=== PATIENT | male | born 1950 | race Caucasian/White ===

== ENCOUNTER 2020-01-13 12:56 | Outpatient (CLI) | payer MEDICARE, OTHER, SELFPAY ==
--- NOTE | ~2020-01-13 | XR_ITS ---
XR abdomen/kub 1V 01/13/2020 13:18 Indication: Malfunctioning peritoneal dialysis catheter Procedure: KUB Comparison: No prior studies for comparison. Findings: Bowel gas pattern is nonobstructive. Moderate colonic fecal loading. There is a peritoneal dialysis catheter in the pelvis. No definite catheter discontinuity. There is moderate-severe lumbar spondylosis. No acute osseous abnormality. Impression: 1: No acute abdominal abnormality. Reviewed, dictated and finalized at location A. Impression: 1: No acute abdominal abnormality.
== END 2020-01-13 12:57 | disposition home or self-care (01) ==
LOC: ANHIMG 13:02
PROVIDERS: PCP Internal Medicine; Visit Provider Internal Medicine Nephrology
DX: T85.691A Other mechanical complication of intraperitoneal dialysis catheter, initial encounter (principal)
CPT/HCPCS: 74018

== ENCOUNTER 2020-04-05 14:49 | Outpatient (CLI) | payer MEDICARE, OTHER, SELFPAY ==
--- NOTE | ~2020-04-05 | US_ITS ---
EXAMINATION: US retroperitoneal comp DATE: 04/05/2020 15:40 INDICATION: Chronic kidney disease stage V TECHNIQUE: Multiple grayscale and Doppler ultrasound images of the kidneys were obtained. COMPARISON: None. FINDINGS: The right kidney measures 9.9 x 5.5 x 5.6 cm. The left kidney measures 11.1 x 4.5 x 5.8 cm and contains a 1.5 cm cyst. The kidneys demonstrate increased parenchymal echogenicity. There is no h ydronephrosis. The bladder is normal. Incidental note is made of right upper quadrant ascites and cho lelithiasis. IMPRESSION: 1. Normal kidneys without hydronephrosis. 2. Incidentally noted right upper quadrant ascites and cholelithiasis. Reviewed, dictated and finalized at location A.
== END 2020-04-05 14:50 | disposition home or self-care (01) ==
PROVIDERS: PCP Internal Medicine; Visit Provider Internal Medicine Nephrology
DX: N18.6 End stage renal disease (principal)
CPT/HCPCS: 76770

== ENCOUNTER 2020-10-01 11:25 | Inpatient (IN) | payer MEDICARE, OTHER, SELFPAY ==
[2020-10-01] VITALS (22 sets, daily range): BP systolic 94–118; BP diastolic 66–90; PULSE 73–95; RESP 12–27; TEMP 36.6–36.9; O2SAT 87–100; BMI 31.0; BMI 36.1
--- NOTE | ~2020-10-01 | XR_ITS ---
EXAMINATION: XR abdomen/kub 1V DATE: 10/02/2020 17:22 INDICATION: Diabetes and renal dialysis. Possible constipation. TECHNIQUE: A supine view of the abdomen on 3 radiographs was obtained. COMPARISON: Chest radiograph dated 10/01/2020 FINDINGS: Small amount of gas and stool scattered throughout the colon. No dilated loops of gas-filled bowel to suggest obstruction. Peritoneal dialysis catheter coiled in the central pelvis. Severe lower lumbar spondylosis. Similar pattern of patchy airspace opacities. IMPRESSION: 1. Normal bowel gas pattern. 2. Unchanged patchy bilateral airspace disease consistent with pneumonia. Reviewed, dictated and finalized at location A. IER WASHER
--- NOTE | ~2020-10-01 | XR_ITS ---
XR chest 1V portable 10/01/2020 12:34 Indication: Shortness of breath and cough Procedure: AP portable chest Comparison: Comparison to multiple prior studies sequentially, with oldest reviewed study dated 11/12. Findings: There is patchy bilateral airspace disease, compatible with pneumonia. No pleural effusion or pneumothorax. No acute osseous abnormality. Impression: 1: Patchy bilateral airspace disease, compatible with pneumonia. Reviewed, dictated and finalized at location A. SANDER Impression: 1: Patchy bilateral airspace disease, compatible with pneumonia.
--- NOTE | 2020-10-01 11:39 | ECG_ITS ---
Measurements Intervals [place] Rate: 95 P: 5 OK: 169 QRS: 21 QRSD: 157 T: 5 QT: 410 QTc: 517 Interpretive Statements SINUS RHYTHM ATRIAL PREMATURE COMPLEXES RIGHT BUNDLE BRANCH BLOCK BASELINE ARTIFACT- I, II, III, AVR, AVL, AVF ABNORMAL ECG Electronically Signed On 10-01-2020 15:13:33 ADMINISTRATIVE SUPERVISOR by Willis Livingston D.O.
--- NOTE | 2020-10-01 11:59 | ED.SOB ---
HPI - SOB/Dyspnea General Chief Complaint: Shortness of Breath/Dyspnea <Essie Alvarado PA-C - Last Filed: 10/01/20 13:38> Stated Complaint: COVID symptoms <DALE Malin Last Filed: 10/01/20 13:38> Time Seen by Provider: 10/01/20 11:31 <DALE Malin Last Filed: 10/01/20 13:38> Source: patient <DALE Malin Last Filed: 10/01/20 13:38> Mode of arrival: wheelchair <DALE Malin Last Filed: 10/01/20 13:38> Limitations: no limitations <DALE Malin Last Filed: 10/01/20 13:38> History of Present Illness HPI Narrative: This is a 70 year old male that presents to the ER for generalized weakness x 1.5 weeks. Associated with cough, congestion, nausea, and loss of sense of taste/smell. Reports his son recently was diagnosed with covid. Reports he did have a rapid covid test the other day that was negative. Does report some mild shortness of breath. Reports he does peritoneal dialysis nightly, but was unable to last night as he just moved and could not find his equipment. His medical office clerk is Dr. Valdez. Denies fever, chest pain, or lower extremity edema. <DALE Malin Last Filed: 10/01/20 13:38> Related Data Home Medications: Home Medications Medication Instructions Recorded Confirmed cholecalciferol (vitamin D3) 50 2,000 unit PO DAILY 08/11/19 10/08/20 mcg (2,000 unit) tablet mirtazapine 15 mg tablet 15 mg PO QPM tablet 03/29/20 10/08/20 pravastatin 10 mg tablet 10 mg PO QPM tablet 03/29/20 10/08/20 losartan 100 mg tablet 50 mg PO DAILY tablet 07/18/20 10/08/20 tamsulosin 0.4 mg capsule 0.4 mg PO DAILY 07/18/20 10/08/20 omeprazole 20 mg PO DAILY 10/01/20 10/08/20 <DALE Malin Filed: 10/01/20 13:38> Allergies/Adverse Reactions: Allergies Allergy/AdvReac Type Severity Reaction Status Date / Time No Known Allergies Allergy Unverified 10/08/20 15:37 <Essie Alvarado PA-C - Last Filed: 10/01/20 13:38> Review of Systems Review of Systems: Narrative: CONSTITUTIONAL: Denies fever ENT: Reports congestion CARDIOVASCULAR: Denies chest pain, or edema. RESPIRATORY: Reports cough and dyspnea. GASTROINTESTINAL: Reports nausea. Denies abdominal pain, vomiting, or diarrhea. NEUROLOGIC: Reports generalized weakness. 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 He still receives eye injections in his right eye. 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
[2020-10-01 12:02] LABS: Basophils Percent Auto 0.2 % (0.2-1.2); Eosinophils Percent Auto 0.5 % (0-4.4); Hematocrit 30.6 % (42.0-52.0); Hemoglobin 10.8 g/dL (14.0-18.0); Immature Granulocyte Absolute 0.02 K/mm3 (0.00-0.031); Immature Granulocyte Percent A 0.3 % (0-0.5); Lymphocytes Absolute Auto 1.54 K/mm3 (0.9-3.2); Mean Corpuscular HGB Conc 35.3 g/dl (32-36); Mean Corpuscular Hemoglobin 29.5 pg (26-34); Mean Corpuscular Volume 83.6 fl (80-100); Mean Platelet Volume 10.4 fl (7.4-10.4); Monocytes Absolute Auto 0.5 K/mm3 (0.1-0.6); Monocytes Percent Auto 7.3 % (2.6-8.5); Neutrophils Absolute Auto 4.4 K/mm3 (1.3-6.7); Neutrophils Percent Auto 67.7 % (45.5-73.1); Platelet Count Result 255 k/mm3 (150-375); Red Blood Count 3.66 M/mm3 (4.6-6.20); Red Cell Distribution Width 14.1 % (11.5-14.5); White Blood Count 6.4 K/mm3 (4.5-10.0)
[2020-10-01 12:12] LABS: Prothrombin Time 13.8 Seconds (11.1-14.7)
[2020-10-01 12:13] LABS: Partial Thromboplastin Time 35.7 SECONDS (22.3-36.8)
--- NOTE | 2020-10-01 12:15 | PC.NURSE ---
flu swab and covid swab done at bedside. on flight dynamicist. has call light in hand. patient updated on current treatment plan. on 2L NC O2. denies needs at this time.
[2020-10-01 12:18] LABS: Alanine Aminotransferase 38 U/L (4-50); Albumin Level 3.7 g/dL (3.5-5.1); Alkaline Phosphatase 54 U/L (38-126); Anion Gap 15 mmol/L (8-16); Aspartate Amino Transferase 45 U/L (17-59); Bilirubin,Total 0.7 mg/dL (0.2-1.3); Blood Urea Nitrogen 77 mg/dL (9-20); CRP 4.6 mg/dL (<1.0); Calcium 7.8 mg/dL (8.4-10.2); Carbon Dioxide 26 mmol/L (22-30); Chloride 90 mmol/L (98-107); Estimated CRCL calculation 6 ml/min; Estimated Glomerular Filt Rate 4; Glucose 139 mg/dL (75-110); Lactate Dehydrogenase 802 U/L (313-618); Potassium 3.5 mmol/L (3.4-5.0); Sodium 131 mmol/L (137-145)
[2020-10-01 12:24] LABS: NT Pro B Type Natriuretic Pept 2770 PG/ML (5-100)
[2020-10-01] MEDS: DEXAMETHASONE SOD PHOS INJ 4 MG/ML VIAL 6 MG IV PUSH (13:10)
--- NOTE | 2020-10-01 14:25 | PC.NURSE ---
report given to RN on 3rd floor. patient will be transferred to room 300 via stretcher with youth nutritional monitor and O2.patient has clothing and his binder with his peritoneal dialysis instructions. all sent with patient.
[2020-10-01 14:34] LABS: Ferritin > 2000.00 ng/mL (11.1-264)
--- NOTE | 2020-10-01 15:19 | PM.CNNEP ---
Assessment and Plan Assessment and plan (1) End stage renal disease: Code(s): N18.6 - End stage renal disease Status: Chronic Assessment and Plan: resume CCPD tonight since extraneal PD fluid unable here at [place], will add another exchange with cycler and increase time follow electrolytes, volume status, and clearance (2) Person under investigation for COVID-19: Code(s): Z20.822 - Contact with and (suspected) exposure to COVID-19 Status: Acute Assessment and Plan: noted exposure but previous testing negative repeat testing done in ER (3) Pneumonia: Qualifiers: Laterality: bilateral Lung location: unspecified part of lung Pneumonia type: due to unspecified organism Qualified Code(s): J18.9 - Pneumonia, unspecified organism Code(s): J18.9 - Pneumonia, unspecified organism Status: Acute Assessment and Plan: bacterial versus secondary to COVID-19?? supplemental oxygen follow respiratory status (4) Hypertension: Code(s): I10 - Essential (primary) hypertension Status: Chronic Assessment and Plan: reasonable control at this time follow trend of parameters (5) Anemia: Code(s): D64.9 - Anemia, unspecified Status: Chronic Assessment and Plan: follow trend of H/H start Epogen (6) Diabetes: Code(s): E11.9 - Type 2 diabetes mellitus without complications Status: Chronic Assessment and Plan: follow accuchecks resume home medications and SSI Will continue to follow. History of Present Illness Reason for Consult Consult date: 10/01/20 Reason for consult: end stage renal disease Chief Complaint Chief complaint: Coronavirus PUI,Pneumonia,Acute Resp Failure w/hyp History of Present Illness Narrative: The patient is a 70 year old male with a past medical history as outlined below who presented to [facility] ER with complaints of generalized weakness. The patient states that the weakness started about a week and half ago and was associated with symptoms of cough, congestion, nausea, as well as loss of sense of taste/smell. Apparently, he reports that his son was recently diagnosed with COVID-19 which was concerning to him. However, he did a rapid COVID test the day before last and was reported to be negative. In spite of this, the weakness has persisted and now he has developed some mild shortness of breath as well. He gave no symptoms with regard to overt fevers, chills worsening swelling/ edema, chest pain, nausea, or vomiting. Given the persistence of the weakness and the other associated symptoms, he came to the ER for further evaluation. Workup and evaluation emergency room demonstrated the patient to be hemodynamically stable but he was noted to be hypoxic on room air. With application of supplemental oxygen, his oxygen saturations improved significantly. Routine blood test demonstrated labs consistent with his known history of end-stage renal disease with no critical electrolyte abnormalities but his chest x-ray showed evidence of pneumonia. Given his it COVID-19 exposure there was concern that his hypoxia and chest x-ray findings may be early signs/symptoms of COVID-19 pneumonia. He was swabbed for COVID-19, started on Decadron, and subsequent admitted to the hospital for further evaluation and therapy. Renal consultation was requested due to his end-stage renal disease. The patient does nightly peritoneal dialysis under care of Dr. Osiel Valdez through [facility]. He has been on dialysis for a little less than a year and has been doing reasonably well although he does require the use of extra Dinesh peritoneal dialysis fluid to achieve adequate clearance and prevent absorption of the peritoneal fluid. Yesterday evening before he presented to the emergency room he was unable to do his peritoneal dialysis treatment as he is in the process of movi
--- NOTE | 2020-10-01 15:21 | PC.NURSE ---
This patient, Zachery Gray, was admitted to [facility] Surg Room 300-01. Patient/family oriented to hospital policies and general routines including ID bracelet, bed and alarms, visiting hours, pain management, procedures, bathroom and other care routines, personal items, smoking policy, room service/diet, and visiting hours. Information on how to activate the Rapid Response Team has been discussed. Patient/Family are encouraged to report perceived risks to care and to ask questions if they do not understand what they are told or what they should do. This patient, Zachery Gray, was admitted to 3 [facility] Surg Room 300-01. Patient/family oriented to hospital policies and general routines including ID bracelet, bed and alarms, visiting hours, pain management, procedures, bathroom and other care routines, personal items, smoking policy, room service/diet, and visiting hours. Information on how to activate the Rapid Response Team has been discussed. Patient/Family are encouraged to report perceived risks to care and to ask questions if they do not understand what they are told or what they should do.
--- NOTE | 2020-10-01 17:10 | PM.IMHP ---
H&P: HPI History of Present Illness Date/Time: 10/01/20 17:10 Chief Complaint: Shortness of breath Narrative: Zachery Gray is a 70 year old male Who came to the emergency room due to generalized weakness for at least the last get a half. He has had a cough and some congestion nausea loss of sense of taste and smell. The son that lives with them recently was diagnosed with COVID. The patient did have a rapid COVID test approximately 2-3 days ago and was found to be negative. The patient has been more short of. The patient has peritoneal dialysis nightly patient was unable to do the dialysis last night because he was unable to find his equipment due to recent move. they are express clerk has been consulted. He sees Dr. Valdez. Decadron was started. Patient is outside the window for antiviral.ekg is sinus rythm. He started peritoneal dialysis on December 04, 2019. the patient is being checked for COVID-19. patient is being admitted to inpatient service on the date of service 10/01/2020. Review of Systems Review of Systems: All systems reviewed & are unremarkable except as noted in HPI and below Constitutional: Constitutional: Reports as per HPI and Reports no additional constitutional complaints Eyes: Eyes: Reports as per HPI and Reports no additional eye complaints ENT: Reports system reviewed and no additional complaints, except as documented and Reports Normal hearing present Cardiovascular: Cardiovascular: Reports no additional cardiovascular complaints Respiratory: Respiratory: Reports no additional respiratory complaints and Reports no additional respiratory complaints Gastrointestinal: Gastrointestinal: Reports as per HPI and Reports no additional gastrointestinal complaints Musculoskeletal: Musculoskeletal: Reports no additional musculoskeletal complaints Integumentary/Breasts: Skin/Breast: Reports system reviewed and no additional complaints, except as docu and Reports as per HPI Neurologic: Reports system reviewed and no additional complaints, except as documented, Reports as per HPI and Reports Normal hearing present Psychiatric: Psychiatric: Reports no additional psychiatric complaints and Reports as per HPI Endocrine: Endocrine: Reports no additional endocrine complaints Hematologic/Lymphatic: Hematologic/Lymphatic: Reports no additional hematologic/lymphatic complaints Allergic/Immunologic: Allergic/Immunologic: Reports no additional allergic/immunologic complaints [facility] Past Medical History Medical History (Updated 10/01/20 @ 17:28 by Elisha Meza NP) Back pain Complete loss of vision Dependence on renal dialysis Diabetic peripheral neuropathy Encounter for peritoneal dialysis catheter insertion March of 2020 Essential hypertension Hyperlipidemia, unspecified Hypertension Hypothyroidism, unspecified Obesity Retinopathy of left eye Type 2 diabetes mellitus with hyperglycemia Surgical History Surgical History (Updated 10/01/20 @ 17:28 by Elisha Meza NP) H/O eye surgery left eye multiple 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 The patient has 3 sons. Patient became disabled with his diabetes and his end-stage renal disease. Patient's is the durable power criminal attorney for healthcare. The patient desires to be a full code. Patient is a lifelong nonsmoker. Does not drink or use illicit drugs. Smoking status: Never smoker Alcohol intake: former Substance use: never Gender identity (if verbalized by the patient): Male Spiritual care concerns:
[2020-10-01 17:28] LABS: Glucose Point of Care 192 (65-105)
[2020-10-01 17:52] LABS: Hemoglobin A1C 10.8 % (<5.7)
[2020-10-01] MEDS: PRAVASTATIN SODIUM 10 MG TABLET PO (18:26)
[2020-10-01] MEDS: MIRTAZAPINE 15 MG TABLET PO (18:27)
[2020-10-01] MEDS: FUROSEMIDE 80 MG TABLET PO (18:27)
[2020-10-01 21:42] LABS: Glucose Point of Care 292 (65-105)
[2020-10-01 21:50] LABS: SARS-CoV-2 RNA PCR Positive
[2020-10-02] VITALS (8 sets, daily range): BP systolic 104–178; BP diastolic 55–89; PULSE 71–88; RESP 16–20; TEMP 36.2–37.1; O2SAT 89–93
--- NOTE | 2020-10-02 01:30 | PC.NURSE ---
0015.. This RN responded to room for peritoneal dialysis in patients room sounding an alarm. LOW DRAIN VOLUME . Call made to director of operations support dialysis nurse, Jaiden. Jaiden stated that this RN should call TERE Stoddard for assisted. Number provided straight to voicemail. Called Jaiden back and requested her to come in to assist. 0100.. rafael Hwang RN at bedside troubleshooting machine. Unable to stop error. Machine stated drain 2 of 4 complete. TERE Hwang informs this RN that she is removing patient from dialysis at this time due to not being able to stop error. Patient resting comfortably, no c/o pain or shortness of breath.
[2020-10-02 06:33] LABS: Hematocrit 26.9 % (42.0-52.0); Hemoglobin 9.4 g/dL (14.0-18.0); Immature Granulocyte Absolute 0.01 K/mm3 (0.00-0.031); Immature Granulocyte Percent A 0.6 % (0-0.5); Lymphocytes Absolute Auto 0.69 K/mm3 (0.9-3.2); Lymphocytes Percent Auto 38.5 % (18.3-44.2); Mean Corpuscular HGB Conc 34.9 g/dl (32-36); Mean Corpuscular Hemoglobin 28.7 pg (26-34); Mean Platelet Volume 10.9 fl (7.4-10.4); Monocytes Absolute Auto 0.2 K/mm3 (0.1-0.6); Monocytes Percent Auto 8.4 % (2.6-8.5); Neutrophils Absolute Auto 0.9 K/mm3 (1.3-6.7); Neutrophils Percent Auto 52.5 % (45.5-73.1); Platelet Count Result 248 k/mm3 (150-375); Red Blood Count 3.28 M/mm3 (4.6-6.20); Red Cell Distribution Width 13.8 % (11.5-14.5)
[2020-10-02 06:36] LABS: White Blood Count 1.8 K/mm3 (4.5-10.0)
[2020-10-02 06:48] LABS: Alanine Aminotransferase 31 U/L (4-50); Alkaline Phosphatase 48 U/L (38-126); Anion Gap 13 mmol/L (8-16); Aspartate Amino Transferase 33 U/L (17-59); Bilirubin,Total 0.6 mg/dL (0.2-1.3); Blood Urea Nitrogen 87 mg/dL (9-20); Calcium 7.5 mg/dL (8.4-10.2); Carbon Dioxide 25 mmol/L (22-30); Chloride 88 mmol/L (98-107); Estimated CRCL calculation 6 ml/min; Estimated Glomerular Filt Rate 4; Glucose 414 mg/dL (75-110); Lipase 69 U/L (23-300); Magnesium 1.8 mg/dL (1.6-2.3); Potassium 3.8 mmol/L (3.4-5.0); Sodium 126 mmol/L (137-145)
[2020-10-02 08:14] LABS: Thyroid Stimulating Hormone Reflex 0.603 uIU/mL (0.465-4.68)
[2020-10-02 08:23] LABS: Glucose Point of Care 404 (65-105)
[2020-10-02] MEDS: INSULIN ASPART (*BKC) 100 UNITS/ML SUB-Q ×2 (08:31→18:02)
[2020-10-02] MEDS: FUROSEMIDE 80 MG TABLET PO (08:34)
[2020-10-02] MEDS: LEVOTHYROXINE SODIUM 50 MCG TABLET PO (08:35)
[2020-10-02] MEDS: TAMSULOSIN HCL 0.4 MG CAPSULE PO (08:35)
[2020-10-02] MEDS: PANTOPRAZOLE 40 MG TABLET PO (08:35)
[2020-10-02] MEDS: LOSARTAN POTASSIUM 50 MG TABLET PO (08:35)
[2020-10-02] MEDS: DEXAMETHASONE SOD PHOS INJ 4 MG/ML VIAL 6 MG IV PUSH (08:35)
[2020-10-02] MEDS: INSULIN HUMAN ISOPHAN/REGULAR 70/30 (*BKC) 100 UNITS/ML 30 UNITS SUB-Q (08:47)
--- NOTE | 2020-10-02 11:59 | PM.PNNEP ---
Progress Note: A&P Assessment and Plan (1) End stage renal disease: Code(s): N18.6 - End stage renal disease Status: Chronic Assessment and Plan: continue CCPD tonight since extraneal PD fluid unable here at [place], will add another exchange with cycler and increase time follow electrolytes, volume status, and clearance (2) Pneumonia due to COVID-19 virus: Code(s): U07.1 - COVID-19; J12.82 - Pneumonia due to coronavirus disease 2019 Status: Acute Assessment and Plan: testing positive on steroids outside window for remdesivir and convalescent plasma supplemental oxygen follow inflammatory markers (3) Hypertension: Code(s): I10 - Essential (primary) hypertension Status: Chronic Assessment and Plan: reasonable control at this time follow trend of parameters (4) Anemia: Code(s): D64.9 - Anemia, unspecified Status: Chronic Assessment and Plan: follow trend of H/H start Epogen therapy (5) Diabetes: Code(s): E11.9 - Type 2 diabetes mellitus without complications Status: Chronic Assessment and Plan: follow accuchecks resume home medications and SSI Will continue to follow. Subjective Date/time seen: 10/02/20 11:59 Tolerated PD treatment last night although has some low UF alarms -- respiratory status seems stable; no apparent distress voiced at the time of my visit; no other acute issues or complaints to report. Exam Narrative: Exam Narrative: General: WD/WN male in NAD Heart: normal S1 and S2; no rub Lungs: coarse breath sounds Abdomen: soft, nontender, nondistended, positive bowel sounds Extremities: no cyanosis or clubbing; trace edema Skin: warm and dry Objective Data Vital Signs Vital Signs: Vital Signs Temp Pulse Resp BP Pulse Ox 10/02/20 08:00 36.3 C L 75 18 120/66 89 L 10/02/20 04:00 36.2 C L 81 16 116/86 90 10/02/20 02:30 36.5 C 88 20 114/81 10/02/20 00:00 36.5 C 85 20 114/81 93 10/01/20 20:00 36.6 C 88 20 114/74 91 10/01/20 17:45 36.9 C 89 20 110/66 10/01/20 16:30 89 20 97 10/01/20 16:00 36.9 C 89 20 110/66 97 Intake/Output Intake/Output: Intake & Output 09/29/20 09/30/20 10/01/20 10/02/20 23:59 23:59 23:59 23:59 Intake Total 300 600 Output Total 359 Balance 300 241 Meds/Results Medications: Active Medications Generic Name Dose Route Start Last Admin Trade Name Freq PRN Reason Stop Dose Admin Acetaminophen 650 mg 10/02/20 13:19 Acetaminophen 325 Mg Tablet PO Q6H PRN Mild Pain (1-3) or Fever Albuterol 2 puff 10/02/20 13:19 Albuterol Sulfate (*Sp) Aerosol 1 Puff INHALATION Q6HRT PRN Shortness Of Breath Dexamethasone Sodium Phosphate 6 mg 10/02/20 09:00 10/02/20 08:35 Dexamethasone Sod Phos Inj 4 Mg/Ml Vial IV PUSH 10/11/20 09:01 6 mg DAILY SUKH Administration Dextrose 12.5 gm 10/01/20 17:25 Dextrose 50% 25 Gm/50 Ml Syringe IV PUSH PRN PRN Hypoglycemia Protocol Furosemide 80 mg 10/01/20 17:00 10/02/20 08:34 Furosemide 80 Mg Tablet PO 80 mg BID SUKH Administration Glucagon 1 mg 10/01/20 17:25 Glucagon For Inj 1 Mg Vial IM PRN PRN Hypoglycemia Protocol Glucose 15 gm 10/01/20 17:25 Glucose Oral Gel 15 Gm Of Glucse In 37.5 Gm Tube PO PRN PRN Hypoglycemia Protocol Guaifenesin/Dextromethorphan 10 ml 10/02/20 13:06 Guaifenesin/Dextromethorphan 10 Ml Udc PO Q4H PRN Cough Dextrose 1,000 mls @ 100 mls/hr 10/01/20 17:25 Dextrose 5% 1,000 Ml IVPB PRN PRN Hypoglycemia Protocol Insulin Aspart 4 - 8 units 10/02/20 17:00 Insulin Aspart (*Bkc) 100 Units/Ml SUB-Q TIDWM SUKH Protocol Insulin Human Isoph/Insulin Regular 40 units 10/02/20 17:00 Insulin Human Isophan/Regular 70/30 (*Bkc) 100 Units/Ml SUB-Q BID SUKH Levothyroxine Sodium
[2020-10-02] MEDS: INSULIN ASPART (*BKC) 100 UNITS/ML 12 UNITS SUB-Q (12:21)
[2020-10-02] MEDS: CHOLECALCIFEROL 1,000 UNITS TABLET 2000 UNITS PO (12:23)
[2020-10-02] MEDS: INSULIN ASPART (*BKC) 100 UNITS/ML 8 UNITS SUB-Q (12:36)
[2020-10-02 12:40] LABS: Glucose Point of Care 477 (65-105)
--- NOTE | 2020-10-02 12:55 | PM.IMPN ---
Progress Note: A&P Assessment and Plan (1) Pneumonia due to COVID-19 virus: Code(s): U07.1 - COVID-19; J12.82 - Pneumonia due to coronavirus disease 2019 Status: Acute Assessment and Plan: CXR suggestive of pneumonia. symptoms started roughly 1.5 weeks prior to admission. Started on decadron on arrival; outside window for remdesivir Continue IV decadron day #2 Continue supportive care; robitussin, tylenol, albuterol PRN Supplemental O2; wean as tolerated. Consider Home O2 eval if no improvement Monitor closely (2) Acute respiratory failure with hypoxia: Code(s): J96.01 - Acute respiratory failure with hypoxia Status: Acute Assessment and Plan: Fluid overload vs 2/2 COVID pneumonia although patient still requiring 2L O2 via NC. The patient missed his peritoneal dialysis prior to arrival, but resumed here in hospital on 10/01. COVID test is positive; he has been started on IV decadron - he is outside window for Remdesivir. CXR suggests pneumonia. Clinically patient is about the same as yesterday Wean O2 as tolerated Continue treatment for COVID pneumonia as above Continue peritoneal dialysis; appreciate Nephrology recommendations Monitor (3) ESRD on peritoneal dialysis: Code(s): N18.6 - End stage renal disease; Z99.2 - Dependence on renal dialysis Status: Acute Assessment and Plan: Patient missed dialysis prior to arrival; resumed 10/01. According to the notes the patient recently moved and cannot find his dialysis equipment. Patient states he has not been making any urine for some time now. He does daily peritoneal dialysis Dr. Wilkinson has been consulted and appreciate recommendations Continue Nephrology recommendations Lasix has been held given he is anuric Monitor Await further rec from Neprhology (4) Type 2 diabetes mellitus with hyperglycemia: Code(s): E11.65 - Type 2 diabetes mellitus with hyperglycemia Status: Acute Assessment and Plan: Poorly controlled. A1c 10.8% this stay; similar to last Endo visit in 07/2020. Patient has been running in 400s, likely secondary to peritoneal dialysis fluid and steroid therapy. No anion gap this morning to suggest DKA. Patient asymptomatic. He notes his sugar frequently drifts into the 400s at home, as well. Follows Endocrinology Will do 40 u BID of his home 70/30 mix BID Accuchecks ACHS, hypoglycemia protocol, high dose correctional insulin, diabetic/renal diet Monitor closely Adjust insulin as necessary (5) Hypothyroidism, unspecified: Code(s): E03.9 - Hypothyroidism, unspecified Status: Chronic Assessment and Plan: TSH WNL Continue with home levothyroxine (6) Hypertension: Code(s): I10 - Essential (primary) hypertension Status: Acute Assessment and Plan: BP reasonable, but a bit soft. 100s sys most recently Continue with home losartan (7) Hyperlipidemia, unspecified: Code(s): E78.5 - Hyperlipidemia, unspecified Status: Acute Assessment and Plan: Continue with pravastatin. Subjective Date/time seen: 10/02/20 12:55 Interval history: Patient is a 70 yo M with history of poorly controlled DMII, ESRD on peritoneal dialysis, HTN, and hypothyroidism who is seen in follow up for COVID pneumonia with acute respiratory failure with hypoxia. He states his symptoms started 1.5 weeks ago. He is minimally short of breath when he is not up and active. His cough is about the same; dry. No issues with peritoneal catheter. He states he is not making any urine for some time now. No other complaints. Denies f/c/s,headaches, dizziness, lightheadedness, cp/palpitations, n/v/d/c, abd pain, changes in
[2020-10-02 13:40] LABS: Glucose Point of Care 445 (65-105)
[2020-10-02] MEDS: INSULIN ASPART (*BKC) 100 UNITS/ML 20 UNITS SUB-Q (13:52)
[2020-10-02 17:33] LABS: Glucose Point of Care 258 (65-105)
[2020-10-02] MEDS: INSULIN HUMAN ISOPHAN/REGULAR 70/30 (*BKC) 100 UNITS/ML 40 UNITS SUB-Q (18:00)
[2020-10-02] MEDS: LACTULOSE 20 GM/30 ML UDC PO (18:04)
[2020-10-02] MEDS: MIRTAZAPINE 15 MG TABLET PO (18:04)
[2020-10-02] MEDS: PRAVASTATIN SODIUM 10 MG TABLET PO (18:04)
[2020-10-02] MEDS: guaiFENesin/DEXTROMETHORPHAN 10 ML UDC PO (18:11)
[2020-10-02 21:28] LABS: Glucose Point of Care 208 (65-105)
[2020-10-03] VITALS (9 sets, daily range): BP systolic 99–134; BP diastolic 59–97; PULSE 67–120; RESP 16–20; TEMP 36.2–36.7; O2SAT 95–100
[2020-10-03] MEDS: LEVOTHYROXINE SODIUM 50 MCG TABLET PO (05:40)
[2020-10-03 06:23] LABS: Hematocrit 27.1 % (42.0-52.0); Hemoglobin 9.6 g/dL (14.0-18.0); Immature Granulocyte Absolute 0.02 K/mm3 (0.00-0.031); Immature Granulocyte Percent A 0.3 % (0-0.5); Lymphocytes Absolute Auto 0.78 K/mm3 (0.9-3.2); Lymphocytes Percent Auto 10.4 % (18.3-44.2); Mean Corpuscular HGB Conc 35.4 g/dl (32-36); Mean Corpuscular Hemoglobin 28.5 pg (26-34); Mean Corpuscular Volume 80.4 fl (80-100); Mean Platelet Volume 10.3 fl (7.4-10.4); Monocytes Absolute Auto 0.4 K/mm3 (0.1-0.6); Monocytes Percent Auto 5.9 % (2.6-8.5); Neutrophils Absolute Auto 6.3 K/mm3 (1.3-6.7); Neutrophils Percent Auto 83.4 % (45.5-73.1); Platelet Count Result 266 k/mm3 (150-375); Red Blood Count 3.37 M/mm3 (4.6-6.20); Red Cell Distribution Width 13.7 % (11.5-14.5); White Blood Count 7.5 K/mm3 (4.5-10.0)
[2020-10-03 06:40] LABS: Alanine Aminotransferase 33 U/L (4-50); Alkaline Phosphatase 48 U/L (38-126); Anion Gap 14 mmol/L (8-16); Aspartate Amino Transferase 37 U/L (17-59); Bilirubin,Total 0.5 mg/dL (0.2-1.3); Blood Urea Nitrogen 102 mg/dL (9-20); CRP 2.6 mg/dL (<1.0); Calcium 7.5 mg/dL (8.4-10.2); Carbon Dioxide 24 mmol/L (22-30); Chloride 90 mmol/L (98-107); Estimated CRCL calculation 6 ml/min; Estimated Glomerular Filt Rate 4; Glucose 182 mg/dL (75-110); Lactate Dehydrogenase 620 U/L (313-618); Potassium 3.5 mmol/L (3.4-5.0); Sodium 128 mmol/L (137-145)
[2020-10-03 07:59] LABS: Ferritin > 2000.00 ng/mL (11.1-264)
[2020-10-03] MEDS: DEXAMETHASONE SOD PHOS INJ 4 MG/ML VIAL 6 MG IV PUSH (09:07)
[2020-10-03] MEDS: INSULIN HUMAN ISOPHAN/REGULAR 70/30 (*BKC) 100 UNITS/ML 40 UNITS SUB-Q ×2 (09:08→16:55)
[2020-10-03] MEDS: LACTULOSE 20 GM/30 ML UDC PO ×2 (09:08→16:52)
[2020-10-03] MEDS: guaiFENesin/DEXTROMETHORPHAN 10 ML UDC PO (09:08)
[2020-10-03] MEDS: polyethylene glycoL 3350 17 GM POWD.PACK PO (09:09)
[2020-10-03] MEDS: CHOLECALCIFEROL 1,000 UNITS TABLET 2000 UNITS PO (09:10)
[2020-10-03] MEDS: LOSARTAN POTASSIUM 50 MG TABLET PO (09:10)
[2020-10-03] MEDS: PANTOPRAZOLE 40 MG TABLET PO (09:10)
[2020-10-03] MEDS: TAMSULOSIN HCL 0.4 MG CAPSULE PO (09:10)
[2020-10-03 09:56] LABS: Glucose Point of Care 176 (65-105)
--- NOTE | 2020-10-03 12:38 | PM.IMPN ---
Progress Note: A&P Assessment and Plan (1) Pneumonia due to COVID-19 virus: Code(s): U07.1 - COVID-19; J12.82 - Pneumonia due to coronavirus disease 2018 Status: Acute Assessment and Plan: CXR suggestive of pneumonia. symptoms started roughly 1.5 weeks prior to admission. Started on decadron on arrival; outside window for remdesivir Continue IV Decadron day #3 Continue supportive care; Robitussin, Tylenol, albuterol PRN Supplemental O2; wean as tolerated. Consider Home O2 eval if no improvement Monitor closely (2) Acute respiratory failure with hypoxia: Code(s): J96.01 - Acute respiratory failure with hypoxia Status: Acute Assessment and Plan: Fluid overload vs 2/2 COVID pneumonia or combination there of; patient still requiring 2L O2 via NC. The patient missed his peritoneal dialysis prior to arrival, but resumed here in hospital on 10/01; patient tells me that he has not had a full treatment the past 2 nights due to issues with the catheter/machine. COVID test is positive; he has been started on IV Decadron - he is outside window for Remdesivir. CXR suggests pneumonia. Clinically patient is about the same as yesterday Wean O2 as tolerated Continue treatment for COVID pneumonia as above Continue peritoneal dialysis; appreciate Nephrology recommendations Monitor (3) ESRD on peritoneal dialysis: Code(s): N18.6 - End stage renal disease; Z99.2 - Dependence on renal dialysis Status: Acute Assessment and Plan: Patient missed dialysis prior to arrival; resumed 10/01 patient tells me that he has not had a full treatment the past 2 nights due to issues with the catheter/machine. According to the notes the patient recently moved and cannot find his dialysis equipment at home. Patient now says he does typically make urine, but has not done so in the past couple of days; bladder scan today showed 80 ccs. Elvisix originally held made it seem as he had not urinated in several weeks-months, which is not the case; this has been resumed. He does daily peritoneal dialysis Dr. Valdez has been consulted and appreciate recommendations Continue Nephrology recommendations Oumar resumed Laxatives ordered per Nephrology due to issues with his peritoneal dialysis the past couple of nights Monitor Await further rec from Nephrology (4) Type 2 diabetes mellitus with hyperglycemia: Code(s): E11.65 - Type 2 diabetes mellitus with hyperglycemia Status: Acute Assessment and Plan: Poorly controlled. A1c 10.8% this stay; similar to last Endo visit in 07/2020. Patient sugars are labile this stay and have been elevated in the 400s likely secondary to peritoneal dialysis fluid and steroid therapy. No anion gap this morning to suggest DKA. Patient asymptomatic. He notes his sugar frequently drifts into the 400s at home, as well. Follows Endocrinology Will do 40 u BID of his home 70/30 mix BID Accuchecks ACHS, hypoglycemia protocol, high dose correctional insulin, diabetic/renal diet Monitor closely Adjust insulin as necessary; consider adding meal time bolus on top of correctional insulin (5) Hypothyroidism, unspecified: Code(s): E03.9 - Hypothyroidism, unspecified Status: Chronic Assessment and Plan: TSH WNL Continue with home levothyroxine (6) Hypertension: Code(s): I10 - Essential (primary) hypertension Status: Chronic Assessment and Plan: BP reasonable, but a bit soft. 110s sys most recently Continue with home losartan (7) Hyperlipidemia, unspecified: Code(s): E78.5 - Hyperlipidemia, unspecified Status: Acute Assessment and Plan: Continue with pravastatin. [facility]
[2020-10-03] MEDS: INSULIN ASPART (*BKC) 100 UNITS/ML SUB-Q (12:39)
[2020-10-03] MEDS: EPOETIN ALFA-EPBX 10,000 UNITS/ML VIAL 10000 UNITS SUB-Q (12:40)
[2020-10-03 13:05] LABS: Glucose Point of Care 315 (65-105)
--- NOTE | 2020-10-03 15:30 | PM.PNNEP ---
Progress Note: A&P Assessment and Plan (1) End stage renal disease: Code(s): N18.6 - End stage renal disease Status: Chronic Assessment and Plan: continue CCPD tonight Catheter did not work well yesterday but should work tonight since he had bowel movements. He has had constipation induced catheter malfunction in the past. (2) Pneumonia due to COVID-19 virus: Code(s): U07.1 - COVID-19; J12.82 - Pneumonia due to coronavirus disease 2018 Status: Acute Assessment and Plan: testing positive on steroids outside window for remdesivir and convalescent plasma supplemental oxygen follow inflammatory markers (3) Hypertension: Code(s): I10 - Essential (primary) hypertension Status: Chronic Assessment and Plan: reasonable control at this time follow trend of parameters (4) Anemia: Code(s): D64.9 - Anemia, unspecified Status: Chronic Assessment and Plan: follow trend of H/H On Epogen. (5) Diabetes: Code(s): E11.9 - Type 2 diabetes mellitus without complications Status: Chronic Assessment and Plan: follow accuchecks resume home medications and SSI Subjective Date/time seen: 10/03/20 15:30 Interval history: On dialysis and tolerating it well. Seen at 3:00 p.m. The catheter did not work very well last night. He received some MiraLax and lactulose this morning and he has had 2 large bowel movements. Hopefully it will work better tonight. Exam Narrative: Exam Narrative: General: WD/WN male in NAD Heart: normal S1 and S2; no rub Lungs: coarse breath sounds Abdomen: soft, nontender, nondistended, positive bowel sounds Extremities: no cyanosis or clubbing; trace edema Skin: No rash Objective Data Vital Signs Vital Signs: Vital Signs - 24 hr 10/02/20 16:00 10/02/20 20:00 10/02/20 20:40 Temperature 36.3 C L 37.1 C 36.3 C L Pulse Rate 72 82 72 Respiratory Rate 16 20 16 Blood Pressure 107/59 L 178/89 H 107/59 L Pulse Oximetry 91 91 10/03/20 00:00 10/03/20 03:25 10/03/20 04:00 Temperature 36.5 C 36.5 C 36.7 C Pulse Rate 106 H 106 H 120 H Respiratory Rate 20 20 18 Blood Pressure 99/59 L 99/59 L 111/65 Pulse Oximetry 95 95 10/03/20 08:00 10/03/20 12:00 Temperature 36.5 C 36.5 C Pulse Rate 67 67 Respiratory Rate 16 16 Blood Pressure 113/68 121/89 Pulse Oximetry 96 98 Intake/Output Intake/Output: Intake & Output 09/30/20 10/01/20 10/02/20 10/03/20 23:59 23:59 23:59 23:59 Intake Total 300 1350 980 Output Total 359 -94 Balance 099 707 5029 Meds/Results Medications: Active Medications Generic Name Dose Route Start Last Admin Trade Name Freq PRN Reason Stop Dose Admin Acetaminophen 650 mg 10/02/20 13:19 Acetaminophen 325 Mg Tablet PO Q6H PRN Mild Pain (1-3) or Fever Albuterol 2 puff 10/02/20 13:19 Albuterol Sulfate (*Sp) Aerosol 1 Puff INHALATION Q6HRT PRN Shortness Of Breath Dexamethasone Sodium Phosphate 6 mg 10/02/20 09:00 10/03/20 09:07 Dexamethasone Sod Phos Inj 4 Mg/Ml Vial IV PUSH 10/11/20 09:01 6 mg DAILY SUKH Administration Dextrose 12.5 gm 10/01/20 17:25 Dextrose 50% 25 Gm/50 Ml Syringe IV PUSH PRN PRN Hypoglycemia Protocol Epoetin Julian-epbx 10,000 units 10/03/20 09:00 Epoetin Julian-Epbx 10,000 Units/Ml Vial SUB-Q MOWEFR SUKH Furosemide 80 mg 10/01/20 17:00 10/02/20 08:34 Furosemide 80 Mg Tablet PO 80 mg BID SUKH Administration Glucagon 1 mg 10/01/20 17:25 Glucagon For Inj 1 Mg Vial IM PRN PRN Hypoglycemia Protocol Glucose 15 gm 10/01/20 17:25 Glucose Oral Gel 15 Gm Of Glucse In 37.5 Gm Tube PO PRN PRN Hypoglycemia Protocol Guaifenesin/Dextromethorphan 10 ml 10/02/20 13:06 10/03/20 09:08 Guaifenesin/Dextromethorphan 10 Ml Udc PO 10 ml Q4H PRN Administration Cough Dextrose 1,000 mls @ 100 mls/hr 10/01
[2020-10-03] MEDS: PRAVASTATIN SODIUM 10 MG TABLET PO (16:52)
[2020-10-03] MEDS: FUROSEMIDE 80 MG TABLET PO (16:52)
[2020-10-03] MEDS: MIRTAZAPINE 15 MG TABLET PO (16:52)
[2020-10-03 17:31] LABS: Glucose Point of Care 411 (65-105)
[2020-10-03] MEDS: INSULIN ASPART (*BKC) 100 UNITS/ML 20 UNITS SUB-Q (18:20)
[2020-10-03 21:55] LABS: Glucose Point of Care 278 (65-105)
--- NOTE | 2020-10-03 23:37 | PC.NURSE ---
2230 Dialysis machine showing error check heat line . Call made to central sterilization technician nozzle worker. Intrusted by RN to check for air or kinks in the lines to heated bag. No kinks or air noted by this RN. 2300 TERE Denise stated she would come in to trouble shoot machine. Patient made aware.
[2020-10-04] VITALS (10 sets, daily range): BP systolic 72–129; BP diastolic 50–93; PULSE 53–129; RESP 18–20; TEMP 36.2–36.4; O2SAT 94–99
--- NOTE | 2020-10-04 03:33 | PC.NURSE ---
0330 This RN responded to room, dialysis machine reading error- low drain volume . Repositioned patient, rolled side to side, pulled up in bed, and head of bed raised. Error still showing. Call made to public relations account supervisor drywall finisherJESSICA. Jessica instructed this RN to stop the dialysis machine and wait for new drywall finisher in the morning.
[2020-10-04] MEDS: LEVOTHYROXINE SODIUM 50 MCG TABLET PO (06:12)
[2020-10-04 06:20] LABS: Basophils Percent Auto 0.1 % (0.2-1.2); Hemoglobin 9.2 g/dL (14.0-18.0); Immature Granulocyte Absolute 0.04 K/mm3 (0.00-0.031); Immature Granulocyte Percent A 0.4 % (0-0.5); Lymphocytes Absolute Auto 0.79 K/mm3 (0.9-3.2); Lymphocytes Percent Auto 8.6 % (18.3-44.2); Mean Corpuscular HGB Conc 35.4 g/dl (32-36); Mean Corpuscular Hemoglobin 28.4 pg (26-34); Mean Corpuscular Volume 80.2 fl (80-100); Mean Platelet Volume 10.6 fl (7.4-10.4); Monocytes Absolute Auto 0.6 K/mm3 (0.1-0.6); Neutrophils Absolute Auto 7.8 K/mm3 (1.3-6.7); Neutrophils Percent Auto 84.9 % (45.5-73.1); Platelet Count Result 278 k/mm3 (150-375); Red Blood Count 3.24 M/mm3 (4.6-6.20); Red Cell Distribution Width 13.7 % (11.5-14.5); White Blood Count 9.2 K/mm3 (4.5-10.0)
[2020-10-04 06:45] LABS: Alanine Aminotransferase 36 U/L (4-50); Albumin Level 2.9 g/dL (3.5-5.1); Alkaline Phosphatase 51 U/L (38-126); Anion Gap 13 mmol/L (8-16); Aspartate Amino Transferase 35 U/L (17-59); Bilirubin,Total 0.4 mg/dL (0.2-1.3); Blood Urea Nitrogen 108 mg/dL (9-20); Calcium 7.7 mg/dL (8.4-10.2); Carbon Dioxide 26 mmol/L (22-30); Chloride 90 mmol/L (98-107); Estimated CRCL calculation 6 ml/min; Estimated Glomerular Filt Rate 4; Glucose 182 mg/dL (75-110); Phosphorus 9.1 mg/dL (2.5-4.5); Potassium 3.4 mmol/L (3.4-5.0); Sodium 129 mmol/L (137-145)
[2020-10-04 07:19] LABS: Hepatitis B Surface Antigen Negative (Negative)
[2020-10-04 07:39] LABS: Hepatitis B Surface Anti Res Positive
[2020-10-04] MEDS: INSULIN ASPART (*BKC) 100 UNITS/ML 6 UNITS SUB-Q ×4 (08:30→22:56)
[2020-10-04] MEDS: CHOLECALCIFEROL 1,000 UNITS TABLET 2000 UNITS PO (08:31)
[2020-10-04] MEDS: DEXAMETHASONE SOD PHOS INJ 4 MG/ML VIAL 6 MG IV PUSH (08:31)
[2020-10-04] MEDS: FUROSEMIDE 80 MG TABLET PO ×2 (08:32→17:52)
[2020-10-04] MEDS: LOSARTAN POTASSIUM 50 MG TABLET PO (08:32)
[2020-10-04] MEDS: polyethylene glycoL 3350 17 GM POWD.PACK PO (08:32)
[2020-10-04] MEDS: PANTOPRAZOLE 40 MG TABLET PO (08:32)
[2020-10-04] MEDS: TAMSULOSIN HCL 0.4 MG CAPSULE PO (08:33)
[2020-10-04] MEDS: INSULIN HUMAN ISOPHAN/REGULAR 70/30 (*BKC) 100 UNITS/ML 40 UNITS SUB-Q ×2 (08:37→17:52)
--- NOTE | 2020-10-04 11:06 | PM.PNNEP ---
Progress Note: A&P Assessment and Plan (1) End stage renal disease: Code(s): N18.6 - End stage renal disease Status: Chronic Assessment and Plan: continue CCPD today for short treatment and then tonight Catheter did not work well yesterday but should work tonight since he had bowel movements. He has had constipation induced catheter malfunction in the past. (2) Pneumonia due to COVID-19 virus: Code(s): U07.1 - COVID-19; J12.82 - Pneumonia due to coronavirus disease 2018 Status: Acute Assessment and Plan: testing positive on steroids outside window for remdesivir and convalescent plasma supplemental oxygen. On 2L right now. He was on 4 yesterday. (3) Hypertension: Code(s): I10 - Essential (primary) hypertension Status: Chronic Assessment and Plan: Blood pressure a bit low right now. Will hold the losartan. (4) Anemia: Code(s): D64.9 - Anemia, unspecified Status: Chronic Assessment and Plan: follow trend of H/H On Epogen. (5) Diabetes: Code(s): E11.9 - Type 2 diabetes mellitus without complications Status: Chronic Assessment and Plan: follow accuchecks resume home medications and SSI Subjective Date/time seen: 10/04/20 11:06 Interval history: On dialysis and tolerating it well. Seen at 8:30 a.m. The catheter did not work very well last night again. No trouble shooting done, machine just turned off. I discussed the dialysis with nursing this morning. We are going to adjust the orders. If this does not work will need to do x-rays. Patient is not short of breath. He is on 2L of oxygen now. Exam Narrative: Exam Narrative: General: WD/WN male in NAD Heart: normal S1 and S2; no rub Lungs: coarse breath sounds Abdomen: soft, nontender, nondistended, positive bowel sounds Extremities: no cyanosis or clubbing; trace edema Skin: No rash Or subcu nodules Objective Data Vital Signs Vital Signs: Vital Signs - 24 hr 10/03/20 12:00 10/03/20 16:00 10/03/20 16:18 Temperature 36.5 C 36.2 C L Pulse Rate 67 100 Respiratory Rate 16 18 Blood Pressure 121/89 118/97 H Pulse Oximetry 98 97 95 10/03/20 17:30 10/03/20 20:00 10/04/20 00:00 Temperature 36.6 C 36.3 C L Pulse Rate 105 H 64 Respiratory Rate 20 20 Blood Pressure 134/82 103/60 106/51 L Pulse Oximetry 100 99 10/04/20 01:00 10/04/20 04:00 10/04/20 08:00 Temperature 36.3 C L 36.2 C L Pulse Rate 53 L 129 H Respiratory Rate 18 20 Blood Pressure 129/76 91/69 L Pulse Oximetry 95 94 99 Intake/Output Intake/Output: Intake & Output 10/01/20 10/02/20 10/03/20 10/04/20 23:59 23:59 23:59 23:59 Intake Total 300 1350 1650 290 Output Total 359 306 300 Balance 789 997 3945 -10 Meds/Results Medications: Active Medications Generic Name Dose Route Start Last Admin Trade Name Freq PRN Reason Stop Dose Admin Acetaminophen 650 mg 10/02/20 13:19 Acetaminophen 325 Mg Tablet PO Q6H PRN Mild Pain (1-3) or Fever Albuterol 2 puff 10/02/20 13:19 Albuterol Sulfate (*Sp) Aerosol 1 Puff INHALATION Q6HRT PRN Shortness Of Breath Dexamethasone Sodium Phosphate 6 mg 10/02/20 09:00 10/04/20 08:31 Dexamethasone Sod Phos Inj 4 Mg/Ml Vial IV PUSH 10/11/20 09:01 6 mg DAILY SUKH Administration Dextrose 12.5 gm 10/01/20 17:25 Dextrose 50% 25 Gm/50 Ml Syringe IV PUSH PRN PRN Hypoglycemia Protocol Epoetin Julian-epbx 10,000 units 10/03/20 09:00 10/03/20 12:40 Epoetin Jluian-Epbx 10,000 Units/Ml Vial SUB-Q 10,000 units MOWEFR SUKH Administration Furosemide 80 mg 10/01/20 17:00 10/04/20 08:32 Furosemide 80 Mg Tablet PO 80 mg BID SUKH Administration Glucagon 1 mg 10/01/20 17:25 Glucagon For Inj 1 Mg Vial IM PRN PRN Hypoglycemia Protocol Glucose 15 gm 10/01/20 17:25 Glucose Oral Gel 15 Gm Of Glucse In 37.5 Gm Tube PO
--- NOTE | 2020-10-04 11:17 | PC.NURSE ---
[facility] here going to hook pt up to PD, states he will get a treatment today and another tonight, also informed that pt does not have rn burn at home. and recently moved so unsure if pt has been doing treatment at home.
[2020-10-04 11:36] LABS: Glucose Point of Care 165 (65-105)
[2020-10-04 12:38] LABS: Glucose Point of Care 158 (65-105)
--- NOTE | 2020-10-04 14:21 | PCPTNOTE ---
PT attempted to see patient 3x today however patient receiving bedside peritoneal dialysis. PT will continue to follow per plan of care.
--- NOTE | 2020-10-04 14:53 | PM.IMPN ---
Progress Note: A&P Assessment and Plan (1) Pneumonia due to COVID-19 virus: Code(s): U07.1 - COVID-19; J12.82 - Pneumonia due to coronavirus disease 2018 Status: Acute Assessment and Plan: CXR suggestive of pneumonia. symptoms started roughly 1.5 weeks prior to admission. Started on decadron on arrival; outside window for remdesivir Continue IV Decadron day #4 Currently patient is on 1 L via nasal cannula. Continue supportive care; Robitussin, Tylenol, albuterol PRN Supplemental O2; wean as tolerated. Consider Home O2 eval if no improvement Monitor closely (2) Acute respiratory failure with hypoxia: Code(s): J96.01 - Acute respiratory failure with hypoxia Status: Acute Assessment and Plan: Fluid overload vs 2/2 COVID pneumonia or combination there of; patient still requiring 1L O2 via NC. The patient missed his peritoneal dialysis prior to arrival, but resumed here in hospital on 10/01; patient tells me that he has not had a full treatment the past 2 nights due to issues with the catheter/machine. COVID test is positive; he has been started on IV Decadron - he is outside window for Remdesivir. CXR suggests pneumonia. Patient appears to be feeling better today. Still requiring 1 L via nasal cannula. Wean O2 as tolerated Continue treatment for COVID pneumonia as above Continue peritoneal dialysis; appreciate Nephrology recommendations Monitor (3) ESRD on peritoneal dialysis: Code(s): N18.6 - End stage renal disease; Z99.2 - Dependence on renal dialysis Status: Acute Assessment and Plan: Patient missed dialysis prior to arrival; resumed 10/01 patient tells me that he has not had a full treatment the past 2 nights due to issues with the catheter/machine. According to the notes the patient recently moved and cannot find his dialysis equipment at home. Patient now says he does typically make urine, but has not done so in the past couple of days; bladder scan today showed 80 ccs. Lasix originally held made it seem as he had not urinated in several weeks-months, which is not the case; this has been resumed. He does daily peritoneal dialysis * patient's home peritoneal dialysis is not working properly, will work with dialysis team to make sure this is something that gets fixed prior to discharge. COVID seems to be improving so we will have to pen discharge in 1-2 days if we can get home dialysis machine working. Dr. Valdez has been consulted and appreciate recommendations Continue Nephrology recommendations Oumar resumed Laxatives ordered per Nephrology due to issues with his peritoneal dialysis the past couple of nights Monitor Await further rec from Nephrology (4) Type 2 diabetes mellitus with hyperglycemia: Code(s): E11.65 - Type 2 diabetes mellitus with hyperglycemia Status: Acute Assessment and Plan: Poorly controlled. A1c 10.8% this stay; similar to last Endo visit in 07/2020. Patient sugars are labile this stay and have been elevated in the 400s likely secondary to peritoneal dialysis fluid and steroid therapy. No anion gap this morning to suggest DKA. Patient asymptomatic. He notes his sugar frequently drifts into the 400s at home, as well. Follows Endocrinology Will do 40 u BID of his home 70/30 mix BID Accuchecks ACHS, hypoglycemia protocol, high dose correctional insulin, diabetic/renal diet Monitor closely Adjust insulin as necessary; consider adding meal time bolus on top of correctional insulin (5) Hypothyroidism, unspecified: Code(s): E03.9 - Hypothyroidism, unspecified Status: Chronic Assessment and Plan: TSH WNL Continue with home levothyroxine (6) Hypertension: Code(s): I10 - Essential (primary) hypertension Status: Chronic
[2020-10-04] MEDS: PRAVASTATIN SODIUM 10 MG TABLET PO (17:52)
[2020-10-04] MEDS: MIRTAZAPINE 15 MG TABLET PO (17:52)
[2020-10-04] MEDS: INSULIN ASPART (*BKC) 100 UNITS/ML SUB-Q (17:53)
[2020-10-04 17:59] LABS: Glucose Point of Care 277 (65-105)
[2020-10-04 21:44] LABS: Glucose Point of Care 310 (65-105)
[2020-10-04] MEDS: INSULIN GLARGINE (*BKC) 100 UNITS/ML 10 UNITS SUB-Q (22:56)
[2020-10-05] VITALS (9 sets, daily range): BP systolic 100–141; BP diastolic 49–72; PULSE 76–110; RESP 16–20; TEMP 36.4–36.8; O2SAT 91–99
[2020-10-05 00:34] LABS: Glucose Point of Care 327 (65-105)
[2020-10-05] MEDS: LEVOTHYROXINE SODIUM 50 MCG TABLET PO (05:17)
[2020-10-05 06:00] LABS: Basophils Percent Auto 0.1 % (0.2-1.2); Hematocrit 29.8 % (42.0-52.0); Hemoglobin 10.5 g/dL (14.0-18.0); Immature Granulocyte Absolute 0.07 K/mm3 (0.00-0.031); Immature Granulocyte Percent A 0.7 % (0-0.5); Lymphocytes Absolute Auto 0.62 K/mm3 (0.9-3.2); Lymphocytes Percent Auto 6.1 % (18.3-44.2); Mean Corpuscular HGB Conc 35.2 g/dl (32-36); Mean Corpuscular Hemoglobin 28.9 pg (26-34); Mean Corpuscular Volume 82.1 fl (80-100); Mean Platelet Volume 10.3 fl (7.4-10.4); Monocytes Absolute Auto 0.6 K/mm3 (0.1-0.6); Monocytes Percent Auto 5.6 % (2.6-8.5); Neutrophils Percent Auto 87.5 % (45.5-73.1); Platelet Count Result 299 k/mm3 (150-375); Red Blood Count 3.63 M/mm3 (4.6-6.20); Red Cell Distribution Width 13.9 % (11.5-14.5); White Blood Count 10.2 K/mm3 (4.5-10.0)
[2020-10-05 06:11] LABS: Alanine Aminotransferase 37 U/L (4-50)
[2020-10-05 06:26] LABS: Albumin Level 3.4 g/dL (3.5-5.1); Alkaline Phosphatase 65 U/L (38-126); Anion Gap 13 mmol/L (8-16); Aspartate Amino Transferase 28 U/L (17-59); Bilirubin,Total 0.5 mg/dL (0.2-1.3); Blood Urea Nitrogen 98 mg/dL (9-20); CRP 2.5 mg/dL (<1.0); Calcium 8.3 mg/dL (8.4-10.2); Carbon Dioxide 27 mmol/L (22-30); Chloride 92 mmol/L (98-107); Estimated CRCL calculation 7 ml/min; Estimated Glomerular Filt Rate 4; Glucose 320 mg/dL (75-110); Lactate Dehydrogenase 654 U/L (313-618); Magnesium 2.1 mg/dL (1.6-2.3); Phosphorus 7.2 mg/dL (2.5-4.5); Potassium 3.1 mmol/L (3.4-5.0); Sodium 132 mmol/L (137-145)
[2020-10-05 07:56] LABS: Ferritin > 2000.00 ng/mL (11.1-264)
[2020-10-05 08:33] LABS: Glucose Point of Care 394 (65-105)
--- NOTE | 2020-10-05 09:01 | PM.PNNEP ---
Progress Note: A&P Assessment and Plan (1) End stage renal disease: Code(s): N18.6 - End stage renal disease Status: Chronic Assessment and Plan: Will get another round of nocturnal dialysis tonight. (2) Pneumonia due to COVID-19 virus: Code(s): U07.1 - COVID-19; J12.82 - Pneumonia due to coronavirus disease 2019 Status: Acute Assessment and Plan: testing positive on steroids outside window for remdesivir and convalescent plasma supplemental oxygen. On 1L right now. Nursing says they are going to do a home O2 evaluation. (3) Hypertension: Code(s): I10 - Essential (primary) hypertension Status: Chronic Assessment and Plan: Blood pressure Is doing well. Losartan is still on hold (4) Anemia: Code(s): D64.9 - Anemia, unspecified Status: Chronic Assessment and Plan: follow trend of H/H On Epogen. (5) Diabetes: Code(s): E11.9 - Type 2 diabetes mellitus without complications Status: Chronic Assessment and Plan: follow accuchecks resume home medications and SSI Subjective Date/time seen: 10/05/20 09:02 Interval history: On dialysis and tolerating it well. Seen at 8:00 am the catheter is working well now. He get a good treatment yesterday during the day and another 1 last night. He is on dwell 4 of 4 now. Exam Narrative: Exam Narrative: General: WD/WN male in NAD Heart: normal S1 and S2; no rub Lungs: coarse breath sounds Abdomen: soft, nontender, nondistended, positive bowel sounds Extremities: no cyanosis or clubbing; trace edema Skin: No rash Or subcu nodules Objective Data Vital Signs Vital Signs: Vital Signs - 24 hr 10/04/20 09:15 10/04/20 12:00 10/04/20 12:20 Temperature 36.4 C Pulse Rate 129 H 98 Respiratory Rate 20 20 Blood Pressure 123/93 H Pulse Oximetry 99 94 98 10/04/20 16:00 10/04/20 20:00 10/05/20 00:00 Temperature 36.2 C L 36.2 C L 36.4 C L Pulse Rate 83 60 82 Respiratory Rate 20 20 16 Blood Pressure 90/58 L 122/86 141/67 H Pulse Oximetry 98 96 95 10/05/20 04:00 10/05/20 08:00 Temperature 36.6 C 36.8 C Pulse Rate 110 H 76 Respiratory Rate 20 16 Blood Pressure 120/64 105/72 Pulse Oximetry 91 92 Intake/Output Intake/Output: Intake & Output 10/02/20 10/03/20 10/04/20 10/05/20 23:59 23:59 23:59 23:59 Intake Total 1350 1650 1030 75 Output Total 359 306 450 200 Balance 991 1344 580 -125 Meds/Results Medications: Active Medications Generic Name Dose Route Start Last Admin Trade Name Freq PRN Reason Stop Dose Admin Acetaminophen 650 mg 10/02/20 13:19 Acetaminophen 325 Mg Tablet PO Q6H PRN Mild Pain (1-3) or Fever Albuterol 2 puff 10/02/20 13:19 Albuterol Sulfate (*Sp) Aerosol 1 Puff INHALATION Q6HRT PRN Shortness Of Breath Dexamethasone Sodium Phosphate 6 mg 10/02/20 09:00 10/04/20 08:31 Dexamethasone Sod Phos Inj 4 Mg/Ml Vial IV PUSH 10/11/20 09:01 6 mg DAILY SUKH Administration Dextrose 12.5 gm 10/01/20 17:25 Dextrose 50% 25 Gm/50 Ml Syringe IV PUSH PRN PRN Hypoglycemia Protocol Docusate Sodium 100 mg 10/05/20 09:00 Docusate Sodium 100 Mg Capsule PO Q12HR SUKH Epoetin Julian-epbx 10,000 units 10/03/20 09:00 10/03/20 12:40 Epoetin Julian-Epbx 10,000 Units/Ml Vial SUB-Q 10,000 units MOWEFR SUKH Administration Furosemide 80 mg 10/01/20 17:00 10/04/20 17:52 Furosemide 80 Mg Tablet PO 80 mg BID SUKH Administration Glucagon 1 mg 10/01/20 17:25 Glucagon For Inj 1 Mg Vial IM PRN PRN Hypoglycemia Protocol Glucose 15 gm 10/01/20 17:25 Glucose Oral Gel 15 Gm Of Glucse In 37.5 Gm Tube PO PRN PRN Hypoglycemia Protocol Guaifenesin/Dextromethorphan 10 ml 10/02/20 13:06 10/03/20 09:08 Guaifenesin/Dextromethorphan 10 Ml Udc PO 10 ml Q4H PRN Administration Cough Dextrose 1,000
[2020-10-05] MEDS: INSULIN ASPART (*BKC) 100 UNITS/ML SUB-Q ×2 (09:14→12:53)
[2020-10-05] MEDS: INSULIN ASPART (*BKC) 100 UNITS/ML 6 UNITS SUB-Q ×3 (09:15→17:35)
[2020-10-05] MEDS: INSULIN HUMAN ISOPHAN/REGULAR 70/30 (*BKC) 100 UNITS/ML 40 UNITS SUB-Q ×2 (09:16→17:38)
[2020-10-05] MEDS: POTASSIUM CHLORIDE 20 MEQ TABLET 40 MEQ PO (09:17)
[2020-10-05] MEDS: DEXAMETHASONE SOD PHOS INJ 4 MG/ML VIAL 6 MG IV PUSH (09:17)
[2020-10-05] MEDS: DOCUSATE SODIUM 100 MG CAPSULE PO ×2 (09:17→20:16)
[2020-10-05] MEDS: CHOLECALCIFEROL 1,000 UNITS TABLET 2000 UNITS PO (09:18)
[2020-10-05] MEDS: FUROSEMIDE 80 MG TABLET PO ×2 (09:18→17:37)
[2020-10-05] MEDS: TAMSULOSIN HCL 0.4 MG CAPSULE PO (09:18)
[2020-10-05] MEDS: polyethylene glycoL 3350 17 GM POWD.PACK PO (09:18)
[2020-10-05] MEDS: PANTOPRAZOLE 40 MG TABLET PO (09:18)
[2020-10-05] MEDS: EPOETIN ALFA-EPBX 10,000 UNITS/ML VIAL 10000 UNITS SUB-Q (09:27)
[2020-10-05 13:34] LABS: Glucose Point of Care 344 (65-105)
--- NOTE | 2020-10-05 15:31 | PCPTNOTE ---
Patient refused treatment this session. PT attempted to see patient this afternoon however patient refused stating he was too tired to participate and wanted to go back to bed.
--- NOTE | 2020-10-05 15:44 | PM.IMPN ---
Progress Note: A&P Assessment and Plan (1) Pneumonia due to COVID-19 virus: Code(s): U07.1 - COVID-19; J12.82 - Pneumonia due to coronavirus disease 2018 Status: Acute Assessment and Plan: CXR suggestive of pneumonia. symptoms started roughly 1.5 weeks prior to admission. Started on decadron on arrival; outside window for remdesivir Continue IV Decadron day #5 Currently patient is on room air. Resting comfortably. Continue supportive care; Robitussin, Tylenol, albuterol PRN Supplemental O2; wean as tolerated. Consider Home O2 eval if no improvement Monitor closely Will get a home oxygen evaluation tomorrow and consider discharge at that time. (2) Acute respiratory failure with hypoxia: Code(s): J96.01 - Acute respiratory failure with hypoxia Status: Acute Assessment and Plan: Fluid overload vs 2/2 COVID pneumonia or combination there of; patient still requiring 1L O2 via NC. The patient missed his peritoneal dialysis prior to arrival, but resumed here in hospital on 10/01; patient tells me that he has not had a full treatment the past 2 nights due to issues with the catheter/machine. COVID test is positive; he has been started on IV Decadron - he is outside window for Remdesivir. CXR suggests pneumonia. Patient appears to be feeling better today. He is on room air at this time. Wean O2 as tolerated Continue treatment for COVID pneumonia as above Continue peritoneal dialysis; appreciate Nephrology recommendations Monitor (3) ESRD on peritoneal dialysis: Code(s): N18.6 - End stage renal disease; Z99.2 - Dependence on renal dialysis Status: Acute Assessment and Plan: Patient missed dialysis prior to arrival; resumed 10/01 patient tells me that he has not had a full treatment the past 2 nights due to issues with the catheter/machine. According to the notes the patient recently moved and cannot find his dialysis equipment at home. Patient now says he does typically make urine, but has not done so in the past couple of days; bladder scan today showed 80 ccs. Oumar originally held made it seem as he had not urinated in several weeks-months, which is not the case; this has been resumed. He does daily peritoneal dialysis Care coordination talked to patient's who states she has everything for his peritoneal dialysis for when he returns home. COVID seems to be improving so we will have to pen discharge in 1-2 days if we can get home dialysis machine working. Dr. Valdez has been consulted and appreciate recommendations Continue Nephrology recommendations Oumar resumed Laxatives ordered per Nephrology due to issues with his peritoneal dialysis the past couple of nights Monitor Await further rec from Nephrology (4) Type 2 diabetes mellitus with hyperglycemia: Code(s): E11.65 - Type 2 diabetes mellitus with hyperglycemia Status: Acute Assessment and Plan: Poorly controlled. A1c 10.8% this stay; similar to last Endo visit in 07/2020. Patient sugars are labile this stay and have been elevated in the 400s likely secondary to peritoneal dialysis fluid and steroid therapy. No anion gap this morning to suggest DKA. Patient asymptomatic. He notes his sugar frequently drifts into the 400s at home, as well. Follows Endocrinology Will do 40 u BID of his home 70/30 mix BID Accuchecks ACHS, hypoglycemia protocol, high dose correctional insulin, diabetic/renal diet Monitor closely Adjust insulin as necessary; consider adding meal time bolus on top of correctional insulin (5) Hypothyroidism, unspecified: Code(s): E03.9 - Hypothyroidism, unspecified Status: Chronic Assessment and Plan: TSH WNL Continue with home levothyroxine (6) Hypertension: Code(s): I10 - Esse
[2020-10-05] MEDS: MIRTAZAPINE 15 MG TABLET PO (17:37)
[2020-10-05] MEDS: PRAVASTATIN SODIUM 10 MG TABLET PO (17:37)
[2020-10-05 18:29] LABS: Glucose Point of Care 197 (65-105)
[2020-10-05] MEDS: INSULIN GLARGINE (*BKC) 100 UNITS/ML 10 UNITS SUB-Q (20:16)
[2020-10-05 22:18] LABS: Glucose Point of Care 174 (65-105)
[2020-10-06] VITALS (8 sets, daily range): BP systolic 101–142; BP diastolic 54–76; PULSE 72–112; RESP 16–20; TEMP 36.1–36.6; O2SAT 94–97
[2020-10-06] MEDS: LEVOTHYROXINE SODIUM 50 MCG TABLET PO (05:43)
[2020-10-06] MEDS: LACTULOSE 20 GM/30 ML UDC PO (05:43)
[2020-10-06 06:33] LABS: Hematocrit 30.7 % (42.0-52.0); Hemoglobin 10.8 g/dL (14.0-18.0); Mean Corpuscular HGB Conc 35.2 g/dl (32-36); Mean Corpuscular Volume 82.5 fl (80-100); Mean Platelet Volume 10.3 fl (7.4-10.4); Platelet Count Result 318 k/mm3 (150-375); Red Blood Count 3.72 M/mm3 (4.6-6.20); Red Cell Distribution Width 14.1 % (11.5-14.5); White Blood Count 9.6 K/mm3 (4.5-10.0)
[2020-10-06 06:46] LABS: Potassium 3.1 mmol/L (3.4-5.0)
[2020-10-06 06:49] LABS: Albumin Level 3.4 g/dL (3.5-5.1); Anion Gap 11 mmol/L (8-16); Blood Urea Nitrogen 92 mg/dL (9-20); Calcium 8.7 mg/dL (8.4-10.2); Carbon Dioxide 27 mmol/L (22-30); Chloride 97 mmol/L (98-107); Estimated CRCL calculation 8 ml/min; Estimated Glomerular Filt Rate 5; Glucose 272 mg/dL (75-110); Sodium 135 mmol/L (137-145)
[2020-10-06 08:23] LABS: Magnesium 2.1 mg/dL (1.6-2.3)
[2020-10-06] MEDS: PANTOPRAZOLE 40 MG TABLET PO (08:24)
[2020-10-06] MEDS: TAMSULOSIN HCL 0.4 MG CAPSULE PO (08:24)
[2020-10-06] MEDS: CHOLECALCIFEROL 1,000 UNITS TABLET 2000 UNITS PO (08:24)
[2020-10-06] MEDS: FUROSEMIDE 80 MG TABLET PO (08:24)
[2020-10-06] MEDS: DEXAMETHASONE SOD PHOS INJ 4 MG/ML VIAL 6 MG IV PUSH (08:25)
[2020-10-06] MEDS: POTASSIUM CHLORIDE 20 MEQ TABLET 40 MEQ PO (09:29)
[2020-10-06] MEDS: INSULIN HUMAN ISOPHAN/REGULAR 70/30 (*BKC) 100 UNITS/ML 40 UNITS SUB-Q (09:31)
[2020-10-06] MEDS: INSULIN ASPART (*BKC) 100 UNITS/ML SUB-Q ×2 (09:32→13:18)
[2020-10-06] MEDS: INSULIN ASPART (*BKC) 100 UNITS/ML 6 UNITS SUB-Q ×2 (09:32→13:17)
[2020-10-06 09:44] LABS: Glucose Point of Care 360 (65-105)
--- NOTE | 2020-10-06 10:36 | PCOTNOTE ---
OT treatment attempted. Patient completing peritoneal dialysis at this time. Will attempt with appropriate.
--- NOTE | 2020-10-06 11:27 | PCRCNOTE ---
HOME O2 EVAL COMPLETE, NO REQUIREMENTS
--- NOTE | 2020-10-06 12:39 | P.PNNP_ITS ---
Progress Note: A&P Assessment and Plan (1) End stage renal disease: Code(s): N18.6 - End stage renal disease Status: Chronic Assessment and Plan: * Will get another round of nocturnal dialysis tonight. * Creatinine is improving. * Volume status looks okay. (2) Pneumonia due to COVID-19 virus: Code(s): U07.1 - COVID-19; J12.82 - Pneumonia due to coronavirus disease 2018 Status: Acute Assessment and Plan: * testing positive * on steroids * outside window for remdesivir and convalescent plasma * supplemental oxygen. On room air. He describes a home oxygen evaluation being done this morning but results are not back yet. * Still has residual fatigue. * Occupational therapy is in the room. (3) Hypertension: Code(s): I10 - Essential (primary) hypertension Status: Chronic Assessment and Plan: * Blood pressure is doing well. * Losartan is still on hold (4) Anemia: Code(s): D64.9 - Anemia, unspecified Status: Chronic Assessment and Plan: * follow trend of H/H * On Epogen. (5) Diabetes: Code(s): E11.9 - Type 2 diabetes mellitus without complications Status: Chronic Assessment and Plan: * follow accuchecks * resume home medications and SSI Subjective Date/time seen: 10/06/20 12:39 Interval history: On dialysis and tolerating it well. Seen at 12:30pm the catheter is working well now. Dialysis treatments are going well now that the january she settings were adjusted. The cathartics helped as well. Exam Narrative: Exam Narrative: General: WD/WN male in NAD Heart: normal S1 and S2; no rub Lungs: Clear bilaterally Abdomen: soft, nontender, nondistended, positive bowel sounds Extremities: no cyanosis or clubbing; trace edema Skin: No rash Objective Data Vital Signs Vital Signs: Vital Signs - 24 hr 10/05/20 16:00 10/05/20 20:00 10/05/20 22:29 Temperature 36.5 C 36.6 C 36.5 C Pulse Rate 108 H 98 108 H Respiratory Rate 16 18 16 Blood Pressure 123/49 L 125/62 123/49 L Pulse Oximetry 96 99 10/06/20 00:00 10/06/20 04:00 10/06/20 08:00 Temperature 36.6 C 36.1 C L 36.3 C L Pulse Rate 112 H 97 110 H Respiratory Rate 18 20 20 Blood Pressure 121/68 120/54 L 142/76 H Pulse Oximetry 94 94 96 10/06/20 10:20 10/06/20 10:25 10/06/20 10:35 Temperature Pulse Rate 72 92 74 Respiratory Rate Blood Pressure Pulse Oximetry 97 96 97 10/06/20 12:00 Temperature 36.2 C L Pulse Rate 80 Respiratory Rate 16 Blood Pressure 117/56 L Pulse Oximetry 94 Intake/Output Intake/Output: Intake & Output 10/03/20 10/04/20 10/05/20 10/06/20 23:59 23:59 23:59 23:59 Intake Total 1650 1030 785 400 Output Total 642 497 0226 732 Balance 3203 586 -[phone] -825 Meds/Results Medications: Active Medications Generic Name Dose Route Start Last Admin Trade Name Freq PRN Reason Stop Dose Admin Acetaminophen 650 mg 10/02/20 13:19 Acetaminophen 325 Mg Tablet PO Q6H PRN Mild Pain (1-3) or Fever Albuterol 2 puff 10/02/20 1
--- NOTE | 2020-10-06 12:39 | PM.PNNEP ---
Progress Note: A&P Assessment and Plan (1) End stage renal disease: Code(s): N18.6 - End stage renal disease Status: Chronic Assessment and Plan: Will get another round of nocturnal dialysis tonight. Creatinine is improving. Volume status looks okay. (2) Pneumonia due to COVID-19 virus: Code(s): U07.1 - COVID-19; J12.82 - Pneumonia due to coronavirus disease 2019 Status: Acute Assessment and Plan: testing positive on steroids outside window for remdesivir and convalescent plasma supplemental oxygen. On room air. He describes a home oxygen evaluation being done this morning but results are not back yet. Still has residual fatigue. Occupational therapy is in the room. (3) Hypertension: Code(s): I10 - Essential (primary) hypertension Status: Chronic Assessment and Plan: Blood pressure is doing well. Losartan is still on hold (4) Anemia: Code(s): D64.9 - Anemia, unspecified Status: Chronic Assessment and Plan: follow trend of H/H On Epogen. (5) Diabetes: Code(s): E11.9 - Type 2 diabetes mellitus without complications Status: Chronic Assessment and Plan: follow accuchecks resume home medications and SSI Subjective Date/time seen: 10/06/20 12:39 Interval history: On dialysis and tolerating it well. Seen at 12:30pm the catheter is working well now. Dialysis treatments are going well now that the january she settings were adjusted. The cathartics helped as well. Exam Narrative: Exam Narrative: General: WD/WN male in NAD Heart: normal S1 and S2; no rub Lungs: Clear bilaterally Abdomen: soft, nontender, nondistended, positive bowel sounds Extremities: no cyanosis or clubbing; trace edema Skin: No rash Objective Data Vital Signs Vital Signs: Vital Signs - 24 hr 10/05/20 16:00 10/05/20 20:00 10/05/20 22:29 Temperature 36.5 C 36.6 C 36.5 C Pulse Rate 108 H 98 108 H Respiratory Rate 16 18 16 Blood Pressure 123/49 L 125/62 123/49 L Pulse Oximetry 96 99 10/06/20 00:00 10/06/20 04:00 10/06/20 08:00 Temperature 36.6 C 36.1 C L 36.3 C L Pulse Rate 112 H 97 110 H Respiratory Rate 18 20 20 Blood Pressure 121/68 120/54 L 142/76 H Pulse Oximetry 94 94 96 10/06/20 10:20 10/06/20 10:25 10/06/20 10:35 Temperature Pulse Rate 72 92 74 Respiratory Rate Blood Pressure Pulse Oximetry 97 96 97 10/06/20 12:00 Temperature 36.2 C L Pulse Rate 80 Respiratory Rate 16 Blood Pressure 117/56 L Pulse Oximetry 94 Intake/Output Intake/Output: Intake & Output 10/03/20 10/04/20 10/05/20 10/06/20 23:59 23:59 23:59 23:59 Intake Total 1650 1030 785 400 Output Total 221 375 1744 732 Balance 9996 [phone] Meds/Results Medications: Active Medications Generic Name Dose Route Start Last Admin Trade Name Freq PRN Reason Stop Dose Admin Acetaminophen 650 mg 10/02/20 13:19 Acetaminophen 325 Mg Tablet PO Q6H PRN Mild Pain (1-3) or Fever Albuterol 2 puff 10/02/20 13:19 Albuterol Sulfate (*Sp) Aerosol 1 Puff INHALATION Q6HRT PRN Shortness Of Breath Dexamethasone Sodium Phosphate 6 mg 10/02/20 09:00 10/06/20 08:25 Dexamethasone Sod Phos Inj 4 Mg/Ml Vial IV PUSH 10/11/20 09:01 6 mg DAILY SUKH Administration Dextrose 12.5 gm 10/01/20 17:25 Dextrose 50% 25 Gm/50 Ml Syringe IV PUSH PRN PRN Hypoglycemia Protocol Docusate Sodium 100 mg 10/05/20 09:00 10/06/20 08:19 Docusate Sodium 100 Mg Capsule PO Not Given Q12HR SUKH Epoetin Julian-epbx 10,000 units 10/03/20 09:00 10/05/20 09:27 Epoetin Julian-Epbx 10,000 Units/Ml Vial SUB-Q 10,000 units MOWEFR SUKH Administration Furosemide 80 mg 10/01/20 17:00 10/06/20 08:24 Furosemide 80 Mg Tablet PO 80 mg BID SUKH Administration Glucagon 1 mg 10/01/20 17:25 Glucagon For Inj 1 Mg Vial IM PRN PRN Hypoglycemia Protocol
[2020-10-06 13:09] LABS: Glucose Point of Care 319 (65-105)
--- NOTE | 2020-10-06 13:17 | PM.DS ---
DS: Admitting Diagnosis Admitting Diagnosis Admitting Diagnosis: SOB DS: Discharge Diagnosis Discharge Diagnosis (1) Pneumonia due to COVID-19 virus: Code(s): U07.1 - COVID-19; J12.82 - Pneumonia due to coronavirus disease 2018 Status: Acute Assessment and Plan: CXR suggestive of pneumonia. symptoms started roughly 1.5 weeks prior to admission. Started on decadron on arrival; outside window for remdesivir Continue IV Decadron day #6. Will continue with 4 more days of oral Dexamethasone. Currently patient is on room air. Resting comfortably.Home O2 evaluation completed and he does not require any oxygen. (2) Acute respiratory failure with hypoxia: Code(s): J96.01 - Acute respiratory failure with hypoxia Status: Acute Assessment and Plan: Fluid overload vs 2/2 COVID pneumonia or combination there of; patient still requiring 1L O2 via NC. The patient missed his peritoneal dialysis prior to arrival, but resumed here in hospital on 10/01; patient tells me that he has not had a full treatment the past 2 nights due to issues with the catheter/machine. COVID test is positive; he has been started on IV Decadron - he is outside window for Remdesivir. CXR suggests pneumonia. On room air at this time. Home O2 was normal.No oxygen needed at D/c (3) ESRD on peritoneal dialysis: Code(s): N18.6 - End stage renal disease; Z99.2 - Dependence on renal dialysis Status: Acute Assessment and Plan: Patient missed dialysis prior to arrival; resumed 10/01 patient tells me that he has not had a full treatment the past 2 nights due to issues with the catheter/machine. According to the notes the patient recently moved and cannot find his dialysis equipment at home. Patient now says he does typically make urine, but has not done so in the past couple of days; bladder scan today showed 80 ccs. Elvisix originally held made it seem as he had not urinated in several weeks-months, which is not the case; this has been resumed. He does daily peritoneal dialysis Care coordination talked to patient's who states she has everything for his peritoneal dialysis for when he returns home. Dr. Valdez has been consulted and feels he stable from a Nephrology perspective. (4) Type 2 diabetes mellitus with hyperglycemia: Code(s): E11.65 - Type 2 diabetes mellitus with hyperglycemia Status: Acute Assessment and Plan: Poorly controlled. A1c 10.8% this stay; similar to last Endo visit in 07/2020. Patient sugars are labile this stay and have been elevated in the 400s likely secondary to peritoneal dialysis fluid and steroid therapy. No anion gap this morning to suggest DKA. Patient asymptomatic. He notes his sugar frequently drifts into the 400s at home, as well. Follows Endocrinology Continue Home insulin (5) Hypothyroidism, unspecified: Code(s): E03.9 - Hypothyroidism, unspecified Status: Chronic Assessment and Plan: TSH WNL Continue with home levothyroxine (6) Hypertension: Code(s): I10 - Essential (primary) hypertension Status: Chronic Assessment and Plan: BP reasonable, 120/54 stable. Continue with home losartan (7) Hyperlipidemia, unspecified: Code(s): E78.5 - Hyperlipidemia, unspecified Status: Acute Assessment and Plan: Continue with pravastatin. DS: Summary Hospital Course Hospital Course: 70-year-old man with a history of end-stage renal disease on peritoneal dialysis, diabetes, who presented to the emergency room for symptoms of shortness of breath, loss of taste and smell, generalized weakness and fatigue, and a dry cough for the last few days. The patient's son was found t
[2020-10-06 19:51] LABS: Hepatitis B Core Ab Total Nonreactive (Nonreactive)
--- NOTE | 2020-10-08 13:45 | PC.NURSE ---
On 10/08/20, the patient's called up to the nurse's station and stated that the patient wasn't doing too good. The patient's stated that he is experiencing increased confusion and that they are having issues with his peritoneal dialysis. I spoke with YOMAIRA Lombardi regarding the 's statements. Cielo instructed me to advise the patient's to bring him back to the ER.
== END 2020-10-06 17:20 | disposition home health service (06) | DRG 177 ==
LOC: ANHED 13:31 → ANH3MEDSUR 10-02 06:59
PROVIDERS: Internal Medicine Nephrology; Nurse Practitioner; Physician Assistant; Admitting Provider Internal Medicine; Emergency Provider Emergency Medicine; PCP Internal Medicine; Visit Provider Physician Assistant
DX: U07.1 COVID-19; J96.01 Acute respiratory failure with hypoxia; J12.82 Pneumonia due to coronavirus disease 2019; N18.6 End stage renal disease; I12.0 Hypertensive chronic kidney disease with stage 5 chronic kidney disease or end stage renal disease; E11.22 Type 2 diabetes mellitus with diabetic chronic kidney disease; E11.65 Type 2 diabetes mellitus with hyperglycemia; Z99.2 Dependence on renal dialysis; E78.5 Hyperlipidemia, unspecified; E11.42 Type 2 diabetes mellitus with diabetic polyneuropathy; E03.9 Hypothyroidism, unspecified; D64.9 Anemia, unspecified; Z79.4 Long term (current) use of insulin; Z79.899 Other long term (current) drug therapy
CPT/HCPCS: 36415; 71045; 74018; 80053; 80069; 82728; 83036; 83605; 83615; 83690; 83735; 83880; 84443; 85025; 85027; 85610; 85730; 86140; 86704; 86706; 87340; 87804; 90945; 93005; 94618; 97116; 97161; 97165; 97530; 97535; 99291; A9270; C9803; J1100; J1815; Q5106; U0003; U0005

== ENCOUNTER 2020-10-08 15:10 | Inpatient (IN) | payer MEDICARE, OTHER, SELFPAY ==
[2020-10-08] VITALS (18 sets, daily range): BP systolic 99–132; BP diastolic 58–105; PULSE 118–174; RESP 18–28; TEMP 36.1–36.8; O2SAT 94–99; BMI 34.8
--- NOTE | ~2020-10-08 | XR_ITS ---
EXAMINATION: XR chest 1V portable EXAM DATE: 10/08/2020 16:56 INDICATION: Shortness of breath, COVID 19 positive. TECHNIQUE: Portable AP frontal chest x-ray was obtained. Comparison is made to prior examination from 10/01/2020. FINDINGS: There is moderate to severe amount of bilateral COVID pneumonia, significant interval progr ession compared to 10/01. No pneumothorax or pleural effusion. Mild cardiomegaly. There are mild bony degenerative changes. IMPRESSION: Significant progression in moderate to severe amount of COVID pneumonia. Reviewed, dictated and finalized at location A. ICAL SUPPORT IMPRESSION: Significant progression in moderate to severe amount of COVID pneu monia.
--- NOTE | ~2020-10-08 | MR_ITS ---
EXAMINATION: MR brain/brain stem wo con DATE: 10/11/2020 12:42 INDICATION: Confusion. TECHNIQUE: Magnetic resonance imaging (MRI) of the brain and brainstem was performed without intraven ous contrast. Sequences included sagittal T1-weighted FSE, axial diffusion-weighted FS EPI, axial T2* -weighted GRE, and axial T2-weighted FLAIR Propeller. The patient refused additional imaging. Apparen t diffusion coefficient (ADC) maps were created. COMPARISON: None. FINDINGS: There is no intracranial hemorrhage, acute infarction, or abnormal intracranial mass lesion . There are scattered areas of nonspecific increased T2-weighted signal intensity in the cerebral whi te matter, which is within normal limits for the patient's age. The ventricles are normal in size. Th ere is mild mucosal thickening in the maxillary sinuses. The mastoid air cells are normal. IMPRESSION: 1. Normal aging brain. Reviewed, dictated and finalized at location A. SYSTEM MAINTENANCE WORKER IMPRESSION: 1. Normal aging brain.
--- NOTE | 2020-10-08 15:21 | ECG_ITS ---
Measurements Intervals [place] Rate: 154 P: IA: 0 QRS: 258 QRSD: 150 T: 8 QT: 324 QTc: 519 Interpretive Statements ATRIAL FIBRILLATION WITH RAPID VENTRICULAR RESPONSE RIGHT AXIS DEVIATION RIGHT BUNDLE BRANCH BLOCK INFERIOR INFARCT, AGE INDETERMINATE ABNORMAL ECG Electronically Signed On 10-08-2020 15:57:46 EXERCISE SCIENTIST by Willis Livingston D.O.
[2020-10-08 15:33] LABS: Glucose Point of Care 321 (65-105)
[2020-10-08] MEDS: dilTIAZem HCl INJ 25 MG/5 ML VIAL 10 MG IV PUSH (15:36)
[2020-10-08] MEDS: SODIUM CHLORIDE 0.9% IV 1,000 ML 150 ML IV CONT (15:36)
[2020-10-08] MEDS: ONDANSETRON INJ 4 MG/2 ML VIAL (15:36)
[2020-10-08 15:40] LABS: Basophils Percent Auto 0.1 % (0.2-1.2); Eosinophils Percent Auto 0.1 % (0-4.4); Hematocrit 31.9 % (42.0-52.0); Hemoglobin 10.9 g/dL (14.0-18.0); Lymphocytes Absolute Auto 0.64 K/mm3 (0.9-3.2); Lymphocytes Percent Auto 6.3 % (18.3-44.2); Mean Corpuscular HGB Conc 34.2 g/dl (32-36); Mean Corpuscular Hemoglobin 29.3 pg (26-34); Mean Corpuscular Volume 85.8 fl (80-100); Mean Platelet Volume 10.2 fl (7.4-10.4); Monocytes Absolute Auto 0.2 K/mm3 (0.1-0.6); Monocytes Percent Auto 1.9 % (2.6-8.5); Neutrophils Absolute Auto 9.2 K/mm3 (1.3-6.7); Neutrophils Percent Auto 90.6 % (45.5-73.1); Platelet Count Result 398 k/mm3 (150-375); Red Blood Count 3.72 M/mm3 (4.6-6.20); Red Cell Distribution Width 14.2 % (11.5-14.5); White Blood Count 10.2 K/mm3 (4.5-10.0)
[2020-10-08 15:50] LABS: INR 1.1; Prothrombin Time 14.6 Seconds (11.1-14.7)
[2020-10-08 15:51] LABS: Lactic Acid Reflex 1.4 mmol/L (0.7-2.1)
[2020-10-08 16:04] LABS: Alanine Aminotransferase 31 U/L (4-50); Albumin Level 3.3 g/dL (3.5-5.1); Alkaline Phosphatase 56 U/L (38-126); Anion Gap 11 mmol/L (8-16); Aspartate Amino Transferase 41 U/L (17-59); Bilirubin,Total 0.9 mg/dL (0.2-1.3); Blood Urea Nitrogen 106 mg/dL (9-20); Calcium 8.1 mg/dL (8.4-10.2); Carbon Dioxide 25 mmol/L (22-30); Chloride 98 mmol/L (98-107); Estimated CRCL calculation 9 ml/min; Estimated Glomerular Filt Rate 6; Glucose 325 mg/dL (75-110); Lipase 331 U/L (23-300); Potassium 4.7 mmol/L (3.4-5.0); Sodium 134 mmol/L (137-145)
[2020-10-08] MEDS: dilTIAZem HCl INJ 25 MG/5 ML VIAL 20 MG IV PUSH (16:07)
[2020-10-08] MEDS: DIGOXIN INJ 250 MCG/ML 2 ML AMP (*BKC) 500 MCG ×2 (17:08→18:23)
[2020-10-08 17:24] LABS: Troponin I 0.023 ng/mL (0.000-0.034)
[2020-10-08] MEDS: dilTIAZem HCl INJ 25 MG/5 ML VIAL (18:24)
--- NOTE | 2020-10-08 18:24 | ED.GENADULT ---
HPI - General Adult General Chief complaint: Weakness Stated complaint: + covid, weakness Time Seen by Provider: 10/08/20 15:17 Source: patient Mode of arrival: ambulatory Limitations: no limitations History of Present Illness HPI narrative: 70-year-old with a history of hypertension, diabetes, ESRD on peritoneal dialysis and is recent Covid here with complaints of nausea, vomiting and marked weakness since yesterday. Patient states that he was unable to do his peritoneal dialysis secondary to intense nausea. He denies any fever or chills. She was discharged from the hospital few days ago for from Covid pneumonia. He presently denies any shortness of breath has occasional cough. Onset (ago): day(s) (1) Relieving factors: none Associated symptoms: denies other symptoms Related Data Home Medications Medication Instructions Recorded Confirmed cholecalciferol (vitamin D3) 50 2,000 unit PO DAILY 08/11/19 10/01/20 mcg (2,000 unit) tablet mirtazapine 15 mg tablet 15 mg PO QPM tablet 03/29/20 10/01/20 pravastatin 10 mg tablet 10 mg PO QPM tablet 03/29/20 10/01/20 furosemide 80 mg tablet 80 mg PO BID tablet 07/18/20 10/01/20 losartan 100 mg tablet 50 mg PO DAILY tablet 07/18/20 10/01/20 tamsulosin 0.4 mg capsule 0.4 mg PO DAILY 07/18/20 10/01/20 omeprazole 20 mg PO DAILY 10/01/20 10/01/20 Allergies Allergy/AdvReac Type Severity Reaction Status Date / Time No Known Allergies Allergy Unverified 10/08/20 15:37 Review of Systems Review of Systems: All systems reviewed & are unremarkable except as noted in HPI and below Constitutional: Constitutional: Reports no additional constitutional complaints Eyes: Eyes: Reports no additional eye complaints ENT: Reports system reviewed and no additional complaints, except as documented Cardiovascular: Cardiovascular: Reports no additional cardiovascular complaints Respiratory: Respiratory: Reports as per HPI Gastrointestinal: Gastrointestinal: Reports as per HPI Musculoskeletal: Musculoskeletal: Reports no additional musculoskeletal complaints Integumentary/Breasts: Skin/Breast: Reports system reviewed and no additional complaints, except as docu Neurologic: Reports system reviewed and no additional complaints, except as documented [facility] Past Medical History Medical History Back pain Complete loss of vision Dependence on renal dialysis Diabetic peripheral neuropathy Encounter for peritoneal dialysis catheter insertion November of 2019 Essential hypertension Hyperlipidemia, unspecified Hypertension Hypothyroidism, unspecified Obesity Retinopathy of left eye Type 2 diabetes mellitus with hyperglycemia Surgical History Surgical History H/O eye surgery left eye multiple 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 The patient has 3 sons. Patient became disabled with his diabetes and his end-stage renal disease. 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 The patient desires to be a full code. Patient is a lifelong nonsmoker. Does not drink or use illicit drugs. Smoking status: Never smoker Alcohol intake: former Substance use: never Gender identity (if verbalized by the patient): Male Spiritual care concerns: No Exam Narrative: Exam Narrative: GENERAL:Ill appearing, well-nourished, and in no acute distress. HEAD: Normocephalic, atraumatic. EYES: PERRLA and EOMI. NECK: Supple. CHEST: Clear to auscultation. No
[2020-10-08 20:53] LABS: Glucose Point of Care 355 (65-105)
[2020-10-08] MEDS: FAMOTIDINE 20 MG/2 ML VIAL IV PUSH (21:07)
--- NOTE | 2020-10-08 21:15 | ADMGEN ---
This patient, Zachery Gray, was admitted to IMU Room [id number]. Patient/family oriented to hospital policies and general routines including ID bracelet, bed and alarms, visiting hours, pain management, procedures, bathroom and other care routines, personal items, smoking policy, room service/diet, and visiting hours. Information on how to activate the Rapid Response Team has been discussed. Patient/Family are encouraged to report perceived risks to care and to ask questions if they do not understand what they are told or what they should do.
[2020-10-08] MEDS: SODIUM CHLORIDE 0.9% IV 1,000 ML 100 ML IV CONT (21:42)
--- NOTE | 2020-10-08 21:46 | PM.IMHP ---
H&P: HPI History of Present Illness Date/Time: 10/08/20 21:46 Chief Complaint: ?Feeling bad? Narrative: Zachery Gray is a 70 year old male with a past medical history of hypothyroidism, diabetes mellitus, obstructive sleep and end-stage renal disease on peritoneal dialysis who presented to the ER with ?feeling bad.? Source of information is past medical records and ER records. The patient himself is a poor historian and is only alert and oriented x2 at the time of my evaluation. Patient had been admitted to the hospital 10/01/2020 through 10/06/2020 due to COVID pneumonia and mild acute respiratory failure. He had been treated with Decadron at that time and was off of oxygen discharged home. When he had come into the hospital last time he had been having some difficulty with his peritoneal dialysis machine due to a recent move so he received his dialysis treatment while in the hospital. He is not feeling any better. He did not perform his peritoneal dialysis today due to intense nausea. He also reports that he is still been having difficulty with his dialysis machine giving him multiple alarms since he returned home. He started having nausea on the .. He reports that he has not eaten much food over the last week and subsequently has not had a bowel movement. He has been nauseated and having intermittent dry heaves. He denies any abdominal pain or discomfort. He reports persistent shortness of breath since is COVID diagnosis. However he still does not have a oxygen requirement is satting 99% on room air. He has been having an occasional cough. He has not been had a any fevers or chills. His blood glucoses have been running higher than usual. He denies any palpitations are sensation of heart racing. On arrival to the ER the patient was found to be in AFib RVR. The patient does not have a known history of AFib. He reports feeling lightheaded with standing up. The patient is confused during the time of my evaluation. He reports that he does have some mild confusion at baseline and does not think that he is more confused than usual. He could tell me that he was in the hospital but thought that he was at [facility]. He could state the month in year and was oriented to person. His answers were slow and vague. He was restless in bed. He cannot tell me when his COVID symptoms started he does knows that they started 2 weeks after his son symptoms. When asked about if he still produce urine the patient stated that ?he has not produced urine since he stopped peeing.? He reports that he still ambulates at home without assistive devices. Review of Systems Review of Systems: Narrative: 12 systems were reviewed with pertinent positives and negatives per HPI. Except as documented in the HPI, all other systems were reviewed and are negative. [facility] Past Medical History Medical History (Updated 10/09/20 @ 01:02 by Ana Reinoso DO) Back pain 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 He still receives eye injections in his right eye. 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
[2020-10-08 22:53] LABS: INR 1.1; Prothrombin Time 14.9 Seconds (11.1-14.7)
[2020-10-08 22:54] LABS: Partial Thromboplastin Time 30.5 SECONDS (22.3-36.8)
[2020-10-08] MEDS: HEPARIN SODIUM 5,000 UNITS/ML VIAL 6500 UNITS IV PUSH (23:15)
[2020-10-08] MEDS: HEPARIN SOD/D5W 100 UNITS/ML 25,000 UNITS/250 ML BAG 15 UNITS IV CONT (23:16)
[2020-10-09] VITALS (19 sets, daily range): BP systolic 95–125; BP diastolic 50–77; PULSE 87–116; RESP 20–220; TEMP 36.5–37; O2SAT 94–100
[2020-10-09 00:45] LABS: Troponin I 0.021 ng/mL (0.000-0.034)
[2020-10-09] MEDS: INSULIN ASPART (*BKC) 100 UNITS/ML SUB-Q ×3 (01:27→12:04)
[2020-10-09 05:31] LABS: Partial Thromboplastin Time 80.2 SECONDS (22.3-36.8)
[2020-10-09 05:35] LABS: Hematocrit 26.1 % (42.0-52.0); Hemoglobin 8.9 g/dL (14.0-18.0); Immature Granulocyte Absolute 0.06 K/mm3 (0.00-0.031); Immature Granulocyte Percent A 1.1 % (0-0.5); Lymphocytes Absolute Auto 0.66 K/mm3 (0.9-3.2); Lymphocytes Percent Auto 11.8 % (18.3-44.2); Mean Corpuscular HGB Conc 34.1 g/dl (32-36); Mean Corpuscular Hemoglobin 29.3 pg (26-34); Mean Corpuscular Volume 85.9 fl (80-100); Mean Platelet Volume 10.3 fl (7.4-10.4); Monocytes Absolute Auto 0.4 K/mm3 (0.1-0.6); Monocytes Percent Auto 6.6 % (2.6-8.5); Neutrophils Absolute Auto 4.5 K/mm3 (1.3-6.7); Neutrophils Percent Auto 80.5 % (45.5-73.1); Platelet Count Result 356 k/mm3 (150-375); Red Blood Count 3.04 M/mm3 (4.6-6.20); White Blood Count 5.6 K/mm3 (4.5-10.0)
[2020-10-09 08:32] LABS: Glucose Point of Care 426 (65-105)
[2020-10-09] MEDS: LEVOTHYROXINE SODIUM 50 MCG TABLET PO (08:39)
[2020-10-09] MEDS: INSULIN HUMAN ISOPHAN/REGULAR 70/30 (*BKC) 100 UNITS/ML 35 UNITS SUB-Q ×2 (08:40→18:36)
[2020-10-09] MEDS: CHOLECALCIFEROL 1,000 UNITS TABLET 2000 UNITS PO (08:41)
[2020-10-09] MEDS: FAMOTIDINE 20 MG/2 ML VIAL IV PUSH ×2 (08:42→20:13)
[2020-10-09] MEDS: PANTOPRAZOLE SOD SESQUIHYDRATE 20 MG TAB PO (08:42)
[2020-10-09] MEDS: TAMSULOSIN HCL 0.4 MG CAPSULE PO (08:43)
[2020-10-09 11:29] LABS: Partial Thromboplastin Time 73.8 SECONDS (22.3-36.8)
--- NOTE | 2020-10-09 11:52 | PM.CNNEP ---
Assessment and Plan Assessment and plan (1) ESRD on peritoneal dialysis: Code(s): N18.6 - End stage renal disease; Z99.2 - Dependence on renal dialysis Status: Acute Assessment and Plan: Zachery has end-stage renal disease. He is getting dialysis now. His volume status looks okay right now. His electrolytes are fine. Will continue the same prescription for now. (2) Atrial fibrillation with rapid ventricular response: Code(s): I48.91 - Unspecified atrial fibrillation Status: Acute Assessment and Plan: The patient has atrial fibrillation. His heart rhythm is still irregular. His rate is much better. He feels better and his blood pressure is better as well. He is on a diltiazem drip For chronotropic control his heart rate is doing well Cardiology is going to see him (3) Pneumonia due to COVID-19 virus: Code(s): U07.1 - COVID-19; J12.82 - Pneumonia due to coronavirus disease 2019 Status: Acute Assessment and Plan: He is still in isolation. He finished his Dexamethasone. He does not require oxygen (4) Hypertension: Code(s): I10 - Essential (primary) hypertension Status: Chronic Assessment and Plan: Blood pressure is well controlled. His antihypertensives are on hold as well (5) Anemia: Code(s): D64.9 - Anemia, unspecified Status: Chronic Assessment and Plan: Hemoglobin is 8.9. Will initiate Epogen therapy (6) Type 2 diabetes mellitus with diabetic polyneuropathy: Code(s): E11.42 - Type 2 diabetes mellitus with diabetic polyneuropathy Status: Acute Assessment and Plan: On Accu-Cheks and sliding-scale insulin History of Present Illness Reason for Consult Consult date: 10/09/20 Chief Complaint Chief complaint: afib with rvr History of Present Illness Narrative: Zachery is a very pleasant 70-year-old gentleman who has multiple medical problems including diabetes, diabetic retinopathy with poor visual acuity, hypertension, on peritoneal dialysis, obesity, hypothyroidism, hyperlipidemia, chronic back pain. The patient was recently in the hospital with COVID. He was discharged after a few days of supportive care. The patient was doing well. He says that when he got home he took some medication and he gradually felt worse. He was dizzy and nauseated. He had no belly pain. They called 911 and had him brought into the hospital. In the ER his blood pressure was low so was given some IV fluids. His heart rate was also high and he was in atrial fibrillation. The atrial fibrillation is new. He was placed on a heparin drip. He had dialysis last night with 1.5% Dianeal. He is feeling much better now. The patient has no more nausea. He ate breakfast. He has no chest pain or shortness of breath. Review of Systems Constitutional: Constitutional: Reports no additional constitutional complaints Eyes: Eyes: Reports no additional eye complaints ENT: Reports system reviewed and no additional complaints, except as documented Cardiovascular: Cardiovascular: Reports no additional cardiovascular complaints Respiratory: Respiratory: Reports no additional respiratory complaints Gastrointestinal: Gastrointestinal: Reports no additional gastrointestinal complaints Genitourinary: Genitourinary: Reports no additional male genitourinary complaints Musculoskeletal: Musculoskeletal: Reports no additional musculoskeletal complaints Integumentary/Breasts: Skin/Breast: Reports system reviewed and no additional complaints, except as docu Neurologic: Reports system reviewed and no additional complaints, except as documented Psychiatric: Psychiatric: Reports no additional psychiatric complaints Endocrine: Endocrine: Reports no additional endocrine complaints [facility] Past Medical History Medical History Back pain Complete loss of vision Due to glaucoma and di
[2020-10-09 12:01] LABS: Appearance Peritoneal Fluid Clear (Clear); Color Peritoneal Fluid Colorless (Colorless); Nucleated Cells Peritoneal Flu 225 /uL (0-500); RBC Peritoneal Fluid 0 /uL (0-100000); Source Peritoneal Fluid Peritoneal Fluid
[2020-10-09 12:02] LABS: Lymphocytes Peritoneal Fluid 18 %; Mesothelial Cells Peritoneal Fluid 4 %; Monocytes Peritoneal Fluid 52 %; Neutrophils Peritoneal Fluid 26 % (0-25)
--- NOTE | 2020-10-09 12:02 | PM.EVENT ---
Event Note Event Note Event Note: The patient is on dialysis and tolerating it well. He was seen at 11:00 a.m.
[2020-10-09] MEDS: SODIUM CHLORIDE 0.9% IV 1,000 ML 100 ML IV CONT (12:04)
[2020-10-09 12:07] LABS: Glucose Point of Care 326 (65-105)
--- NOTE | 2020-10-09 13:48 | PM.CNCAR ---
Assessment and Plan Assessment and plan (1) Atrial fibrillation with rapid ventricular response: Code(s): I48.91 - Unspecified atrial fibrillation Status: Acute Assessment and Plan: New onset AFib with rapid ventricular response. Improved with diltiazem 10 milligrams/hour. Likely related to his recent COVID pneumonia and he has risk factors to develop PAF as well. Check a TSH and echo. Will pursue rate control anticoagulation strategy for now. Could consider an outpatient cardioversion after recovery if the AFib persists. Will try to transition him to a p.o. beta deshawn. Soft BP so may not tolerate more meds, then would use amiodarone. Recommend anticoagulation to prevent cardioembolic events. Reviewed the literature (not much available; some retrospective analysis suggesting Eliquis is safe mira effective) and discussed with Dr. Valdez regarding use of Eliquis in dialysis patients. Use of warfarin would be very difficult in this patient so will use Eliquis 5 mg b.i.d. Hopefully his insurance will cover it. Hopefully this will be a short-term problem and resolve once the patient's COVID pneumonia resolves, but again, he does have risk factors for AFib and he will need close monitoring if, down the road, NSR is restored and we opt to discontinue Eliquis. Discussed all the above w/ the patient. (2) Pneumonia due to COVID-19 virus: Code(s): U07.1 - COVID-19; J12.82 - Pneumonia due to coronavirus disease 2018 Status: Acute Assessment and Plan: Chest x-ray looks worse but fortunately the patient is not complaining of shortness of breath and has good oxygenation. There may have been a component of volume overload due to his AFib RVR/CHF and his missing 1 dialysis treatment. (3) ESRD on peritoneal dialysis: Code(s): N18.6 - End stage renal disease; Z99.2 - Dependence on renal dialysis Status: Acute Assessment and Plan: Treatment per Dr. Valdez. History of Present Illness History of Present Illness Consult date/time: 10/09/20 13:48 Requesting physician: Ana Reinoso DO Consult reason: atrial fibrillation Reason For Visit: afib with rvr Narrative: Date of service: 10/09/2020 Mr. Zachery Gray is a 70-year-old male on dialysis who was hospitalized here recently with COVID pneumonia. We have been asked to see him at the request of Dr. Reinoso for our advice and opinion regarding his new onset atrial fibrillation RVR in consultation. Mr. Gray was admitted on October 01 with COVID pneumonia and discharged on October 06. He was treated with IV Decadron and did not need any oxygen on discharge. He return to the ER yesterday feeling poorly with nausea and weakness. No palpitations, chest pain or shortness of breath. In the ER he was found to have a heart rate of 140-150's, currently on a Cardizem drip at 10 milligrams/hour with a heart rate running 100-120 beats per minute. He has no history of any heart disease. He does have diabetes, end-stage renal disease on peritoneal dialysis, hypertension hyperlipidemia. No bleeding problems. No history of thyroid disease or strokes. No falls. Review of Systems Constitutional: Constitutional: Reports fatigue, Reports lethargy and Reports weakness Eyes: Eyes: Reports no additional eye complaints ENT: Denies epistaxis and Denies nasal congestion Cardiovascular: Cardiovascular: Denies chest pain, Denies diaphoresis, Denies pedal edema, Denies leg edema, Denies lightheadedness and Denies palpitations Respiratory: Respiratory: Denies co
--- NOTE | 2020-10-09 15:39 | PM.IMPN ---
Progress Note: A&P Assessment and Plan (1) Atrial fibrillation with rapid ventricular response: Code(s): I48.91 - Unspecified atrial fibrillation Status: Acute Assessment and Plan: New onset AFib RVR. He has been admitted to the hospitalist service in the IMU. As the onset of patient's atrial fibrillation symptoms is unclear, could be secondary to COVID vs underlying infection vs CVA. Patient was placed on heparin drip for stroke prophylaxis. This was changed by Cardiology on 10/09/20 to Eliquis. Cardizem drip has been initiated. The patient's heart rate remained in the 110-120s. Cardizem drip has been continued to 10 mg an hour. Echocardiogram has been ordered for a.m. Continue monitoring on telemetry Continue monitoring. Cardiology input is greatly appreciated. (2) Pneumonia due to COVID-19 virus: Code(s): U07.1 - COVID-19; J12.82 - Pneumonia due to coronavirus disease 2018 Status: Acute Assessment and Plan: Chest x-ray demonstrates significant worsening in infiltrates concerning for worsening pneumonia associated with COVID-19. He does not have oxygen requirement at this time. (he has been symptomatic at least since the possibly longer) He had already completed a course of Decadron during his prior hospitalization. He is not a candidate for Remdesivir as he does not have an oxygen requirement and his baseline GFR is less than 30. Will continue with supportive treatment. The patient is on contact and droplet isolation. (3) Confusion: Code(s): R41.0 - Disorientation, unspecified Status: Acute Assessment and Plan: Could be secondary to COVID-19 encephalopathy The patient is A&O x4 and follows commands, but he is confused as to why he is here and cannot remember anything that happened at home prior to arrival. Since the patient is in new AFib with RVR, there is a risk of stroke so I will get an MRI of his brain to rule out stroke Continue dialysis for possible uremia cause Will monitor mental status closely. Patient has been placed on fall precautions. (4) ESRD on peritoneal dialysis: Code(s): N18.6 - End stage renal disease; Z99.2 - Dependence on renal dialysis Status: Acute Assessment and Plan: He is tolerating dialysis without difficulty. Renal function is stable at 8.8. Electrolytes stable. Peritoneal fluid was obtained which showed normal nucleated cells, which does not appear to have an infection. Nephrology was consulted for dialysis purposes. 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 states it was at home as well. Could be from steroids. Will continue patient's 70/30 insulin which is 30 units b.i.d. Glucose this morning was 355 Hemoglobin A1c greater than 10. Moderate sliding scale insulin with Accu-Cheks a.c. HS and hypoglycemia protocol have been ordered. Time Spent With Patient Time with patient: 25 - 35 minutes Subjective Date/time seen: 10/09/20 15:39 Interval history: Date of service 10/09/2020: The patient states he has to get home to work on his new house. I asked him why he is in the hospital and he is unsure. He answers all my other of alert and oriented questions correctly, but just keeps saying he needs to get home to work on his house. I called the patient's about what had happened in the last
[2020-10-09 16:28] LABS: Glucose Point of Care 122 (65-105)
[2020-10-09 17:41] LABS: Partial Thromboplastin Time 35.4 SECONDS (22.3-36.8)
[2020-10-09] MEDS: METOPROLOL TARTRATE 25 MG TABLET PO ×2 (18:33→23:34)
[2020-10-09] MEDS: HEPARIN SODIUM 5,000 UNITS/ML VIAL 6500 UNITS IV PUSH (18:33)
[2020-10-09] MEDS: PRAVASTATIN SODIUM 10 MG TABLET PO (18:34)
[2020-10-09] MEDS: MIRTAZAPINE 15 MG TABLET PO (18:34)
[2020-10-09 19:59] LABS: Glucose Point of Care 89 (65-105)
[2020-10-09] MEDS: APIXABAN 5 MG TABLET PO (20:13)
[2020-10-09 23:52] LABS: Glucose Point of Care 98 (65-105)
[2020-10-10] VITALS (16 sets, daily range): BP systolic 106–132; BP diastolic 59–86; PULSE 88–132; RESP 18–22; TEMP 36.1–36.6; O2SAT 96–100
--- NOTE | 2020-10-10 | ECHO_ITS ---
Patient Info Name: Zachery Gray Age: 70 years : 1950 Gender: Male Ht: 68 in Wt: 229 lbs BSA: 2.27 m2 HR: 110 bpm BP: 123 / 72 mmHg Heart Rhythm: Atrial Fibrillation Technical Quality: Good Exam Date: 10/10/2020 11:18 AM Exam Location: [facility] Patient Status: Inpatient Admit Date: 10/08/2020 Staff Ordering Physician: Debi Johnson MD Physicist [place]: Roque Lebron RDCS, RT Attending Provider: Inocencia De Leon PA-C Referring Physician: Elizabeth POPE; Exam Type: CA echo doppler color flow Study Info Indications I48.1 - Persistent atrial fibrillation Summary 1. Left ventricular chamber dimension is normal. 2. Left ventricular systolic function is normal, estimated at 55-60%. 3. There is mild aortic valve sclerosis. 4. Leaflet separation is well maintained the valve is not stenotic. 5. There is trace mitral valve regurgitation. Left Ventricle Left ventricular chamber dimension is normal. Left ventricular systolic function is normal, estimated at 55-60%. Right Ventricle Right ventricular chamber dimension is normal. Left Atria Left atrial chamber dimension is mildly enlarged. Right Atria Right atrial chamber dimension is normal. Aortic Valve The aortic valve is trileaflet. There is mild aortic valve sclerosis. Leaflet separation is well maintained the valve is not stenotic. Pulmonic Valve The pulmonic valve is not well visualized. Mitral Valve The mitral valve has normal leaflets. There is trace mitral valve regurgitation. The mitral valve annulus is mildly calcified. Tricuspid Valve The tricuspid valve leaflets are normal. Pericardium/Pleural The pericardium appears normal. Aorta The aortic root size at the sinus of Valsalva is normal. Left Ventricular Outflow Tract Name Value Normal LVOT 2D LVOT Diameter 2.1 cm LVOT Doppler LVOT Peak Gradient 3 mmHg LVOT Mean Gradient 1 mmHg LVOT VTI 21 cm LVOT VTI/AV VTI Ratio 0.9 LVOT Stroke Volume 75 ml LVOT CO 7.3 l/min LVOT CI 3.2 l/min/m2 Mitral Valve Name Value Normal MV Doppler MV Decel Kershaw 581 cm/s2 MV PHT 52 ms MV Area (PHT) 4.3 cm2 4.0-5.0 MV Diastolic Function MV E Peak Velocity 104 cm/s MV A Peak Velocity 46 cm/s MV E/A 2.3 MV Decel Time 178 ms MV Annular TDI
--- NOTE | 2020-10-10 00:31 | PC.NURSE ---
Pt keeps trying to take apart PD catheter and pushing buttons on the machine
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
[2020-10-10] MEDS: METOPROLOL TARTRATE INJ 5 MG/5 ML VIAL IV PUSH (03:35)
[2020-10-10 04:51] LABS: Basophils Percent Auto 0.1 % (0.2-1.2); Eosinophils Absolute Auto 0.1 K/mm3 (0-0.3); Hematocrit 28.3 % (42.0-52.0); Hemoglobin 9.6 g/dL (14.0-18.0); Immature Granulocyte Absolute 0.14 K/mm3 (0.00-0.031); Immature Granulocyte Percent A 1.6 % (0-0.5); Lymphocytes Absolute Auto 1.27 K/mm3 (0.9-3.2); Lymphocytes Percent Auto 14.5 % (18.3-44.2); Mean Corpuscular HGB Conc 33.9 g/dl (32-36); Mean Corpuscular Hemoglobin 29.3 pg (26-34); Mean Corpuscular Volume 86.3 fl (80-100); Mean Platelet Volume 9.4 fl (7.4-10.4); Monocytes Absolute Auto 0.7 K/mm3 (0.1-0.6); Monocytes Percent Auto 8.3 % (2.6-8.5); Neutrophils Absolute Auto 6.5 K/mm3 (1.3-6.7); Neutrophils Percent Auto 74.5 % (45.5-73.1); Platelet Count Result 326 k/mm3 (150-375); Red Blood Count 3.28 M/mm3 (4.6-6.20); Red Cell Distribution Width 14.2 % (11.5-14.5); White Blood Count 8.8 K/mm3 (4.5-10.0)
[2020-10-10] MEDS: LEVOTHYROXINE SODIUM 50 MCG TABLET PO (05:02)
[2020-10-10] MEDS: METOPROLOL TARTRATE 25 MG TABLET PO ×3 (05:02→17:39)
[2020-10-10 05:15] LABS: Albumin Level 2.9 g/dL (3.5-5.1); Anion Gap 7 mmol/L (8-16); Blood Urea Nitrogen 94 mg/dL (9-20); CRP 1.2 mg/dL (<1.0); Calcium 8.2 mg/dL (8.4-10.2); Carbon Dioxide 27 mmol/L (22-30); Chloride 101 mmol/L (98-107); Estimated CRCL calculation 10 ml/min; Estimated Glomerular Filt Rate 7; Glucose 95 mg/dL (75-110); Phosphorus 5.4 mg/dL (2.5-4.5); Potassium 3.4 mmol/L (3.4-5.0); Sodium 135 mmol/L (137-145)
[2020-10-10 05:44] LABS: Thyroid Stimulating Hormone Reflex 0.354 uIU/mL (0.465-4.68)
[2020-10-10 07:59] LABS: Glucose Point of Care 122 (65-105)
[2020-10-10 08:02] LABS: Free T4 Free Thyroxine Reflex 1.14 ng/dL (0.78-2.19)
[2020-10-10] MEDS: APIXABAN 5 MG TABLET PO ×2 (10:03→21:12)
[2020-10-10] MEDS: FAMOTIDINE 20 MG/2 ML VIAL IV PUSH ×2 (10:04→21:12)
[2020-10-10] MEDS: PANTOPRAZOLE SOD SESQUIHYDRATE 20 MG TAB PO (10:04)
[2020-10-10] MEDS: TAMSULOSIN HCL 0.4 MG CAPSULE PO (10:04)
[2020-10-10] MEDS: CHOLECALCIFEROL 1,000 UNITS TABLET 2000 UNITS PO (10:05)
[2020-10-10] MEDS: EPOETIN ALFA-EPBX 10,000 UNITS/ML VIAL 10000 UNITS SUB-Q (10:08)
[2020-10-10] MEDS: INSULIN HUMAN ISOPHAN/REGULAR 70/30 (*BKC) 100 UNITS/ML 35 UNITS SUB-Q ×2 (10:10→17:39)
--- NOTE | 2020-10-10 11:17 | PM.PNCARD ---
Progress Note: A&P Assessment and Plan (1) Atrial fibrillation with rapid ventricular response: Code(s): I48.91 - Unspecified atrial fibrillation Status: Acute Assessment and Plan: New onset AFib with rapid ventricular response. patient is still tachycardic. Will given dose of IV amiodarone 150 mg IV x1 Since blood pressure is soft. Continue oral metoprolol. DC his heparin since he is now on Eliquis. Will pursue rate control anticoagulation strategy for now. Could consider an outpatient cardioversion after recovery if the AFib persists. Will try to transition him to a p.o. beta deshawn. Recommend anticoagulation to prevent cardioembolic events. Hopefully this will be a short-term problem and resolve once the patient's COVID pneumonia resolves, but again, he does have risk factors for AFib and he will need close monitoring if, down the road, NSR is restored and we opt to discontinue Eliquis. Discussed all the above w/ the patient. (2) Pneumonia due to COVID-19 virus: Code(s): U07.1 - COVID-19; J12.82 - Pneumonia due to coronavirus disease 2018 Status: Acute Assessment and Plan: Chest x-ray looks worse but fortunately the patient is not complaining of shortness of breath and has good oxygenation. There may have been a component of volume overload due to his AFib RVR/CHF and his missing 1 dialysis treatment. (3) ESRD on peritoneal dialysis: Code(s): N18.6 - End stage renal disease; Z99.2 - Dependence on renal dialysis Status: Acute Assessment and Plan: Treatment per Dr. Valdez. Subjective Date/time seen: 10/10/20 11:17 Interval history: 70-year-old admitted for worsening confusion COVID pneumonia. Also found to be in atrial fibrillation. Date of service 10/10/2020: No chest pain or shortness of breath. Feels okay. Still confused. Review of Systems Constitutional: Constitutional: Reports fatigue, Reports lethargy and Reports weakness Eyes: Eyes: Reports no additional eye complaints ENT: Denies epistaxis and Denies nasal congestion Cardiovascular: Cardiovascular: Denies chest pain, Denies diaphoresis, Denies pedal edema, Denies leg edema, Denies lightheadedness, Denies palpitations, Denies dyspnea and Denies dyspnea on exertion Respiratory: Respiratory: Denies cough, Denies hemoptysis, Denies dyspnea and Denies dyspnea on exertion Gastrointestinal: Gastrointestinal: Denies abdominal pain Genitourinary: Genitourinary: Denies hematuria Musculoskeletal: Musculoskeletal: Denies back pain Integumentary/Breasts: Skin/Breast: Denies rash Neurologic: Reports confusion and Reports weakness Psychiatric: Psychiatric: Reports confusion Endocrine: Endocrine: Reports fatigue and Denies palpitations Hematologic/Lymphatic: Hematologic/Lymphatic: Denies easy bleeding Allergic/Immunologic: Allergic/Immunologic: Denies GI upset with certain foods Exam Narrative: Exam Narrative: Obese older male, sitting on the edge of his bed, concerned about how he is going to get home and ?get my work done.? He is not requiring any O2 and does not appear to be in any respiratory distress. Const: General: comfortable, no acute distress and confusion Orientation/consciousness: confusion HENMT: General nose exam: no epistaxis Eyes: Sclera: sclerae normal Other: Eyes appear abnormal; apparently does have vision loss due to glaucoma and diabetic retinopathy Neck: Neck: supple and no JVD Carotids: no bruits Resp: Effort & Inspection: normal respiratory effort Auscultation: clear to auscultation bilaterally and diminished lung sounds Cardio: Rate: tachycardic
--- NOTE | 2020-10-10 11:23 | PM.IMPN ---
Progress Note: A&P Assessment and Plan (1) Atrial fibrillation with rapid ventricular response: Code(s): I48.91 - Unspecified atrial fibrillation Status: Acute Assessment and Plan: New onset AFib RVR. He has been admitted to the hospitalist service in the IMU. As the onset of patient's atrial fibrillation symptoms is unclear, could be secondary to COVID vs underlying infection vs CVA. Patient was placed on heparin drip for stroke prophylaxis. This was changed by Cardiology on 10/09/20 to Eliquis. Patient was on a Cardizem drip but this was changed by Cardiology last night. Patient is now in AFib RVR and was started on amnio drip by Cardiology. Echocardiogram has been ordered for a.m. Telemetry shows AFib RVR with a heart rate fluctuating between 115-132 bpm. Continue monitoring. Cardiology input is greatly appreciated. (2) Pneumonia due to COVID-19 virus: Code(s): U07.1 - COVID-19; J12.82 - Pneumonia due to coronavirus disease 2018 Status: Acute Assessment and Plan: Chest x-ray demonstrates significant worsening in infiltrates concerning for worsening pneumonia associated with COVID-19. He does not have oxygen requirement at this time. (he has been symptomatic at least since the possibly longer) He had already completed a course of Decadron during his prior hospitalization. He is not a candidate for Remdesivir as he does not have an oxygen requirement and his baseline GFR is less than 30. Will continue with supportive treatment. The patient is on contact and droplet isolation. (3) Confusion: Code(s): R41.0 - Disorientation, unspecified Status: Acute Assessment and Plan: Could be secondary to COVID-19 encephalopathy versus uremia from having issues with dialysis The patient is A&O x4 and follows commands, but he is confused as to why he is here and cannot remember anything that happened prior to arrival and actually does not remember being discharged home for almost 2 days. Since the patient is in new AFib with RVR, there is a risk of stroke so I will get an MRI of his brain to rule out stroke Continue dialysis for possible uremia cause Will monitor mental status closely. Patient has been placed on fall precautions. (4) ESRD on peritoneal dialysis: Code(s): N18.6 - End stage renal disease; Z99.2 - Dependence on renal dialysis Status: Acute Assessment and Plan: He is tolerating dialysis without difficulty. Renal function is stable at 7.3. Electrolytes stable. Peritoneal fluid was obtained which showed normal nucleated cells, which does not appear to have an infection. Will discuss with Nephrology about Uremia cause of confusion and issues that may pertain to peritoneal dialysis issues at home. Nephrology was consulted for dialysis purposes. Appreciate their input. 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 states it was at home as well. Could be from steroids. Will continue patient's 70/30 insulin which is 35 units b.i.d. Glucose this morning was 95. Will continue monitoring throughout the day. Hemoglobin A1c greater than 10. Moderate sliding scale insulin with Accu-Cheks a.c. HS and hypoglycemia protocol have been ordered. Time Spent With Patient Time with patient: 25 - 35 minutes Subjective Date/time seen: 10/10/20 11:23 Interval history: Zac
[2020-10-10 11:51] LABS: Glucose Point of Care 220 (65-105)
[2020-10-10] MEDS: AMIODARONE 150 MG/D5W 100 ML 150 MG/100 ML BAG 600 MG IV CONT (12:22)
[2020-10-10] MEDS: INSULIN ASPART (*BKC) 100 UNITS/ML SUB-Q (12:22)
[2020-10-10 16:18] LABS: Glucose Point of Care 147 (65-105)
--- NOTE | 2020-10-10 16:20 | PM.PNNEP ---
Progress Note: A&P Assessment and Plan (1) ESRD on peritoneal dialysis: Code(s): N18.6 - End stage renal disease; Z99.2 - Dependence on renal dialysis Status: Acute Assessment and Plan: not sure he received an adequate dialysis treatment last night resume CCPD nightly follow electrolytes, volume status, and clearanve (2) Confusion: Code(s): R41.0 - Disorientation, unspecified Status: Acute Assessment and Plan: etiology not clear elevated BUN noted so uremia a possibility recent steroid use and associated hyperglycemia could be responsible as well follow trend for now (3) Atrial fibrillation with rapid ventricular response: Code(s): I48.91 - Unspecified atrial fibrillation Status: Acute Assessment and Plan: Cardiology is following continue rate control strategy for now anticoagulation? (4) Pneumonia due to COVID-19 virus: Code(s): U07.1 - COVID-19; J12.82 - Pneumonia due to coronavirus disease 2018 Status: Acute Assessment and Plan: diagnosis made on last hospitalization s/p dexamethasone continue supportive therapy (5) Hypertension: Code(s): I10 - Essential (primary) hypertension Status: Chronic Assessment and Plan: reasonable control at this time on metoprolol but this is for his Afib follow trend of hemodynamics (6) Anemia: Code(s): D64.9 - Anemia, unspecified Status: Chronic Assessment and Plan: improving on SQ Epogen follow trend of H/H (7) Type 2 diabetes mellitus with diabetic polyneuropathy: Code(s): E11.42 - Type 2 diabetes mellitus with diabetic polyneuropathy Status: Acute Assessment and Plan: follow accuchecks on SSI and NPH Will continue to follow. Subjective Date/time seen: 10/10/20 16:20 Unclear how much dialysis he received overnight due to problems with the PD cycler as well as his significant confusion; however, his mentation is doing better this afternoon but still seems not completely normal; no other acute issues or problems to report at this time. Exam Narrative: Exam Narrative: General: WD/WN male in NAD Heart: normal S1 and S2; no rub Lungs: clear to auscultation Abdomen: soft, nontender, nondistended, positive bowel sounds Extremities: no cyanosis or clubbing; no edema Skin: warm and dry Objective Data Vital Signs Vital Signs: Vital Signs Temp Pulse Resp BP Pulse Ox 10/10/20 16:00 36.1 C L 98 20 108/75 99 10/10/20 14:00 90 10/10/20 12:22 116 H 107/59 L 10/10/20 12:00 36.3 C L 95 20 107/59 L 96 10/10/20 10:00 119 H 10/10/20 08:00 36.3 C L 132 H 22 H 119/86 96 10/10/20 05:02 111 H 10/10/20 04:00 36.6 C 97 20 123/72 100 10/10/20 03:35 124 H 10/10/20 02:00 97 10/10/20 00:00 131 H 10/09/20 23:54 36.6 C 114 H 20 116/77 97 10/09/20 23:34 114 H 10/09/20 22:00 101 H 10/09/20 21:30 36.7 C 110 H 20 98/50 L 10/09/20 20:00 36.7 C 99 20 98/50 L 97 10/09/20 18:33 107 H Intake/Output Intake/Output: Intake & Output 10/07/20 10/08/20 10/09/20 10/10/20 23:59 23:59 23:59 23:59 Intake Total 4834 1754 Output Total 575 950 Balance 4259 804 Meds/Results Medications: Active Medications Generic Name Dose Route Start Last Admin Trade Name Freq PRN Reason Stop Dose Admin Apixaban 5 mg 10/09/20 21:00 10/10/20 10:03 Apixaban 5 Mg Tablet PO 5 mg Q12HR SUKH Administration Dextrose 12.5 gm 10/08/20 22:06 Dextrose 50% 25 Gm/50 Ml Syringe IV PUSH PRN PRN Hypoglycemia Protocol Epoetin Julian-epbx 10,000 units 10/10/20 09:00 10/10/20 10:08 Epoetin Julian-Epbx 10,000 Units/Ml Vial SUB-Q 10,000 units MoWeFr@0900 SUKH Administration Famotidine 20 mg 10/08/20 21:00 10/10/20 10:04 Famotidine 20 Mg/2 Ml Vial IV PUSH 20 mg Q12HR SUKH Administration Glucagon 1 mg
[2020-10-10] MEDS: PRAVASTATIN SODIUM 10 MG TABLET PO (17:39)
[2020-10-10] MEDS: MIRTAZAPINE 15 MG TABLET PO (17:39)
[2020-10-10 20:54] LABS: Glucose Point of Care 115 (65-105)
[2020-10-11] VITALS (12 sets, daily range): BP systolic 106–130; BP diastolic 70–85; PULSE 83–112; RESP 12–20; TEMP 36.2–36.9; O2SAT 94–99
[2020-10-11] MEDS: METOPROLOL TARTRATE 25 MG TABLET PO ×3 (00:34→13:21)
[2020-10-11 05:30] LABS: Basophils Percent Auto 0.2 % (0.2-1.2); Eosinophils Absolute Auto 0.1 K/mm3 (0-0.3); Eosinophils Percent Auto 1.1 % (0-4.4); Hematocrit 31.6 % (42.0-52.0); Hemoglobin 10.4 g/dL (14.0-18.0); Immature Granulocyte Absolute 0.13 K/mm3 (0.00-0.031); Immature Granulocyte Percent A 1.5 % (0-0.5); Lymphocytes Absolute Auto 1.46 K/mm3 (0.9-3.2); Lymphocytes Percent Auto 16.3 % (18.3-44.2); Mean Corpuscular HGB Conc 32.9 g/dl (32-36); Mean Corpuscular Hemoglobin 28.3 pg (26-34); Mean Corpuscular Volume 85.9 fl (80-100); Mean Platelet Volume 9.4 fl (7.4-10.4); Monocytes Absolute Auto 0.7 K/mm3 (0.1-0.6); Monocytes Percent Auto 8.3 % (2.6-8.5); Neutrophils Absolute Auto 6.5 K/mm3 (1.3-6.7); Neutrophils Percent Auto 72.6 % (45.5-73.1); Platelet Count Result 357 k/mm3 (150-375); Red Blood Count 3.68 M/mm3 (4.6-6.20); Red Cell Distribution Width 14.5 % (11.5-14.5); White Blood Count 8.9 K/mm3 (4.5-10.0)
[2020-10-11 05:47] LABS: Anion Gap 5 mmol/L (8-16); Blood Urea Nitrogen 71 mg/dL (9-20); Calcium 8.1 mg/dL (8.4-10.2); Carbon Dioxide 28 mmol/L (22-30); Chloride 104 mmol/L (98-107); Estimated CRCL calculation 12 ml/min; Estimated Glomerular Filt Rate 9; Glucose 68 mg/dL (75-110); Magnesium 2.2 mg/dL (1.6-2.3); Phosphorus 4.9 mg/dL (2.5-4.5); Sodium 137 mmol/L (137-145)
[2020-10-11] MEDS: LEVOTHYROXINE SODIUM 50 MCG TABLET PO (06:23)
[2020-10-11 08:28] LABS: Glucose Point of Care 67 (65-105)
[2020-10-11] MEDS: APIXABAN 5 MG TABLET PO ×2 (08:51→20:45)
[2020-10-11] MEDS: PANTOPRAZOLE SOD SESQUIHYDRATE 20 MG TAB PO (08:51)
[2020-10-11] MEDS: POTASSIUM CHLORIDE 20 MEQ TABLET PO (08:51)
[2020-10-11] MEDS: CHOLECALCIFEROL 1,000 UNITS TABLET 2000 UNITS PO (08:51)
[2020-10-11] MEDS: TAMSULOSIN HCL 0.4 MG CAPSULE PO (08:51)
[2020-10-11] MEDS: INSULIN HUMAN ISOPHAN/REGULAR 70/30 (*BKC) 100 UNITS/ML 17 UNITS SUB-Q (08:52)
[2020-10-11] MEDS: FAMOTIDINE 20 MG/2 ML VIAL IV PUSH ×2 (08:52→20:45)
--- NOTE | 2020-10-11 09:34 | PM.IMPN ---
Progress Note: A&P Assessment and Plan (1) Atrial fibrillation with rapid ventricular response: Code(s): I48.91 - Unspecified atrial fibrillation Status: Acute Assessment and Plan: New onset AFib with RVR on arrival; HR seems more controlled. Cardiology following and appreciate recommendations. Amio has been d/c and patient now on metoprolol and Eliquis per cardiology recommendations. PAtient feeling well today; no complaints at the moment. Echo 10/10 grossly unremarkable Continue metoprolol and Eliquis per Cardiology recommendations Monitor on tele Continue to monitor Okay to transfer to med/surg tele if okay with Cardiology (2) Pneumonia due to COVID-19 virus: Code(s): U07.1 - COVID-19; J12.82 - Pneumonia due to coronavirus disease 2018 Status: Acute Assessment and Plan: Chest x-ray demonstrates significant worsening in infiltrates concerning for worsening pneumonia associated with COVID-19. Patient no longer hypoxic. He already has completed a course of decadron and was not a candidate for Remdesivir given ESRD and he was outside window for treatment. Continue with supportive care Patient continues on contact and droplet isolation, although it has been several weeks since symptoms onset so okay with d/c when okay with infection control (3) Confusion: Code(s): R41.0 - Disorientation, unspecified Status: Acute Assessment and Plan: Could be secondary to COVID-19 encephalopathy versus uremia from having issues with dialysis vs less likely CVA. Patient seems to have significantly improved over past several days. MRI brain to be done today. A&Ox4 for me today. Still feels foggy but feels better. Await MRI brain results Monitor closely Consider Neuro consultation (4) ESRD on peritoneal dialysis: Code(s): N18.6 - End stage renal disease; Z99.2 - Dependence on renal dialysis Status: Acute Assessment and Plan: He is tolerating dialysis without difficulty. Cr 6.30 today; stable. Continue with Nephrology recommendations; appreciate input Continue with peritoneal dialysis Replace electrolytes prn Monitor (5) Type 2 diabetes mellitus with hyperglycemia: Qualifiers: Diabetes mellitus lobsterman insulin use: with lobsterman use Qualified Code(s): E11.65 - Type 2 diabetes mellitus with hyperglycemia; Z79.4 - continuous churn buttermaker (current) use of insulin Code(s): E11.65 - Type 2 diabetes mellitus with hyperglycemia Status: Acute Assessment and Plan: Patient's glucose on arrival was elevated. A1c 10.8 10/01. Glucose low at 60s this morning; 17 u 70/30 given this morning. Will continue patient's 70/30 insulin 35 u BID tonight; morning dose of 17 u given this morning due to lower BGL. Accuchecks ACHS, hypoglycemia protocol, correctional insulin, diabetic/renal diet Subjective Date/time seen: 10/11/20 09:34 Interval history: Patient is a 70 yo M with history of poorly controlled DMII, ESRD on peritoneal dialysis, HTN, and hypothyroidism who is seen in follow up for a fib with RVR, now rate controlled, as well as confusion secondary to possible uremia vs less likely CVA. Today he tells me he just feels foggy today, but overall feels better. No other complaints. He is A&Ox 4 and is answering my questions appropriately. Nursing reports an improvement in his mental status over the past couple of days. He denies f/c/s, headaches, dizziness, lightheadedness, cp/palpitations, sob, cough, n/v/d/c, abd pain, calf pain/swelling. Review of Systems Review of Systems: All systems reviewed & are unremarkable except as noted in HPI and below Exam Narrative: Exam Narrative: General: Patient sitting on side of bed on angela
--- NOTE | 2020-10-11 12:00 | P.PNNP_ITS ---
Progress Note: A&P Assessment and Plan (1) ESRD on peritoneal dialysis: Code(s): N18.6 - End stage renal disease; Z99.2 - Dependence on renal dialysis Status: Acute Assessment and Plan: * better PD treatment last night * resume CCPD nightly * follow electrolytes, volume status, and clearance (2) Confusion: Code(s): R41.0 - Disorientation, unspecified Status: Acute Assessment and Plan: * improved * etiology not clear * elevated BUN noted so uremia a possibility * recent steroid use and associated hyperglycemia could be responsible as well * follow trend for now (3) Atrial fibrillation with rapid ventricular response: Code(s): I48.91 - Unspecified atrial fibrillation Status: Acute Assessment and Plan: * Cardiology is following * continue rate control strategy for now * on eliquis for anticoagulation (4) Pneumonia due to COVID-19 virus: Code(s): U07.1 - COVID-19; J12.82 - Pneumonia due to coronavirus disease 2018 Status: Acute Assessment and Plan: * diagnosis made on last hospitalization * s/p dexamethasone * on room air * continue supportive therapy (5) Hypertension: Code(s): I10 - Essential (primary) hypertension Status: Chronic Assessment and Plan: * reasonable control at this time * on metoprolol but this is for his Afib * follow trend of hemodynamics (6) Anemia: Code(s): D64.9 - Anemia, unspecified Status: Chronic Assessment and Plan: * improving * on SQ Epogen * follow trend of H/H (7) Type 2 diabetes mellitus with diabetic polyneuropathy: Code(s): E11.42 - Type 2 diabetes mellitus with diabetic polyneuropathy Status: Acute Assessment and Plan: * follow accuchecks * on SSI and NPH Will continue to follow. Subjective Date/time seen: 10/11/20 12:00 Tolerated CCPD overnight without any acute issues; mental status seems to be doing much better today; no acute issues or problems voiced at this time; no events overnight or earlier this AM Exam Narrative: Exam Narrative: General: WD/WN male in NAD Heart: normal S1 and S2; no rub Lungs: clear anteriorly; decreased at bases Abdomen: soft, nontender, nondistended, positive bowel sounds Extremities: no cyanosis or clubbing; no edema Skin: warm and intact Objective Data Vital Signs Vital Signs: Vital Signs Temp Pulse Resp BP Pulse Ox 10/11/20 10:00 93 10/11/20 08:00 36.9 C 93 12 106/85 95 10/11/20 06:23 88 10/11/20 06:00 85 10/11/20 04:00 36.5 C 105 H 20 127/72 99 10/11/20 02:00 105 H 10/11/20 00:34 83 10/11/20 00:00 103 H 18 98 10/10/20 23:22 36.6 C 95 18 106/75 98 10/10/20 22:00 102 H 10/10/20 20:00 36.6 C 96 20 132/71 100 10/10/20 18:15 36.1 C L 98 20 108/75 10/10/20 18:00 100 10/10/20 16:00 36.1 C L 119 H 20 108/75 99 10/10/20 14:00 90 10/10/20 12:22 116 H 107/59 L Intake/Output Intake/Output: Intake & Output 10/08/20 10/09/20 10/10/20 10/11/20 23:59 23:59 23:59 23:59 Intake Total 4834 1854 390 Output Total 574 5210 1022 Balance 4254 342 -602 Meds/Results Medications:
--- NOTE | 2020-10-11 12:00 | PM.PNNEP ---
Progress Note: A&P Assessment and Plan (1) ESRD on peritoneal dialysis: Code(s): N18.6 - End stage renal disease; Z99.2 - Dependence on renal dialysis Status: Acute Assessment and Plan: better PD treatment last night resume CCPD nightly follow electrolytes, volume status, and clearance (2) Confusion: Code(s): R41.0 - Disorientation, unspecified Status: Acute Assessment and Plan: improved etiology not clear elevated BUN noted so uremia a possibility recent steroid use and associated hyperglycemia could be responsible as well follow trend for now (3) Atrial fibrillation with rapid ventricular response: Code(s): I48.91 - Unspecified atrial fibrillation Status: Acute Assessment and Plan: Cardiology is following continue rate control strategy for now on eliquis for anticoagulation (4) Pneumonia due to COVID-19 virus: Code(s): U07.1 - COVID-19; J12.82 - Pneumonia due to coronavirus disease 2018 Status: Acute Assessment and Plan: diagnosis made on last hospitalization s/p dexamethasone on room air continue supportive therapy (5) Hypertension: Code(s): I10 - Essential (primary) hypertension Status: Chronic Assessment and Plan: reasonable control at this time on metoprolol but this is for his Afib follow trend of hemodynamics (6) Anemia: Code(s): D64.9 - Anemia, unspecified Status: Chronic Assessment and Plan: improving on SQ Epogen follow trend of H/H (7) Type 2 diabetes mellitus with diabetic polyneuropathy: Code(s): E11.42 - Type 2 diabetes mellitus with diabetic polyneuropathy Status: Acute Assessment and Plan: follow accuchecks on SSI and NPH Will continue to follow. Subjective Date/time seen: 10/11/20 12:00 Tolerated CCPD overnight without any acute issues; mental status seems to be doing much better today; no acute issues or problems voiced at this time; no events overnight or earlier this AM Exam Narrative: Exam Narrative: General: WD/WN male in NAD Heart: normal S1 and S2; no rub Lungs: clear anteriorly; decreased at bases Abdomen: soft, nontender, nondistended, positive bowel sounds Extremities: no cyanosis or clubbing; no edema Skin: warm and intact Objective Data Vital Signs Vital Signs: Vital Signs Temp Pulse Resp BP Pulse Ox 10/11/20 10:00 93 10/11/20 08:00 36.9 C 93 12 106/85 95 10/11/20 06:23 88 10/11/20 06:00 85 10/11/20 04:00 36.5 C 105 H 20 127/72 99 10/11/20 02:00 105 H 10/11/20 00:34 83 10/11/20 00:00 103 H 18 98 10/10/20 23:22 36.6 C 95 18 106/75 98 10/10/20 22:00 102 H 10/10/20 20:00 36.6 C 96 20 132/71 100 10/10/20 18:15 36.1 C L 98 20 108/75 10/10/20 18:00 100 10/10/20 16:00 36.1 C L 119 H 20 108/75 99 10/10/20 14:00 90 10/10/20 12:22 116 H 107/59 L Intake/Output Intake/Output: Intake & Output 10/08/20 10/09/20 10/10/20 10/11/20 23:59 23:59 23:59 23:59 Intake Total 4834 1854 390 Output Total 575 1250 1029 Balance 4259 604 -369 Meds/Results Medications: Active Medications Generic Name Dose Route Start Last Admin Trade Name Freq PRN Reason Stop Dose Admin Apixaban 5 mg 10/09/20 21:00 10/11/20 08:51 Apixaban 5 Mg Tablet PO 5 mg Q12HR SUKH Administration Dextrose 12.5 gm 10/08/20 22:06 Dextrose 50% 25 Gm/50 Ml Syringe IV PUSH PRN PRN Hypoglycemia Protocol Epoetin Julian-epbx 10,000 units 10/10/20 09:00 10/10/20 10:08 Epoetin Julian-Epbx 10,000 Units/Ml Vial SUB-Q 10,000 units MoWeFr@0900 SUKH Administration Famotidine 20 mg 10/08/20 21:00 10/11/20 08:52 Famotidine 20 Mg/2 Ml Vial IV PUSH 20 mg Q12HR SUKH Administration Glucagon 1 mg 10/08/20 22:06 Glucagon For Inj 1 Mg Vial IM PRN PRN Hypoglycemia Protocol Glucose
[2020-10-11 12:39] LABS: Glucose Point of Care 180 (65-105)
--- NOTE | 2020-10-11 13:35 | PM.PNCARD ---
Progress Note: A&P Additional Plan 70-year-old man with: Mack virus pneumonia atrial fibrillation of unknown chronicity. Patient is anticoagulated with apixaban and rate controlled with metoprolol. I will transition him to long-acting metoprolol succinate at 100 mg daily which is an equivalent dose to when he is receiving now 4 times daily. Avani [facility] Subjective Date/time seen: Date of service: 10/11/20 13:35 Interval history: Patient being seen for assistance with management of atrial fibrillation. 70-year-old man hospitalized with mack virus pneumonia. Beta-deshawn dosage advanced with reasonably good heart rate control according to the chart. Objective Data Vital Signs Vital Signs: Vital Signs - 24 hr 10/10/20 14:00 10/10/20 16:00 10/10/20 18:00 Temperature 36.1 C L Pulse Rate 90 119 H 100 Respiratory Rate 20 Blood Pressure 108/75 Pulse Oximetry 99 10/10/20 18:15 10/10/20 20:00 10/10/20 22:00 Temperature 36.1 C L 36.6 C Pulse Rate 98 96 102 H Respiratory Rate 20 20 Blood Pressure 108/75 132/71 Pulse Oximetry 100 10/10/20 23:22 10/11/20 00:00 10/11/20 00:34 Temperature 36.6 C Pulse Rate 95 103 H 83 Respiratory Rate 18 18 Blood Pressure 106/75 Pulse Oximetry 98 98 10/11/20 02:00 10/11/20 04:00 10/11/20 06:00 Temperature 36.5 C Pulse Rate 105 H 105 H 85 Respiratory Rate 20 Blood Pressure 127/72 Pulse Oximetry 99 10/11/20 06:23 10/11/20 08:00 10/11/20 10:00 Temperature 36.9 C Pulse Rate 88 93 93 Respiratory Rate 12 Blood Pressure 106/85 Pulse Oximetry 95 10/11/20 12:00 Temperature 36.6 C Pulse Rate 111 H Respiratory Rate 20 Blood Pressure 117/72 Pulse Oximetry 94 Intake/Output Intake/Output: Intake & Output 10/08/20 10/09/20 10/10/20 10/11/20 23:59 23:59 23:59 23:59 Intake Total 1456 3914 390 Output Total 062 3640 1029 Balance 4253 447 -494 Meds/Results Medications: Active Medications Generic Name Dose Route Start Last Admin Trade Name Freq PRN Reason Stop Dose Admin Apixaban 5 mg 10/09/20 21:00 10/11/20 08:51 Apixaban 5 Mg Tablet PO 5 mg Q12HR SUKH Administration Dextrose 12.5 gm 10/08/20 22:06 Dextrose 50% 25 Gm/50 Ml Syringe IV PUSH PRN PRN Hypoglycemia Protocol Epoetin Julian-epbx 10,000 units 10/10/20 09:00 10/10/20 10:08 Epoetin Julian-Epbx 10,000 Units/Ml Vial SUB-Q 10,000 units MoWeFr@0900 SUKH Administration Famotidine 20 mg 10/08/20 21:00 10/11/20 08:52 Famotidine 20 Mg/2 Ml Vial IV PUSH 20 mg Q12HR SUKH Administration Glucagon 1 mg 10/08/20 22:06 Glucagon For Inj 1 Mg Vial IM PRN PRN Hypoglycemia Protocol Glucose 15 gm 10/08/20 22:06 Glucose Oral Gel 15 Gm Of Glucse In 37.5 Gm Tube PO PRN PRN Hypoglycemia Protocol Dextrose 1,000 mls @ 100 mls/hr 10/08/20 22:06 Dextrose 5% 1,000 Ml IVPB PRN PRN Hypoglycemia Protocol Insulin Aspart 3 - 6 units 10/09/20 08:00 10/11/20 13:18 Insulin Aspart (*Bkc) 100 Units/Ml SUB-Q Not Given TIDWM [facility] Protocol Insulin Human Isoph/Insulin Regular 35 units 10/09/20 09:00 10/10/20 17:39 Insulin Human Isophan/Regular 70/30 (*Bkc) 100 Units/Ml SUB-Q 35 units BID SUKH Administration Levothyroxine Sodium 50 mcg 10/09/20 06:30 10/11/20 06:23 Levothyroxine Sodium 50 Mcg Tablet PO 50 mcg DAILY@0630 SUKH Administration Metoprolol Tartrate 5 mg 10/10/20 01:54 10/10/20 03:35 Metoprolol Tartrate Inj 5 Mg/5 Ml Vial IV PUSH 5 mg Q4HR PRN Administration Heart Rate- High Mirtazapine 15 mg 10/09/20 18:00 10/10/20 17:39 Mirtazapine 15 Mg Tablet PO 15 mg QPM SUKH Administration Ondansetron HCl 4 mg 10/08/20 18:20 Ondansetron Inj 4 Mg/2 Ml Vial IV PUSH Q4H PRN Nausea Pantoprazole Sodium 20 mg 10/09/20 09:00 10/11/20 08:51 Pantoprazole Sod Sesquihydrate 20 Mg Tab PO 20 mg QAM SUKH Ad
[2020-10-11 16:46] LABS: Glucose Point of Care 176 (65-105)
[2020-10-11] MEDS: LACTULOSE 20 GM/30 ML UDC PO (17:52)
[2020-10-11] MEDS: INSULIN HUMAN ISOPHAN/REGULAR 70/30 (*BKC) 100 UNITS/ML 35 UNITS SUB-Q (17:52)
[2020-10-11] MEDS: polyethylene glycoL 3350 17 GM POWD.PACK PO (17:52)
[2020-10-11] MEDS: MIRTAZAPINE 15 MG TABLET PO (17:53)
[2020-10-11] MEDS: PRAVASTATIN SODIUM 10 MG TABLET PO (17:53)
--- NOTE | 2020-10-11 18:45 | PC.NURSE ---
1350 oxygen saturation dropped to the 70's. This nurse found the patient asleep and he appeared to be apneic. After waking the patient, he was instructed to take deep breaths and his oxygen saturation returned to 100%
--- NOTE | 2020-10-11 18:57 | PC.NURSE ---
This patient, Zachery Gray, was transferred to [facility] on 10/11/20 at 1858. Personal belongings sent with patient. Report given to Edgar. Appropriate documentation sent with patient.
--- NOTE | 2020-10-11 19:03 | PC.NURSE ---
Pt received from [facility] at 1900. Pt resting comfortably in bed with bed alarm. Pt calling to inform her of room and status change. Tele in place and bed alarm on.
[2020-10-11 21:48] LABS: Glucose Point of Care 181 (65-105)
[2020-10-12] VITALS: BP 102/71; PULSE 115; PULSE 94; RESP 20; TEMP 36.7; O2SAT 92
[2020-10-12 04:00] VITALS: BP 114/62; PULSE 106; PULSE 55; RESP 20; TEMP 36.9; O2SAT 95
[2020-10-12 06:14] LABS: Eosinophils Absolute Auto 0.1 K/mm3 (0-0.3); Eosinophils Percent Auto 0.8 % (0-4.4); Hematocrit 28.6 % (42.0-52.0); Hemoglobin 9.7 g/dL (14.0-18.0); Immature Granulocyte Absolute 0.11 K/mm3 (0.00-0.031); Immature Granulocyte Percent A 1.3 % (0-0.5); Lymphocytes Absolute Auto 1.14 K/mm3 (0.9-3.2); Lymphocytes Percent Auto 13.3 % (18.3-44.2); Mean Corpuscular HGB Conc 33.9 g/dl (32-36); Mean Corpuscular Hemoglobin 29.4 pg (26-34); Mean Corpuscular Volume 86.7 fl (80-100); Mean Platelet Volume 9.2 fl (7.4-10.4); Monocytes Absolute Auto 0.7 K/mm3 (0.1-0.6); Monocytes Percent Auto 7.8 % (2.6-8.5); Neutrophils Absolute Auto 6.6 K/mm3 (1.3-6.7); Neutrophils Percent Auto 76.8 % (45.5-73.1); Platelet Count Result 304 k/mm3 (150-375); Red Cell Distribution Width 14.6 % (11.5-14.5); White Blood Count 8.6 K/mm3 (4.5-10.0)
[2020-10-12] MEDS: LEVOTHYROXINE SODIUM 50 MCG TABLET PO (06:33)
[2020-10-12 06:50] LABS: Albumin Level 2.8 g/dL (3.5-5.1); Anion Gap 5 mmol/L (8-16); Blood Urea Nitrogen 61 mg/dL (9-20); Calcium 7.5 mg/dL (8.4-10.2); Carbon Dioxide 28 mmol/L (22-30); Chloride 102 mmol/L (98-107); Estimated CRCL calculation 13 ml/min; Estimated Glomerular Filt Rate 9; Glucose 80 mg/dL (75-110); Magnesium 2.2 mg/dL (1.6-2.3); Phosphorus 4.8 mg/dL (2.5-4.5); Potassium 3.4 mmol/L (3.4-5.0); Sodium 135 mmol/L (137-145)
[2020-10-12 08:00] VITALS: PULSE 107
[2020-10-12 09:04] VITALS: BP 99/62; PULSE 70; RESP 18; TEMP 36.2; O2SAT 100
[2020-10-12] MEDS: CHOLECALCIFEROL 1,000 UNITS TABLET 2000 UNITS PO (09:12)
[2020-10-12] MEDS: APIXABAN 5 MG TABLET PO (09:12)
[2020-10-12] MEDS: TAMSULOSIN HCL 0.4 MG CAPSULE PO (09:13)
[2020-10-12] MEDS: PANTOPRAZOLE SOD SESQUIHYDRATE 20 MG TAB PO (09:13)
[2020-10-12] MEDS: polyethylene glycoL 3350 17 GM POWD.PACK PO (09:13)
[2020-10-12] MEDS: FAMOTIDINE 20 MG/2 ML VIAL IV PUSH (09:13)
[2020-10-12 10:08] LABS: Glucose Point of Care 104 (65-105)
[2020-10-12] MEDS: INSULIN HUMAN ISOPHAN/REGULAR 70/30 (*BKC) 100 UNITS/ML 20 UNITS SUB-Q (10:54)
[2020-10-12 10:55] VITALS: PULSE 70
[2020-10-12] MEDS: METOPROLOL SUCCINATE EXT REL 100 MG TABCR PO (10:55)
[2020-10-12] MEDS: EPOETIN ALFA-EPBX 10,000 UNITS/ML VIAL 10000 UNITS SUB-Q (10:55)
--- NOTE | 2020-10-12 10:58 | PCPTNOTE ---
The patient treatment was not able to be completed on 10/12/20 due to patient receiving peritoneal dialysis at bed side. Will plan to continue treatment per plan of care. Will attempt later as appropriate. Mary Hogue, STATION EXAMINER
--- NOTE | 2020-10-12 11:16 | PM.PNCARD ---
Progress Note: A&P Assessment and Plan (1) Atrial fibrillation with rapid ventricular response: Code(s): I48.91 - Unspecified atrial fibrillation Status: Acute Assessment and Plan: New onset AFib with rapid ventricular response. patient is still tachycardic. Will given dose of IV amiodarone 150 mg IV x1 Since blood pressure is soft. Continue oral metoprolol. DC his heparin since he is now on Eliquis. Will pursue rate control anticoagulation strategy for now. Could consider an outpatient cardioversion after recovery if the AFib persists. Will try to transition him to a p.o. beta deshawn. Recommend anticoagulation to prevent cardioembolic events. Hopefully this will be a short-term problem and resolve once the patient's COVID pneumonia resolves, but again, he does have risk factors for AFib and he will need close monitoring if, down the road, NSR is restored and we opt to discontinue Eliquis. Continue metoprolol and anticoagulation. Will plan for outpatient cardioversion. (2) Pneumonia due to COVID-19 virus: Code(s): U07.1 - COVID-19; J12.82 - Pneumonia due to coronavirus disease 2018 Status: Acute Assessment and Plan: Chest x-ray looks worse but fortunately the patient is not complaining of shortness of breath and has good oxygenation. There may have been a component of volume overload due to his AFib RVR/CHF and his missing 1 dialysis treatment. (3) ESRD on peritoneal dialysis: Code(s): N18.6 - End stage renal disease; Z99.2 - Dependence on renal dialysis Status: Acute Assessment and Plan: Treatment per Dr. Valdez. Subjective Date/time seen: 10/12/20 11:16 Interval history: 70-year-old admitted for worsening confusion COVID pneumonia. Also found to be in atrial fibrillation. Date of service 10/12/2020: No chest pain or shortness of breath. Feels okay. . Review of Systems Constitutional: Constitutional: Reports fatigue, Reports lethargy and Reports weakness Eyes: Eyes: Reports no additional eye complaints ENT: Denies epistaxis and Denies nasal congestion Cardiovascular: Cardiovascular: Denies chest pain, Denies diaphoresis, Denies pedal edema, Denies leg edema, Denies lightheadedness, Denies palpitations, Denies dyspnea and Denies dyspnea on exertion Respiratory: Respiratory: Denies cough, Denies hemoptysis, Denies dyspnea and Denies dyspnea on exertion Gastrointestinal: Gastrointestinal: Denies abdominal pain Genitourinary: Genitourinary: Denies hematuria Musculoskeletal: Musculoskeletal: Denies back pain Integumentary/Breasts: Skin/Breast: Denies rash Neurologic: Reports confusion and Reports weakness Psychiatric: Psychiatric: Reports confusion Endocrine: Endocrine: Reports fatigue and Denies palpitations Hematologic/Lymphatic: Hematologic/Lymphatic: Denies easy bleeding Allergic/Immunologic: Allergic/Immunologic: Denies GI upset with certain foods Exam Narrative: Exam Narrative: Obese older male, sitting on the edge of his bed, Const: General: comfortable, no acute distress and confusion Orientation/consciousness: confusion HENMT: General nose exam: no epistaxis Eyes: Sclera: sclerae normal Other: Eyes appear abnormal; apparently does have vision loss due to glaucoma and diabetic retinopathy Neck: Neck: supple and no JVD Thyroid: abnormal thyroid Carotids: no bruits Lymphatic: lymphadenopathy not noted Resp: Effort & Inspection: normal respiratory effort Auscultation: clear to auscultation bilaterally and diminished lung sounds Cardio: Rate: tachycardic Rhythm: abnormal rhythm irregularly irregular Heart
--- NOTE | 2020-10-12 11:36 | P.PNNP_ITS ---
Progress Note: A&P Assessment and Plan (1) ESRD on peritoneal dialysis: Code(s): N18.6 - End stage renal disease; Z99.2 - Dependence on renal dialysis Status: Acute Assessment and Plan: * continue CCPD nightly * follow electrolytes, volume status, and clearance (2) Confusion: Code(s): R41.0 - Disorientation, unspecified Status: Acute Assessment and Plan: * improved * etiology not clear * elevated BUN noted so uremia a possibility * recent steroid use and associated hyperglycemia could be responsible as well (3) Atrial fibrillation with rapid ventricular response: Code(s): I48.91 - Unspecified atrial fibrillation Status: Acute Assessment and Plan: * Cardiology is following * continue rate control strategy for now * on eliquis for anticoagulation (4) Pneumonia due to COVID-19 virus: Code(s): U07.1 - COVID-19; J12.82 - Pneumonia due to coronavirus disease 2018 Status: Acute Assessment and Plan: * diagnosis made on last hospitalization * s/p dexamethasone * on room air * continue supportive therapy (5) Hypertension: Code(s): I10 - Essential (primary) hypertension Status: Chronic Assessment and Plan: * reasonable control at this time * on metoprolol but this is for his Afib * follow trend of hemodynamics (6) Anemia: Code(s): D64.9 - Anemia, unspecified Status: Chronic Assessment and Plan: * improving * on SQ Epogen while hospitalized * follow trend of H/H (7) Type 2 diabetes mellitus with diabetic polyneuropathy: Code(s): E11.42 - Type 2 diabetes mellitus with diabetic polyneuropathy Status: Acute Assessment and Plan: * follow accuchecks * on SSI and NPH Will continue to follow. Subjective Date/time seen: 10/12/20 11:36 No apparent issues or problems noted overnight or earlier this AM; mentation continues to improve slowly; no apparent distress voiced at the time of my visit; happy about discharge today. Exam Narrative: Exam Narrative: General: WD/WN male in NAD Heart: normal S1 and S2; no rub Lungs: clear anteriorly; decreased at bases Abdomen: soft, nontender, nondistended, positive bowel sounds Extremities: no cyanosis or clubbing; no edema Skin: Warm and dry Objective Data Vital Signs Vital Signs: Vital Signs Temp Pulse Resp BP Pulse Ox 10/12/20 10:55 70 10/12/20 09:04 36.2 C L 70 18 99/62 L 100 10/12/20 08:00 107 H 10/12/20 04:00 36.9 C 55 L 20 114/62 95 10/12/20 00:00 36.7 C 94 20 102/71 92 10/11/20 20:00 36.2 C L 99 20 130/80 98 10/11/20 16:00 36.6 C 112 H 12 124/70 98 10/11/20 14:00 95 Intake/Output Intake/Output: Intake & Output 10/09/20 10/10/20 10/11/20 10/12/20 23:59 23:59 23:59 23:59 Intake Total 4834 1854 640 790 Output Total 575 1250 1029 700 Balance 4259 604 389 90 Meds/Results Medications: Active Medications Generic Name Dose Route Start Last Admin Trade Name Freq PRN Reason Stop Dose Admin Apixaban 5 mg 10/09/20 21:00 10/12/20 09:12 Apixaban 5 Mg Tablet PO 5 mg Q12HR SUKH Administration Dextrose 12.5 gm 10/08/20 22:06 Dextrose 50% 25 Gm/50
--- NOTE | 2020-10-12 11:36 | PM.PNNEP ---
Progress Note: A&P Assessment and Plan (1) ESRD on peritoneal dialysis: Code(s): N18.6 - End stage renal disease; Z99.2 - Dependence on renal dialysis Status: Acute Assessment and Plan: continue CCPD nightly follow electrolytes, volume status, and clearance (2) Confusion: Code(s): R41.0 - Disorientation, unspecified Status: Acute Assessment and Plan: improved etiology not clear elevated BUN noted so uremia a possibility recent steroid use and associated hyperglycemia could be responsible as well (3) Atrial fibrillation with rapid ventricular response: Code(s): I48.91 - Unspecified atrial fibrillation Status: Acute Assessment and Plan: Cardiology is following continue rate control strategy for now on eliquis for anticoagulation (4) Pneumonia due to COVID-19 virus: Code(s): U07.1 - COVID-19; J12.82 - Pneumonia due to coronavirus disease 2019 Status: Acute Assessment and Plan: diagnosis made on last hospitalization s/p dexamethasone on room air continue supportive therapy (5) Hypertension: Code(s): I10 - Essential (primary) hypertension Status: Chronic Assessment and Plan: reasonable control at this time on metoprolol but this is for his Afib follow trend of hemodynamics (6) Anemia: Code(s): D64.9 - Anemia, unspecified Status: Chronic Assessment and Plan: improving on SQ Epogen while hospitalized follow trend of H/H (7) Type 2 diabetes mellitus with diabetic polyneuropathy: Code(s): E11.42 - Type 2 diabetes mellitus with diabetic polyneuropathy Status: Acute Assessment and Plan: follow accuchecks on SSI and NPH Will continue to follow. Subjective Date/time seen: 10/12/20 11:36 No apparent issues or problems noted overnight or earlier this AM; mentation continues to improve slowly; no apparent distress voiced at the time of my visit; happy about discharge today. Exam Narrative: Exam Narrative: General: WD/WN male in NAD Heart: normal S1 and S2; no rub Lungs: clear anteriorly; decreased at bases Abdomen: soft, nontender, nondistended, positive bowel sounds Extremities: no cyanosis or clubbing; no edema Skin: Warm and dry Objective Data Vital Signs Vital Signs: Vital Signs Temp Pulse Resp BP Pulse Ox 10/12/20 10:55 70 10/12/20 09:04 36.2 C L 70 18 99/62 L 100 10/12/20 08:00 107 H 10/12/20 04:00 36.9 C 55 L 20 114/62 95 10/12/20 00:00 36.7 C 94 20 102/71 92 10/11/20 20:00 36.2 C L 99 20 130/80 98 10/11/20 16:00 36.6 C 112 H 12 124/70 98 10/11/20 14:00 95 Intake/Output Intake/Output: Intake & Output 10/09/20 10/10/20 10/11/20 10/12/20 23:59 23:59 23:59 23:59 Intake Total 4834 1854 640 790 Output Total 575 1250 1029 700 Balance 4259 604 389 90 Meds/Results Medications: Active Medications Generic Name Dose Route Start Last Admin Trade Name Freq PRN Reason Stop Dose Admin Apixaban 5 mg 10/09/20 21:00 10/12/20 09:12 Apixaban 5 Mg Tablet PO 5 mg Q12HR SUKH Administration Dextrose 12.5 gm 10/08/20 22:06 Dextrose 50% 25 Gm/50 Ml Syringe IV PUSH PRN PRN Hypoglycemia Protocol Epoetin Julian-epbx 10,000 units 10/10/20 09:00 10/12/20 10:55 Epoetin Julian-Epbx 10,000 Units/Ml Vial SUB-Q 10,000 units [id number]@[id number] SUKH Administration Famotidine 20 mg 10/08/20 21:00 10/12/20 09:13 Famotidine 20 Mg/2 Ml Vial IV PUSH 20 mg Q12HR SUKH Administration Glucagon 1 mg 10/08/20 22:06 Glucagon For Inj 1 Mg Vial IM PRN PRN Hypoglycemia Protocol Glucose 15 gm 10/08/20 22:06 Glucose Oral Gel 15 Gm Of Glucse In 37.5 Gm Tube PO PRN PRN Hypoglycemia Protocol Dextrose 1,000 mls @ 100 mls/hr 10/08/20 22:06 Dextrose 5% 1,000 Ml IVPB PRN PRN Hypoglycemia Protocol Insulin Aspart 3
--- NOTE | 2020-10-12 11:53 | PM.DS ---
DS: Admitting Diagnosis Admitting Diagnosis Admitting Diagnosis: A. fib with RVR, confusion DS: Discharge Diagnosis Discharge Diagnosis (1) Atrial fibrillation with rapid ventricular response: Code(s): I48.91 - Unspecified atrial fibrillation Status: Acute Assessment and Plan: New onset AFib with RVR on arrival; HR seems more controlled, although tele shows occasionally in low 100s. Cardiology following and appreciate recommendations. Amio has been d/c and patient now on metoprolol and Eliquis per cardiology recommendations. Patient feeling well today; no complaints at the moment. Wishing to be discharged. Discussed with Cardiology who is okay with discharge from their standpoint with follow up with them in a couple weeks for possible outpatient cardioversion. Echo 10/10 grossly unremarkable Continue metoprolol succinate 100 mg daily and Eliquis 2.5mg BID per Cardiology recommendations D/c today (2) Pneumonia due to COVID-19 virus: Code(s): U07.1 - COVID-19; J12.82 - Pneumonia due to coronavirus disease 2018 Status: Acute Assessment and Plan: Chest x-ray demonstrates significant worsening in infiltrates concerning for worsening pneumonia associated with COVID-19. Patient no longer hypoxic. He already has completed a course of decadron and was not a candidate for Remdesivir given ESRD and he was outside window for treatment. Continue with supportive care Patient off isolation as it has been roughly >3 weeks since symptom onset (3) Confusion: Code(s): R41.0 - Disorientation, unspecified Status: Acute Assessment and Plan: Could be secondary to COVID-19 encephalopathy versus uremia from having issues with dialysis vs less likely CVA. Patient seems to have significantly improved over past several days. MRI brain unremarkable on 10/11. A&Ox4 for me today. Feels much errol rtoday f/u with PCP (4) ESRD on peritoneal dialysis: Code(s): N18.6 - End stage renal disease; Z99.2 - Dependence on renal dialysis Status: Acute Assessment and Plan: He is tolerating dialysis without difficulty. Cr 6.00 today; stable. 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 A1c 10.8 10/01. Glucose low at 80s this morning; 20 u 70/30 given this morning. Will continue patient's 70/30 insulin 35 u BID at discharge with encouragement to check sugars regularly Accuchecks ACHS, hypoglycemia protocol, correctional insulin, diabetic/renal diet during stay DS: Summary Hospital Course Reason for hospitalization: A. Fib with RVR, confusion Hospital Course: Date of arrival:10/08/20 Date of discharge: 10/12/20 Patient is a 70 year old male with a past medical history of hypothyroidism, diabetes mellitus, obstructive sleep and end-stage renal disease on peritoneal dialysis who presented to the ER with ?feeling bad. Patient had been recently admitted and discharge for treatment of covid pneumonia and acute respiratory failure. He was treated with Decadron at that time and discharged home without oxygen. While in the ED he was found to be in A. fibe with RVR and had no prior history of such arrhythmia. He was started on a cardizem drip admitted under this setting. Please see H&P for further details. Perico
[2020-10-12 12:30] LABS: Glucose Point of Care 131 (65-105)
--- NOTE | 2020-10-12 13:49 | PCPTNOTE ---
The patient treatment was not able to be completed on 10/12/20 due to patient receiving peritoneal dialysis. Attempted to see patient at 13:41. Will plan to continue treatment per plan of care. Mary Hogue, [employer]
[2020-10-12 15:45] VITALS: BP 99/62; PULSE 70; RESP 18; TEMP 36.2
== END 2020-10-12 15:27 | disposition home health service (06) | DRG 177 ==
LOC: ANHED 18:40 → ANHIMU 10-09 07:23 → ANH3MEDSUR 10-12 09:55 → ANHIMU 10-14 15:01
PROVIDERS: Internal Medicine; Internal Medicine Cardiovascular Disease; Internal Medicine Nephrology; Physician Assistant; Admitting Provider Internal Medicine; Emergency Provider Family Medicine; PCP Internal Medicine; Visit Provider Physician Assistant
DX: U07.1 COVID-19 (principal); N18.6 End stage renal disease; J12.82 Pneumonia due to coronavirus disease 2019; I12.0 Hypertensive chronic kidney disease with stage 5 chronic kidney disease or end stage renal disease; I48.91 Unspecified atrial fibrillation; E11.319 Type 2 diabetes mellitus with unspecified diabetic retinopathy without macular edema; E11.42 Type 2 diabetes mellitus with diabetic polyneuropathy; E11.22 Type 2 diabetes mellitus with diabetic chronic kidney disease; E11.65 Type 2 diabetes mellitus with hyperglycemia; Z99.2 Dependence on renal dialysis; G47.33 Obstructive sleep apnea (adult) (pediatric); H40.9 Unspecified glaucoma; H54.3 Unqualified visual loss, both eyes; E78.5 Hyperlipidemia, unspecified; E03.9 Hypothyroidism, unspecified; D64.9 Anemia, unspecified; R41.0 Disorientation, unspecified; E66.9 Obesity, unspecified; Z68.34 Body mass index [BMI] 34.0-34.9, adult; Z79.4 Long term (current) use of insulin; Z79.899 Other long term (current) drug therapy; Z87.891 Personal history of nicotine dependence
CPT/HCPCS: 36415; 70551; 71045; 80053; 80069; 83605; 83690; 83735; 84439; 84443; 84480; 84484; 85025; 85610; 85730; 86140; 87040; 87070; 87075; 87205; 88108; 89051; 90945; 93005; 93306; 96365; 96366; 96372; 96375; 96376; 97110; 97161; 97165; 99285; A9270; J0282; J1160; J1644; J1815; J2405; J7030; Q5106

== ENCOUNTER 2020-12-10 08:50 | Outpatient (CLI) | payer MEDICARE, OTHER, SELFPAY ==
--- NOTE | ~2020-12-10 | XR_ITS ---
EXAMINATION: XR chest 2V DATE: 12/10/2020 09:47 INDICATION: Cough, history of COVID TECHNIQUE: PA and lateral views of the chest are obtained. COMPARISON: 10/08/2020, 10/01/2020 FINDINGS: Previously described airspace opacities have largely resolved. There are airspace opacities of the right lower lobe which are new since the 10/01/2020 comparison. There is no pleural effusion o r pneumothorax. The cardiomediastinal silhouette is normal. There is mild thoracic spondylosis. IMPRESSION: 1. Airspace opacity of the right lower lobe, likely pneumonia. Recommend followup radiographs in 10-1 4 days after appropriate therapy to evaluate for improvement/resolution. Reviewed, dictated and finalized at location A. IMPRESSION: 1. Airspace opacity of the right lower lobe, likely pneumonia. Recommend follow up radiographs in 10-14 days after appropriate therapy to evaluate for improvem ent/resolution.
[2020-12-10 09:52] LABS: Basophils Absolute Auto 0.04 K/mm3 (0.00-0.10); Basophils Percent Auto 0.3 % (0.0-1.0); Eosinophils Absolute Auto 0.23 K/mm3 (0.02-0.50); Eosinophils Percent Auto 1.8 % (1.0-6.0); Hematocrit 27.6 % (37.0-46.0); Hemoglobin 9.6 g/dL (12.4-15.3); Immature Granulocyte Percent A 0.8 % (0.0-0.0); Lymphocytes Absolute Auto 2.05 K/mm3 (1.10-4.50); Lymphocytes Percent Auto 15.7 % (18.0-42.0); Mean Corpuscular HGB Conc 34.8 g/dL (32.0-36.0); Mean Corpuscular Hemoglobin 28.3 pg (27.0-31.0); Mean Corpuscular Volume 81.4 fL (78.0-102.0); Mean Platelet Volume 9.2 fl (8.7-11.0); Monocytes Absolute Auto 0.87 K/mm3 (0.10-0.90); Monocytes Percent Auto 6.7 % (2.0-11.0); Neutrophils Absolute Auto 9.8 K/mm3 (1.7-7.2); Neutrophils Percent Auto 74.7 % (50.0-70.0); Platelet Count Result 394 K/mm3 (150-420); Red Blood Count 3.39 M/mm3 (4.70-6.10); Red Cell Distribution Width 13.6 % (11.6-14.4); White Blood Count 13.1 K/mm3 (4.8-10.8)
[2020-12-10 10:13] LABS: Influenza Control Valid (Valid); SARS-CoV-2 Ag Negative (Negative)
[2020-12-10 10:15] LABS: BNP 340 pg/mL (0-100)
[2020-12-10 10:33] LABS: Alanine Aminotransferase 37 U/L (16-63); Albumin Level 2.2 g/dL (3.4-5.0); Alkaline Phosphatase 82 U/L (46-116); Anion Gap 13 mmol/L (8-16); Aspartate Amino Transferase 14 U/L (15-37); Bilirubin,Total 0.4 mg/dL (0.00-1.00); Blood Urea Nitrogen 47 mg/dL (7-18); Calcium 8.1 mg/dL (8.5-10.1); Carbon Dioxide 27 mmol/L (21-32); Chloride 91 mmol/L (98-108); Estimated Glomerular Filt Rate 9; Glucose 203 mg/dL (70-99); Osmolality Calculated 290 mOsm/kg (285-295); Potassium 2.6 mmol/L (3.5-5.1); Sodium 131 mmol/L (136-145); Total Protein 6.5 g/dL (6.4-8.2)
[2020-12-10 10:55] LABS: SARS-CoV-2 RNA PCR Negative (Negative)
== END 2020-12-10 08:51 | disposition home or self-care (01) ==
LOC: CHSIMG 08:54
PROVIDERS: PCP Internal Medicine; Visit Provider Nurse Practitioner Family
DX: J06.9 Acute upper respiratory infection, unspecified (principal); R05 Cough; Z86.16 Personal history of COVID-19; Z20.822 Contact with and (suspected) exposure to COVID-19; R06.02 Shortness of breath
CPT/HCPCS: 71046; 80053; 83880; 85025; 87081; 87426; 87804; 87880; C9803; U0003; U0005

== ENCOUNTER 2021-05-15 07:50 | Outpatient (CLI) | payer MEDICARE, OTHER, SELFPAY ==
--- NOTE | 2021-06-06 07:57 | WPDHOMESLEEP ---
Sleep Study - Home Unattended Date of Study: 05/15/21 Ordering Provider: Tere Del Rio MD Interpreting Provider: Tere Del Rio MD Home Sleep Study Type: Watch PAT Height: 1.73 m Weight: 112.491 kg Body Mass Index: 37.7 Neck Circumference (inches): 19 [place]: 15 Reason for Sleep Study Poor sleep, multiple nighttime awakenings, end-stage renal disease on peritoneal dialysis with nocturia, witnessed apnea Sleep History Zachery Gray us a 70 year oledman with end-stage renal disease on peritoneal dialysis for over a year. This takes 9 hours at night. He sleeps poorly, waking 5 times or so to eliminate very small amounts of urine. He snores, his has witnessed him having apneas and he is a restless sleeper. He has been having hallucinations on waking over the last several months. For example, he thought he saw a person walking through his home. He also thought that the overhead light fixture was a large spider on the ceiling. He does not have sleep paralysis and he does not have loss of muscle tone with strong emotion. He does not have episodes of falling asleep that are completely unintended. 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 He denies morning headaches. Best position for sleep is on his side. He has no energy at all. He does not have non-24 circadian rhythm disorder; he sleeps mainly at night however the PD process requires attention and he is up frequently to urinate. he wakes up feeling sore all over. There is a family history with sons who have sleep apnea. He frequently awakens from sleep feeling short of breath. He does not awaken with a heartburn, belching or coughing. He frequently snores occasionally loudly enough that his complains. He rarely has trouble sleep with a cold. He frequently gasps for breath at night has breathing problems at night observed by his . He does not sweat excessively at night or notice his heart pounding at night. He is not working so he does not have daytime difficulties at his job. Does not feel paralyzed on waking or falling asleep. He occasionally has vivid dreamlike scenes upon awakening or falling asleep. He is not afraid to go to sleep. He occasionally has leg pain at night. He does not have crawling or aching feelings in his legs. he does not have morning jaw pain or grind his teeth during sleep. He is not bothered by pain during the day or awakened by pain at night. Constantly wakes up feeling stiff in the morning with sore achy muscles and pain in the neck and spine. He has fatigue, sexual problems, memory problems and concentration difficulties. He has insomnia. He takes omeprazole for heartburn. His bedtime is 10:30 p.m. to 11:00 p.m. falling asleep quickly. he falls asleep within 20 minutes and wakes frequently during the night. sometimes he sits up, repositioned and tries to go back to sleep. He may stay awake for 30 minutes. He estimates having 8-10 awakenings at night. He wakes the morning by 8:30 to 9:00 a.m. to go to dialysis. He does have dreams. Has cramps in his legs and he does kick at night. He drinks at least a pot of coffee per day. 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 He gets sleepy and takes is 1st nap around 10 or 10:30 a.m.. Some of his naps are short, 30 minutes but sometimes, he may fall asleep in a chair and sleeps for 2-3 hours. A short nap is not refreshing. He is drowsy in the morning for 2 hours after waking. He feels better in the evening compared to other times of day. Habits: Never smoked tobacco. Caffeine 5 cups or more daily. No alcohol or recreational drugs. [facility] Past Medical History Medical History Back pain 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 He still receives eye injections in his right e
[2021-06-06 08:24] VITALS: BMI 37.7
== END 2021-05-16 13:34 | disposition home or self-care (01) ==
LOC: ANHCSM 07:55
PROVIDERS: PCP Internal Medicine; Visit Provider Internal Medicine Critical Care Medicine
DX: G47.39 Other sleep apnea (principal)
CPT/HCPCS: 95800

== ENCOUNTER 2021-06-27 07:50 | Outpatient (CLI) | payer MEDICARE, OTHER, SELFPAY ==
--- NOTE | 2021-07-04 15:20 | WPDSLEEPSTUD ---
Sleep Study Date of Study: 06/27/21 <Mary Stacy DO - Last Filed: 07/04/21 16:38> Ordering Provider: Tere Del Rio MD <Mary Stacy - Last Filed: 07/04/21 16:38> Interpreting Physician: Mary Stacy DO <Mary Stacy - Last Filed: 07/04/21 16:38> Sleep Study Type: CPAP Titration <Mary Stacy DO - Last Filed: 07/04/21 16:38> Height: 1.73 m <Mary Stacy DO - Last Filed: 07/04/21 16:38> Weight: 115.666 kg <Mary Stacy DO - Last Filed: 07/04/21 16:38> Body Mass Index: 38.7 <Mary Stacy - Last Filed: 07/04/21 16:38> Neck Circumference (inches): 21 <Mary Stacy DO - Last Filed: 07/04/21 16:38> [place]: 23 <Mary Stacy DO - Last Filed: 07/04/21 16:38> Reason for Sleep Study The patient has poor sleep, multiple nighttime awakenings, and witnessed apneas. The patient had a HSAT on 05/15/2021 that showed an AHI of 70.9 and a central apnea index of 59.9 with Jesus-Menon respirations present 43.1% of the time. <Mary Stacy DO - Last Filed: 07/04/21 16:38> Sleep History Zachery Gray is a 70 y/o male with end-stage renal disease on peritoneal dialysis for over a year. This takes 9 hours at night. He sleeps poorly, waking 5 times or so to eliminate very small amounts of urine. He snores, his has witnessed him having apneas and he is a restless sleeper. He has been having hallucinations on waking over the last several months. For example, he thought he saw a person walking through his home. He also thought that the overhead light fixture was a large spider on the ceiling. He does not have sleep paralysis and he does not have loss of muscle tone with strong emotion. He does not have episodes of falling asleep that are completely unintended. 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 He denies morning headaches. Best position for sleep is on his side. He has no energy at all. He does not have non-24 circadian rhythm disorder; he sleeps mainly at night however the PD process requires attention and he is up frequently to urinate. He wakes up feeling sore all over. There is a family history with sons who have sleep apnea. He frequently awakens from sleep feeling short of breath. He does not awaken with a heartburn, belching or coughing. He frequently snores occasionally loudly enough that his complains. He rarely has trouble sleep with a cold. He frequently gasps for breath at night has breathing problems at night observed by his . He does not sweat excessively at night or notice his heart pounding at night. He is not working so he does not have daytime difficulties at his job. Does not feel paralyzed on waking or falling asleep. He occasionally has vivid dreamlike scenes upon awakening or falling asleep. He is not afraid to go to sleep. He occasionally has leg pain at night. He does not have crawling or aching feelings in his legs. He does not have morning jaw pain or grind his teeth during sleep. He is not bothered by pain during the day or awakened by pain at night. Constantly wakes up feeling stiff in the morning with sore achy muscles and pain in the neck and spine. He has fatigue, sexual problems, memory problems and concentration difficulties. He has insomnia. He takes omeprazole for heartburn. His bedtime is 10:30 p.m. to 11:00 p.m. falling asleep quickly. He falls asleep within 20 minutes and wakes frequently during the night. sometimes he sits up, repositioned and tries to go back to sleep. He may stay awake for 30 minutes. He estimates having 8-10 awakenings at night. He wakes the morning by 8:30 to 9:00 a.m. to go to dialysis. He does have dreams. Has cramps in his legs and he does kick at night. He drinks at least a pot of coffee per day. 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 He gets sle
[2021-07-04 16:20] VITALS: BMI 38.7
== END 2021-06-28 07:24 | disposition home or self-care (01) ==
LOC: ANHCSM 07:51
PROVIDERS: PCP Internal Medicine; Visit Provider Internal Medicine Critical Care Medicine
DX: G47.39 Other sleep apnea (principal); G47.61 Periodic limb movement disorder
CPT/HCPCS: 95811

== ENCOUNTER → 2021-07-22 19:53 | Outpatient (CLI) | payer MEDICARE, OTHER, SELFPAY ==
--- NOTE | 2021-08-14 14:02 | WPDSLEEPSTUD ---
Sleep Study Date of Study: 07/22/21 Ordering Provider: Tere Del Rio MD Interpreting Physician: Tere Del Rio MD Sleep Study Type: CPAP Titration Height: 1.73 m Weight: 117.934 kg Body Mass Index: 39.5 Neck Circumference (inches): 20 [place]: 23 Reason for Sleep Study Central Sleep Apnea * 05/15/21 Home sleep test showing severe mixed sleep apnea. * 06/27/2021 PAP Titration study starting on CPAP 5 cm H2O, titrated through CPAP 7, BPAP 10/5, BPAP 12/7, CPAP 10 with EPR of 3, CPAP 12, CPAP 14 and CPAP 15. He was then switched over to BPAP 16/12 and finally on BPAP 17/12. The patient's sleep disordered breathing worsened with increasing pressure. Due to the patient failing CPAP and BPAP, he now presents for an ASV titration. The patient has an echocardiogram on file from this year that shows an EF of 55-60%. Sleep History Zachery Gray is a 70 y/o male with end-stage renal disease on peritoneal dialysis for over a year. This takes 9 hours at night. He sleeps poorly, waking 5 times or so to eliminate very small amounts of urine. He snores, his has witnessed him having apneas and he is a restless sleeper. He has been having hallucinations on waking over the last several months. For example, he thought he saw a person walking through his home. He also thought that the overhead light fixture was a large spider on the ceiling. He does not have sleep paralysis and he does not have loss of muscle tone with strong emotion. He does not have episodes of falling asleep that are completely unintended. 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 He denies morning headaches. Best position for sleep is on his side. He has no energy at all. He does not have non-24 circadian rhythm disorder; he sleeps mainly at night however the PD process requires attention and he is up frequently to urinate. He wakes up feeling sore all over. There is a family history with sons who have sleep apnea. He frequently awakens from sleep feeling short of breath. He does not awaken with a heartburn, belching or coughing. He frequently snores occasionally loudly enough that his complains. He rarely has trouble sleep with a cold. He frequently gasps for breath at night has breathing problems at night observed by his . He does not sweat excessively at night or notice his heart pounding at night. He is not working so he does not have daytime difficulties at his job. Does not feel paralyzed on waking or falling asleep. He occasionally has vivid dreamlike scenes upon awakening or falling asleep. He is not afraid to go to sleep. He occasionally has leg pain at night. He does not have crawling or aching feelings in his legs. He does not have morning jaw pain or grind his teeth during sleep. He is not bothered by pain during the day or awakened by pain at night. Constantly wakes up feeling stiff in the morning with sore achy muscles and pain in the neck and spine. He has fatigue, sexual problems, memory problems and concentration difficulties. He has insomnia. He takes omeprazole for heartburn. His bedtime is 10:30 p.m. to 11:00 p.m. falling asleep quickly. He falls asleep within 20 minutes and wakes frequently during the night. sometimes he sits up, repositioned and tries to go back to sleep. He may stay awake for 30 minutes. He estimates having 8-10 awakenings at night. He wakes the morning by 8:30 to 9:00 a.m. to go to dialysis. He does have dreams. Has cramps in his legs and he does kick at night. He drinks at least a pot of coffee per day. 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 He gets sleepy and takes is 1st nap around 10 or 10:30 a.m.. Some of his naps are short, 30 minutes but sometimes, he may fall asleep in a chair and sleeps for 2-3 hours. A short nap is not refreshing. He is drowsy in the morning for 2 hours after waking. He feels better in the evening compared to other times of day. Habits:
[2021-08-14 14:57] VITALS: BMI 39.5
== END ==
PROVIDERS: PCP Internal Medicine; Visit Provider Internal Medicine Critical Care Medicine
DX: R06.3 Periodic breathing (principal)
CPT/HCPCS: 95811

== ENCOUNTER 2021-08-31 13:37 | Outpatient (CLI) | payer MEDICARE, SELFPAY ==
[2021-08-31 15:17] LABS: Influenza A QL RT-PCR Negative (Negative); Influenza B QL RT-PCR Negative (Negative); SARS-CoV-2 RNA PCR Negative (Negative)
== END 2021-08-31 13:38 | disposition home or self-care (01) ==
LOC: CHSLAB 13:38
PROVIDERS: PCP Internal Medicine; Visit Provider Internal Medicine
DX: J06.9 Acute upper respiratory infection, unspecified (principal); Z20.822 Contact with and (suspected) exposure to COVID-19
CPT/HCPCS: 87502; C9803; U0003; U0005

== ENCOUNTER 2021-09-01 14:48 | Emergency (ER) | payer MEDICARE, OTHER, SELFPAY ==
[2021-09-01] VITALS (15 sets, daily range): BP systolic 104–120; BP diastolic 50–80; PULSE 106–160; RESP 20–26; TEMP 36.6–37.2; O2SAT 84–93
--- NOTE | ~2021-09-01 | CT_ITS ---
EXAMINATION:CT diagnostic chest wo con DATE: 09/04/2021 11:10 INDICATION: Dyspnea. Hypoxia. Pleural effusion. TECHNIQUE: Computed tomography (CT) of the chest was performed without intravenous contrast. Automate d exposure control and iterative reconstruction technique were employed. The dose-length product (DLP ) was 623.30 mGy-cm. COMPARISON: Chest CT 09/01/2021 FINDINGS: There is mild atelectasis in left lung. There is a moderate-sized loculated right pleural e ffusion. There are peripheral airspace opacities in right lung, likely atelectasis. There is mild med iastinal lymphadenopathy. The heart size is normal. There are coronary artery calcifications. No naif cardial effusion. There are masses in the adrenal glands measuring up to 2.3 cm on the right measurin g low-attenuation, consistent with adenomas. There is a moderate volume of ascites. There is severe t horacic spondylosis. IMPRESSION: 1. Worsened moderate-sized loculated right pleural effusion. 2. Peripheral airspace opacities in right lung, likely predominantly atelectasis. Pneumonia cannot be excluded. 3. Mild mediastinal lymphadenopathy. 4. Moderate volume of ascites, likely from peritoneal dialysis. Reviewed, dictated and finalized at location A. RIMENTAL MECHANIC ELECTRICAL IMPRESSION: 1. Worsened moderate-sized loculated right pleural effusion. 2. Peripheral airspace opacities in right lung, likely predominantly atelectasi s. Pneumonia cannot be excluded. 3. Mild mediastinal lymphadenopathy. 4. Moderate volume of ascites, likely from peritoneal dialysis.
--- NOTE | ~2021-09-01 | XR_ITS ---
EXAMINATION: XR chest 1V portable DATE: 09/04/2021 01:06 INDICATION: Shortness of breath. TECHNIQUE: A single frontal view of the chest was obtained. COMPARISON: Chest 2 views 12/10/2020, chest CT 09/01/2021 FINDINGS: There is a moderate-sized loculated right pleural effusion. There are airspace opacities in all right lung zones and in left lower lung zone. No pneumothorax. The heart size is normal. IMPRESSION: 1. Moderate-sized loculated right pleural effusion. 2. Airspace opacities in right lung and left lower lung zone, consistent with atelectasis versus pneu monia. Reviewed, dictated and finalized at location A. MACHINE OPERATOR IMPRESSION: 1. Moderate-sized loculated right pleural effusion. 2. Airspace opacities in right lung and left lower lung zone, consistent with a telectasis versus pneumonia.
--- NOTE | ~2021-09-01 | US_ITS ---
CORRECTED REPORT ORDER CHANGE 09/11/21 [facility] US Guidance DATE: 09/07/2021 11:56 INDICATION: Right pleural effusion TECHNIQUE: Ultrasound imaging was performed by the technologist and by Dr. Phillips. COMPARISON: 09/07/2021 CT chest FINDINGS: Real time imaging performed by the technologist as well as myself the radiologist revealed limited accessibility of relatively shallow pleural fluid collections with adjacent lung. Additionally, the patient had been administered an anticoagulant shortly prior to the scheduled procedure. For these reasons, the thoracentesis was delayed. It may be easier to perform the thoracentesis by CT guidance versus ultrasound guidance, at the discretion of the radiologist performing the procedure. IMPRESSION: Thoracentesis delay due to administration of anticoagulant shortly before the procedure; protocol calls for 24 hour delay after anticoagulation therapy. Somewhat limited access to relatively shallow pleural fluid collections; CT may be considered for thoracentesis at the discretion of the radiologist performing the procedure. Reviewed, dictated and finalized at Location A. Reviewed, dictated and finalized at location B. URY MILL OPERATOR MTDD IMPRESSION: Thoracentesis display due to administration anticoagulant shortly b efore the procedure; protocol calls for 24 hour delay after anticoagulation the rapy. Somewhat limited access to relatively shallow pleural fluid collections; CT may be considered for thoracentesis at the discretion of the radiologist performin g the procedure.
--- NOTE | ~2021-09-01 | CT_ITS ---
EXAMINATION: CT chest abdomen pelvis wo con DATE: 09/01/2021 15:47 INDICATION: Shortness of breath, cough. Abdominal pain, nausea and vomiting for 3 weeks. Loss of appe tite. Patient on daily peritoneal dialysis. TECHNIQUE: Computed tomography (CT) of the chest, abdomen, and pelvis was performed without intraveno us contrast. Automated exposure control and iterative reconstruction technique were employed. Exam do se: 1761.74 mGy-cm total exam DLP. COMPARISON: 12/10/2020 PA and lateral chest FINDINGS: CHEST CT: Coronary artery calcifications. Heart size is within upper normal range. No pericardial effusion. No thoracic aortic aneurysm is detected. No hilar or mediastinal mass lesion or lymphadenopathy is ev ident. There is prominent atelectasis at the right lower lobe with crowded air bronchograms. There are locul ated moderate moderate pleural effusions on the right, predominantly posteriorly and posteromedially. Mild atelectasis in the left lower lung. ABDOMEN/PELVIS CT: Mild ascites. Peritoneal dialysis catheter is noted in the left lower quadrant and pelvic area. Cholelithiasis. No gallbladder wall thickening is evident. No hepatic, splenic, pancreatic space-occupying mass lesion or splenomegaly. Bilateral adrenal nodularity, likely due to adrenal adenomas if there is no known malignancy. 1.4 cm probable left renal cyst. Nonobstructing 2.5 mm right renal calculus. No ureteral calculus or hydroureteronephrosis. There is prostate enlargement and calcification. Normal caliber of the abdominal aorta. No intraperitoneal or retroperitoneal or pelvic mass lesion or adenopathy is noted. No bowel obstruction, bowel wall thickening, pneumatosis or intraperitoneal free air. Very small fat-containing umbilical hernia. 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 Bilateral hip osteoarthritis. IMPRESSION: Mild ascites; peritoneal dialysis catheter Right loculated pleural effusions, right lower lung infiltrate, mild left lower lung atelectasis Cholelithiasis Probable bilateral adrenal adenomas. There is no known malignancy 1.4 cm left renal cyst 2.5 mm nonobstructing right renal calculus Prostate enlargement and calcification Reviewed, dictated and finalized at Location A. Reviewed, dictated and finalized at location A. CTOR OF HEMOPHILIA
--- NOTE | ~2021-09-01 | CT_ITS ---
EXAMINATION:CT diagnostic chest wo con DATE: 09/07/2021 09:50 INDICATION: Pleural effusion. TECHNIQUE: Computed tomography (CT) of the chest was performed without intravenous contrast. Automate d exposure control and iterative reconstruction technique were employed. The dose-length product (DLP ) was 663.46 mGy-cm. COMPARISON: Chest CT 09/04/2021 FINDINGS: There is a moderate-sized loculated right pleural effusion. There are peripheral airspace o pacities in right lung with volume loss, worst in right lower lobe. There is mild atelectasis on the left. The heart size is normal. There are coronary artery calcifications. There are calcifications of the aortic valve. No pericardial effusion. There is mild mediastinal lymphadenopathy. A node in the right superior mediastinum measures 12 x 15 mm. There is a small volume of perihepatic and perispleni c ascites. There are masses in the adrenal glands measuring up to 1.9 cm on the right measuring low-a ttenuation, consistent with adenomas. There is severe upper thoracic spondylosis. IMPRESSION: 1. Stable moderate-sized loculated right pleural effusion. 2. Stable peripheral airspace opacities in right lung, likely predominantly atelectasis. Pneumonia ca nnot be exclude. 3. Mild mediastinal lymphadenopathy. 4. Ascites, likely from peritoneal dialysis. Reviewed, dictated and finalized at location B. CE MACHINE INSPECTOR IMPRESSION: 1. Stable moderate-sized loculated right pleural effusion. 2. Stable peripheral airspace opacities in right lung, likely predominantly ate lectasis. Pneumonia cannot be exclude. 3. Mild mediastinal lymphadenopathy. 4. Ascites, likely from peritoneal dialysis.
--- NOTE | ~2021-09-01 | XR_ITS ---
XR chest 1V portable 09/06/2021 09:52 Indication: Pneumonia. Shortness of breath. Procedure: AP portable chest Comparison: 09/04/2021 Findings: There is a moderate loculated right pleural effusion which may be slightly smaller than on prior examination. There is patchy right-sided airspace disease. Left lung clear. Cardiomegaly. No pn eumothorax. Impression: 1: Moderate loculated right pleural effusion which may be slightly smaller than prior study. 2: Patchy right-sided airspace disease, compatible with pneumonia. Reviewed, dictated and finalized at location A. CONTROLLER Impression: 1: Moderate loculated right pleural effusion which may be slightly smaller than prior study. 2: Patchy right-sided airspace disease, compatible with pneumonia.
--- NOTE | 2021-09-01 15:03 | ED.SOB ---
HPI - SOB/Dyspnea General Chief Complaint: Shortness of Breath/Dyspnea <Ryan Lanier MD - Last Filed: 09/08/21 14:20> Stated Complaint: trouble breathing <Ryan Lanier MD - Last Filed: 09/08/21 14:20> Time Seen by Provider: 09/01/21 15:04 <Ryan Lanier MD - Last Filed: 09/08/21 14:20> Source: patient <Ryan Lanier MD - Last Filed: 09/08/21 14:20> Mode of arrival: wheelchair <Ryan Lanier MD - Last Filed: 09/08/21 14:20> Limitations: no limitations <Ryan Lanier MD - Last Filed: 09/08/21 14:20> History of Present Illness HPI Narrative: 8-year-old man with a history of type 2 diabetes and end-stage renal disease comes to the emergency department at the behest of his physician for 3 weeks of progressively worse cough and shortness of breath, vomiting for the last 4 days, and right upper quadrant pain. He denies having any fever, diarrhea, sick contacts, chest pain, syncope or dysuria. He had a negative COVID PCR and negative influenza PCR yesterday. He has been unable to keep down his daily medications. <Ryan Lanier MD - Last Filed: 09/08/21 14:20> MD elicited complaint: shortness of breath and cough <Ryan Lanier MD - Last Filed: 09/08/21 14:20> Onset (ago): week(s) (3) <yRan Lanier MD - Last Filed: 09/08/21 14:20> Timing: constant and progressively worsening <Ryan Lanier MD - Last Filed: 09/08/21 14:20> Severity: moderate <Ryan Lanier MD - Last Filed: 09/08/21 14:20> Exacerbating factors: lying flat and exertion <Ryan Lanier MD - Last Filed: 09/08/21 14:20> Relieving factors: nothing <Ryan Lanier MD - Last Filed: 09/08/21 14:20> Associated symptoms: pain with inspiration, cough, nausea/vomiting, abdominal pain and chest congestion <Ryan Lanier MD - Last Filed: 09/08/21 14:20> Treatment prior to arrival: none <Ryan Lanier MD - Last Filed: 09/08/21 14:20> Related Data Home oxygen amount: none <Ryan Lanier MD - Last Filed: 09/08/21 14:20> Home Medications: Home Medications Medication Instructions Recorded Confirmed cholecalciferol (vitamin D3) 50 2,000 unit PO DAILY 08/11/19 09/01/21 mcg (2,000 unit) tablet mirtazapine 15 mg tablet 15 mg PO QPM tablet 03/29/20 09/01/21 pravastatin 10 mg tablet 10 mg PO QPM tablet 03/29/20 09/01/21 omeprazole 20 mg PO DAILY 10/01/20 09/01/21 acetaminophen 500 mg capsule 500 mg PO Q6H PRN 03/28/21 09/01/21 apixaban 2.5 mg tablet 2.5 mg PO BID 03/28/21 09/01/21 docusate sodium 100 mg capsule 100 mg PO DAILY 03/28/21 09/01/21 polyethylene glycol 3350 17 17 g PO DAILY 03/28/21 09/01/21 gram/dose oral powder insulin NPH and regular human 65 unit SUBCUT BIDWMEAL 09/01/21 09/01/21 [Novolin 70/30 U-100 Insulin] levothyroxine 25 mcg PO QAM 09/01/21 09/01/21 <Ryan Lanier MD - Last Filed: 09/08/21 14:20> Allergies/Adverse Reactions: Allergies Allergy/AdvReac Type Severity Reaction Status Date / Time No Known Allergies Allergy Verified 06/30/21 11:33 <Ryan Lanier MD - Last Filed: 09/08/21 14:20> Review of Systems Review of Systems: All systems reviewed & are unremarkable except as noted in HPI and below <Ryan Lanier MD - Last Filed: 09/08/21 14:20> Constitutional: Constitutional: Denies chills, Reports fatigue, Denies fever(s) and Reports weakness <Ryan Lanier MD - Last Filed: 09/08/21 14:20> ENT: Denies nasal congestion and Denies sore throat <Ryan Lanier MD - Last Filed: 09/08/21 14:20> Cardiovascular: Cardiovascular: Denies chest pain, Reports rapid heart rate and Denies radiating jaw, neck or arm pain <Ryan Lanier MD - Last Filed: 09/08/21 14:20> Respiratory: Respiratory: Reports chest congestion, Reports cough, Reports dyspnea and Denies wheezing <Ryan Lanier MD - Last Filed: 09/08/21 14:20> Gastrointestina
--- NOTE | 2021-09-01 15:06 | ECG_ITS ---
Measurements Intervals [place] Rate: 153 P: [place]: 0 QRS: 214 QRSD: 150 T: -13 QT: 304 QTc: 486 Interpretive Statements ATRIAL FIBRILLATION WITH RAPID VENTRICULAR RESPONSE RIGHT AXIS DEVIATION RIGHT BUNDLE BRANCH BLOCK INFERIOR INFARCT, AGE INDETERMINATE ABNORMAL ECG Electronically Signed On 09-01-2021 15:22:44 SEAL SKINNER by Willis Livingston D.O.
[2021-09-01] MEDS: SODIUM CHLORIDE 0.9% IV 500 ML 999 ML IV CONT ×2 (15:32→16:20)
[2021-09-01 15:41] LABS: Hematocrit 33.9 % (37.0-46.0); Hemoglobin 11.6 g/dL (12.4-15.3); Mean Corpuscular HGB Conc 34.2 g/dL (32.0-36.0); Mean Corpuscular Volume 87.6 fL (78.0-102.0); Mean Platelet Volume 9.5 fl (8.7-11.0); Platelet Count Result 366 K/mm3 (150-420); Red Blood Count 3.87 M/mm3 (4.70-6.10); Red Cell Distribution Width 13.9 % (11.6-14.4)
[2021-09-01 15:50] LABS: White Blood Count 41.8 K/mm3 (4.8-10.8)
[2021-09-01 15:51] LABS: Lipase 53 U/L (73-393)
[2021-09-01 15:51] LABS: INR 1.3; Partial Thromboplastin Time 34.7 SEC (23.90-30.70)
[2021-09-01 15:57] LABS: Lactic Acid Reflex 1.7 mmol/L (0.4-2.0)
[2021-09-01 16:07] LABS: Alanine Aminotransferase 20 U/L (16-63); Albumin Level 2.4 g/dL (3.4-5.0); Alkaline Phosphatase 97 U/L (46-116); Anion Gap 15 mmol/L (8-16); Aspartate Amino Transferase 12 U/L (15-37); Bilirubin,Total 0.4 mg/dL (0.00-1.00); Blood Urea Nitrogen 65 mg/dL (7-18); Calcium 9.1 mg/dL (8.5-10.1); Carbon Dioxide 24 mmol/L (21-32); Chloride 92 mmol/L (98-108); Estimated CRCL calculation 11 ml/min; Estimated Glomerular Filt Rate 8; Glucose 305 mg/dL (70-99); Osmolality Calculated 301 mOsm/kg (285-295); Potassium 3.7 mmol/L (3.5-5.1); Sodium 131 mmol/L (136-145); Total Protein 7.8 g/dL (6.4-8.2)
[2021-09-01 16:09] LABS: CRP > 25.0 mg/dL (0.0-0.9)
[2021-09-01 16:18] LABS: Platelet Estimate Adequate (Adequate)
[2021-09-01 16:19] LABS: Band Neutrophils Percent 2 % (0-6); Basophils Percent Manual 0 % (0-1); Eosinophils Percent Manual 0 % (1-6); Lymphocytes Absolute Manual 2.09 K/mm3 (1.1-4.5); Lymphocytes Percent Manual 5 % (18-44); Metamyelocytes Percent 1 %; Monocytes Absolute Manual 1.67 K/mm3 (0.1-0.90); Monocytes Percent Manual 4 % (3-9); Neutrophils Absolute Manual 37.62 K/mm3 (1.3-6.7); Neutrophils Percent Manual 88 % (46-73); Total Cells Counted 100
[2021-09-01 16:26] LABS: Troponin I 14.5 ng/L (0.00-60.4)
[2021-09-01] MEDS: METOPROLOL SUCCINATE EXT REL 50 MG TABCR 100 MG PO (17:15)
[2021-09-01] MEDS: dilTIAZem HCl INJ 25 MG/5 ML VIAL 10 MG IV PUSH ×2 (17:45→18:10)
--- NOTE | 2021-09-01 17:59 | PC.NURSE ---
pt resting per cot. noted elevated blood pressure , reported to dr sorensen.
--- NOTE | 2021-09-01 18:03 | PC.NURSE ---
pt unable to urinate. pt states produces little urine
[2021-09-01] MEDS: SODIUM CHLORIDE 0.9% IV 1,000 ML 500 ML IV CONT (18:21)
--- NOTE | 2021-09-01 19:06 | PC.NURSE ---
REPORT TO TERE SULLIVAN
[2021-09-01] MEDS: METOPROLOL TARTRATE INJ 5 MG/5 ML VIAL IV PUSH (19:28)
[2021-09-01 20:57] LABS: Glucose Point of Care 258 mg/dl (65-105)
[2021-09-01] MEDS: metroNIDAZOLE 250 MG TABLET 500 MG PO (20:57)
[2021-09-01] MEDS: HYDROmorphone HCL INJ (*CRX) 2 MG/ML VIAL 0.25 MG IV PUSH (20:58)
[2021-09-01] MEDS: SODIUM CHLORIDE 0.9% IV 500 ML 30 ML (20:59)
--- NOTE | 2021-09-01 21:01 | PC.NURSE ---
glucometer 258
[2021-09-01] MEDS: MIRTAZAPINE 15 MG TABLET PO (21:36)
[2021-09-01] MEDS: APIXABAN 2.5 MG TABLET PO (21:37)
[2021-09-02] VITALS (22 sets, daily range): BP systolic 92–151; BP diastolic 59–93; PULSE 77–148; RESP 18–23; TEMP 36.6–37.1; O2SAT 88–96
--- NOTE | 2021-09-02 00:58 | PC.NURSE ---
glucometer 250
[2021-09-02] MEDS: METOPROLOL TARTRATE INJ 5 MG/5 ML VIAL IV PUSH (01:25)
[2021-09-02 05:27] LABS: Hematocrit 32.5 % (37.0-46.0); Hemoglobin 11.3 g/dL (12.4-15.3); Mean Corpuscular HGB Conc 34.8 g/dL (32.0-36.0); Mean Corpuscular Hemoglobin 29.8 pg (27.0-31.0); Mean Corpuscular Volume 85.8 fL (78.0-102.0); Mean Platelet Volume 9.5 fl (8.7-11.0); Platelet Count Result 370 K/mm3 (150-420); Red Blood Count 3.79 M/mm3 (4.70-6.10)
[2021-09-02 05:46] LABS: Alanine Aminotransferase 19 U/L (16-63); Albumin Level 2.2 g/dL (3.4-5.0); Alkaline Phosphatase 93 U/L (46-116); Anion Gap 12 mmol/L (8-16); Aspartate Amino Transferase < 10 U/L (15-37); Bilirubin,Total 0.4 mg/dL (0.00-1.00); Blood Urea Nitrogen 71 mg/dL (7-18); Calcium 8.7 mg/dL (8.5-10.1); Carbon Dioxide 26 mmol/L (21-32); Chloride 96 mmol/L (98-108); Estimated CRCL calculation 10 ml/min; Estimated Glomerular Filt Rate 7; Glucose 264 mg/dL (70-99); Magnesium 2.2 mg/dL (1.8-2.4); Osmolality Calculated 307 mOsm/kg (285-295); Potassium 4.3 mmol/L (3.5-5.1); Sodium 134 mmol/L (136-145); Total Protein 7.4 g/dL (6.4-8.2); White Blood Count 43.5 K/mm3 (4.8-10.8)
[2021-09-02 05:49] LABS: Phosphorus > 8.0 mg/dL (2.6-4.7)
[2021-09-02 06:13] LABS: Band Neutrophils Percent 2 % (0-6); Basophils Percent Manual 0 % (0-1); Eosinophils Percent Manual 0 % (1-6); Hypersegmented Neutrophils Present; Lymphocytes Absolute Manual 2.61 K/mm3 (1.1-4.5); Lymphocytes Percent Manual 6 % (18-44); Monocytes Absolute Manual 3.04 K/mm3 (0.1-0.90); Monocytes Percent Manual 7 % (3-9); Neutrophils Absolute Manual 37.84 K/mm3 (1.3-6.7); Neutrophils Percent Manual 85 % (46-73); Total Cells Counted 100
[2021-09-02 06:14] LABS: Platelet Clumps Present; Platelet Estimate Adequate (Adequate)
[2021-09-02 06:15] LABS: Glucose Point of Care 255 mg/dl (65-105)
--- NOTE | 2021-09-02 08:31 | PC.NURSE ---
spoke with Jen, regarding home dialysis process. explained unavailable bed situation for pt transfer. explained need to bring in dialysis equipment and supplies to be able to do dialysis here per family as educated. voiced understanding. will have to get son to transport her here. awaiting arrival. breakfast tray to pt
[2021-09-02] MEDS: APIXABAN 2.5 MG TABLET PO ×2 (08:34→22:48)
[2021-09-02] MEDS: LEVOTHYROXINE SODIUM 25 MCG TABLET PO (08:36)
[2021-09-02] MEDS: metroNIDAZOLE 250 MG TABLET 500 MG PO ×3 (08:36→22:48)
[2021-09-02] MEDS: METOPROLOL SUCCINATE EXT REL 50 MG TABCR 100 MG PO (08:37)
[2021-09-02] MEDS: PANTOPRAZOLE 40 MG TABLET PO (08:37)
[2021-09-02] MEDS: polyethylene glycoL 3350 17 GM POWD.PACK PO (08:38)
[2021-09-02] MEDS: INSULIN HUMAN NPH (*BKC) 100 UNITS/ML 20 UNITS SUB-Q ×2 (08:39→16:35)
[2021-09-02 08:48] LABS: Glucose Point of Care 270 mg/dl (65-105)
--- NOTE | 2021-09-02 09:02 | PC.NURSE ---
pt up to commode, unable to urinate.sitting up in bedside chair feeding self breakfast. able to take medications without difficulty
[2021-09-02] MEDS: METOCLOPRAMIDE HCL INJ 10 MG/2 ML VIAL IV PUSH (09:25)
--- NOTE | 2021-09-02 09:53 | PC.NURSE ---
here with dialysis set up, juilanne and pt setting up dialysis home system
[2021-09-02] MEDS: AMIODARONE 150 MG/D5W 100 ML 150 MG/100 ML BAG 600 MG IV CONT (10:00)
[2021-09-02] MEDS: AMIODARONE 360 MG/D5W 200 ML 360 MG/200 ML BAG 33.33 MG IV CONT (10:10)
--- NOTE | 2021-09-02 10:40 | PC.NURSE ---
multiple calls made for transfer bed availability. continue with no beds available. see flowsheet for calls made and response.
--- NOTE | 2021-09-02 10:41 | PC.NURSE ---
continues attempt to set up dialysis.
--- NOTE | 2021-09-02 11:05 | PC.NURSE ---
and pt unable to get dialysis machine to work , called tech support. states machine will have to reset and can reattempt setup at 2pm.
--- NOTE | 2021-09-02 11:18 | PC.NURSE ---
food tray ordered for pt and
--- NOTE | 2021-09-02 11:44 | PC.NURSE ---
food tray to pt and
--- NOTE | 2021-09-02 12:45 | PC.NURSE ---
pt ate few bites of oranges and sandwich, up to commode. urine to lab. assisted back to bed
[2021-09-02 12:48] LABS: Add Urine Microscopic? YES; Bilirubin Urine 1+ (Negative); Blood Urine Negative (Negative); Color Urine Dark Yellow (Yellow); Glucose Urine UA 2+ (Negative); Ketones Urine Negative (Negative); Leukocyte Esterase Ur Negative LEU/UL (Negative); Nitrate Urine Negative (Negative); Protein Urine Negative (Negative); Specific Grav Ur >= 1.030 (1.010-1.020); Urobilinogen Urine 0.2 mg/dL (0.2-1.0)
[2021-09-02 12:53] LABS: Appearance Urine Sl Cloudy (Clear); Bacteria Urine 1+ /hpf; Other Sediment Urine Spermatazoa /hpf; RBC Urine None seen /hpf (0-2); Renal Epithelial Cells Urine Rare /hpf; Squamous Epithelial Cell Urine Rare /hpf (Few); WBC Urine None seen /hpf (0-3)
--- NOTE | 2021-09-02 14:07 | PC.NURSE ---
dialysis setup complete per . fill in progress. states session goes over 9 hours. pt sitting up in bedside chair at this time.
[2021-09-02] MEDS: AMIODARONE 360 MG/D5W 200 ML 360 MG/200 ML BAG 16.67 MG IV CONT (16:00)
[2021-09-02 16:22] LABS: Glucose Point of Care 389 mg/dl (65-105)
[2021-09-02] MEDS: HYDROcodone/acetaminophen (*CRX) 5-325 MG TABLET 1 TAB (16:23)
[2021-09-02] MEDS: MIRTAZAPINE 15 MG TABLET PO (17:29)
--- NOTE | 2021-09-02 17:29 | PC.NURSE ---
pt resting per bed. continues with dialysis, no distress or complaints voiced.
--- NOTE | 2021-09-02 18:00 | PC.NURSE ---
pt sleeping at this time
--- NOTE | 2021-09-02 18:56 | PC.NURSE ---
report to ling whitaker
--- NOTE | 2021-09-02 19:13 | PC.NURSE ---
oreinted to new childcare attendant, mx afib controled rate 76, pulse ox 90%
[2021-09-02 20:11] LABS: Hematocrit 28.5 % (37.0-46.0); Hemoglobin 9.9 g/dL (12.4-15.3); Mean Corpuscular HGB Conc 34.7 g/dL (32.0-36.0); Mean Corpuscular Hemoglobin 29.8 pg (27.0-31.0); Mean Corpuscular Volume 85.8 fL (78.0-102.0); Platelet Count Result 353 K/mm3 (150-420); Red Blood Count 3.32 M/mm3 (4.70-6.10)
[2021-09-02 20:20] LABS: Anion Gap 15 mmol/L (8-16); Blood Urea Nitrogen 78 mg/dL (7-18); Calcium 8.3 mg/dL (8.5-10.1); Carbon Dioxide 24 mmol/L (21-32); Chloride 92 mmol/L (98-108); Estimated CRCL calculation 10 ml/min; Estimated Glomerular Filt Rate 7; Osmolality Calculated 314 mOsm/kg (285-295); Potassium 4.2 mmol/L (3.5-5.1); Sodium 131 mmol/L (136-145)
[2021-09-02 20:24] LABS: Glucose 444 mg/dL (70-99)
[2021-09-02 21:33] LABS: Band Neutrophils Percent 0 % (0-6); Basophils Percent Manual 0 % (0-1); Eosinophils Absolute Manual 0.34 K/mm3 (0.02-0.5); Eosinophils Percent Manual 1 % (1-6); Hypersegmented Neutrophils Present; Lymphocytes Absolute Manual 1.36 K/mm3 (1.1-4.5); Lymphocytes Percent Manual 4 % (18-44); Monocytes Percent Manual 0 % (3-9); Neutrophils Absolute Manual 31.62 K/mm3 (1.3-6.7); Neutrophils Percent Manual 93 % (46-73); Platelet Estimate Adequate (Adequate); Total Cells Counted 100
[2021-09-02 22:54] LABS: Glucose Point of Care > 450 mg/dl (65-105)
[2021-09-03] VITALS (18 sets, daily range): BP systolic 101–137; BP diastolic 70–112; PULSE 74–140; RESP 19–20; TEMP 36.6–37.2; O2SAT 91–97
--- NOTE | 2021-09-03 00:10 | PC.NURSE ---
GLUCOMETER 450
[2021-09-03] MEDS: INSULIN HUMAN REGULAR (*BKC) 100 UNITS/ML 20 UNITS SUB-Q (01:06)
[2021-09-03] MEDS: ACETAMINOPHEN 500 MG TABLET PO (03:01)
[2021-09-03] MEDS: AMIODARONE HCL 200 MG TABLET PO ×2 (03:06→15:42)
[2021-09-03 06:39] LABS: Glucose Point of Care 165 mg/dl (65-105)
--- NOTE | 2021-09-03 06:40 | PC.NURSE ---
GLUCOMETER 165
[2021-09-03] MEDS: LEVOTHYROXINE SODIUM 25 MCG TABLET PO (07:18)
[2021-09-03] MEDS: INSULIN HUMAN NPH (*BKC) 100 UNITS/ML 20 UNITS SUB-Q (07:19)
[2021-09-03] MEDS: DOCUSATE SODIUM 100 MG CAPSULE PO (08:20)
[2021-09-03] MEDS: PANTOPRAZOLE 40 MG TABLET PO (08:23)
[2021-09-03] MEDS: APIXABAN 2.5 MG TABLET PO (08:25)
--- NOTE | 2021-09-03 08:25 | ECG_ITS ---
Measurements Intervals [place] Rate: 74 P: 55 GA: 167 QRS: -33 QRSD: 154 T: 11 QT: 401 QTc: 446 Interpretive Statements SINUS RHYTHM VENTRICULAR PREMATURE COMPLEXES LEFT AXIS DEVIATION RIGHT BUNDLE BRANCH BLOCK BASELINE ARTIFACT- I, II, III, AVR, AVL, AVF, V1-V3 ABNORMAL ECG Electronically Signed On 09-03-2021 17:26:08 PAPER SORTER AND COUNTER by Willis Livingston D.O.
[2021-09-03] MEDS: polyethylene glycoL 3350 17 GM POWD.PACK PO (08:26)
[2021-09-03] MEDS: METOPROLOL SUCCINATE EXT REL 50 MG TABCR 100 MG PO (08:26)
[2021-09-03 08:32] LABS: Glucose Point of Care 129 mg/dl (65-105)
[2021-09-03] MEDS: CHOLECALCIFEROL 1,000 UNITS TABLET 2000 UNITS PO (08:34)
--- NOTE | 2021-09-03 08:40 | PC.NURSE ---
Addendum entered by Edgar Antony RN 09/03/21 14:44: pt ate 100% of breakfast, Original Note: pt breakfast served, medication given, pt states feeling a little better
[2021-09-03 08:50] LABS: Hematocrit 31.2 % (37.0-46.0); Hemoglobin 10.5 g/dL (12.4-15.3); Mean Corpuscular HGB Conc 33.7 g/dL (32.0-36.0); Mean Corpuscular Hemoglobin 30.2 pg (27.0-31.0); Mean Corpuscular Volume 89.7 fL (78.0-102.0); Mean Platelet Volume 9.7 fl (8.7-11.0); Platelet Count Result 358 K/mm3 (150-420); Red Blood Count 3.48 M/mm3 (4.70-6.10); Red Cell Distribution Width 14.3 % (11.6-14.4)
[2021-09-03 08:55] LABS: White Blood Count 31.4 K/mm3 (4.8-10.8)
--- NOTE | 2021-09-03 08:58 | PC.NURSE ---
Lab called with critical WBC of 31.4. TERE Hernández and Dr. Streeter notified.
[2021-09-03 09:10] LABS: Lactic Acid Reflex 1.5 mmol/L (0.4-2.0)
[2021-09-03 09:14] LABS: Alanine Aminotransferase 14 U/L (16-63); Alkaline Phosphatase 94 U/L (46-116); Anion Gap 13 mmol/L (8-16); Aspartate Amino Transferase < 10 U/L (15-37); Bilirubin,Total 0.3 mg/dL (0.00-1.00); Blood Urea Nitrogen 85 mg/dL (7-18); Calcium 8.7 mg/dL (8.5-10.1); Carbon Dioxide 27 mmol/L (21-32); Chloride 94 mmol/L (98-108); Estimated CRCL calculation 10 ml/min; Estimated Glomerular Filt Rate 7; Glucose 132 mg/dL (70-99); Magnesium 2.3 mg/dL (1.8-2.4); Osmolality Calculated 305 mOsm/kg (285-295); Potassium 3.9 mmol/L (3.5-5.1); Sodium 134 mmol/L (136-145)
[2021-09-03 09:15] LABS: Band Neutrophils Percent 0 % (0-6); Lymphocytes Absolute Manual 2.19 K/mm3 (1.1-4.5); Lymphocytes Percent Manual 7 % (18-44); Monocytes Absolute Manual 0.94 K/mm3 (0.1-0.90); Monocytes Percent Manual 3 % (3-9); Neutrophils Absolute Manual 28.26 K/mm3 (1.3-6.7); Neutrophils Percent Manual 90 % (46-73); Platelet Estimate Adequate (Adequate); Total Cells Counted 100
[2021-09-03 09:17] LABS: CRP > 25.0 mg/dL (0.0-0.9); Troponin I 17.6 ng/L (0.00-60.4)
--- NOTE | 2021-09-03 09:21 | PC.NURSE ---
Addendum entered by Edgar Antony RN 09/03/21 14:44: spoke with kylie, PRINTING TABLE WORKER will attempt to place calls for transfer. call list faxed to kylie at [phone] Original Note: 09 pt to go to room 207 for er hold status, report to TERE woodruff. pt already in floor bed, pt to floor with RN. all personal belongings and dialysis machine sent with pt. called and notified of transfer to floor.
--- NOTE | 2021-09-03 09:34 | PC.NURSE ---
updated report given to zulema CARRANZA and kacy CARRANZA
--- NOTE | 2021-09-03 09:35 | ADMGEN ---
This patient, Zachery Gray, was transferred to 2nd Floor Room 207-2. Patient/family oriented to hospital policies and general routines including ID bracelet, bed and alarms, visiting hours, pain management, procedures, bathroom and other care routines, personal items, smoking policy, room service/diet, and visiting hours. Information on how to activate the Rapid Response Team has been discussed. Patient/Family are encouraged to report perceived risks to care and to ask questions if they do not understand what they are told or what they should do. Pt aware that he continues to be an ER patient and will be holding on this unit until transfer to higher level of care is available.
[2021-09-03 11:45] LABS: Glucose Point of Care 236 mg/dl (65-105)
--- NOTE | 2021-09-03 12:36 | PC.NURSE ---
Pt ate 50% of lunch including 150ml fluid intake.
[2021-09-03] MEDS: dilTIAZem HCl INJ 25 MG/5 ML VIAL IV PUSH ×2 (13:58→16:35)
--- NOTE | 2021-09-03 14:05 | PC.NURSE ---
Pt's at bedside hooking up peritoneal dialysis. States it is set up and running. Should be complete at approximately 2100.
--- NOTE | 2021-09-03 15:22 | P.PNCROSS_ITS ---
Event Note Event Note Event Note: Patient heart rate remained in the 140-150 over 10 minutes. Cardizem 25 mg given one-time. Currently in the 90s to 120, patient will receive his amiodarone p.o. medication. Call to -[facility] still no beds available -[facility] according to staff at [facility] patient was cancelled off the wait list by our facility.Back on waitlist. -os[facility] outside of [facility] bed on hold accepting local patients only - [facility]-message left unsure of [facility] -[facility]- waiting call back -[facility]- no bed or wait list -
--- NOTE | 2021-09-03 15:22 | PM.EVENT ---
Event Note Event Note Event Note: Patient heart rate remained in the 140-150 over 10 minutes. Cardizem 25 mg given one-time. Currently in the 90s to 120, patient will receive his amiodarone p.o. medication. Call to -[facility] still no beds available -[facility] according to staff at [facility] patient was cancelled off the wait list by our facility.Back on waitlist. -[facility] outside of [facility] bed on hold accepting local patients only - [facility]-message left unsure of [facility] -[facility] no [facility] -[facility] -[facility]- waiting call back -[facility]- no bed or wait list -
--- NOTE | 2021-09-03 15:30 | PC.NURSE ---
Pt requesting [id number] for sleep. He states he would like to sleep through his dialysis treatment and eat after it is complete. Spoke with DARREN Stephenson. A one time dose of trazadone has been ordered and medications for supper will be held until patient eats around 2100.
[2021-09-03] MEDS: traZODone HCL 50 MG TABLET PO (15:42)
--- NOTE | 2021-09-03 16:15 | PC.NURSE ---
Received call from transfer center at [facility] ([place]). She stated they have no bed for this patient and are no longer keeping a waitlist. Encouraged us to check back tomorrow if transfer is still needed.
--- NOTE | 2021-09-03 19:06 | PC.NURSE ---
update to ling boucher
[2021-09-03] MEDS: dilTIAZem 100 MG/100 ML 100 MG/100 ML BAG IV CONT (19:40)
--- NOTE | 2021-09-03 19:52 | PC.NURSE ---
MD notified of need for parameters for Cardizem. New order received to increase drip to 7.5 now, monitor for 1 hour, if heart rate above 100 increase to 10 then notify MD.
--- NOTE | 2021-09-03 21:15 | PC.NURSE ---
Dr. Streeter notified that patient's blood pressure was currently 110/70 and pulse was running 70 to 130. New order to continue Cardizem IV at 7.5 and give patient a one time NS 500ml bolus, then call MD with update.
[2021-09-03] MEDS: SODIUM CHLORIDE 0.9% IV 500 ML 900 ML IV CONT (22:40)
[2021-09-04] VITALS (11 sets, daily range): BP systolic 109–138; BP diastolic 80–99; PULSE 61–111; RESP 14–34; TEMP 36.4–36.8; O2SAT 91–97
--- NOTE | 2021-09-04 00:15 | PC.NURSE ---
[facility] called to get an update on the patient. They said that they still didnt have a bed available at this time. They recommended that we contact [facility] in [place], [place], [facility] in [place], [place] and [facility] in [place], [place]. Kae Phelps RN contacted in ER to start a new search for bed availability at these hospitals.
--- NOTE | 2021-09-04 00:30 | PC.NURSE ---
Call placed to [facility] in [place], report info given on pt, no ICU or IMU bed available, pt placed community relations liaison list for 24 hrs. House supv. states we will need to call back before 24 hrs is up if we want pt to stay on list if no bed available before this time runs out or otherwise pt will drop off of call list. Info given to charge nurse TERE Ervin on 2nd floor.
--- NOTE | 2021-09-04 00:36 | PC.NURSE ---
Call placed to [facility] in [place], notifed for possible ICU or IMU bed availability for pt transfer, report given to yun jerry., call back received from [facility], no beds available for this level of care at this time. ERP notified.
--- NOTE | 2021-09-04 00:42 | ECG_ITS ---
Measurements Intervals [place] Rate: 122 P: [place]: 0 QRS: -11 QRSD: 156 T: -10 QT: 345 QTc: 492 Interpretive Statements ATRIAL FIBRILLATION WITH RAPID VENTRICULAR RESPONSE RIGHT BUNDLE BRANCH BLOCK ABNORMAL ECG Electronically Signed On 09-04-2021 6:26:57 PAYROLL MACHINE OPERATOR by Willis Livingston D.O.
--- NOTE | 2021-09-04 00:50 | PC.NURSE ---
Kae Phelps called back and said she called [facility] in [place]; They have a no wait list at this time and we need to call back in 24 hrs to stay on the wait list. [facility] has no ICU beds available and [facility] has no ICU beds available.
--- NOTE | 2021-09-04 01:10 | PC.NURSE ---
Dr. Streeter notified of pt's blood sugar of 494; Pt given 20 units of NPH and 5 units of humalog insulin.
[2021-09-04 01:11] LABS: Glucose Point of Care > 450 mg/dl (65-105)
[2021-09-04] MEDS: INSULIN HUMAN NPH (*BKC) 100 UNITS/ML 20 UNITS SUB-Q ×3 (01:18→16:56)
[2021-09-04] MEDS: FUROSEMIDE INJ 100 MG/10 ML VIAL 80 MG IV PUSH (01:19)
--- NOTE | 2021-09-04 01:19 | PC.NURSE ---
Pt given lasix 80 mg IVP as ordered.
[2021-09-04] MEDS: APIXABAN 2.5 MG TABLET PO ×3 (01:26→20:16)
[2021-09-04] MEDS: MIRTAZAPINE 15 MG TABLET PO ×2 (01:26→18:25)
[2021-09-04 01:46] LABS: Base Excess ABG -1.6 mmol/L (0-2); HCO3 ABG 21.6 mmol/L (23-29); Oxygen Content ABG 15.2 %vol (16.0-22.0); Oxygen Saturation ABG 88.2 % (95-97); PCO2 ABG 31.6 mmHg (35-45); PO2 ABG 55.1 mmHg (75-85); Total Hemoglobin 12.3 g/dL (12.0-18.0); pH ABG 7.45 (7.35-7.45)
[2021-09-04 01:48] LABS: Device NASAL CANNULA; Liters per Minute 3.5 LPM; Modified Allen's Test Pass; Site Drawn RIGHT RADIAL
[2021-09-04 02:23] LABS: Glucose Point of Care 319 mg/dl (65-105)
--- NOTE | 2021-09-04 02:26 | PC.NURSE ---
Pt bg rechecked after administering insulin. Charge nurse and notified about results. stated he did not want any additional insulin to be given at this time and to recheck bg in 1 hour and call back with results. Pt has his call light within reach and is currently watching TV.
[2021-09-04] MEDS: AMIODARONE HCL 200 MG TABLET PO ×2 (03:01→16:01)
--- NOTE | 2021-09-04 03:37 | PC.NURSE ---
BG level rechecked and and charge nurse were notified of findings. Dr. Sanchez is requesting 5 units of regular insulin to be administered sub-q and bg to be rechecked at 06:00 am.
[2021-09-04 03:40] LABS: Glucose Point of Care 370 mg/dl (65-105)
--- NOTE | 2021-09-04 04:25 | PC.NURSE ---
Telemetry reading at 04:22 goes as the following: HR at 102 MS interval 0.12 and QRS interval at 0.08 in an A-Fib rhythm. Pt denies any chest pain except when coughing. Pt did state he felt short of breath, but had no other complaints at this time. Call light within reach.
[2021-09-04] MEDS: LEVOTHYROXINE SODIUM 25 MCG TABLET PO (06:09)
[2021-09-04 06:14] LABS: Glucose Point of Care 377 mg/dl (65-105)
[2021-09-04] MEDS: dilTIAZem 100 MG/100 ML 100 MG/100 ML BAG 7.5 MG IV CONT (06:23)
[2021-09-04 06:58] LABS: Hematocrit 32.1 % (37.0-46.0); Hemoglobin 10.9 g/dL (12.4-15.3); Mean Corpuscular Hemoglobin 29.1 pg (27.0-31.0); Mean Corpuscular Volume 85.6 fL (78.0-102.0); Platelet Count Result 354 K/mm3 (150-420); Red Blood Count 3.75 M/mm3 (4.70-6.10); Red Cell Distribution Width 13.8 % (11.6-14.4)
[2021-09-04 07:12] LABS: Alanine Aminotransferase 15 U/L (16-63); Albumin Level 1.8 g/dL (3.4-5.0); Alkaline Phosphatase 96 U/L (46-116); Anion Gap 15 mmol/L (8-16); Aspartate Amino Transferase < 10 U/L (15-37); Bilirubin,Total 0.3 mg/dL (0.00-1.00); Blood Urea Nitrogen 87 mg/dL (7-18); Calcium 8.4 mg/dL (8.5-10.1); Carbon Dioxide 24 mmol/L (21-32); Chloride 92 mmol/L (98-108); Estimated CRCL calculation 10 ml/min; Estimated Glomerular Filt Rate 7; Glucose 347 mg/dL (70-99); Magnesium 2.3 mg/dL (1.8-2.4); Osmolality Calculated 312 mOsm/kg (285-295); Potassium 3.9 mmol/L (3.5-5.1); Sodium 131 mmol/L (136-145); Total Protein 6.9 g/dL (6.4-8.2)
[2021-09-04 07:18] LABS: White Blood Count 26.6 K/mm3 (4.8-10.8)
--- NOTE | 2021-09-04 07:20 | PC.NURSE ---
Dr Lanier notified of elevated WBC of 26.6, down from previous 34 and 31.4, no new orders, continues as an ER hold at this time
--- NOTE | 2021-09-04 07:26 | PC.NURSE ---
Dr Lanier contacted regarding 7.9 creatinine, no new orders
[2021-09-04 08:33] LABS: Glucose Point of Care 323 mg/dl (65-105)
[2021-09-04] MEDS: PANTOPRAZOLE 40 MG TABLET PO (09:37)
[2021-09-04] MEDS: METOPROLOL SUCCINATE EXT REL 50 MG TABCR 100 MG PO (09:37)
[2021-09-04] MEDS: CHOLECALCIFEROL 1,000 UNITS TABLET 2000 UNITS PO (09:38)
[2021-09-04] MEDS: DOCUSATE SODIUM 100 MG CAPSULE PO (09:38)
--- NOTE | 2021-09-04 09:40 | PC.NURSE ---
Dr Lanier notified of patient complaint of increase sob, pulse ox 88-90% and increase oxygen to 4.5L, no change in saturation at this time, cardizem continues at 7.5mg/hr
[2021-09-04 13:23] LABS: Glucose Point of Care 354 mg/dl (65-105)
[2021-09-04 17:15] LABS: Glucose Point of Care 412 mg/dl (65-105)
[2021-09-04] MEDS: PRAVASTATIN SODIUM 10 MG TABLET PO (18:25)
--- NOTE | 2021-09-04 18:57 | PC.NURSE ---
Patient called to nurses desk and stated he had fallen. Nursing staff entered into room to find patient sitting on the floor next to bed with legs crossed under him. Patient denies injury and pain related. IV site to right arm pulled out and blood observed on gown. Pressure applied to site and pressure dressing applied. Nonslip socks and gait belt applied. Patient told to straighten legs out in front of him. Patient able to straighten legs easily without assist. x3 nurses assisted patient to his feet and into bed. Patient continues to deny pain or injury. Dialysis continued without difficulty. SR up x2 with call light and belongings within reach. When instructed to call for assist and not get up without assist patient stated I know but it takes so long for me to use the commode and I didn't want to bother you. Staff reminded patient multiple times that the staff is here to take care of him and to call for assistance. Patient states understanding. MD and notified of status.
[2021-09-04] MEDS: dilTIAZem 100 MG/100 ML 100 MG/100 ML BAG IV CONT (20:16)
--- NOTE | 2021-09-04 20:20 | PC.NURSE ---
Addendum entered by Kathy Emanuel RN 09/04/21 20:21: MD notified of patient's current apical pulse rate and Cardizem drip rate. New order to decrease Cardizem drip to 5mg/ml. Original Note: MD notified of patient's current apical pulse rate and Cardizem rate. New order to decrease Cardizem to 5ml
[2021-09-04 20:27] LABS: Glucose Point of Care 384 mg/dl (65-105)
--- NOTE | 2021-09-04 22:18 | WPDPN ---
Progress Note: A&P Assessment and Plan (1) Atrial fibrillation with rapid ventricular response: Code(s): I48.91 - Unspecified atrial fibrillation Status: Acute Assessment and Plan: Patient has been on amiodarone 200 b.i.d.. Patient was started on a diltiazem drip overnight and his heart rate seems to be responding and is maintaining adequate blood pressures. As the amiodarone becomes effective, hopefully will be able to wean him from the diltiazem. (2) RLL pneumonia: Qualifiers: Pneumonia type: due to unspecified organism Qualified Code(s): J18.9 - Pneumonia, unspecified organism Code(s): J18.9 - Pneumonia, unspecified organism Status: Acute Assessment and Plan: On vancomycin and Zosyn. Hemodynamically stable. Currently on 4 liters/minute by nasal cannula. (3) Loculated pleural effusion: Code(s): J90 - Pleural effusion, not elsewhere classified Status: Acute Assessment and Plan: Patient's effusion is getting worse but he is hemodynamically stable. Currently seeking transfer to a center where he can have paracentesis. (4) ESRD on peritoneal dialysis: Code(s): N18.6 - End stage renal disease; Z99.2 - Dependence on renal dialysis Status: Acute Assessment and Plan: Continuing peritoneal dialysis overnight with the help of his . Discussed findings with Dr. Valdez today. Family is on a yellow, green, red dialysate program. Red to be used for fluid overload. (5) Essential hypertension: Code(s): I10 - Essential (primary) hypertension Status: Acute Assessment and Plan: Continue metoprolol. (6) Type 2 diabetes mellitus with hyperglycemia: Qualifiers: Diabetes mellitus technician terminal and repeater insulin use: with technician terminal and repeater use Qualified Code(s): E11.65 - Type 2 diabetes mellitus with hyperglycemia; Z79.4 - longterm (current) use of insulin Code(s): E11.65 - Type 2 diabetes mellitus with hyperglycemia Status: Acute Assessment and Plan: As the patient is eating more we will need to increase his basal insulin and may be able to return to his usual routine (65 units 70/30 bid). Time Spent With Patient Time with patient: 15 - 25 minutes Subjective Date/time seen: 09/04/21 0930 and 2119 Patient is getting nighttime dialysis with the assistance of his , receiving ?green? dialysate. States he feels better but still has some weakness. His shortness of breath is improved. Called to bedside this evening as the patient states he slid out of his chair and fell to the floor. He denies any pain or injury. He did not hit his head or lose consciousness. He denies feel lightheaded or dizzy, he states he was just weak. Review of Systems Review of Systems: All systems reviewed & are unremarkable except as noted in HPI and below Exam Const: General: no acute distress Skin: Other: Mild pallor Neuro: Cognition (Neuro): normal cognition Speech: normal speech Motor exam (neuro): 5/5 motor strength present throughout Extrem: General: edema (Mild pitting edema in dependent areas) Psych: Mental Status: mental status grossly normal Other: Flat affect Objective Data Vital Signs Vital Signs: Vital Signs - 24 hr 09/04/21 03:01 09/04/21 03:10 09/04/21 06:15 Temperature 36.7 C Pulse Rate 110 H 85 111 H Respiratory Rate 34 H Blood Pressure 128/91 H Pulse Oximetry 91 09/04/21 06:23 09/04/21 09:00 09/04/21 09:37 Temperature 36.8 C Pulse Rate 110 H 84 93 Respiratory Rate 14 Blood Pressure 137/80 Pulse Oximetry 92 09/04/21 15:52 09/04/21 16:01 09/04/21 19:43 Temperature 36.6 C Pulse Rate 88 93 62 Respiratory Rate 20 Blood Pressure 109/82 138/99 H Pulse Oximetry 92 09/04/21 20:00 09/04/21 20:16 Temperature 36.4 C Pulse Rate 61 62 Respiratory Rate 16 Blood Pressure 138/99 H 138/99 H Pulse Oximetry 97 Intake/Output Intake/Output: Intake & Output 09/01/21
[2021-09-05] VITALS (9 sets, daily range): BP systolic 105–158; BP diastolic 56–86; PULSE 78–103; RESP 16–32; TEMP 35.6–36.6; O2SAT 93–99
--- NOTE | 2021-09-05 00:33 | PC.NURSE ---
[facility] transfer called to inform us that they are still at full capacity and will keep the pt on their wait list.
[2021-09-05] MEDS: AMIODARONE HCL 200 MG TABLET PO ×2 (02:54→14:00)
[2021-09-05 02:57] LABS: Vancomycin Random 7.7 ug/mL (10-20)
--- NOTE | 2021-09-05 03:16 | PC.NURSE ---
Vancomycin trough of 7.7 called to [facility]. Pharmacist putting in orders for Vancomycin dose and next trough to be drawn.
--- NOTE | 2021-09-05 04:12 | PC.NURSE ---
Ayanan @ [facility] called for update on patient and said he is still on their wait list and the wait list is now down to 2 days.
[2021-09-05] MEDS: INSULIN HUMAN NPH (*BKC) 100 UNITS/ML 40 UNITS SUB-Q ×2 (06:33→17:14)
[2021-09-05] MEDS: LEVOTHYROXINE SODIUM 25 MCG TABLET PO (06:33)
[2021-09-05 06:37] LABS: Glucose Point of Care 384 mg/dl (65-105)
[2021-09-05 08:23] LABS: Glucose Point of Care 369 mg/dl (65-105)
[2021-09-05] MEDS: polyethylene glycoL 3350 17 GM POWD.PACK PO (08:38)
[2021-09-05] MEDS: DOCUSATE SODIUM 100 MG CAPSULE PO (08:38)
[2021-09-05] MEDS: APIXABAN 2.5 MG TABLET PO ×2 (08:38→21:53)
[2021-09-05] MEDS: CHOLECALCIFEROL 1,000 UNITS TABLET 2000 UNITS PO (08:38)
[2021-09-05] MEDS: METOPROLOL SUCCINATE EXT REL 50 MG TABCR 100 MG PO (08:38)
[2021-09-05] MEDS: PANTOPRAZOLE 40 MG TABLET PO (08:39)
[2021-09-05 09:13] LABS: Hematocrit 31.1 % (37.0-46.0); Hemoglobin 10.1 g/dL (12.4-15.3); Mean Corpuscular HGB Conc 32.5 g/dL (32.0-36.0); Mean Corpuscular Hemoglobin 29.8 pg (27.0-31.0); Mean Corpuscular Volume 91.7 fL (78.0-102.0); Mean Platelet Volume 10.2 fl (8.7-11.0); Platelet Count Result 353 K/mm3 (150-420); Red Blood Count 3.39 M/mm3 (4.70-6.10); Red Cell Distribution Width 14.5 % (11.6-14.4)
[2021-09-05 09:21] LABS: Alanine Aminotransferase 16 U/L (16-63); Albumin Level 1.8 g/dL (3.4-5.0); Alkaline Phosphatase 88 U/L (46-116); Anion Gap 15 mmol/L (8-16); Aspartate Amino Transferase < 10 U/L (15-37); Bilirubin,Total 0.3 mg/dL (0.00-1.00); Blood Urea Nitrogen 87 mg/dL (7-18); Calcium 7.8 mg/dL (8.5-10.1); Carbon Dioxide 25 mmol/L (21-32); Chloride 92 mmol/L (98-108); Estimated CRCL calculation 10 ml/min; Estimated Glomerular Filt Rate 7; Glucose 390 mg/dL (70-99); Osmolality Calculated 316 mOsm/kg (285-295); Sodium 132 mmol/L (136-145); Total Protein 5.7 g/dL (6.4-8.2)
[2021-09-05 09:49] LABS: White Blood Count 21.8 K/mm3 (4.8-10.8)
[2021-09-05 09:50] LABS: Band Neutrophils Percent 0 % (0-6); Basophils Percent Manual 0 % (0-1); Eosinophils Absolute Manual 0.65 K/mm3 (0.02-0.5); Eosinophils Percent Manual 3 % (1-6); Lymphocytes Absolute Manual 1.74 K/mm3 (1.1-4.5); Lymphocytes Percent Manual 8 % (18-44); Monocytes Absolute Manual 0.43 K/mm3 (0.1-0.90); Monocytes Percent Manual 2 % (3-9); Neutrophils Absolute Manual 18.96 K/mm3 (1.3-6.7); Neutrophils Percent Manual 87 % (46-73); Total Cells Counted 100
[2021-09-05 09:51] LABS: Platelet Estimate Adequate (Adequate)
--- NOTE | 2021-09-05 10:31 | PC.NURSE ---
voices no c/o this am. sat on side of bed to eat. up with stand assist to recliner. also did his am care. gets very winded with any type of exertion.sleeping in recliner with feet up
--- NOTE | 2021-09-05 11:06 | PC.NURSE ---
Adelaide @ [facility] claims there is still no open beds but will keep us on the list for another 24 hr. updates given.
[2021-09-05 12:04] LABS: Glucose Point of Care > 450 mg/dl (65-105)
--- NOTE | 2021-09-05 12:38 | PC.NURSE ---
slept most of am. denies any sob. ate 100% lunch. visitor at bedside. feet elevated in recliner. hr 98 and a fib on monitor.
[2021-09-05] MEDS: INSULIN HUMAN REGULAR (*BKC) 100 UNITS/ML 11 UNITS IV PUSH (12:54)
--- NOTE | 2021-09-05 15:49 | PC.NURSE ---
cardizem gtt stopped. afib on tele with rates 90-110. sits in recliner with feet elevated.
[2021-09-05 16:53] LABS: Glucose Point of Care 244 mg/dl (65-105)
[2021-09-05] MEDS: PRAVASTATIN SODIUM 10 MG TABLET PO (17:19)
[2021-09-05] MEDS: MIRTAZAPINE 15 MG TABLET PO (17:19)
[2021-09-05 18:48] LABS: Appearance Peritoneal Fluid Clear (Clear); Color Peritoneal Fluid Colorless (Colorless); Nucleated Cells Peritoneal Flu 7 /uL (0-500); RBC Peritoneal Fluid 0 /uL (0-100000); Source Peritoneal Fluid Peritoneal Fluid
[2021-09-05 18:49] LABS: Lymphocytes Peritoneal Fluid 73 %; Monocytes Peritoneal Fluid 16 %; Neutrophils Peritoneal Fluid 11 % (0-25)
--- NOTE | 2021-09-05 20:00 | PC.NURSE ---
Patient is an ER hold, waiting for a bed in a cardio unit. Patient is on telemetry and has typically run in a Sinus Rhythm, with a regularly irregular rhythm. Patient has peritoneal dialysis, which his sets up and takes down for him every night. Assessment indicated that patient's GI, , Neurological, and Reproductive systems were within normal limits. 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 Patient's muscoloskeletal system is significant for weakness, and slight edema in the feet. Patient is able to stand and walk short distances with a gait belt and assist of 1 to 2. Patient's respiratory system is significant for being short of breath, with diminished lung sounds bilaterally. He has a productive cough, with bravo, thick, sputum. Patient is complaining of pain of 3/10 in his feet.
[2021-09-05 22:02] LABS: Glucose Point of Care 423 mg/dl (65-105)
[2021-09-06] VITALS (8 sets, daily range): BP systolic 102–134; BP diastolic 66–82; PULSE 73–100; RESP 20–22; TEMP 36.1–37.3; O2SAT 92–93
[2021-09-06] MEDS: AMIODARONE HCL 200 MG TABLET PO ×2 (03:13→15:23)
--- NOTE | 2021-09-06 05:00 | PC.NURSE ---
Patient was weighed in the bed, and weighed 119 kg.
[2021-09-06 06:09] LABS: Vancomycin Random 21.8 ug/mL (10-20)
[2021-09-06 06:54] LABS: Glucose Point of Care 224 mg/dl (65-105)
[2021-09-06] MEDS: INSULIN HUMAN NPH (*BKC) 100 UNITS/ML 40 UNITS SUB-Q (06:54)
[2021-09-06] MEDS: LEVOTHYROXINE SODIUM 25 MCG TABLET PO (06:59)
[2021-09-06 07:07] LABS: Glucose Point of Care 171 mg/dl (65-105)
[2021-09-06 08:10] LABS: Hematocrit 34.1 % (37.0-46.0); Hemoglobin 11.2 g/dL (12.4-15.3); Mean Corpuscular HGB Conc 32.8 g/dL (32.0-36.0); Mean Corpuscular Hemoglobin 29.3 pg (27.0-31.0); Mean Corpuscular Volume 89.3 fL (78.0-102.0); Mean Platelet Volume 10.1 fl (8.7-11.0); Platelet Count Result 432 K/mm3 (150-420); Red Blood Count 3.82 M/mm3 (4.70-6.10); Red Cell Distribution Width 14.3 % (11.6-14.4)
[2021-09-06 08:14] LABS: Anion Gap 13 mmol/L (8-16); Blood Urea Nitrogen 87 mg/dL (7-18); Calcium 8.5 mg/dL (8.5-10.1); Carbon Dioxide 24 mmol/L (21-32); Chloride 89 mmol/L (98-108); Estimated CRCL calculation 10 ml/min; Estimated Glomerular Filt Rate 7; Glucose 203 mg/dL (70-99); Osmolality Calculated 294 mOsm/kg (285-295); Potassium 3.8 mmol/L (3.5-5.1); Sodium 126 mmol/L (136-145)
[2021-09-06 08:16] LABS: White Blood Count 20.6 K/mm3 (4.8-10.8)
[2021-09-06 08:25] LABS: Glucose Point of Care 179 mg/dl (65-105)
--- NOTE | 2021-09-06 08:50 | PC.NURSE ---
Called [facility] to see if any beds were available. Waiting for call back.
[2021-09-06 08:53] LABS: Band Neutrophils Percent 0 % (0-6); Basophils Percent Manual 0 % (0-1); Eosinophils Absolute Manual 0.41 K/mm3 (0.02-0.5); Eosinophils Percent Manual 2 % (1-6); Lymphocytes Absolute Manual 2.06 K/mm3 (1.1-4.5); Lymphocytes Percent Manual 10 % (18-44); Monocytes Absolute Manual 1.23 K/mm3 (0.1-0.90); Monocytes Percent Manual 6 % (3-9); Neutrophils Absolute Manual 16.89 K/mm3 (1.3-6.7); Neutrophils Percent Manual 82 % (46-73); Platelet Estimate Adequate (Adequate); Total Cells Counted 100
--- NOTE | 2021-09-06 09:03 | PCDIET ---
Spoke to Life Science Technical Officer at [facility] and they do not have any beds. She stated that in their capacity meeting for [facility] that [facility] in [place] might have a bed. Called and left a message for the household assistant. Ana, 2nd floor RN notified.
--- NOTE | 2021-09-06 09:58 | PC.NURSE ---
Spoke to [facility] transfer line who took intake information. Believed to have one bed available for medical or tele status pt.
[2021-09-06] MEDS: CHOLECALCIFEROL 1,000 UNITS TABLET 2000 UNITS PO (10:16)
[2021-09-06] MEDS: polyethylene glycoL 3350 17 GM POWD.PACK PO (10:16)
[2021-09-06] MEDS: APIXABAN 2.5 MG TABLET PO ×2 (10:17→21:49)
[2021-09-06] MEDS: DOCUSATE SODIUM 100 MG CAPSULE PO (10:17)
[2021-09-06] MEDS: METOPROLOL SUCCINATE EXT REL 50 MG TABCR 100 MG PO (10:17)
[2021-09-06] MEDS: PANTOPRAZOLE 40 MG TABLET PO (10:17)
--- NOTE | 2021-09-06 10:35 | PC.NURSE ---
patient up in recliner this am for breakfast. a fib on monitor with rates 80-90's. O2 @ 2l
--- NOTE | 2021-09-06 11:36 | PC.NURSE ---
Christos from [facility] transfer center called back and states nephrology is unable to accept the patient at this time. Tamera, 2nd floor charge preparation technician notified.
[2021-09-06 12:01] LABS: Glucose Point of Care 260 mg/dl (65-105)
[2021-09-06 12:12] LABS: Lactate Dehydrogenase 418 U/L (85-227); Total Protein 7.5 g/dL (6.4-8.2)
[2021-09-06 17:16] LABS: Glucose Point of Care 204 mg/dl (65-105)
[2021-09-06] MEDS: INSULIN HUMAN NPH (*BKC) 100 UNITS/ML 45 UNITS SUB-Q (17:16)
[2021-09-06] MEDS: MIRTAZAPINE 15 MG TABLET PO (17:17)
[2021-09-06] MEDS: PRAVASTATIN SODIUM 10 MG TABLET PO (17:17)
--- NOTE | 2021-09-06 18:27 | PM.IMPN ---
Progress Note: A&P Additional Plan Sepsis secondary to bibasilar infiltrate/right loculated effusion / rule out peritonitis/ Bacteremia the patient presented with a white count of around 45,000. His peritoneal fluid was sent for cell count. Cell count was noted to be 11. The patient had a CT of the chest abdomen and pelvis which revealed right lower lobe infiltrate with loculated effusion. his blood cultures have been negative till date. The patient was started on vancomycin and Zosyn. Consulted Interventional Radiology for tapping his right pleural fluid to rule out parapneumonic effusion/ empyema. End-stage renal disease on peritoneal dialysis the patient uses his cycler and is on PD for 8 hours a day. Will continue to monitor his electrolytes. Elevated blood sugars increase the dose of NPH from 40 units b.i.d. to 45 units b.i.d.. Continue sliding scale coverage. Atrial fibrillation with a rapid ventricular rate patient is on anticoagulation with Eliquis and metoprolol for rate control. Time Spent With Patient Time with patient: 15 - 25 minutes Subjective Date/time seen: 09/06/21 18:27 Interval history: 71-year-old male with a history of diabetes mellitus, end-stage renal disease on peritoneal dialysis, atrial fibrillation on Eliquis, hypothyroidism, dyslipidemia, was admitted on 09/01/2021 for cough, shortness of breath and multiple episodes of vomiting. The patient was noted to be afebrile and hemodynamically stable. He was noted to have -- sepsis with an elevated white cell count secondary to pneumonia / peritonitis -- atrial fibrillation with rapid ventricular rate -- elevated blood sugars -- renal failure For which she was started on peritoneal dialysis using his home cycler. Review of Systems Review of Systems: All systems reviewed & are unremarkable except as noted in HPI and below Constitutional: Constitutional: Reports as per HPI, Reports no additional constitutional complaints and Reports weakness Eyes: Comments: He has decreased vision in both his eye secondary to diabetic retinopathy. ENT: Reports system reviewed and no additional complaints, except as documented and Reports as per HPI Cardiovascular: Cardiovascular: Reports as per HPI and Reports no additional cardiovascular complaints Respiratory: Respiratory: Reports as per HPI and Reports no additional respiratory complaints Gastrointestinal: Gastrointestinal: Reports as per HPI and Reports no additional gastrointestinal complaints Genitourinary: Genitourinary: Reports no additional male genitourinary complaints and Reports as per HPI Musculoskeletal: Musculoskeletal: Reports no additional musculoskeletal complaints Integumentary/Breasts: Skin/Breast: Reports system reviewed and no additional complaints, except as docu Neurologic: Reports system reviewed and no additional complaints, except as documented Psychiatric: Psychiatric: Reports no additional psychiatric complaints Endocrine: Endocrine: Reports no additional endocrine complaints Hematologic/Lymphatic: Hematologic/Lymphatic: Reports no additional hematologic/lymphatic complaints Allergic/Immunologic: Allergic/Immunologic: Reports no additional allergic/immunologic complaints Exam Const: General: cooperative and comfortable HENMT: Head: normal to inspection Ears: hearing grossly normal bilaterally General nose exam: Normal external nose present Face and sinus: normal facial exam and sinuses nontender Mouth: Yes Normal oral and palatal mucosa present Throat: posterior oropharynx normal Eyes: General: dysmorphic ( Decreased vision in both his eyes.) Eyelids: eyelids normal Neck: Neck: normal visual inspection and full ROM Chest: Chest palpation & inspection: normal inspection of the chest Resp: Other: Decreased breath sounds in both bases right greater than the left. Rales in the left base. Cardio: Rhythm: abnormal rhythm and other ( Irregularly irregular heart
--- NOTE | 2021-09-06 21:33 | PC.NURSE ---
[facility] called to update their waiting list. Updates given by Charge Nurse. Patient will remain on the list for 24 hours then new update will have to be given.
[2021-09-06 21:55] LABS: Glucose Point of Care 329 mg/dl (65-105)
--- NOTE | 2021-09-06 23:26 | PC.NURSE ---
1900--Patient sitting on the side of the bed. Peritneal dialysis running without difficulty. O2 on at 2l. Vital signs 97.9 - 18 - 75 - 96% - 124/74. 1800--Patient continues to sit on the side of the bed. Telemetry intact. 1999--Patient lying in bed at the time. Denies any difficulties at this time. 2099--Obtained patients blood sugar 329. Patient's insulin administered per orders. 2199-- Patient is lying in bed sleeping at this time.
--- NOTE | 2021-09-06 23:45 | PC.NURSE ---
Upon assessment and entering room, Pt sitting up bedside watching TV. Pts peritoneal dialysis is running per machine s difficulty. Pts VSS at this time, he denies any c/o of pain. Pt noted having some SOB but on 2.5L NC. Pt wanting something to drink before midnight cutoff of NPO. Pt given juice per request. Call shaw in reach.
[2021-09-07 00:01] VITALS: BP 124/89; PULSE 90; RESP 22; TEMP 36.6; O2SAT 95
--- NOTE | 2021-09-07 00:05 | PC.NURSE ---
Discussed cardizem drip orders with Dr. Nazario. Cardizem drip discontinuedat this time.
--- NOTE | 2021-09-07 00:52 | PC.NURSE ---
Pt assisted c SBA and use of portable O2 tank to BR. Pt had BM and then assisted back to bed, Discussed procedure for thoracentesis in AM and pt NPO status at this time. Call shaw in reach of pt.
[2021-09-07 01:01] VITALS: PULSE 90
--- NOTE | 2021-09-07 01:35 | PC.NURSE ---
Pt resting comfortably at this time, no c/o, BS reading of 275 and per protocol and order pt given 4U Humalog Lispro. Call shaw at side and pt encouraged to call if anything needed.
[2021-09-07 03:10] VITALS: PULSE 120
[2021-09-07] MEDS: AMIODARONE HCL 200 MG TABLET PO (03:10)
--- NOTE | 2021-09-07 03:25 | PC.NURSE ---
Pt assisted SBA to BR, had BM again, back to bed, jessica. well, call shaw in reach.
[2021-09-07 05:22] LABS: Hematocrit 29.8 % (37.0-46.0); Hemoglobin 9.9 g/dL (12.4-15.3); Mean Corpuscular HGB Conc 33.2 g/dL (32.0-36.0); Mean Corpuscular Hemoglobin 29.3 pg (27.0-31.0); Mean Corpuscular Volume 88.2 fL (78.0-102.0); Mean Platelet Volume 9.8 fl (8.7-11.0); Platelet Count Result 390 K/mm3 (150-420); Red Blood Count 3.38 M/mm3 (4.70-6.10); White Blood Count 16.7 K/mm3 (4.8-10.8)
--- NOTE | 2021-09-07 05:24 | PC.NURSE ---
Transfer center software support representative David from [facility] called to see if pt was still here and needing transferred. Information update given and no bed is available at this time. Pt remains on the transfer list for [facility].
[2021-09-07 05:27] LABS: Estimated CRCL calculation 10 ml/min; Estimated Glomerular Filt Rate 7
[2021-09-07 05:30] LABS: INR 1.3
[2021-09-07 05:36] LABS: Glucose Point of Care 159 mg/dl (65-105)
--- NOTE | 2021-09-07 05:38 | PC.NURSE ---
Lab called to report critical creatinine value of 7.63; Dr. Nazario notified and no new orders at this time.
[2021-09-07] MEDS: LEVOTHYROXINE SODIUM 25 MCG TABLET PO (06:23)
[2021-09-07] MEDS: INSULIN HUMAN NPH (*BKC) 100 UNITS/ML 45 UNITS SUB-Q (06:23)
--- NOTE | 2021-09-07 09:07 | PC.NURSE ---
Pt transported via wheelchair by radiology staff downstairs for procedure.
[2021-09-07 10:00] VITALS: BP 115/77; PULSE 92; RESP 16; TEMP 36.8; O2SAT 97
[2021-09-07 10:13] LABS: Glucose Point of Care 105 mg/dl (65-105)
[2021-09-07 10:18] VITALS: PULSE 106
[2021-09-07] MEDS: METOPROLOL SUCCINATE EXT REL 50 MG TABCR 100 MG PO (10:18)
--- NOTE | 2021-09-07 12:29 | ED.GENADULT ---
HPI - General Adult General Chief complaint: Shortness of Breath/Dyspnea Stated complaint: trouble breathing Time Seen by Provider: 09/01/21 15:04 Source: patient Mode of arrival: wheelchair Limitations: no limitations History of Present Illness HPI narrative: Zachery is a 71M with a PMH of ESRD on peritoneal dialysis, CHARLY, Afib with RVR, DMII, HTN, HypoT, that presented with SOB and was found to be septic most likely from RLL pneumonia. He was treated with vanc and Zosyn. Today he reports that he is still feeling a little better than yesterday, however, repeat CT showed that he still has a loculated pleural effusion and continues to have some SOB. Related Data Home Medications Medication Instructions Recorded Confirmed cholecalciferol (vitamin D3) 50 2,000 unit PO DAILY 08/11/19 09/01/21 mcg (2,000 unit) tablet mirtazapine 15 mg tablet 15 mg PO QPM tablet 03/29/20 09/01/21 pravastatin 10 mg tablet 10 mg PO QPM tablet 03/29/20 09/01/21 omeprazole 20 mg PO DAILY 10/01/20 09/01/21 acetaminophen 500 mg capsule 500 mg PO Q6H PRN 03/28/21 09/01/21 apixaban 2.5 mg tablet 2.5 mg PO BID 03/28/21 09/01/21 docusate sodium 100 mg capsule 100 mg PO DAILY 03/28/21 09/01/21 polyethylene glycol 3350 17 17 g PO DAILY 03/28/21 09/01/21 gram/dose oral powder insulin NPH and regular human 65 unit SUBCUT BIDWMEAL 09/01/21 09/01/21 [Novolin 70/30 U-100 Insulin] levothyroxine 25 mcg PO QAM 09/01/21 09/01/21 Allergies Allergy/AdvReac Type Severity Reaction Status Date / Time No Known Allergies Allergy Verified 06/30/21 11:33 Review of Systems Constitutional: Constitutional: Reports fatigue Eyes: Eyes: Reports no additional eye complaints ENT: Reports system reviewed and no additional complaints, except as documented Cardiovascular: Cardiovascular: Reports no additional cardiovascular complaints Respiratory: Respiratory: Reports chest congestion, Reports cough and Reports dyspnea Gastrointestinal: Gastrointestinal: Reports no additional gastrointestinal complaints Genitourinary: Genitourinary: Reports no additional male genitourinary complaints Musculoskeletal: Musculoskeletal: Reports no additional musculoskeletal complaints Integumentary/Breasts: Skin/Breast: Reports system reviewed and no additional complaints, except as docu Neurologic: Reports system reviewed and no additional complaints, except as documented Psychiatric: Psychiatric: Reports no additional psychiatric complaints Endocrine: Endocrine: Reports no additional endocrine complaints Hematologic/Lymphatic: Hematologic/Lymphatic: Reports no additional hematologic/lymphatic complaints Allergic/Immunologic: Allergic/Immunologic: Reports no additional allergic/immunologic complaints [facility] Past Medical History Medical History Atrial fibrillation with rapid ventricular response Back pain 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 He still receives eye injections in his right eye. 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
--- NOTE | 2021-09-07 12:55 | PC.NURSE ---
Report given to GBAAS at bedside. All questions answered, pt transported via stretcher to ambulance with EMS.
--- NOTE | 2021-09-07 13:02 | PC.NURSE ---
Addendum entered by Kinza Ochoa RN 09/07/21 13:04: Report called at 1220 Original Note: Called report to TERE [place] [id number].
[2021-09-07 13:15] VITALS: BP 115/77; PULSE 106; RESP 16; TEMP 36.8; O2SAT 97
[2021-09-10 20:37] LABS: Amylase Peritoneal Fluid <10 U/L
== END 2021-09-07 13:00 | disposition short-term general hospital (02) ==
LOC: CHSED 22:45 → CHS2ND 09-03 08:24
PROVIDERS: Emergency Medicine; Internal Medicine Critical Care Medicine; Nurse Practitioner; Emergency Provider Emergency Medicine; PCP Internal Medicine
DX: A41.9 Sepsis, unspecified organism (principal); J18.9 Pneumonia, unspecified organism; N18.6 End stage renal disease; J90 Pleural effusion, not elsewhere classified; I48.20 Chronic atrial fibrillation, unspecified; I12.0 Hypertensive chronic kidney disease with stage 5 chronic kidney disease or end stage renal disease; E11.22 Type 2 diabetes mellitus with diabetic chronic kidney disease; E11.42 Type 2 diabetes mellitus with diabetic polyneuropathy; E78.5 Hyperlipidemia, unspecified; E03.9 Hypothyroidism, unspecified; Z99.2 Dependence on renal dialysis
CPT/HCPCS: 32555; 36415; 36600; 71045; 71250; 74176; 76942; 80048; 80053; 80202; 81001; 82040; 82150; 82565; 82805; 82948; 83605; 83615; 83690; 83735; 84100; 84155; 84484; 85025; 85027; 85610; 85730; 86140; 87040; 87070; 87075; 87077; 87205; 89051; 93005; 96361; 96365; 96366; 96367; 96368; 96375; 96376; 99285; A9270; J0282; J0696; J1170; J1815; J1940; J2543; J2765; J3370; J7030; J7040

== ENCOUNTER 2022-01-22 11:15 | Outpatient (CLI) | payer MEDICARE, OTHER, SELFPAY ==
--- NOTE | ~2022-01-22 | XR_ITS ---
EXAM: XR abdomen/kub 1V HISTORY: HYPERTENSIVE CHRONIC KIDNEY DISEASE WITH STAGE 5 CKD COMPARISON: 10/02/2020 FINDINGS: Right basilar scarring. Normal bowel gas pattern. No organomegaly. Pelvic phleboliths and atherosclerotic calcification. Regional bones and soft tissues normal for age. Peritoneal dialysis ca theter. IMPRESSION: No obstruction or ileus. Reviewed, dictated and finalized at location K. IMPRESSION: No obstruction or ileus.
== END 2022-01-22 11:16 | disposition home or self-care (01) ==
PROVIDERS: PCP Internal Medicine; Visit Provider Internal Medicine Nephrology
DX: N18.6 End stage renal disease (principal)
CPT/HCPCS: 74018

== ENCOUNTER 2022-04-10 12:50 | Outpatient (CLI) | payer MEDICARE, OTHER, SELFPAY ==
--- NOTE | ~2022-04-10 | XR_ITS ---
XR chest 2V 04/10/2022 13:33 Indication: Shortness of breath for 2 weeks. Pneumonia. Procedure: 2 view chest Comparison: 09/06/2021 Findings: Heart size normal. Improving right basilar airspace disease and right pleural effusion. Lef t basilar atelectasis/scarring no edema or pneumothorax.. Impression: 1: Improving right basilar airspace disease which may represent atelectasis/scarring or residual pneu monia. 2: Near complete resolution of right pleural effusion. Reviewed, dictated and finalized at location A. Impression: 1: Improving right basilar airspace disease which may represent atelectasis/sca rring or residual pneumonia. 2: Near complete resolution of right pleural effusion.
== END 2022-04-10 12:51 | disposition home or self-care (01) ==
LOC: CHSIMG 12:54
PROVIDERS: PCP Internal Medicine; Visit Provider Internal Medicine Nephrology
DX: R06.02 Shortness of breath (principal); N18.6 End stage renal disease
CPT/HCPCS: 71046

== ENCOUNTER 2022-11-19 16:53 | Outpatient (CLI) | payer MEDICARE, OTHER, SELFPAY ==
[2022-11-19 17:21] LABS: HCO3 ABG 23.7 mmol/L (23-29); Oxygen Content ABG 15.5 %vol (16.0-22.0); Oxygen Saturation ABG 96.6 % (95-97); Oxyhemoglobin 95.9 % (94-100); PCO2 ABG 35.1 mmHg (35-45); Total Hemoglobin 11.4 g/dL (12.0-18.0); pH ABG 7.45 (7.35-7.45)
[2022-11-19 17:22] LABS: Device ROOM AIR; Modified Allen's Test Pass; Site Drawn RIGHT BRACHIAL
[2022-11-19 17:23] LABS: Basophils Absolute Auto 0.07 K/mm3 (0.00-0.10); Basophils Percent Auto 0.6 % (0.0-1.0); Eosinophils Absolute Auto 0.33 K/mm3 (0.02-0.50); Eosinophils Percent Auto 2.9 % (1.0-6.0); Hematocrit 29.5 % (37.0-46.0); Hemoglobin 10.2 g/dL (12.4-15.3); Immature Granulocyte Absolute 0.13 K/mm3 (0.00-0.00); Immature Granulocyte Percent A 1.2 % (0.0-0.0); Lymphocytes Absolute Auto 2.52 K/mm3 (1.10-4.50); Lymphocytes Percent Auto 22.4 % (18.0-42.0); Mean Corpuscular HGB Conc 34.6 g/dL (32.0-36.0); Mean Corpuscular Hemoglobin 30.4 pg (27.0-31.0); Mean Corpuscular Volume 87.8 fL (78.0-102.0); Mean Platelet Volume 9.2 fl (8.7-11.0); Monocytes Absolute Auto 0.72 K/mm3 (0.10-0.90); Monocytes Percent Auto 6.4 % (2.0-11.0); Neutrophils Absolute Auto 7.5 K/mm3 (1.7-7.2); Neutrophils Percent Auto 66.5 % (50.0-70.0); Platelet Count Result 289 K/mm3 (150-420); Red Blood Count 3.36 M/mm3 (4.70-6.10); Red Cell Distribution Width 13.9 % (11.6-14.4); White Blood Count 11.2 K/mm3 (4.8-10.8)
[2022-11-19 17:39] LABS: Alanine Aminotransferase 29 U/L (16-63); Alkaline Phosphatase 77 U/L (46-116); Anion Gap 12 mmol/L (8-16); Aspartate Amino Transferase 13 U/L (15-37); Bilirubin,Total 0.3 mg/dL (0.00-1.00); Blood Urea Nitrogen 42 mg/dL (7-18); Calcium 8.6 mg/dL (8.5-10.1); Carbon Dioxide 24 mmol/L (21-32); Chloride 100 mmol/L (98-108); Estimated Glomerular Filt Rate 8; Glucose 289 mg/dL (70-99); Magnesium 1.8 mg/dL (1.8-2.4); Osmolality Calculated 303 mOsm/kg (285-295); Potassium 4.4 mmol/L (3.5-5.1); Sodium 136 mmol/L (136-145); Total Protein 7.2 g/dL (6.4-8.2)
[2022-11-20 09:25] LABS: Creatine Kinase 175 U/L (39-308)
[2022-11-20 09:26] LABS: Troponin I 17.1 ng/L (0.00-60.4)
== END 2022-11-19 16:54 | disposition home or self-care (01) ==
LOC: CHSLAB 16:57
PROVIDERS: PCP Internal Medicine; Visit Provider Internal Medicine
DX: R55 Syncope and collapse (principal); N18.6 End stage renal disease; E11.9 Type 2 diabetes mellitus without complications; G47.10 Hypersomnia, unspecified
CPT/HCPCS: 36415; 36600; 80053; 82550; 82553; 82805; 83735; 84484; 85025

== ENCOUNTER 2022-11-22 09:24 | Outpatient (CLI) | payer MEDICARE, OTHER, SELFPAY ==
--- NOTE | ~2022-11-22 | US_ITS ---
EXAMINATION: US carotid duplex BI DATE: 11/22/2022 10:57 INDICATION: Syncope, atrial fibrillation. TECHNIQUE: Grayscale, color Doppler, and pulsed Doppler images of the cervical carotid arteries were obtained. The degree of vessel stenosis is placed in one of the following categories: normal, <50%, 5 0-69%, >=70% but less than near-occlusion, near-occlusion, or total occlusion. Note that percent sten osis relative to normal distal artery lumen diameter is indirectly measured from velocity measurement s as described by Deepak, et al. Radiology 2003; 229:340-346. COMPARISON: None. FINDINGS: RIGHT: The right common carotid artery (CCA) peak systolic velocity (PSV) is 107 cm/s. The right internal ca rotid artery (ICA) PSV is 94 cm/s. The right ICA end-diastolic velocity (EDV) is 20 cm/s. The right I CA/CCA PSV ratio is 0.88. Grayscale and color Doppler images yield an estimate of less than 50% diame ter reduction from plaque in the ICA. The external carotid artery (ECA) PSV is 89 cm/s. There is ante grade flow in the right vertebral artery. LEFT: The left CCA PSV is 86 cm/s. The left ICA PSV is 57 cm/s. The left ICA EDV is 16 cm/s. The left ICA/C CA PSV ratio is 0.66. Grayscale and color Doppler images yield an estimate of less than 50% diameter reduction from plaque in the ICA. The ECA PSV is 69 cm/s. There is antegrade flow in the left vertebr al artery. IMPRESSION: 1. Less than 50% stenosis in the right internal carotid artery. 2. Less than 50% stenosis in the left internal carotid artery. Reviewed, dictated and finalized at Location A. Reviewed, dictated and finalized at location L. NESS INTELLIGENCE DEVELOPER
--- NOTE | ~2022-11-22 | CT_ITS ---
EXAMINATION: CT brain wo con DATE: 11/22/2022 09:54 INDICATION: Syncopal episodes for one week, during which the patient becomes disoriented/incoherent m omentarily. Atrial fibrillation. TECHNIQUE: Computed tomography (CT) of the head was performed without intravenous contrast. The mA wa s adjusted according to patient size. Iterative reconstruction technique was employed. Exam dose: 68 1.00 mGy-cm total exam DLP. COMPARISON: 10/11/2020 MRI brain examination FINDINGS: Prominent bilateral vertebral artery calcification. Prominent bilateral carotid siphon and supraclinoid internal carotid artery calcifications. There is nonspecific diminished attenuation of the cerebral white matter, likely due to chronic small vessel ischemic changes. No intracranial mass lesion or hemorrhage or cerebrovascular accident. No midline shift or mass effec t. Single punctate right basal ganglia calcification. Moderately prominent cerebellar and cerebral atrophy. No subdural or epidural hematoma. Abnormally dense left orbital globe with some peripheral calcification. Partial opacification of mastoid air cells, right greater than left. Included paranasal sinuses are u nremarkable. No fracture or bone destruction of the cranial vault. IMPRESSION: Cerebral atherosclerosis and chronic small vessel ischemic changes of the cerebral white matter Cerebral and cerebellar atrophy No acute intracranial finding Reviewed, dictated and finalized at Location A. Reviewed, dictated and finalized at location L. AL EFFECTS ARTIST
--- NOTE | 2022-11-23 12:22 | WPDHOLTEREM ---
Holter/Event Monitor Holter/Event Monitor Date of procedure: 11/22/22 Holter/Event Procedure: 24 Hr Holter Monitor Indications: Atrial fibrillation Conclusion: 1. 24 hour holter monitor on 11/22/22. 2. Underlying rhythm is sinus rhythm. HR range 58-92 bpm; average HR 72 bpm. 3. There are 302 premature supraventricular complexes, 7 supraventricular couplets, 2 supraventricular triplets. No supraventricular tachycardia. 4. There are 1,571 premature ventricular complexes, 266 ventricular bigeminy and 17 ventricular trigeminy. No ventricular tachycardia. 5. There are intermittent pauses due to complete heart block with longest pause at 10.3 seconds at 10:04. Underlying RBBB. 6. Patient reports symptoms of shortness of breath, episodes which demonstrate sinus rhythm, HR range Sinus rhythm with complete heart block with Ventricular escape beats, sinus rhythm at 71 bpm.
== END 2022-11-22 09:25 | disposition home or self-care (01) ==
LOC: CHSIMG 09:26
PROVIDERS: PCP Internal Medicine; Visit Provider Internal Medicine
DX: I48.0 Paroxysmal atrial fibrillation (principal); R55 Syncope and collapse; I65.23 Occlusion and stenosis of bilateral carotid arteries; I67.2 Cerebral atherosclerosis; G31.89 Other specified degenerative diseases of nervous system
CPT/HCPCS: 70450; 93225; 93226; 93880

== ENCOUNTER 2023-03-22 12:21 | Outpatient (CLI) | payer MEDICARE, OTHER, SELFPAY ==
--- NOTE | ~2023-03-22 | XR_ITS ---
EXAMINATION: XR chest 2V Exam Date/Time: 03/22/2023 12:45 CDT HISTORY: dyspnea Comparison: 04/10/2022. RESULT: Lines, tubes, and devices: Electronic device projects over the anterior chest, possibly a loop recor cristiano. Lungs and pleura: Slightly increased diffuse reticular opacities. Similar streaky bibasilar opacitie s. Hyperinflation. Cardiomediastinal silhouette: Stable. Other: No acute osseous or upper abdominal finding. IMPRESSION: Mild interstitial edema. Bibasilar opacities likely represent atelectasis/scar, infection is not excl uded. Emphysematous change. Reviewed, dictated and finalized at location K. IMPRESSION: Mild interstitial edema. Bibasilar opacities likely represent atelectasis/scar, infection is not excluded. Emphysematous change.
--- NOTE | 2023-03-22 11:00 | ECG_ITS ---
Rate HI QRSd QT QTc P QRS T Severity 120 237 171 383 542 33 -75 79 No Severity Defined ELECTRONIC VENTRICULAR PACEMAKER UNDERLYING PROBABLY ATRIAL TACHYCARDIA BASELINE ARTIFACT- I NO FURTHER INTERPRETATION IS POSSIBLE ABNORMAL ECG COMPARED TO ECG 09/04/2021 01:03:54 NO SIGNIFICANT CHANGES Electronically Signed On 03-22-2023 13:03:04 CDT by Willis CAMPOVERDE
[2023-03-22 12:41] LABS: Basophils Absolute Auto 0.06 K/mm3 (0.00-0.10); Basophils Percent Auto 0.5 % (0.0-1.0); Eosinophils Absolute Auto 0.34 K/mm3 (0.02-0.50); Eosinophils Percent Auto 2.9 % (1.0-6.0); Hematocrit 31.4 % (37.0-46.0); Hemoglobin 10.3 g/dL (12.4-15.3); Immature Granulocyte Absolute 0.09 K/mm3 (0.00-0.00); Immature Granulocyte Percent A 0.8 % (0.0-0.0); Lymphocytes Absolute Auto 1.76 K/mm3 (1.10-4.50); Lymphocytes Percent Auto 15.1 % (18.0-42.0); Mean Corpuscular HGB Conc 32.8 g/dL (32.0-36.0); Mean Corpuscular Hemoglobin 29.9 pg (27.0-31.0); Mean Platelet Volume 9.6 fl (8.7-11.0); Monocytes Absolute Auto 0.78 K/mm3 (0.10-0.90); Monocytes Percent Auto 6.7 % (2.0-11.0); Neutrophils Absolute Auto 8.7 K/mm3 (1.7-7.2); Platelet Count Result 298 K/mm3 (150-420); Red Blood Count 3.45 M/mm3 (4.70-6.10); Red Cell Distribution Width 14.5 % (11.6-14.4); White Blood Count 11.7 K/mm3 (4.8-10.8)
[2023-03-22 13:32] LABS: Alanine Aminotransferase 21 U/L (16-63); Albumin Level 3.2 g/dL (3.4-5.0); Alkaline Phosphatase 78 U/L (46-116); Anion Gap 10 mmol/L (8-16); Aspartate Amino Transferase < 10 U/L (15-37); Bilirubin,Total 0.4 mg/dL (0.00-1.00); Blood Urea Nitrogen 45 mg/dL (7-18); Calcium 8.8 mg/dL (8.5-10.1); Carbon Dioxide 28 mmol/L (21-32); Chloride 101 mmol/L (98-108); Creatine Kinase 133 U/L (39-308); Estimated Glomerular Filt Rate 5; Glucose 189 mg/dL (70-99); NT Pro B Type Natriuretic Pept 4483 pg/mL (0-125); Osmolality Calculated 304 mOsm/kg (285-295); Potassium 4.8 mmol/L (3.5-5.1); Sodium 139 mmol/L (136-145); Thyroid Stimulating Hormone 4.35 uIU/mL (0.36-3.74); Total Protein 6.7 g/dL (6.4-8.2); Troponin I 17.1 ng/L (0.00-60.4)
== END 2023-03-22 12:22 | disposition home or self-care (01) ==
LOC: CHSLAB 12:23
PROVIDERS: PCP Internal Medicine; Visit Provider Internal Medicine
DX: R06.00 Dyspnea, unspecified (principal); N18.6 End stage renal disease; R60.9 Edema, unspecified; R91.8 Other nonspecific abnormal finding of lung field; R94.31 Abnormal electrocardiogram [ECG] [EKG]
CPT/HCPCS: 36415; 71046; 80053; 82550; 82553; 83880; 84443; 84484; 85025; 93005

== ENCOUNTER 2023-03-28 13:46 | Outpatient (CLI) | payer MEDICARE, OTHER, SELFPAY ==
--- NOTE | ~2023-03-28 | CT_ITS ---
EXAMINATION: CT chest high resolution wo wy DATE: 03/28/2023 14:07 INDICATION: Interstitial lung disease, cough and shortness of breath TECHNIQUE: Computed tomography (CT) of the chest was performed without intravenous contrast. The dose -length product (DLP) was 819.84 mGy-cm. Automated exposure control and iterative reconstruction tech [employer] were employed. COMPARISON: 09/07/2021 FINDINGS: There is chronic atelectasis of the lower lobes. There are areas of scarring at the sites o f prior pneumonia. There is mild bronchiectasis of the lower lobes, likely related to prior infection . No pleural effusion or pneumothorax. Cardiomegaly is noted. There is calcified coronary artery athe rosclerosis. Ascites is noted in the upper abdomen. A chronic mildly enlarged lymph nodes of the left axilla is likely reactive. There is calcified coronary artery atherosclerosis with probable coronary artery stenting. There is severe thoracic spondylosis. There is a healing oblique fracture of the up per sternum. IMPRESSION: 1. Chronic atelectasis of the lower lobes. 2. Mild bronchiectasis of the lower lobes, likely reflecting prior infection. 3. Healing oblique fracture of the upper sternum. Reviewed, dictated and finalized at location L.
== END 2023-03-28 13:47 | disposition home or self-care (01) ==
LOC: CHSIMG 13:47
PROVIDERS: PCP Internal Medicine; Visit Provider Internal Medicine
DX: J84.9 Interstitial pulmonary disease, unspecified (principal); I50.9 Heart failure, unspecified; J98.11 Atelectasis; J47.9 Bronchiectasis, uncomplicated; S22.20XD Unspecified fracture of sternum, subsequent encounter for fracture with routine healing
CPT/HCPCS: 71250

== ENCOUNTER 2023-04-15 14:02 | Outpatient (CLI) | payer MEDICARE, OTHER, SELFPAY ==
[2023-04-15 15:59] LABS: Free T4 Free Thyroxine 1.01 ng/dL (0.76-1.46); Thyroid Stimulating Hormone 3.56 uIU/mL (0.36-3.74)
== END 2023-04-15 14:03 | disposition home or self-care (01) ==
LOC: CHSIMG 14:03
PROVIDERS: PCP Internal Medicine; Visit Provider Internal Medicine Endocrinology, Diabetes & Metabolism
DX: E11.65 Type 2 diabetes mellitus with hyperglycemia (principal); E03.9 Hypothyroidism, unspecified; J84.9 Interstitial pulmonary disease, unspecified; Z79.4 Long term (current) use of insulin
CPT/HCPCS: 36415; 84439; 84443

== ENCOUNTER 2023-04-22 10:36 | Outpatient (CLI) | payer MEDICARE, OTHER, SELFPAY | END 2023-04-22 10:37 | disposition home or self-care (01) | LOC: CHSCARD 10:41 | PROVIDERS: PCP Internal Medicine; Visit Provider Internal Medicine | DX: J44.9 Chronic obstructive pulmonary disease, unspecified (principal); I50.9 Heart failure, unspecified; R94.2 Abnormal results of pulmonary function studies | CPT/HCPCS: 94060; 94726; 94729 ==

== ENCOUNTER 2023-05-13 09:28 | Outpatient (CLI) | payer MEDICARE, OTHER, SELFPAY ==
--- NOTE | 2023-05-13 09:38 | ECHO_ITS ---
Patient Info Name: Zachery Gray Age: 72 years : 1950 Gender: Male Ht: 68 in Wt: 277 lbs BSA: 2.52 m2 HR: 65 bpm BP: 145 / 85 mmHg Heart Rhythm: Sinus Rhythm Technical Quality: Fair Exam Date: 05/13/2023 9:26 AM Exam Location: [facility] Patient Status: Outpatient Admit Date: 05/13/2023 Staff Ordering Physician: Nilesh Velasco MD Tire Setter: Sunni Hager RDCS Attending Provider: Nilesh Velasco MD Exam Type: CA echo doppler color flow Study Info Indications - chf, intersitial lung disease Complete two-dimensional, color flow and Doppler transthoracic echocardiogram is performed. Summary 1. Complete two-dimensional, color flow and Doppler transthoracic echocardiogram is performed. 2. Left ventricular chamber dimension is normal. 3. Left ventricular systolic function is normal, estimated at 60-65%. 4. There is mild concentric increased left ventricular wall thickness. 5. The left ventricular diastolic function is abnormal. 6. E/e' 25 is elevated. 7. Left atrial chamber dimension is moderately enlarged. 8. There is mild aortic valve sclerosis. 9. The mitral valve has mildly calcified annulus. 10. There is mild mitral valve regurgitation. 11. There is trace tricuspid valve regurgitation. 12. No pulmonary hypertension, estimated pulmonary arterial systolic pressure is 25 mmHg. Left Ventricle E/e' 25 is elevated. Left ventricular chamber dimension is normal. Left ventricular systolic function is normal, estimated at 60-65%. There is mild concentric increased left ventricular wall thickness. The left ventricular diastolic function is abnormal. Right Ventricle Right ventricular systolic function is normal and with normal TAPSE 3.9 cm. Right ventricular chamber dimension is normal. Left Atria Left atrial chamber dimension is moderately enlarged. Right Atria Right atrial chamber dimension is normal. Aortic Valve The aortic valve is trileaflet. There is mild aortic valve sclerosis. There is no aortic valve stenosis. There is no aortic valve regurgitation. Pulmonic Valve There is no pulmonic regurgitation. Mitral Valve The mitral valve has mildly calcified annulus. There is no mitral valve stenosis. There is mild mitral valve regurgitation. Tricuspid Valve There is trace tricuspid valve regurgitation. No pulmonary hypertension, estimated pulmonary arterial systolic pressure is 25 mmHg. Pericardium/Pleural There is no pericardial effusion. Inferior Vena Cava Normal inferior vena cava with >50% collapse upon inspiration consistent with normal right atrial pressure, 5 mmHg. Aorta The aortic root size at the sinus of Valsalva is normal. Left Ventricular Outflow Tract Name Value Normal LVOT 2D LVOT Diameter 2.0 cm LVOT Doppler LVOT Peak Velocity 113 cm/s LVOT Peak Gradient 5 mmHg LVOT Mean Gradient 3 mmHg LVOT VTI 24 cm LVOT VTI/AV VTI Ratio 0.7 LVOT Stroke Volume 74 ml Pulmonic Valve Name
== END 2023-05-13 09:29 | disposition home or self-care (01) ==
LOC: CHSCARD 09:31
PROVIDERS: PCP Internal Medicine; Visit Provider Internal Medicine
DX: J84.9 Interstitial pulmonary disease, unspecified (principal); I50.9 Heart failure, unspecified; I08.3 Combined rheumatic disorders of mitral, aortic and tricuspid valves
CPT/HCPCS: 93306

== ENCOUNTER 2023-05-31 09:51 | Outpatient (CLI) | payer MEDICARE, OTHER, SELFPAY ==
--- NOTE | ~2023-05-31 | CT_ITS ---
CT of the Abdomen and Pelvis: Indication: Other specified pancreatic disease Technique: 2.5 mm axial scans were obtained through the abdomen and pelvis following intravenous adm inistration of 100 cc of Omnipaque 350. Dose reduction technique was used on this scan by utilizing a utomated exposure control and iterative reconstruction technique. The dose-length product (DLP) was 1 553.26 mGy-cm. COMPARISON: 09/01/2021 Findings: Scans through the lung bases and straight mild bibasilar atelectatic change. The liver, spleen, pancreas, and kidneys are within normal limits. Small calcified gallstones are pre sent. Bilateral adrenal nodules are stable, most consistent with bilateral adenomas. No evidence of a ortic aneurysm. No lymphadenopathy. No bowel obstruction or bowel wall thickening. There is no evidence to suggest acute appendicitis. Images through the pelvis were performed. Urinary bladder unremarkable. Prostate gland and seminal ve sicles are unremarkable. Small amount of abdominopelvic ascites noted. Peritoneal dialysis catheter p resent. Impression: Cholelithiasis. Small amount of abdominopelvic ascites, presumably related to peritoneal dialysis. Bilateral adrenal adenomas, unchanged from prior exam. Reviewed, dictated and finalized at location . Impression: Cholelithiasis. Small amount of abdominopelvic ascites, presumably related to peritoneal dialys is. Bilateral adrenal adenomas, unchanged from prior exam.
[2023-05-31 10:15] LABS: Estimated Glomerular Filt Rate 5
== END 2023-05-31 09:52 | disposition home or self-care (01) ==
PROVIDERS: PCP Internal Medicine
DX: K86.89 Other specified diseases of pancreas (principal); K80.20 Calculus of gallbladder without cholecystitis without obstruction; R18.8 Other ascites; D35.02 Benign neoplasm of left adrenal gland; D35.01 Benign neoplasm of right adrenal gland
CPT/HCPCS: 74177; Q9967

== ENCOUNTER 2023-09-28 16:18 | Emergency (ER) | payer MEDICARE, OTHER, SELFPAY ==
--- NOTE | ~2023-09-28 | XR_ITS ---
Portable chest x-ray Comparison: 03/22/2023 Clinical History: Weakness Findings: Lungs are clear, without focal consolidation or pleural effusion. Cardiomediastinal silho uette is stable. Bones and soft tissues are unremarkable. Impression: Clear lungs. Reviewed, dictated and finalized at location . GATHERER Impression: Clear lungs.
--- NOTE | ~2023-09-28 | CT_ITS ---
Non-contrast CT scan of the Abdomen and Pelvis Clinical indication: Weakness, peritoneal dialysis Technique: 2.5 mm axial scans were obtained through the abdomen and pelvis without intravenous or or al contrast. Dose reduction technique was used on this scan by utilizing automated exposure control a nd iterative reconstruction technique. The dose-length product (DLP) was 1726.42 mGy-cm. COMPARISON: 05/31/2023 Findings: Images through the lung bases reveal mild bibasilar probable chronic scarring or atelectas is. The liver, spleen, and kidneys appear normal. Cholelithiasis noted. Bilateral adrenal nodules are sim ilar to prior exam. Probable cystic lesions the pancreatic head and body are similar to prior exam. T here is no aortic aneurysm. There is no evidence of bowel obstruction. Small amount of abdominopelvic ascites present, presumably related to peritoneal dialysis. Images through the pelvis were performed. Urinary bladder unremarkable. No pelvic mass seen peritonea l dialysis catheter present. Impression: No definite acute abnormality. Small amount of abdominopelvic ascites, presumably related to peritoneal dialysis. Cholelithiasis. Stable adrenal lesions, presumably adenomas. Stable small cystic lesions the pancreas. Reviewed, dictated and finalized at location . LE DESIGNER Impression: No definite acute abnormality. Small amount of abdominopelvic ascites, presumably related to peritoneal dialys is. Cholelithiasis. Stable adrenal lesions, presumably adenomas. Stable small cystic lesions the pancreas.
[2023-09-28 16:18] VITALS: BP 156/75; PULSE 58; RESP 18; TEMP 36.6; O2SAT 97
--- NOTE | 2023-09-28 16:41 | ECG_ITS ---
Measurements Intervals [place] Rate: 68 P: [place]: 0 QRS: -62 QRSD: 165 T: 81 QT: 455 QTc: 485 Interpretive Statements ELECTRONIC VENTRICULAR PACEMAKER BASELINE ARTIFACT- I, II, III, AVR, AVL, AVF, V1-V2 NO FURTHER INTERPRETATION IS POSSIBLE ATYPICAL ECG COMPARED TO ECG 03/22/2023 12:49:43 NO SIGNIFICANT CHANGES Electronically Signed On 09-28-2023 20:53:12 SUPPLY CLERK by Willis Livingston D.O.
[2023-09-28 16:45] VITALS: BP 133/86; PULSE 54; RESP 20; O2SAT 94
[2023-09-28] MEDS: MORPHINE SULFATE (*CRX) 2 MG/ML INJ IV PUSH (16:58)
[2023-09-28 17:04] LABS: Basophils Absolute Auto 0.04 K/mm3 (0.00-0.10); Basophils Percent Auto 0.4 % (0.0-1.0); Eosinophils Absolute Auto 0.13 K/mm3 (0.02-0.50); Eosinophils Percent Auto 1.4 % (1.0-6.0); Hematocrit 24.6 % (37.0-46.0); Hemoglobin 8.2 g/dL (12.4-15.3); Immature Granulocyte Absolute 0.13 K/mm3 (0.00-0.00); Immature Granulocyte Percent A 1.4 % (0.0-0.0); Lymphocytes Percent Auto 13.7 % (18.0-42.0); Mean Corpuscular HGB Conc 33.3 g/dL (32.0-36.0); Mean Corpuscular Hemoglobin 28.6 pg (27.0-31.0); Mean Corpuscular Volume 85.7 fL (78.0-102.0); Monocytes Absolute Auto 0.91 K/mm3 (0.10-0.90); Monocytes Percent Auto 9.6 % (2.0-11.0); Neutrophils Percent Auto 73.5 % (50.0-70.0); Platelet Count Result 331 K/mm3 (150-420); Red Blood Count 2.87 M/mm3 (4.70-6.10); Red Cell Distribution Width 13.9 % (11.6-14.4); White Blood Count 9.5 K/mm3 (4.8-10.8)
[2023-09-28 17:16] LABS: INR 1.3; Partial Thromboplastin Time 38.2 SEC (23.90-30.70); Prothrombin Time 14.1 Seconds (9.50-12.10)
[2023-09-28 17:18] VITALS: BP 129/73; PULSE 64; RESP 18; O2SAT 99
[2023-09-28 17:20] LABS: Alanine Aminotransferase 21 U/L (16-63); Albumin Level 2.5 g/dL (3.4-5.0); Alkaline Phosphatase 73 U/L (46-116); Anion Gap 13 mmol/L (8-16); Aspartate Amino Transferase 17 U/L (15-37); Bilirubin,Total 0.4 mg/dL (0.00-1.00); Blood Urea Nitrogen 52 mg/dL (7-18); CRP 5.5 mg/dL (0.0-0.9); Calcium 7.2 mg/dL (8.5-10.1); Carbon Dioxide 26 mmol/L (21-32); Chloride 92 mmol/L (98-108); Estimated CRCL calculation 7 ml/min; Estimated Glomerular Filt Rate 5; Glucose 274 mg/dL (70-99); Lactic Acid Reflex 2.1 mmol/L (0.4-2.0); Osmolality Calculated 296 mOsm/kg (285-295); Sodium 131 mmol/L (136-145); Total Protein 6.9 g/dL (6.4-8.2); Troponin I 48.1 ng/L (0.00-60.4)
[2023-09-28 17:46] LABS: SARS-CoV-2 RNA PCR Positive (Negative)
[2023-09-28 17:48] LABS: Influenza A QL RT-PCR Negative (Negative); Influenza B QL RT-PCR Negative (Negative); RSV RNA, RT-PCR Negative (Negative)
[2023-09-28 18:00] VITALS: BP 160/96; PULSE 66; RESP 20; O2SAT 99
--- NOTE | 2023-09-28 18:14 | ED.WEAKNESS ---
HPI - Weakness General Chief complaint: Weakness Stated complaint: weakness Time Seen by Provider: 09/28/23 16:39 Source: patient, family and EMS Mode of arrival: EMS Limitations: physical limitation History of Present Illness HPI Narrative: this is a 73-year-old male with a history of end-stage renal disease on peritoneal dialysis presented via EMS after he has been having cough congestion generalized weakness. Patient is afebrile no chest pain no abdominal no fever chills no nausea vomiting. Patient has a history of diabetes A5 hypertension. Patient performs peritoneal dialysis daily and is scheduled to have at home peritoneal dialysis this. Complaint: generalized weakness Onset (ago): day(s) Duration: constant Location: generalized Migration: none Severity: moderate Related Data Home Medications Medication Instructions Recorded Confirmed pravastatin 10 mg tablet 10 mg PO QPM 03/29/20 09/26/23 omeprazole 20 mg capsule,delayed 20 mg PO DAILY 10/01/20 09/26/23 release furosemide 80 mg tablet 80 mg PO BID 01/01/22 09/26/23 tamsulosin 0.4 mg capsule 0.4 mg PO DAILY 01/01/22 09/26/23 docusate sodium 100 mg capsule 100 mg PO DAILY PRN 08/31/22 09/26/23 (Dulcolax Stool Softener (docusate)) gabapentin 100 mg capsule 100 mg PO QHS 10/31/22 09/26/23 apixaban 2.5 mg tablet (Eliquis) 5 mg PO BID 02/22/23 09/26/23 losartan 100 mg tablet 50 mg PO DAILY 02/22/23 09/26/23 insulin human U-100 NPH-regulr 70 unit subcut BID 07/03/23 09/26/23 70-30 mix 100 unit/mL subcutaneous susp (Novolin 70/30 U-100 Insulin) metoprolol tartrate 25 mg tablet 50 mg PO DAILY 07/03/23 09/26/23 Allergies Allergy/AdvReac Type Severity Reaction Status Date / Time No Known Allergies Allergy Verified 09/28/23 16:29 Review of Systems Review of Systems: All systems reviewed & are unremarkable except as noted in HPI and below PMFSH Past Medical History Medical History Anemia Atrial fibrillation with rapid ventricular response Central sleep apnea with Jesus-Menon respiration (~06/2021) 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 He still receives eye injections in his right eye. 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 The patient has 3 sons. Patient became disabled with his diabetes and his end-stage renal disease. 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 Does not drink or use illicit drugs. 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 Code status: Full code Primary care physician: Dr. Nilesh Velasco Years smoked: 1 Smoking status: Former smoker Second hand tobacco smoke exposure: Yes Smoking end date: 09/16/69 Alcohol intake: current Alcohol use details: rare Substance use: never Gender identity (if verbaliz
[2023-09-28 18:15] VITALS: BP 148/79; PULSE 67; RESP 18; O2SAT 99
[2023-09-28 18:23] VITALS: TEMP 38.1
== END 2023-09-28 18:33 | disposition home or self-care (01) ==
PROVIDERS: Emergency Provider Emergency Medicine; PCP Internal Medicine
DX: U07.1 COVID-19 (principal); E11.69 Type 2 diabetes mellitus with other specified complication; E11.22 Type 2 diabetes mellitus with diabetic chronic kidney disease; I12.0 Hypertensive chronic kidney disease with stage 5 chronic kidney disease or end stage renal disease; N18.6 End stage renal disease; E78.5 Hyperlipidemia, unspecified; E03.9 Hypothyroidism, unspecified; I48.91 Unspecified atrial fibrillation; Z87.891 Personal history of nicotine dependence; Z99.2 Dependence on renal dialysis
CPT/HCPCS: 36415; 71045; 74176; 80053; 83605; 84484; 85025; 85610; 85730; 86140; 87637; 93005; 96374; 99284; J2270

== ENCOUNTER 2023-09-30 13:16 | Inpatient (IN) | payer MEDICARE, OTHER, SELFPAY ==
[2023-09-30] VITALS (32 sets, daily range): BP systolic 127–161; BP diastolic 71–116; PULSE 56–82; RESP 12–29; TEMP 36.4–36.5; O2SAT 97–100; BMI 39.8
--- NOTE | ~2023-09-30 | XR_ITS ---
Portable chest x-ray Comparison: 09/28/2023 Clinical History: Weakness Findings: Lungs are clear, without focal consolidation or pleural effusion. Cardiomediastinal silho uette is stable. Bones and soft tissues are unremarkable. Impression: Clear lungs. Reviewed, dictated and finalized at location . HOST/HOSTESS Impression: Clear lungs.
--- NOTE | ~2023-09-30 | XR_ITS ---
Portable chest x-ray Comparison: 09/30/2023 Clinical History: Line placement Findings: Right-sided tunneled catheter is in satisfactory position. Questionable minimal central co ngestive change. There is linear atelectasis or scarring left upper lobe. Cardiomediastinal silhouet te is stable, with loop recorder. Bones and soft tissues are unremarkable. Impression: Support line in satisfactory position, as above. No pneumothorax. Minimal central congestive change with linear left upper lobe scarring or atelectasis. Cardiomegaly with loop recorder. Reviewed, dictated and finalized at location . INE SHOP LEAD MAN Impression: Support line in satisfactory position, as above. No pneumothorax. Minimal central congestive change with linear left upper lobe scarring or atele ctasis. Cardiomegaly with loop recorder.
--- NOTE | ~2023-09-30 | XR_ITS ---
EXAMINATION: XR fl guide central line place DATE: 10/02/2023 08:29 INDICATION: Tunneled dialysis catheter insertion TECHNIQUE: 2 fluoroscopic images of the central contrast and right supraclavicular region were obtain ed during procedure performed by Dr. Rose. Radiologist was not present for the imaging or procedur e. The amount of fluoroscopy time used during this procedure was 0.2 minutes. COMPARISON: None. FINDINGS/IMPRESSION: Large-bore dual-lumen right internal jugular central venous catheter with distal tip in the right atr ium. See procedure note for further detail. Reviewed, dictated and finalized at location A. ERN TECHNICIAN
--- NOTE | 2023-09-30 13:26 | ECG_ITS ---
Measurements Intervals [place] Rate: 68 P: [place]: 0 QRS: -62 QRSD: 186 T: 75 QT: 494 QTc: 528 Interpretive Statements ELECTRONIC VENTRICULAR PACEMAKER BASELINE ARTIFACT- I, II, AVR, V1-V3 NO FURTHER INTERPRETATION IS POSSIBLE ATYPICAL ECG COMPARED TO ECG 09/28/2023 16:55:34 NO SIGNIFICANT CHANGES Electronically Signed On 09-30-2023 13:46:55 GRADUATE ENGINEER by Willis Livingston D.O.
--- NOTE | 2023-09-30 13:40 | PC.NURSE ---
pt unable to urinate due to dialysis treatment
[2023-09-30 13:41] LABS: Basophils Absolute Auto 0.1 K/mm3 (0.0-0.1); Basophils Percent Auto 0.7 % (0.2-1.2); Eosinophils Absolute Auto 0.2 K/mm3 (0-0.3); Eosinophils Percent Auto 3.2 % (0-4.4); Hematocrit 25.5 % (42.0-52.0); Hemoglobin 8.1 g/dL (14.0-18.0); Immature Granulocyte Absolute 0.08 K/mm3 (0.00-0.031); Immature Granulocyte Percent A 1.1 % (0-0.5); Lymphocytes Absolute Auto 1.26 K/mm3 (0.9-3.2); Lymphocytes Percent Auto 16.8 % (18.3-44.2); Mean Corpuscular HGB Conc 31.8 g/dl (32-36); Mean Corpuscular Hemoglobin 28.2 pg (26-34); Mean Corpuscular Volume 88.9 fl (80-100); Monocytes Absolute Auto 0.8 K/mm3 (0.1-0.6); Monocytes Percent Auto 10.1 % (2.6-8.5); Neutrophils Absolute Auto 5.1 K/mm3 (1.3-6.7); Neutrophils Percent Auto 68.1 % (45.5-73.1); Platelet Count Result 290 k/mm3 (150-375); Red Blood Count 2.87 M/mm3 (4.6-6.20); White Blood Count 7.5 K/mm3 (4.5-10.0)
[2023-09-30 13:51] LABS: Alanine Aminotransferase 22 U/L (6-50); Albumin Level 3.1 g/dL (3.5-5.1); Alkaline Phosphatase 62 U/L (38-126); Anion Gap 18 mmol/L (8-16); Aspartate Amino Transferase 34 U/L (17-59); Bilirubin,Total 0.5 mg/dL (0.2-1.3); Blood Urea Nitrogen 66 mg/dL (9-20); Calcium 6.3 mg/dL (8.4-10.2); Carbon Dioxide 21 mmol/L (22-30); Chloride 95 mmol/L (98-107); Estimated CRCL calculation 7 ml/min; Estimated Glomerular Filt Rate 4; Glucose 211 mg/dL (65-110); Potassium 4.1 mmol/L (3.4-5.0); Sodium 134 mmol/L (137-145)
--- NOTE | 2023-09-30 16:42 | ED.GENADULT ---
HPI - General Adult General Chief complaint: Weakness Stated complaint: COVID+ saturday, increased weakness Time Seen by Provider: 09/30/23 15:34 73-year-old male presenting to the emergency department for evaluation of increased generalized weakness. Patient reports he tested positive for COVID on Saturday and has been unable to care for himself. Patient reports last night he was unable to perform his peritoneal dialysis which he does nightly. Patient reports that he became weak and sat on the floor and was unable to get off the floor. Patient does live at home with his but she has COVID and patient reports that she is not able to help care for him. Related Data Home Medications Medication Instructions Recorded Confirmed pravastatin 10 mg tablet 10 mg PO QPM 03/29/20 09/30/23 omeprazole 20 mg capsule,delayed 20 mg PO DAILY 10/01/20 09/30/23 release furosemide 80 mg tablet 80 mg PO BID 01/01/22 09/30/23 tamsulosin 0.4 mg capsule 0.4 mg PO DAILY 01/01/22 09/30/23 gabapentin 100 mg capsule 100 mg PO QHS 10/31/22 09/30/23 apixaban 2.5 mg tablet (Eliquis) 5 mg PO BID 02/22/23 09/30/23 losartan 100 mg tablet 50 mg PO DAILY 02/22/23 09/30/23 insulin human U-100 NPH-regulr 70 unit subcut BID 07/03/23 09/30/23 70-30 mix 100 unit/mL subcutaneous susp (Novolin 70/30 U-100 Insulin) metoprolol tartrate 25 mg tablet 50 mg PO DAILY 07/03/23 09/30/23 loperamide 2 mg capsule 2 mg PO PRN PRN Diarrhea 09/30/23 09/30/23 Allergies Allergy/AdvReac Type Severity Reaction Status Date / Time No Known Allergies Allergy Verified 09/30/23 10:36 Review of Systems Review of Systems: All systems reviewed & are unremarkable except as noted in HPI and below PMFSH Past Medical History Medical History Anemia Atrial fibrillation with rapid ventricular response Central sleep apnea with Jesus-Menon respiration (~06/2021) 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 He still receives eye injections in his right eye. 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 The patient has 3 sons. Patient became disabled with his diabetes and his end-stage renal disease. 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 Does not drink or use illicit drugs. 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 Code status: Full code Primary care physician: Dr. Nilesh Velasco Years smoked: 1 Smoking status: Never smoker Second hand tobacco smoke exposure: Yes Smoking end date: 09/16/69 Alcohol intake: current Alcohol use details: rare Substance use: never Do You Feel Safe in your Home?: Yes Lack of Transportation: YES Lack of Food: Never True Current Housing: I Have Housing Concerned About Future Housing: No Difficulty Paying Gas/Electric Bills:
[2023-09-30 16:51] LABS: Influenza A QL RT-PCR Negative (Negative); Influenza B QL RT-PCR Negative (Negative); RSV RNA, RT-PCR Negative (Negative); SARS-CoV-2 RNA PCR Positive (Negative)
--- NOTE | 2023-09-30 18:42 | ADMGEN ---
This patient, Zachery Gray, was admitted to [facility] Surg Room 328-01. Patient/family oriented to hospital policies and general routines including ID bracelet, bed and alarms, visiting hours, pain management, procedures, bathroom and other care routines, personal items, smoking policy, room service/diet, and visiting hours. Information on how to activate the Rapid Response Team has been discussed. Patient/Family are encouraged to report perceived risks to care and to ask questions if they do not understand what they are told or what they should do.
[2023-09-30 21:19] LABS: Glucose Point of Care 154 mg/dl (65-105)
--- NOTE | 2023-09-30 22:50 | PM.IMHP ---
H&P: HPI History of Present Illness Date/Time: 09/30/23 22:30 Chief Complaint: Weakness. Narrative: This is a pleasant 73-year-old male with end-stage renal disease on peritoneal dialysis, insulin-dependent type 2 diabetes mellitus, chronic anemia, hypertension, hyperlipidemia, hypothyroidism, and paroxysmal atrial fibrillation on chronic anticoagulation who presented to the emergency department via EMS from home for evaluation of weakness. He has not been feeling well for several days and he was seen in the ED at [place] 2 days ago for evaluation of cough, congestion, diarrhea, and generalized weakness. He tested positive for COVID at that time. Since then he has become increasingly weak and he could not even do his peritoneal dialysis last night due to feeling so poorly. At 1 point last evening he was weak and felt as though he was going to fall so he sat on the floor and he has been unable to get himself up since that time. On arrival to the ED he was afebrile with stable vital signs. CMP and CBC are pretty consistent with his baseline labs and there were no significant electrolyte abnormalities noted. Chest x-ray showed no acute findings. He is being admitted in this setting for supportive care and dialysis. It is my understanding that he is to be transitioned to hemodialysis and he may be able to get a dialysis catheter placed during this stay. At the time my evaluation he complains of nausea, body aches, and chills. He denies fever, vomiting, chest pain, pleuritic pain, focal weakness, paresthesias. Review of Systems Review of Systems: Twelve systems were reviewed and are negative except for as per HPI. 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 He still receives eye injections in his right eye. 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 The patient has 3 sons. Patient became disabled with his diabetes and his end-stage renal disease. 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 Does not drink or use illicit drugs. 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 Code status: Full code Primary care physician: Dr. Nilesh Velasco Years smoked: 1 Smoking status: Never smoker Second hand tobacco smoke exposure: Yes Smoking end date: 09/16/69 Alcohol intake: current Alcohol use details: rare Substance use: never Do You Feel Safe in your Home?: Yes Lack of Transportation: YES Lack of Food: Never True Current Housing: I Have Housing Concerned About Future Housing: No Difficulty Paying Gas/Electric Bills: YES Difficulty Paying for Meds: No Currently Unemployed: No Education: Associate Degree Difficulty w/ Childcare or Family Care: No Spiritual care concerns: No Meds Home Medications and Allergies Home Medic
[2023-10-01] MEDS: ONDANSETRON INJ 4 MG/2 ML VIAL IV PUSH
[2023-10-01] MEDS: LEVOTHYROXINE SODIUM 50 MCG TABLET PO (05:42)
[2023-10-01 06:00] VITALS: BP 100/56; PULSE 72; RESP 18; TEMP 36.9; O2SAT 99
[2023-10-01 07:19] LABS: Hematocrit 23.9 % (42.0-52.0); Hemoglobin 7.7 g/dL (14.0-18.0); Mean Corpuscular HGB Conc 32.2 g/dl (32-36); Mean Corpuscular Hemoglobin 28.4 pg (26-34); Mean Corpuscular Volume 88.2 fl (80-100); Mean Platelet Volume 10.1 fl (7.4-10.4); Platelet Count Result 262 k/mm3 (150-375); Red Blood Count 2.71 M/mm3 (4.6-6.20); Red Cell Distribution Width 14.1 % (11.5-14.5); White Blood Count 7.7 K/mm3 (4.5-10.0)
[2023-10-01 07:36] LABS: Alanine Aminotransferase 19 U/L (6-50); Albumin Level 3.1 g/dL (3.5-5.1); Alkaline Phosphatase 61 U/L (38-126); Anion Gap 16 mmol/L (8-16); Aspartate Amino Transferase 30 U/L (17-59); Bilirubin,Total 0.5 mg/dL (0.2-1.3); Blood Urea Nitrogen 66 mg/dL (9-20); Calcium 5.9 mg/dL (8.4-10.2); Carbon Dioxide 22 mmol/L (22-30); Chloride 96 mmol/L (98-107); Estimated CRCL calculation 6 ml/min; Estimated Glomerular Filt Rate 4; Glucose 164 mg/dL (65-110); Magnesium 1.3 mg/dL (1.6-2.3); Phosphorus 12.7 mg/dL (2.5-4.5); Potassium 4.3 mmol/L (3.4-5.0); Sodium 134 mmol/L (137-145)
[2023-10-01 08:20] VITALS: BP 144/92; PULSE 70
[2023-10-01 08:38] LABS: Glucose Point of Care 149 mg/dl (65-105)
[2023-10-01 09:26] LABS: Hepatitis B Surface Antigen Negative (Negative)
[2023-10-01 09:43] LABS: Hepatitis B Surface Antibody > 1000.00 s/c
--- NOTE | 2023-10-01 09:44 | P.CONNP_ITS ---
Assessment and Plan Assessment and plan (1) End stage renal disease: Code(s): N18.6 - End stage renal disease Status: Chronic Assessment and Plan: * Peritoneal dialysis had ineffective for the last several months * despite multiple changes to his PD prescription, his Kt/V (dialysis adequacy) has been poor/below goal * presumed etiology is peritoneal membrane failure * he has been symptomatic given his poor clearance of uremic toxins * suspect recent COVID infection has likely worsened these symptoms * decision made to transition to hemodialysis earlier this month * will consult Surgery for tunneled HD catheter placement as well as PD catheter removal * once HD catheter in place, will initiate hemodialysis (2) COVID: Code(s): U07.1 - COVID-19 Status: Acute Assessment and Plan: * as noted by positive testing * symptomatic for the last few days * negative CXR and not hypoxic * supportive therapy (3) Generalized weakness: Code(s): R53.1 - Weakness Status: Acute Assessment and Plan: * due to a combination of poor dialysis and COVID * relatively anemia maybe a contributing factor as well * PT/OT as tolerated * follow once HD initiated (4) Chronic anemia: Code(s): D64.9 - Anemia, unspecified Status: Acute Assessment and Plan: * due to ESRD and poor dialysis * Epogen SQ x 1 today and then with HD * check iron stores * follow H/H (5) Hypertension: Code(s): I10 - Essential (primary) hypertension Status: Chronic Assessment and Plan: * reasonable control * follow hemodynamics (6) Paroxysmal atrial fibrillation: Code(s): I48.0 - Paroxysmal atrial fibrillation Status: Acute Assessment and Plan: * rate control strategy * anticoagulation on hold for HD catheter placement/PD catheter removal (7) Diabetes: Qualifiers: Diabetes mellitus complication status: with other specified complication Diabetes mellitus half-way insulin use: with half-way use Diabetes mellitus type: type 2 Qualified Code(s): E11.69 - Type 2 diabetes mellitus with other specified complication; Z79.4 - adult probation officer (current) use of insulin Code(s): E11.9 - Type 2 diabetes mellitus without complications Status: Chronic Assessment and Plan: * follow accu-checks * glycemic control per hospitalists I will continue follow the patient with you while he remains hospitalized and make further recommendations as needed. Thank you allowing me participate in this patient. History of Present Illness Reason for Consult Consult date: 10/01/23 Reason for consult: end stage renal disease Chief Complaint Chief complaint: COVID/Generalized Weakness/Peritoneal Dialysis History of Present Illness Narrative: The patient is a 73-year-old male a past medical history as outlined presented to [facility] for further evaluation generalized weakness. The patient reports that he has not been feeling very well for last several days if not longer. He was recently seen in the emergency room and [place] for evaluation of cough, congestion, and weakness as well. At that time, he tested positive for COVID 19. Since that time, he reports increasing/progressive weakness to the point that he is unable do simple activities of living including his peritoneal dialysis. Given the progressive nature of the symptoms, he came back to the emergency room for further assessment. Workup and evaluation emergency room
--- NOTE | 2023-10-01 09:44 | PM.CNNEP ---
Assessment and Plan Assessment and plan (1) End stage renal disease: Code(s): N18.6 - End stage renal disease Status: Chronic Assessment and Plan: Peritoneal dialysis had ineffective for the last several months despite multiple changes to his PD prescription, his Kt/V (dialysis adequacy) has been poor/below goal presumed etiology is peritoneal membrane failure he has been symptomatic given his poor clearance of uremic toxins suspect recent COVID infection has likely worsened these symptoms decision made to transition to hemodialysis earlier this month will consult Surgery for tunneled HD catheter placement as well as PD catheter removal once HD catheter in place, will initiate hemodialysis (2) COVID: Code(s): U07.1 - COVID-19 Status: Acute Assessment and Plan: as noted by positive testing symptomatic for the last few days negative CXR and not hypoxic supportive therapy (3) Generalized weakness: Code(s): R53.1 - Weakness Status: Acute Assessment and Plan: due to a combination of poor dialysis and COVID relatively anemia maybe a contributing factor as well PT/OT as tolerated follow once HD initiated (4) Chronic anemia: Code(s): D64.9 - Anemia, unspecified Status: Acute Assessment and Plan: due to ESRD and poor dialysis Epogen SQ x 1 today and then with HD check iron stores follow H/H (5) Hypertension: Code(s): I10 - Essential (primary) hypertension Status: Chronic Assessment and Plan: reasonable control follow hemodynamics (6) Paroxysmal atrial fibrillation: Code(s): I48.0 - Paroxysmal atrial fibrillation Status: Acute Assessment and Plan: rate control strategy anticoagulation on hold for HD catheter placement/PD catheter removal (7) Diabetes: Qualifiers: Diabetes mellitus complication status: with other specified complication Diabetes mellitus termite control servicer insulin use: with termite control servicer use Diabetes mellitus type: type 2 Qualified Code(s): E11.69 - Type 2 diabetes mellitus with other specified complication; Z79.4 - intermediate manager (current) use of insulin Code(s): E11.9 - Type 2 diabetes mellitus without complications Status: Chronic Assessment and Plan: follow accu-checks glycemic control per hospitalists I will continue follow the patient with you while he remains hospitalized and make further recommendations as needed. Thank you allowing me participate in this patient. History of Present Illness Reason for Consult Consult date: 10/01/23 Reason for consult: end stage renal disease Chief Complaint Chief complaint: COVID/Generalized Weakness/Peritoneal Dialysis History of Present Illness Narrative: The patient is a 73-year-old male a past medical history as outlined presented to [facility] for further evaluation generalized weakness. The patient reports that he has not been feeling very well for last several days if not longer. He was recently seen in the emergency room and [place] for evaluation of cough, congestion, and weakness as well. At that time, he tested positive for COVID 19. Since that time, he reports increasing/progressive weakness to the point that he is unable do simple activities of living including his peritoneal dialysis. Given the progressive nature of the symptoms, he came back to the emergency room for further assessment. Workup and evaluation emergency room demonstrated the patient to be afebrile and otherwise hemodynamically stable. Routine blood test demonstrated labs consistent with his known history end-stage renal disease as well as anemia of chronic kidney disease. His chest x-ray showed no acute findings and he once again tested positive for COVID-19. He gave complaints of nausea, body aches, and chills. Given his progressive decline and worsening weakness in conjunction with hi
[2023-10-01 10:00] LABS: Hepatitis B Surface Anti Res Positive
[2023-10-01 11:24] LABS: Glucose Point of Care 141 mg/dl (65-105)
[2023-10-01] MEDS: PANTOPRAZOLE 40 MG TABLET PO (12:43)
[2023-10-01] MEDS: FUROSEMIDE 80 MG TABLET PO ×2 (12:43→21:15)
[2023-10-01] MEDS: LOSARTAN POTASSIUM 50 MG TABLET PO (12:43)
[2023-10-01] MEDS: TAMSULOSIN HCL 0.4 MG CAPSULE PO (12:43)
[2023-10-01] MEDS: INSULIN HUMAN ISOPHAN/REGULAR 70/30 (*BKC) 100 UNITS/ML 50 UNITS SUB-Q (12:44)
[2023-10-01 14:00] VITALS: BP 136/70; PULSE 69; RESP 10; TEMP 36.8; O2SAT 99
--- NOTE | 2023-10-01 15:22 | PM.CNGS ---
Assessment and Plan Assessment and plan (1) End-stage renal disease on peritoneal dialysis: Code(s): N18.6 - End stage renal disease; Z99.2 - Dependence on renal dialysis Status: Acute Assessment and Plan: Patient on peritoneal dialysis, which has been inadequate for months. Nephrology is planning to transition him to hemodialysis and has consulted our service. We would recommend to continue holding his Eliquis and we have added the patient onto the surgery schedule tomorrow morning for insertion of tunneled hemodialysis catheter and removal of peritoneal dialysis catheter by Dr. Rose. This will allow more time for the anticoagulation to wear off to decrease his risks of bleeding. Description of the procedure, risks, benefits, and alternatives were discussed with the patient in detail. He agrees to proceed. Will make him NPO after midnight. (2) COVID: Code(s): U07.1 - COVID-19 Status: Acute Assessment and Plan: Continue isolation precautions. (3) Paroxysmal atrial fibrillation: Code(s): I48.0 - Paroxysmal atrial fibrillation Status: Acute (4) Chronic anticoagulation: Code(s): Z79.01 - senior care (current) use of anticoagulants Status: Acute Assessment and Plan: Eliquis on hold. (5) Pacemaker: Code(s): Z95.0 - Presence of cardiac pacemaker Status: Acute (6) Type 2 diabetes mellitus with diabetic polyneuropathy: Code(s): E11.42 - Type 2 diabetes mellitus with diabetic polyneuropathy Status: Acute Plan I have discussed the patient's case and plan of care with Dr. Rose. History of Present Illness Consult details Consult date: 10/01/23 Reason for consult: other (Placement of hemodialysis catheter for transition from peritoneal dialysis) Requesting physician: Dagmar Wilkinson MD Narrative: This is a 73-year-old man with end-stage renal disease on peritoneal dialysis, paroxysmal atrial fibrillation on chronic anticoagulation, and multiple other medical problems, who we have been asked to see in surgical consultation for placement of a hemodialysis catheter for transition from peritoneal dialysis. He had tested positive for COVID in [facility] 3 days ago and has had worsening symptoms of cough, congestion, diarrhea, and weakness. He was so weak at home that he could not do his peritoneal dialysis the night before as he was feeling so poorly. He was admitted to the hospitalist service for supportive care and dialysis. Nephrology was consulted. His peritoneal dialysis has been ineffective for the last several months despite changes in his PD prescription, and were already considering transitioning him to hemodialysis. Nephrology wishes to transition him to hemodialysis suture and has no consulted our service for tunneled hemodialysis catheter placement and peritoneal dialysis catheter removal. The patient is now seen on the medical floor. He is on COVID precautions. His Eliquis has been held since admission. He denies ever requiring hemodialysis in the past. He still has a lingering cough, but otherwise his COVID symptoms have improved. 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 He still receives eye injections in his right eye. Diabetic peripheral neuropathy End-stage renal disease on peritoneal dialysis Essential hypertension Hyperlipidemia, unspecified Hypothyroidism, unspecified Insulin dependent type 2 diabetes mellitus Mixed sleep apnea Obesity Pacemaker Paroxysmal atrial fibrillation Retinopathy of left eye Surgical History Surgical History
--- NOTE | 2023-10-01 16:03 | PM.IMPN ---
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 Labs, imaging, EKG, and all reports were personally reviewed. He has been symptomatic with the COVID for nearly 1 weeks time. While remdesivir has now been approved to be use in patients with chronic kidney disease and hemodialysis, no data has been put out for use in patients undergoing peritoneal dialysis. Chest x-ray does not show any evidence of infiltrates and he is at his baseline oxygen requirements thus will hold on initiating remdesivir. Continue supportive care. He is due for dialysis and nephrology has been consulted. It is my understanding that he may be transitioning to hemodialysis thus will hold apixaban for now; if there are no plans to place a dialysis catheter in the next day or 2 than the apixaban needs to be resumed. He is currently in a paced rhythm. Anemia stable on review of previous labs. Blood pressures were reviewed and they are stable. He is generally weak due to underlying infection and fall precautions will be initiated. His home medications will be reviewed and resumed as appropriate. Findings and treatment plan were discussed with the patient. Questions were solicited and answered to satisfaction. The patient's medical management will be taken over by the hospitalist team in a.m. Subjective Date/time seen: 10/01/23 16:03 Interval history: Seen and examined; hungry and waiting for his catheter placment. Not in painful or respiratory distress Review of Systems Review of Systems: Twelve systems were reviewed and are negative except for as per HPI. Constitutional: Constitutional: Reports fatigue Eyes: Comments: Cataract, L>R ENT: Reports system reviewed and no additional complaints, except as documented Cardiovascular: Cardiovascular: Reports no additional cardiovascular complaints Respiratory: Respiratory: Reports no additional respiratory complaints Gastrointestinal: Gastrointestinal: Reports no additional gastrointestinal complaints Musculoskeletal: Musculoskeletal: Reports no additional musculoskeletal complaints Integumentary/Breasts: Skin/Breast: Reports system reviewed and no additional complaints, except as docu Neurologic: Reports system reviewed and no additional complaints, except as documented Psychiatric: Psychiatric: Reports no additional psychiatric complaints Exam Narrative: General: Chronically ill-appearing gentleman in the semi-Fraser position in bed. Weight: 118.8 kg. BMI: 39.8. HEENT: Normocephalic, atraumatic. Right pupil is reactive. He keeps his left eye closed. Tacky mucous membranes. Crowded oropharynx. Neck: Supple. Exam limited due to neck circumference. No obvious JVD. Respiratory: Respirations are nonlabored. Lungs are clear to auscultation. Occasional dry cough. Cardiovascular: Regular rate and rhythm with S1-S2. Gastrointestinal: Abdomen is soft, obese, and nontender with positive bowel sounds. PD catheter site is clean, dry, and intact. Skin: Warm and dry. Generalized pallor. Extremities: No cyanosis or clu
[2023-10-01 16:47] LABS: Glucose Point of Care 114 mg/dl (65-105)
[2023-10-01] MEDS: EPOETIN ALFA-EPBX 20,000 UNITS/ML VIAL 20000 UNITS SUB-Q (17:06)
[2023-10-01] MEDS: PRAVASTATIN SODIUM 10 MG TABLET PO (21:15)
[2023-10-01] MEDS: GABAPENTIN 100 MG CAPSULE PO (21:15)
[2023-10-01] MEDS: MIRTAZAPINE 15 MG TABLET PO (21:15)
[2023-10-01 21:16] VITALS: PULSE 73
[2023-10-01] MEDS: METOPROLOL SUCCINATE EXT REL 50 MG TABCR PO (21:16)
[2023-10-01 21:45] LABS: Glucose Point of Care 68 mg/dl (65-105)
[2023-10-01 21:48] VITALS: BP 130/60; PULSE 60; RESP 18; TEMP 36.4; O2SAT 95
[2023-10-01 22:02] LABS: Glucose Point of Care 101 mg/dl (65-105)
[2023-10-02] VITALS (30 sets, daily range): BP systolic 118–180; BP diastolic 62–100; PULSE 59–84; RESP 10–20; TEMP 35.9–37.2; O2SAT 92–100
[2023-10-02 00:52] LABS: Glucose Point of Care 101 mg/dl (65-105)
[2023-10-02 02:16] LABS: Glucose Point of Care 118 mg/dl (65-105)
[2023-10-02 03:10] LABS: Glucose Point of Care 69 mg/dl (65-105)
[2023-10-02] MEDS: DEXTROSE 50% 25 GM/50 ML SYRINGE IV PUSH (03:12)
[2023-10-02 03:31] LABS: Glucose Point of Care 117 mg/dl (65-105)
[2023-10-02] MEDS: DEXTROSE 10% 1,000 ML 65 ML IV CONT (03:54)
[2023-10-02] MEDS: hydrALAZINE HCL 20 MG/ML VIAL 10 MG IV PUSH (05:31)
[2023-10-02 05:44] LABS: Glucose Point of Care 86 mg/dl (65-105)
[2023-10-02 06:45] LABS: Basophils Absolute Auto 0.1 K/mm3 (0.0-0.1); Basophils Percent Auto 0.5 % (0.2-1.2); Eosinophils Absolute Auto 0.4 K/mm3 (0-0.3); Eosinophils Percent Auto 3.6 % (0-4.4); Hematocrit 28.7 % (42.0-52.0); Hemoglobin 9.2 g/dL (14.0-18.0); Immature Granulocyte Absolute 0.13 K/mm3 (0.00-0.031); Immature Granulocyte Percent A 1.3 % (0-0.5); Lymphocytes Absolute Auto 2.32 K/mm3 (0.9-3.2); Lymphocytes Percent Auto 22.6 % (18.3-44.2); Mean Corpuscular HGB Conc 32.1 g/dl (32-36); Mean Corpuscular Volume 87.2 fl (80-100); Mean Platelet Volume 9.9 fl (7.4-10.4); Monocytes Absolute Auto 0.7 K/mm3 (0.1-0.6); Monocytes Percent Auto 7.2 % (2.6-8.5); Neutrophils Absolute Auto 6.6 K/mm3 (1.3-6.7); Neutrophils Percent Auto 64.8 % (45.5-73.1); Platelet Count Result 276 k/mm3 (150-375); Red Blood Count 3.29 M/mm3 (4.6-6.20); Red Cell Distribution Width 13.9 % (11.5-14.5); White Blood Count 10.3 K/mm3 (4.5-10.0)
[2023-10-02 07:00] LABS: Alanine Aminotransferase 26 U/L (6-50); Albumin Level 3.5 g/dL (3.5-5.1); Alkaline Phosphatase 73 U/L (38-126); Anion Gap 19 mmol/L (8-16); Aspartate Amino Transferase 37 U/L (17-59); Bilirubin,Total 0.7 mg/dL (0.2-1.3); Blood Urea Nitrogen 75 mg/dL (9-20); Calcium 6.2 mg/dL (8.4-10.2); Carbon Dioxide 21 mmol/L (22-30); Chloride 98 mmol/L (98-107); Estimated CRCL calculation 6 ml/min; Estimated Glomerular Filt Rate 4; Glucose 91 mg/dL (65-110); Potassium 4.4 mmol/L (3.4-5.0); Sodium 138 mmol/L (137-145)
[2023-10-02 07:05] LABS: Glucose Point of Care 101 mg/dl (65-105)
--- NOTE | 2023-10-02 07:12 | WPDHPUPDATE1 ---
History and Physical Update Update Date/Time: 10/02/23 07:12 History and Physical has been reviewed, including an updated exam of the patient. There are NO changes in the patient's condition. Risks, benefits, and alternatives have been discussed and questions answered. Patient agrees to proceed with procedure.
[2023-10-02 07:22] LABS: Iron 40 ug/dL (49-181)
--- NOTE | 2023-10-02 07:29 | WPDANESEPPF ---
Anes - Initial Pre Proc Eval Procedure: Operation Date: 10/02/23 07:30 Proposed Procedures p Insertion Tunneled Dialysis Catheter, Removal Peritoneal Dialysis Catheter - Srini Rose DO Date/Time: 10/02/23 07:29 Surgeon: Natalya Jama DO Pre Op Diagnosis: COVID/Generalized Weakness/Peritoneal Dialysis Patient Data Age: 73 Gender: M Height: 1.73 m Weight: 118.2 kg Last Vital Signs Temp 97.2 F L 10/02/23 06:00 Pulse 77 10/02/23 06:00 Resp 18 10/02/23 06:00 BP 140/64 10/02/23 06:21 Pulse Ox 99 10/02/23 06:00 O2 Del Method Room Air 10/01/23 08:20 Allergies Allergy/AdvReac Type Severity Reaction Status Date / Time No Known Allergies Allergy Verified 09/30/23 10:36 Home Medications Medication Instructions Recorded Confirmed Type pravastatin 10 mg tablet 10 mg PO HS 03/29/20 09/30/23 History omeprazole 20 mg capsule,delayed 20 mg PO DAILY 10/01/20 09/30/23 History release insulin syringe-needle U-100 0.5 #400 ea 06/19/21 09/30/23 Rx mL 31 gauge x 5/16 furosemide 80 mg tablet 80 mg PO BID 01/01/22 09/30/23 History tamsulosin 0.4 mg capsule 0.4 mg PO DAILY 01/01/22 09/30/23 History pen needle, diabetic 32 gauge x #200 ea 07/12/22 09/30/23 Rx 5/32 (TRUEplus Pen Needle) gabapentin 100 mg capsule 100 mg PO QHS 10/31/22 09/30/23 History blood sugar diagnostic (OneTouch #200 ea 12/14/22 09/30/23 Rx Verio test strips) insulin syringe,safetyneedle 1 mL #300 ea 12/31/22 09/30/23 Rx 30 gauge x 3/16 apixaban 2.5 mg tablet (Eliquis) 5 mg PO BID 02/22/23 09/30/23 History losartan 100 mg tablet 50 mg PO DAILY 02/22/23 09/30/23 History Freestyle Samara 3 reciever See Rx Instructions .Route 07/03/23 09/30/23 Rx .COMPLEX #1 unit insulin human U-100 NPH-regulr 50 - 70 unit subcut BID 07/03/23 09/30/23 History 70-30 mix 100 unit/mL subcutaneous susp (Novolin 70/30 U-100 Insulin) blood-glucose sensor (FreeStyle #6 ea 07/05/23 09/30/23 Rx Samara 3 Sensor device) levothyroxine 50 mcg tablet 50 mcg PO DAILY 09/30/23 09/30/23 History loperamide 2 mg capsule 2 mg PO PRN PRN Diarrhea 09/30/23 09/30/23 History mirtazapine 15 mg tablet 15 mg PO HS 09/30/23 09/30/23 History metoprolol succinate 50 mg 50 mg PO HS 10/01/23 10/01/23 History tablet,extended release 24 hr Laboratory Tests 10/01/23 10/01/23 10/01/23 06:14 08:19 11:20 WBC RBC Hgb Hct MCV MCH MCHC RDW Plt Count MPV Immature Gran % (Auto) Neut % (Auto) Lymph % (Auto) [place] % (Auto) Eos % (Auto) Baso % (Auto) Lymph # (Auto) [place] # (Auto) Eos # (Auto) Baso # (Auto) Abs Immat Gran (auto) Absolute Neuts (auto) Absolute Nucleated RBC Nucleated RBC % Sodium 134 L mmol/L (137-145) Potassium 4.3 mmol/L (3.4-5.0) Chloride 96 L mmol/L (98-107) Carbon Dioxide 22 mmol/L (22-30) Anion Gap 16 mmol/L (8-16) BUN 66 H mg/dL (9-20) Creatinine 12.20 H mg/dL (0.7-1.3) Estim Creat Clear Calc 6 ml/min Estimated GFR 4 L (59 - ) Glucose 164 H mg/dL (65-110) POC Capillary Glucose 149 H mg/dl 141 H mg/dl (65-105) (65-105) Calcium 5.9 L mg/dL (8.4-10.2) Phosphorus 12.7 H mg/dL (2.5-4.5) Magnesium 1.3 L mg/dL (1.6-2.3) Iron TIBC % Saturation Ferritin Total Bilirubin 0.5 mg/dL (0.2-1.3) AST 30 U/L (17-59) ALT 19 U/L (6-50) Alkaline Phosphatase 61 U/L (38-126) Total Protein 6.0 L g/dL (6.3-8.2) Albumin 3.1 L g/dL (3.5-5.1) Hep Bs Antigen Negative
[2023-10-02 07:32] LABS: Percent Iron Saturation 23 % (20-50)
[2023-10-02] MEDS: ceFAZolin 2 GM/D5W 50 ML 2 GM/50 ML BAG IVPB (07:42)
[2023-10-02] MEDS: LIDO 1%/EPINEPHRINE 1:100,000 50 ML VIAL 30 ML INFILTRATE (08:18)
[2023-10-02] MEDS: HEPARIN SODIUM 5,000 UNITS/ML VIAL 15000 UNITS XX (08:40)
--- NOTE | 2023-10-02 08:55 | W.PM.PROC2 ---
Procedure Note - Detailed Date of Procedure 10/02/23 Pre-op Diagnosis ESRD, weakness, uremia Post-op Diagnosis Same Procedure Performed 1. Right internal jugular tunnel dialysis catheter insertion under ultrasound and fluoroscopic guidance 2. Removal of peritoneal dialysis catheter Surgeon Srini Rose, DO Anesthesia General (LMA) and Local (1% lidocaine with epinephrine) Indications This is a 73-year-old man who presented to the emergency department with worsening weakness, recent diagnosis of COVID, and worsening uremia. He has a history of end-stage renal disease and has been on peritoneal dialysis. He has not had as much success with the peritoneal dialysis recently and discussions were made with the patient and his certified alcohol and drug counselor about switching to hemodialysis. This was going to be scheduled electively, but now patient has been admitted for further treatment. He has not been able to perform peritoneal dialysis on his own at home over the past several days due to how weak he is. He is now in need of hemodialysis. Discussions were made with the patient about treatment options and decision was made to proceed with placement of right internal jugular tunnel dialysis catheter and removal of peritoneal dialysis catheter. Findings SonoSite ultrasound was used to identify the right internal jugular vein. This was visualized as a compressible vessel just lateral to the pulsatile carotid artery. The 18 gauge introducer needle was advanced under ultrasound guidance directly into the lumen of the right internal jugular vein. Dark nonpulsatile blood was aspirated. Fluoroscopy was then used to guide advancement of the guidewire followed by the dilator and sheath. The final fluoroscopic images demonstrated the catheter tip in the distal SVC and no kinks along its path. Once the hemodialysis catheter was successfully placed, I then moved my attention over to the peritoneal dialysis catheter. The to fibrous cuffs on the tubing were identified and carefully dissected free. This freed up the tubing and allowed it to be gently withdrawn and completely removed. The tip appeared intact. Within the fibrous capsule around the dialysis catheter there did appear to be some purulence fluid. A culture was taken with a culture swab. No other abnormalities were noted. Description of Procedure Procedure as well as risks, benefits, and alternatives were discussed with patient. Written consent was obtained and placed in chart prior to procedure. Patient was brought back to surgical suite. Placed supine on operating table. Time-out was done confirm patient procedure. The patient was then intubated by the Anesthesia Department. His right chest and neck area was prepped and draped in sterile fashion using chlorhexidine prep. He abdominal region was then prepped and draped as well in sterile fashion with chlorhexidine prep and Betadine spray over the peritoneal dialysis catheter tubing. Patient was placed in Trendelenburg position. SonoSite ultrasound was used to identify the right internal jugular vein. It was visualized as a compressible vessel just lateral to the carotid artery. 1% lidocaine with epinephrine was infiltrated directly over the vessel under ultrasound guidance. An 18 gauge introducer needle was then advanced under ultrasound guidance directly into the right internal jugular vein. Dark nonpulsatile blood was aspirated. A 0.035 in guidewire was then advanced through the needle under fluoroscopic guidance. The guidewire was visualized advancing all the way down into the superior vena cava. 1% lidocaine with epinephrine was then infiltrated on the right anterior chest and along the tract up to the guidewire insertion site. A 5 mm incision was made with a 15 blade scalpel. A small marcell incision was then also made at the insertion site at the neck. The tunneler was then advanced from the chest incision up to the neck incision and the catheter tubing was bro
[2023-10-02] MEDS: SODIUM CHLORIDE 0.9% IV 500 ML 30 ML IV CONT (08:58)
[2023-10-02 10:08] LABS: Glucose Point of Care 106 mg/dl (65-105)
[2023-10-02] MEDS: TAMSULOSIN HCL 0.4 MG CAPSULE PO (10:29)
[2023-10-02] MEDS: PANTOPRAZOLE 40 MG TABLET PO (10:29)
[2023-10-02] MEDS: LOSARTAN POTASSIUM 50 MG TABLET PO (10:29)
[2023-10-02 11:30] LABS: Glucose Point of Care 108 mg/dl (65-105)
--- NOTE | 2023-10-02 15:17 | P.PNNP_ITS ---
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 * he has been symptomatic given his poor clearance of uremic toxins * suspect recent COVID infection has likely worsened these symptoms * s/p tunneled HD catheter placement as well as PD catheter removal today (10/02/22) * HD today * arrangement for outpatient hemodialysis (2) COVID: Code(s): U07.1 - COVID-19 Status: Acute Assessment and Plan: * as noted by positive testing * symptomatic for the last few days * negative CXR and not hypoxic on admission * supportive therapy (3) Generalized weakness: Code(s): R53.1 - Weakness Status: Acute Assessment and Plan: * due to a combination of poor dialysis and COVID * relatively anemia maybe a contributing factor as well * PT/OT as tolerated * follow once HD initiated (4) Chronic anemia: Code(s): D64.9 - Anemia, unspecified Status: Acute Assessment and Plan: * due to ESRD and poor dialysis * Epogen with HD * adequate iron stores * follow H/H (5) Hypertension: Code(s): I10 - Essential (primary) hypertension Status: Chronic Assessment and Plan: * reasonable control * follow hemodynamics (6) Paroxysmal atrial fibrillation: Code(s): I48.0 - Paroxysmal atrial fibrillation Status: Acute Assessment and Plan: * rate control strategy * anticoagulation on hold for HD catheter placement/PD catheter removal (7) Diabetes: Qualifiers: Diabetes mellitus complication status: with other specified complication Diabetes mellitus buttermaker insulin use: with halfway use Diabetes mellitus type: type 2 Qualified Code(s): E11.69 - Type 2 diabetes mellitus with other specified complication; Z79.4 - oil heaterman (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 Subjective Date/time seen: 10/02/23 15:17 Interval history: Follow-up for end stage renal disease. Tolerating hemodialysis at the time of my visit (seen on HD at 3:05PM); s/p tunneled HD catheter placement earlier today; no acute distress voiced; no issues overnight or earlier this morning. Exam Narrative: General: elderly male in NAD Heart: normal S1 and S2; no rub Lungs: clear to auscultation Abdomen: soft, nontender, nondistended, positive bowel sounds Extremities: no cyanosis or clubbing; no edema Skin: warm and dry Objective Data Vital Signs Vital Signs: Vital Signs Temp Pulse Resp BP Pulse Ox O2 Del Method O2 Flow Rate 10/02/23 15:15 70 139/77 10/02/23 15:00 72 171/92 H 10/02/23 14:46 73 155/90 H 10/02/23 14:37 97.3 F L 74 16 146/83 H 98 10/02/23 11:45 96.8 F L 63 18 180/90 H 99 10/02/23 10:30 92 Nasal Cannula 2
--- NOTE | 2023-10-02 15:17 | PM.PNNEP ---
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 he has been symptomatic given his poor clearance of uremic toxins suspect recent COVID infection has likely worsened these symptoms s/p tunneled HD catheter placement as well as PD catheter removal today (10/02/22) HD today arrangement for outpatient hemodialysis (2) COVID: Code(s): U07.1 - COVID-19 Status: Acute Assessment and Plan: as noted by positive testing symptomatic for the last few days negative CXR and not hypoxic on admission supportive therapy (3) Generalized weakness: Code(s): R53.1 - Weakness Status: Acute Assessment and Plan: due to a combination of poor dialysis and COVID relatively anemia maybe a contributing factor as well PT/OT as tolerated follow once HD initiated (4) Chronic anemia: Code(s): D64.9 - Anemia, unspecified Status: Acute Assessment and Plan: due to ESRD and poor dialysis Epogen with HD adequate iron stores follow H/H (5) Hypertension: Code(s): I10 - Essential (primary) hypertension Status: Chronic Assessment and Plan: reasonable control follow hemodynamics (6) Paroxysmal atrial fibrillation: Code(s): I48.0 - Paroxysmal atrial fibrillation Status: Acute Assessment and Plan: rate control strategy anticoagulation on hold for HD catheter placement/PD catheter removal (7) Diabetes: Qualifiers: Diabetes mellitus complication status: with other specified complication 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 Subjective Date/time seen: 10/02/23 15:17 Interval history: Follow-up for end stage renal disease. Tolerating hemodialysis at the time of my visit (seen on HD at 3:05PM); s/p tunneled HD catheter placement earlier today; no acute distress voiced; no issues overnight or earlier this morning. Exam Narrative: General: elderly male in NAD Heart: normal S1 and S2; no rub Lungs: clear to auscultation Abdomen: soft, nontender, nondistended, positive bowel sounds Extremities: no cyanosis or clubbing; no edema Skin: warm and dry Objective Data Vital Signs Vital Signs: Vital Signs Temp Pulse Resp BP Pulse Ox O2 Del Method O2 Flow Rate 10/02/23 15:15 70 139/77 10/02/23 15:00 72 171/92 H 10/02/23 14:46 73 155/90 H 10/02/23 14:37 97.3 F L 74 16 146/83 H 98 10/02/23 11:45 96.8 F L 63 18 180/90 H 99 10/02/23 10:30 92 Nasal Cannula 2 10/02/23 11:51 Nasal Cannula 2 10/02/23 10:45 96.8 F L 66 16 150/80 H 100 10/02/23 10:15 96.7 F L 72 16 150/70 H 100 10/02/23 10:00 96.8 F L 69 16 154/74 H 100 10/02/23 10:27 Nasal Cannula 2 10/02/23 09:40 70 14 145/73 H 98 Nasal Cannula 4 10/02/23 09:30 69 14 155/80 H 97 Nasal Cannula 4 10/02/23 09:15 69 12 127/74 98 Nasal Cannula 4 10/02/23 08:58 68 10 L 136/63 93 Nasal Cannula 4 10/02/23 06:21 140/64 10/02/23 06:00 97.2 F L 77 18 160/93 H 99 10/02/23 05:13 160/100 H 10/01/23 21:48 97.6 F 60 18 130/60 95 10/01/23 21:16 73
[2023-10-02] MEDS: EPOETIN ALFA-EPBX 10,000 UNITS/ML VIAL 10000 UNITS IV PUSH (16:56)
[2023-10-02] MEDS: SODIUM CHLORIDE 0.9% IV 1,000 ML 999 ML IV CONT (16:57)
[2023-10-02 17:26] LABS: Glucose Point of Care 118 mg/dl (65-105)
--- NOTE | 2023-10-02 17:48 | PM.IMPN ---
Progress Note: A&P Assessment and Plan (1) COVID: Code(s): U07.1 - COVID-19 Status: Acute Assessment and Plan: Stable Will manage supportively INcentive spirometry; Anti-tussives (2) End-stage renal disease on peritoneal dialysis: Code(s): N18.6 - End stage renal disease; Z99.2 - Dependence on renal dialysis Status: Acute Assessment and Plan: Slated for dialysis catheter today; Currently has a HD catheter Slated for HD today, 10/02/23 (3) Generalized weakness: Code(s): R53.1 - Weakness Status: Acute (4) Chronic anemia: Code(s): D64.9 - Anemia, unspecified Status: Acute (5) Chronic anticoagulation: Code(s): 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 Tolerating hemodialysis at the time of my visit (seen on HD at 3:05PM); s/p tunneled HD catheter placement earlier today; no acute distress voiced; no issues overnight or earlier this morning. Review of Systems Review of Systems: Twelve systems were reviewed and are negative except for as per HPI. Constitutional: Constitutional: Reports fatigue ENT: Reports system reviewed and no additional complaints, except as documented Cardiovascular: Cardiovascular: Reports no additional cardiovascular complaints Respiratory: Respiratory: Reports no additional respiratory complaints Gastrointestinal: Gastrointestinal: Reports no additional gastrointestinal complaints Musculoskeletal: Musculoskeletal: Reports no additional musculoskeletal complaints Integumentary/Breasts: Skin/Breast: Reports system reviewed and no additional complaints, except as docu Neurologic: Reports system reviewed and no additional complaints, except as documented Psychiatric: Psychiatric: Reports no additional psychiatric complaints Endocrine: Endocrine: Reports fatigue Exam Narrative: General: Chronically ill-appearing gentleman in the semi-Fraser position in bed. Weight: 118.8 kg. BMI: 39.8. HEENT: Normocephalic, atraumatic. Right pupil is reactive. He keeps his left eye closed. Tacky mucous membranes. Crowded oropharynx. Neck: Supple. Exam limited due to neck circumference. No obvious JVD. Respiratory: Respirations are nonlabored. Lungs are clear to auscultation. Occasional dry cough. Cardiovascular: Regular rate and rhythm with S1-S2. Gastrointestinal: Abdomen is soft, obese, and nontender with positive bowel sounds. PD catheter site is clean, dry, and intact. Skin: Warm and dry. Generalized pallor. Extremities: No cyanosis or clubbing. Trace pretibial edema bilaterally.. Radial and pedal pulses intact. Neurological: Alert. Cranial nerves 2-12 are grossly intact. Generalized weakness without gross focal deficits. Psychiatric: Pleasant and cooperative with normal mood and affect. Judgment and insight intact. Const: General: no acute distress HENMT: Ears: TM's normal bilaterally Eyes: General: appearance normal, both eyes and all related structures Neck: Neck: supple Resp: Effort & Inspection: normal respiratory effort Cardio: Rate: regular rate GI: Other: Peritoneal dialysis catheter Skin: General skin exam: normal color Neuro: Motor exam (neuro): Normal motor muscle tone present throughout Extrem: General: normal to inspection Psych: Mental Status: mental status grossly normal Objective Data Vital Signs Vital Signs: Vital Signs - 24 hr 10/01/23 21:16 10/01/23 21:48 10/02/23 05:13 Temperature 97.6 F Pulse Rate 73 60 Respiratory Rate 18 Blood Pressure 130/60 160/100 H Pulse Oximetry 95 Oxygen Delivery Oxygen Flow Rate 10/02/23 06:00 10/02/23 06:21
[2023-10-02] MEDS: HYDROcodone/acetaminophen (*CRX) 5-325 MG TABLET 1 TAB PO ×2 (17:54→23:19)
[2023-10-02] MEDS: FUROSEMIDE 80 MG TABLET PO (17:54)
[2023-10-02] MEDS: polyethylene glycoL 3350 17 GM POWD.PACK PO (17:56)
[2023-10-02] MEDS: METOPROLOL SUCCINATE EXT REL 50 MG TABCR PO (20:18)
[2023-10-02] MEDS: PRAVASTATIN SODIUM 10 MG TABLET PO (20:18)
[2023-10-02] MEDS: MIRTAZAPINE 15 MG TABLET PO (20:20)
[2023-10-02] MEDS: GABAPENTIN 100 MG CAPSULE PO (20:21)
[2023-10-02] MEDS: DOCUSATE SODIUM 100 MG CAPSULE PO (20:21)
[2023-10-02 20:25] LABS: Glucose Point of Care 161 mg/dl (65-105)
[2023-10-02] MEDS: INSULIN HUMAN ISOPHAN/REGULAR 70/30 (*BKC) 100 UNITS/ML 50 UNITS SUB-Q (20:29)
[2023-10-02 21:00] LABS: Glucose Point of Care 182 mg/dl (65-105)
[2023-10-03] VITALS (18 sets, daily range): BP systolic 110–173; BP diastolic 58–84; PULSE 67–88; RESP 16–20; TEMP 7–37; O2SAT 98
[2023-10-03 00:11] LABS: Glucose Point of Care 137 mg/dl (65-105)
[2023-10-03] MEDS: DEXTROSE 50% 25 GM/50 ML SYRINGE IV PUSH (05:14)
[2023-10-03] MEDS: LEVOTHYROXINE SODIUM 50 MCG TABLET PO (05:37)
[2023-10-03 05:53] LABS: Glucose Point of Care 112 mg/dl (65-105)
[2023-10-03 06:57] LABS: Glucose Point of Care 125 mg/dl (65-105)
[2023-10-03 07:04] LABS: Basophils Percent Auto 0.3 % (0.2-1.2); Eosinophils Absolute Auto 0.2 K/mm3 (0-0.3); Eosinophils Percent Auto 2.3 % (0-4.4); Hematocrit 25.7 % (42.0-52.0); Immature Granulocyte Absolute 0.12 K/mm3 (0.00-0.031); Immature Granulocyte Percent A 1.3 % (0-0.5); Mean Corpuscular HGB Conc 31.1 g/dl (32-36); Mean Corpuscular Hemoglobin 27.6 pg (26-34); Mean Corpuscular Volume 88.6 fl (80-100); Monocytes Absolute Auto 0.7 K/mm3 (0.1-0.6); Monocytes Percent Auto 7.8 % (2.6-8.5); Neutrophils Absolute Auto 6.9 K/mm3 (1.3-6.7); Neutrophils Percent Auto 75.3 % (45.5-73.1); Platelet Count Result 258 k/mm3 (150-375); Red Cell Distribution Width 13.9 % (11.5-14.5); White Blood Count 9.2 K/mm3 (4.5-10.0)
[2023-10-03 07:19] LABS: Alanine Aminotransferase 17 U/L (6-50); Albumin Level 3.1 g/dL (3.5-5.1); Alkaline Phosphatase 70 U/L (38-126); Anion Gap 13 mmol/L (8-16); Aspartate Amino Transferase 26 U/L (17-59); Bilirubin,Total 0.5 mg/dL (0.2-1.3); Blood Urea Nitrogen 49 mg/dL (9-20); Calcium 6.6 mg/dL (8.4-10.2); Carbon Dioxide 24 mmol/L (22-30); Chloride 99 mmol/L (98-107); Estimated CRCL calculation 8 ml/min; Estimated Glomerular Filt Rate 6; Glucose 124 mg/dL (65-110); Potassium 3.9 mmol/L (3.4-5.0); Sodium 136 mmol/L (137-145)
[2023-10-03 08:27] LABS: Glucose Point of Care 100 mg/dl (65-105)
[2023-10-03 08:28] LABS: Glucose Point of Care 58 mg/dl (65-105)
--- NOTE | 2023-10-03 10:03 | WPDANESPN ---
Anes - Prog Note Post-Op Date/Time: 10/03/23 10:03 Cardiovascular status: normal Respiratory status: normal Airway patency: baseline Mental status: baseline Post-Op hydration status: normal Vital Signs: Last Vital Signs Temp 36.6 C 10/03/23 03:35 Pulse 67 10/03/23 03:35 Resp 20 10/03/23 03:35 BP 110/58 L 10/03/23 03:35 Pulse Ox 98 10/03/23 03:35 O2 Del Method Room Air 10/02/23 22:45 O2 Flow Rate 2 10/02/23 22:30 Pain Score (VAS): 0 I/O: Intake & Output 10/02/23 10/03/23 10/03/23 23:59 07:59 15:59 Intake Total 490 200 360 Output Total 765 Balance -275 200 360 Laboratory Tests 10/03/23 06:34 10/03/23 06:34 10/02/23 10/02/23 10/02/23 09:14 11:09 17:22 WBC RBC Hgb Hct MCV MCH MCHC RDW Plt Count MPV Immature Gran % (Auto) Neut % (Auto) Lymph % (Auto) Mcminn % (Auto) Eos % (Auto) Baso % (Auto) Lymph # (Auto) Mcminn # (Auto) Eos # (Auto) Baso # (Auto) Abs Immat Gran (auto) Absolute Neuts (auto) Absolute Nucleated RBC Nucleated RBC % Sodium Potassium Chloride Carbon Dioxide Anion Gap BUN Creatinine Estim Creat Clear Calc Estimated GFR Glucose POC Capillary Glucose 106 H 108 H 118 H Calcium Total Bilirubin AST ALT Alkaline Phosphatase Total Protein Albumin 10/02/23 10/02/23 10/03/23 19:47 20:17 00:07 WBC RBC Hgb Hct MCV MCH MCHC RDW Plt Count MPV Immature Gran % (Auto) Neut % (Auto) Lymph % (Auto) Mcminn % (Auto) Eos % (Auto) Baso % (Auto) Lymph # (Auto) Mcminn # (Auto) Eos # (Auto) Baso # (Auto) Abs Immat Gran (auto) Absolute Neuts (auto) Absolute Nucleated RBC Nucleated RBC % Sodium Potassium Chloride Carbon Dioxide Anion Gap BUN Creatinine Estim Creat Clear Calc Estimated GFR Glucose POC Capillary Glucose 182 H 161 H 137 H Calcium Total Bilirubin AST ALT Alkaline Phosphatase Total Protein Albumin 10/03/23 10/03/2310/03/24 05:11 05:39 06:34 WBC 9.2 RBC 2.90 L Hgb 8.0 L Hct 25.7 L MCV 88.6 MCH 27.6 MCHC 31.1 L RDW 13.9 Plt Count 258 MPV 10.0 Immature Gran % (Auto) 1.3 H Neut % (Auto) 75.3 H Lymph % (Auto) 13.0 L Mcminn % (Auto) 7.8 Eos % (Auto) 2.3 Baso % (Auto) 0.3 Lymph # (Auto) 1.20 Mcminn # (Auto) 0.7 H Eos # (Auto) 0.2 Baso # (Auto) 0.0 Abs Immat Gran (auto) 0.12 H Absolute Neuts (auto) 6.9 H Absolute Nucleated RBC 0.0 Nucleated RBC % 0.0 Sodium 136 L Potassium 3.9 Chloride 99 Carbon Dioxide 24 Anion Gap 13 BUN 49 H D Creatinine 9.40 H Estim Creat Clear Calc 8 Estimated GFR 6 L Glucose 124 H POC Capillary Glucose 58 L* 112 H Calcium 6.6 L Total Bilirubin 0.5 AST 26 ALT 17 Alkaline Phosphatase 70 Total Protein 6.0 L Albumin 3.1 L 10/03/23 10/03/23 06:55 08:19 WBC RBC Hgb Hct MCV MCH MCHC RDW Plt Count MPV Immature Gran % (Auto) Neut % (Auto) Lymph % (Auto) Mcminn % (Auto) Eos % (Auto) Baso % (Auto) Lymph # (Auto) Mcminn # (Auto) Eos # (Auto) Baso # (Auto) Abs Immat Gran (auto) Absolute Neuts (auto) Absolute Nucleated RBC Nucleated RBC % Sodium Potassium Chloride Carbon Dioxide Anion Gap BUN Creatinine Estim Creat Clear Calc Estimated GFR Glucose POC Capillary Glucose 125 H 100 Calcium Total Bilirubin AST ALT Alkaline Phosphatase Total Protein Albumin Post-procedural complaints: none Patient Feedback: Patient satisfied with anesthetic care.
[2023-10-03 11:22] LABS: Hepatitis B Core Ab Total Nonreactive (Nonreactive)
[2023-10-03 11:47] LABS: Glucose Point of Care 183 mg/dl (65-105)
--- NOTE | 2023-10-03 11:57 | PC.NURSE ---
Dr Niño gave mortgage loan underwriter verbal order to change insulin dose to 35U BID based on low BS this am
--- NOTE | 2023-10-03 15:34 | PM.IMPN ---
Progress Note: A&P Assessment and Plan (1) COVID: Code(s): U07.1 - COVID-19 Status: Acute Assessment and Plan: Stable Will manage supportively INcentive spirometry; Anti-tussives (2) End-stage renal disease on peritoneal dialysis: Code(s): N18.6 - End stage renal disease; Z99.2 - Dependence on renal dialysis Status: Acute Assessment and Plan: Slated for dialysis catheter today; Currently has a HD catheter Slated for HD today, 10/02/23 (3) Generalized weakness: Code(s): R53.1 - Weakness Status: Acute (4) Chronic anemia: Code(s): D64.9 - Anemia, unspecified Status: Acute (5) Chronic anticoagulation: Code(s): 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 Status: Acute (6) Paroxysmal atrial fibrillation: Code(s): I48.0 - Paroxysmal atrial fibrillation Status: Acute Plan Assessment and Plan (1) COVID Infection ?Code(s): U07.1 - COVID-19 ?Status:?Acute ?Assessment and Plan: Stable Will manage supportively Incentive spirometry; Anti-tussives (2) End-stage renal disease on peritoneal dialysis: ?Code(s): N18.6 - End stage renal disease; Z99.2 - Dependence on renal dialysis ?Status:?Acute ?Assessment and Plan: Slated for dialysis catheter today; Currently has a HD catheter Slated for HD today, 10/02/23 (3) Generalized weakness: ?Code(s): R53.1 - Weakness ?Status:?Acute (4) Chronic anemia: ?Code(s): D64.9 - Anemia, unspecified ?Status:?Acute (5) Chronic anticoagulation: ?Code(s): Z79.01 - correction (current) use of anticoagulants ?Status:?Acute (6) Paroxysmal atrial fibrillation: ?Code(s): I48.0 - Paroxysmal atrial fibrillation ?Status:?Acute Time Spent With Patient Time with patient: 25 - 35 minutes Subjective Date/time seen: 10/03/23 15:34 Interval history: Follow-up for end stage renal disease. Tolerating hemodialysis at the time of my visit (seen on HD at 3:05PM); s/p tunneled HD catheter placement; no acute distress voiced; no issues overnight or earlier this morning. Review of Systems Review of Systems: Twelve systems were reviewed and are negative except for as per HPI. Constitutional: Constitutional: Reports fatigue ENT: Reports system reviewed and no additional complaints, except as documented Cardiovascular: Cardiovascular: Reports no additional cardiovascular complaints Respiratory: Respiratory: Reports no additional respiratory complaints Gastrointestinal: Gastrointestinal: Reports no additional gastrointestinal complaints Musculoskeletal: Musculoskeletal: Reports no additional musculoskeletal complaints Integumentary/Breasts: Skin/Breast: Reports system reviewed and no additional complaints, except as docu Neurologic: Reports system reviewed and no additional complaints, except as documented Psychiatric: Psychiatric: Reports no additional psychiatric complaints Endocrine: Endocrine: Reports fatigue Exam Narrative: General: Chronically ill-appearing gentleman in the semi-Fraser position in bed. Weight: 118.8 kg. BMI: 39.8. HEENT: Normocephalic, atraumatic. Right pupil is reactive. He keeps his left eye closed. Tacky mucous membranes. Crowded oropharynx. Neck: Supple. Exam limited due to neck circumference. No obvious JVD. Respiratory: Respirations are nonlabored. Lungs are clear to auscultation. Occasional dry cough. Cardiovascular: Regular rate and rhythm with S1-S2. Gastrointestinal: Abdomen is soft, obese, and nontender with positive bowel sounds. PD catheter site is clean, dry, and intact. Skin: Warm and dry. Generalized pallor. Extremities: No cyanosis or clubbing. Trace pretibial edema bilaterally.. Radial and pedal pulses intact. Neurological: Alert. Cranial nerves 2-12 are grossly intact. Generalized weakness without gross focal deficits. Psychiatric: Pleasant and cooperative with normal moo
[2023-10-03] MEDS: EPOETIN ALFA-EPBX 10,000 UNITS/ML VIAL 10000 UNITS IV PUSH (15:58)
--- NOTE | 2023-10-03 16:00 | PM.PNNEP ---
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 he has been symptomatic given his poor clearance of uremic toxins suspect recent COVID infection has likely worsened these symptoms s/p tunneled HD catheter placement as well as PD catheter removal (on 10/02/22) HD yesterday and today; plan HD tomorrow as well arrangement for outpatient hemodialysis (2) COVID: Code(s): U07.1 - COVID-19 Status: Acute Assessment and Plan: as noted by positive testing symptomatic for the last few days negative CXR and not hypoxic on admission supportive therapy (3) Generalized weakness: Code(s): R53.1 - Weakness Status: Acute Assessment and Plan: due to a combination of poor dialysis and COVID relatively anemia maybe a contributing factor as well PT/OT as tolerated follow once HD initiated (4) Chronic anemia: Code(s): D64.9 - Anemia, unspecified Status: Acute Assessment and Plan: due to ESRD and poor dialysis Epogen with HD adequate iron stores follow H/H (5) Hypertension: Code(s): I10 - Essential (primary) hypertension Status: Chronic Assessment and Plan: reasonable control follow hemodynamics (6) Paroxysmal atrial fibrillation: Code(s): I48.0 - Paroxysmal atrial fibrillation Status: Acute Assessment and Plan: rate control strategy probably okay to resume anticoagulation (7) Diabetes: Qualifiers: Diabetes mellitus complication status: with other specified complication 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 Subjective Date/time seen: 10/03/23 16:00 Interval history: Follow-up for end stage renal disease (recent conversion from peritoneal dialysis to hemodialysis) Tolerating hemodialysis at the time of my visit (seen on HD at 3:50PM); tolerated first session of hemodialysis yesterday without any issues or problems; overall, states he feels a bit better in general; no acute complaints voiced. Exam Narrative: General: elderly male in NAD Heart: normal S1 and S2; no rub Lungs: clear to auscultation Abdomen: soft, nontender, nondistended, positive bowel sounds Extremities: no cyanosis or clubbing; no edema Skin: warm and intact Objective Data Vital Signs Vital Signs: Vital Signs Temp Pulse Resp BP Pulse Ox O2 Del Method O2 Flow Rate 10/03/23 03:35 97.9 F 67 20 110/58 L 98 10/02/23 22:45 98 Room Air 10/02/23 22:30 100 Nasal Cannula 2 10/02/23 23:35 97.6 F 72 20 137/85 100 10/02/23 20:18 74 10/02/23 19:32 98.9 F 84 20 118/73 100 10/02/23 17:00 71 151/80 H 10/02/23 17:39 97.5 F L 70 16 98 10/02/23 17:17 68 140/71 Intake/Output Intake/Output: Intake & Output 09/30/23 10/01/23 10/02/23 10/03/23 23:59 23:59 23:59 23:59 Intake Total 640 930 560 Output Total 400 1065 Balance 240 -135 560 Meds/Results Medications: Active Medications Generic Name Dose Route Start Last Admin Trade Name Freq PRN Reason Stop Dose Admin Acetaminophen 650 mg 09/30/23 23:01 Acetaminophen 325 Mg Tablet PO Q6H PRN
--- NOTE | 2023-10-03 16:00 | P.PNNP_ITS ---
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 * he has been symptomatic given his poor clearance of uremic toxins * suspect recent COVID infection has likely worsened these symptoms * s/p tunneled HD catheter placement as well as PD catheter removal (on 10/02/22) * HD yesterday and today; plan HD tomorrow as well * arrangement for outpatient hemodialysis (2) COVID: Code(s): U07.1 - COVID-19 Status: Acute Assessment and Plan: * as noted by positive testing * symptomatic for the last few days * negative CXR and not hypoxic on admission * supportive therapy (3) Generalized weakness: Code(s): R53.1 - Weakness Status: Acute Assessment and Plan: * due to a combination of poor dialysis and COVID * relatively anemia maybe a contributing factor as well * PT/OT as tolerated * follow once HD initiated (4) Chronic anemia: Code(s): D64.9 - Anemia, unspecified Status: Acute Assessment and Plan: * due to ESRD and poor dialysis * Epogen with HD * adequate iron stores * follow H/H (5) Hypertension: Code(s): I10 - Essential (primary) hypertension Status: Chronic Assessment and Plan: * reasonable control * follow hemodynamics (6) Paroxysmal atrial fibrillation: Code(s): I48.0 - Paroxysmal atrial fibrillation Status: Acute Assessment and Plan: * rate control strategy * probably okay to resume anticoagulation (7) Diabetes: Qualifiers: Diabetes mellitus complication status: with other specified complication Diabetes mellitus prison insulin use: with long haul truck driver use Diabetes mellitus type: type 2 Qualified Code(s): E11.69 - Type 2 diabetes mellitus with other specified complication; Z79.4 - supervisor aircraft maintenance (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 Subjective Date/time seen: 10/03/23 16:00 Interval history: Follow-up for end stage renal disease (recent conversion from peritoneal dialysis to hemodialysis) Tolerating hemodialysis at the time of my visit (seen on HD at 3:50PM); tolerated first session of hemodialysis yesterday without any issues or problems; overall, states he feels a bit better in general; no acute complaints voiced. Exam Narrative: General: elderly male in NAD Heart: normal S1 and S2; no rub Lungs: clear to auscultation Abdomen: soft, nontender, nondistended, positive bowel sounds Extremities: no cyanosis or clubbing; no edema Skin: warm and intact Objective Data Vital Signs Vital Signs: Vital Signs Temp Pulse Resp BP Pulse Ox O2 Del Method O2 Flow Rate 10/03/23 03:35 97.9 F 67 20 110/58 L 98 10/02/23 22:45 98 Room Air 10/02/23 22:30 100 Nasal Cannula 2 10/02/23 23:35 97.6 F 72 20 137/
[2023-10-03 16:55] LABS: Glucose Point of Care 123 mg/dl (65-105)
[2023-10-03] MEDS: FUROSEMIDE 80 MG TABLET PO (16:57)
[2023-10-03] MEDS: polyethylene glycoL 3350 17 GM POWD.PACK PO (16:58)
[2023-10-03] MEDS: HYDROcodone/acetaminophen (*CRX) 5-325 MG TABLET 1 TAB PO (16:58)
[2023-10-03 21:32] LABS: Glucose Point of Care 179 mg/dl (65-105)
[2023-10-03] MEDS: DOCUSATE SODIUM 100 MG CAPSULE PO (21:58)
[2023-10-03] MEDS: METOPROLOL SUCCINATE EXT REL 50 MG TABCR PO (21:58)
[2023-10-03] MEDS: PRAVASTATIN SODIUM 10 MG TABLET PO (21:58)
[2023-10-03] MEDS: MIRTAZAPINE 15 MG TABLET PO (21:58)
[2023-10-03] MEDS: GABAPENTIN 100 MG CAPSULE PO (21:58)
[2023-10-03] MEDS: INSULIN HUMAN ISOPHAN/REGULAR 70/30 (*BKC) 100 UNITS/ML 35 UNITS SUB-Q (22:03)
[2023-10-04] VITALS (21 sets, daily range): BP systolic 117–160; BP diastolic 56–89; PULSE 56–83; RESP 16–20; TEMP 36–37; O2SAT 98–100
[2023-10-04 06:44] LABS: Basophils Absolute Auto 0.1 K/mm3 (0.0-0.1); Basophils Percent Auto 0.6 % (0.2-1.2); Eosinophils Absolute Auto 0.3 K/mm3 (0-0.3); Eosinophils Percent Auto 3.2 % (0-4.4); Hematocrit 28.2 % (42.0-52.0); Hemoglobin 8.8 g/dL (14.0-18.0); Immature Granulocyte Absolute 0.14 K/mm3 (0.00-0.031); Immature Granulocyte Percent A 1.5 % (0-0.5); Lymphocytes Absolute Auto 2.18 K/mm3 (0.9-3.2); Lymphocytes Percent Auto 23.5 % (18.3-44.2); Mean Corpuscular HGB Conc 31.2 g/dl (32-36); Mean Corpuscular Hemoglobin 27.9 pg (26-34); Mean Corpuscular Volume 89.5 fl (80-100); Mean Platelet Volume 9.8 fl (7.4-10.4); Monocytes Absolute Auto 0.9 K/mm3 (0.1-0.6); Monocytes Percent Auto 9.4 % (2.6-8.5); Neutrophils Absolute Auto 5.7 K/mm3 (1.3-6.7); Neutrophils Percent Auto 61.8 % (45.5-73.1); Platelet Count Result 283 k/mm3 (150-375); Red Blood Count 3.15 M/mm3 (4.6-6.20); Red Cell Distribution Width 14.1 % (11.5-14.5); White Blood Count 9.3 K/mm3 (4.5-10.0)
[2023-10-04 06:54] LABS: Alanine Aminotransferase 14 U/L (6-50); Albumin Level 3.1 g/dL (3.5-5.1); Alkaline Phosphatase 69 U/L (38-126); Anion Gap 12 mmol/L (8-16); Aspartate Amino Transferase 23 U/L (17-59); Bilirubin,Total 0.7 mg/dL (0.2-1.3); Blood Urea Nitrogen 31 mg/dL (9-20); Calcium 7.7 mg/dL (8.4-10.2); Carbon Dioxide 26 mmol/L (22-30); Chloride 102 mmol/L (98-107); Estimated CRCL calculation 12 ml/min; Estimated Glomerular Filt Rate 9; Glucose 54 mg/dL (65-110); Potassium 3.8 mmol/L (3.4-5.0); Sodium 140 mmol/L (137-145)
[2023-10-04] MEDS: LEVOTHYROXINE SODIUM 50 MCG TABLET PO (07:01)
[2023-10-04] MEDS: GLUCOSE ORAL GEL 15 GM OF GLUCSE IN 37.5 GM TUBE PO (07:01)
[2023-10-04 08:19] LABS: Glucose Point of Care 69 mg/dl (65-105)
[2023-10-04] MEDS: PANTOPRAZOLE 40 MG TABLET PO (08:43)
[2023-10-04] MEDS: TAMSULOSIN HCL 0.4 MG CAPSULE PO (08:43)
[2023-10-04 09:11] LABS: Glucose Point of Care 125 mg/dl (65-105)
--- NOTE | 2023-10-04 09:25 | PCOTNOTE ---
Patient out of the room at this time. Patient went to dialysis. Will check back this P.M.
--- NOTE | 2023-10-04 09:28 | PM.PNNEP ---
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 he has been symptomatic given his poor clearance of uremic toxins suspect recent COVID infection has likely worsened these symptoms s/p tunneled HD catheter placement as well as PD catheter removal (on 10/02/22) HD today arrangement for outpatient hemodialysis (2) COVID: Code(s): U07.1 - COVID-19 Status: Acute Assessment and Plan: as noted by positive testing symptomatic for the last few days negative CXR and not hypoxic on admission supportive therapy (3) Generalized weakness: Code(s): R53.1 - Weakness Status: Acute Assessment and Plan: due to a combination of poor dialysis and COVID relatively anemia maybe a contributing factor as well PT/OT as tolerated follow once HD initiated (4) Chronic anemia: Code(s): D64.9 - Anemia, unspecified Status: Acute Assessment and Plan: due to ESRD and poor dialysis Epogen with HD adequate iron stores follow H/H (5) Hypertension: Code(s): I10 - Essential (primary) hypertension Status: Chronic Assessment and Plan: reasonable control follow hemodynamics (6) Paroxysmal atrial fibrillation: Code(s): I48.0 - Paroxysmal atrial fibrillation Status: Acute Assessment and Plan: rate control strategy probably okay to resume anticoagulation (7) Diabetes: Qualifiers: Diabetes mellitus complication status: with other specified complication Diabetes mellitus salvage determiner insulin use: with correction use Diabetes mellitus type: type 2 Qualified Code(s): E11.69 - Type 2 diabetes mellitus with other specified complication; Z79.4 - long term care social worker (current) use of insulin Code(s): E11.9 - Type 2 diabetes mellitus without complications Status: Chronic Assessment and Plan: follow accu-checks glycemic control per hospitalists Not opposed to discharge from renal perspective if otherwise medically stable and outpatient dialysis schedule/facility is finalized; since he received 3 dialysis treatments this week, he should be okay to start outpatient hemodialysis treatments on Saturday or Saturday. Will continue to follow. Subjective Date/time seen: 01/19/24 09:28 Interval history: Follow-up for end stage renal disease (with conversion to hemodialysis from peritoneal dialysis). Tolerating dialysis treatment at the time of my visit (seen on HD at 9:18AM); no apparent distress noted; feels reasonably well; tolerated dialysis treatment yesterday as well; no issues/events overnight or earlier today. Exam Narrative: General: elderly male in NAD Heart: normal S1 and S2; no rub Lungs: clear to auscultation Abdomen: soft, nontender, nondistended, positive bowel sounds Extremities: no cyanosis or clubbing; no edema Skin: no rash Objective Data Vital Signs Vital Signs: Vital Signs Temp Pulse Resp BP Pulse Ox O2 Del Method 10/04/23 07:25 97.9 F 67 17 144/71 H 100 10/03/23 21:58 87 10/03/23 16:23 88 149/71 H 10/03/23 16:15 70 129/69 10/03/23 16:00 83 152/83 H 10/03/23 15:45 75 152/84 H 10/03/23 15:30 79 146/77 H 10/03/23 15:15 78 170/72 H 10/03/23 15:00 82 173/81 H 10/03/23 14:45 77 148/78 H 10/03/23 14:30 81 120/81 10/03/23 14:15 72 138/71 10/03/23 14:00 81 153/70 H 10/03/23 13:45 87 134/63 10/03/23 13:30 69 157/80 H 10/03/23 20:00 Room Air 10/03/23 13:23 75 157/83 H 01
--- NOTE | 2023-10-04 09:28 | P.PNNP_ITS ---
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 * he has been symptomatic given his poor clearance of uremic toxins * suspect recent COVID infection has likely worsened these symptoms * s/p tunneled HD catheter placement as well as PD catheter removal (on 10/02/22) * HD today * arrangement for outpatient hemodialysis (2) COVID: Code(s): U07.1 - COVID-19 Status: Acute Assessment and Plan: * as noted by positive testing * symptomatic for the last few days * negative CXR and not hypoxic on admission * supportive therapy (3) Generalized weakness: Code(s): R53.1 - Weakness Status: Acute Assessment and Plan: * due to a combination of poor dialysis and COVID * relatively anemia maybe a contributing factor as well * PT/OT as tolerated * follow once HD initiated (4) Chronic anemia: Code(s): D64.9 - Anemia, unspecified Status: Acute Assessment and Plan: * due to ESRD and poor dialysis * Epogen with HD * adequate iron stores * follow H/H (5) Hypertension: Code(s): I10 - Essential (primary) hypertension Status: Chronic Assessment and Plan: * reasonable control * follow hemodynamics (6) Paroxysmal atrial fibrillation: Code(s): I48.0 - Paroxysmal atrial fibrillation Status: Acute Assessment and Plan: * rate control strategy * probably okay to resume anticoagulation (7) Diabetes: Qualifiers: Diabetes mellitus complication status: with other specified complication 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 mellitus 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: with marine oil terminal superintendent use Diabetes mellitus type: type 2 Qualified Code(s): E11.69 - Type 2 diabetes mellitus with other specified complication; Z79.4 - ad terminal makeup operator (current) use of insulin Code(s): E11.9 - Type 2 diabetes mellitus without complications Status: Chronic Assessment and Plan: * follow accu-checks * glycemic control per hospitalists Not opposed to discharge from renal perspective if otherwise medically stable and outpatient dialysis schedule/facility is finalized; since he received 3 dialysis treatments this week, he should be okay to start outpatient hemodialysis treatments on Saturday or Saturday. Will continue to follow. Subjective Date/time seen: 10/04/23 09:28 Interval history: Follow-up for end stage renal disease (with conversion to hemodialysis from peritoneal dialysis). Tolerating dialysis treatment at the time of my visit (seen on HD at 9:18AM); no apparent distress noted; feels reasonably well; tolerated dialysis treatment yesterday as well; no issues/events overnight or earlier today. Exam Narrative: General: elderly male in NAD Heart: normal S1 and S2; no rub Lungs: clear to auscultation Abdomen: soft, nontender, nondistended, positive bowel sounds Extremities: no cyanosis or clubbing; no edema Skin: no rash Objective Data Vital Signs Vital Signs: Vital Signs Temp Pulse Resp BP Pulse Ox O2 Del Met
[2023-10-04] MEDS: EPOETIN ALFA-EPBX 10,000 UNITS/ML VIAL 10000 UNITS IV PUSH (09:46)
[2023-10-04] MEDS: SODIUM CHLORIDE 0.9% IV 1,000 ML 999 ML IV CONT (09:46)
--- NOTE | 2023-10-04 11:40 | PCPTNOTE ---
The patient treatment was not able to be completed due to patient out of room for dialysis. Will plan to continue treatment per plan of care.
[2023-10-04 12:01] LABS: Glucose Point of Care 115 mg/dl (65-105)
[2023-10-04] MEDS: polyethylene glycoL 3350 17 GM POWD.PACK PO (14:53)
--- NOTE | 2023-10-04 16:23 | PM.IMPN ---
Progress Note: A&P Assessment and Plan (1) COVID: Code(s): U07.1 - COVID-19 Status: Acute Assessment and Plan: Stable Will manage supportively INcentive spirometry; Anti-tussives (2) End-stage renal disease on peritoneal dialysis: Code(s): N18.6 - End stage renal disease; Z99.2 - Dependence on renal dialysis Status: Acute Assessment and Plan: Slated for dialysis catheter today; Currently has a HD catheter Slated for HD today, 10/02/23, 10/04/23 Awaiting a HD chair in the outpatient prior to discharge (3) Generalized weakness: Code(s): R53.1 - Weakness Status: Acute Assessment and Plan: Ambulate PT/OT eval and Rx (4) Chronic anemia: Code(s): D64.9 - Anemia, unspecified Status: Acute Assessment and Plan: Maybe due to chronic disease Goal Hb >7 (5) Chronic anticoagulation: Code(s): Z79.01 - 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 exterminator (current) use of anticoagulants Status: Acute (6) Paroxysmal atrial fibrillation: Code(s): I48.0 - Paroxysmal atrial fibrillation Status: Acute Plan Assessment and Plan (1) COVID Infection ?Code(s): U07.1 - COVID-19 ?Status:?Acute ?Assessment and Plan: Stable Will manage supportively Incentive spirometry; Anti-tussives (2) End-stage renal disease on peritoneal dialysis: ?Code(s): N18.6 - End stage renal disease; Z99.2 - Dependence on renal dialysis ?Status:?Acute ?Assessment and Plan: Slated for dialysis catheter today; Currently has a HD catheter Slated for HD today, 10/02/23 (3) Generalized weakness: ?Code(s): R53.1 - Weakness ?Status:?Acute PT/OT eval and Rx (4) Chronic anemia: ?Code(s): D64.9 - Anemia, unspecified ?Status:?Acute Goal Hb >7; monitor Hb (5) Chronic anticoagulation: ?Code(s): Z79.01 - long-term (current) use of anticoagulants ?Status:?Acute Due to A-fib (6) Paroxysmal atrial fibrillation: ?Code(s): I48.0 - Paroxysmal atrial fibrillation ?Status:?Acute Resume Metoprolol, Xarelto. Dyslipidemia. Resume statin GERD. on PPI BPH. on Tamsulosin Peripheral neuropathy w/IDDM. on Gabapentin IDDM. Basal+correctional insulin Time Spent With Patient Time with patient: 25 - 35 minutes Subjective Date/time seen: 10/04/23 16:23 Interval history: Seen and examined; denies fresh concerns. Not in painful or respiratory distress. Tolerating dialysis treatment Review of Systems Review of Systems: Twelve systems were reviewed and are negative except for as per HPI. Constitutional: Constitutional: Reports fatigue ENT: Reports system reviewed and no additional complaints, except as documented Cardiovascular: Cardiovascular: Reports no additional cardiovascular complaints Respiratory: Respiratory: Reports no additional respiratory complaints Gastrointestinal: Gastrointestinal: Reports no additional gastrointestinal complaints Musculoskeletal: Musculoskeletal: Reports no additional musculoskeletal complaints Integumentary/Breasts: Skin/Breast: Reports system reviewed and no additional complaints, except as docu Neurologic: Reports system reviewed and no additional complaints, except as documented Psychiatric: Psychiatric: Reports no additional psychiatric complaints Endocrine: Endocrine: Reports fatigue Exam Narrative: General: Chronically ill-appearing gentleman in the semi-Fraser position in bed. Weight: 118.8 kg. BMI: 39.8. HEENT: Normocephalic, atraumatic. Right pupil is reactive. He keeps his left eye closed. Tacky mucous membranes. Crowded oropharynx. Neck: Supple. Exam limited due to neck circumference. No obvious JVD. Respiratory: Respirations are nonlabored. Lungs are clear to auscultation. Occasional dry cough. Cardiovascular: Regular rate and rhythm with S1-S2. Gastrointestinal: Abdomen is soft, obese, and nontender with positive bowel sounds. PD catheter site is clean, dry, and intact
[2023-10-04 16:51] LABS: Glucose Point of Care 167 mg/dl (65-105)
[2023-10-04] MEDS: FUROSEMIDE 80 MG TABLET PO (17:05)
[2023-10-04] MEDS: PRAVASTATIN SODIUM 10 MG TABLET PO (21:02)
[2023-10-04] MEDS: GABAPENTIN 100 MG CAPSULE PO (21:02)
[2023-10-04] MEDS: DOCUSATE SODIUM 100 MG CAPSULE PO (21:02)
[2023-10-04] MEDS: METOPROLOL SUCCINATE EXT REL 50 MG TABCR PO (21:02)
[2023-10-04] MEDS: MIRTAZAPINE 15 MG TABLET PO (21:02)
[2023-10-04 21:43] LABS: Glucose Point of Care 174 mg/dl (65-105)
[2023-10-05] MEDS: LEVOTHYROXINE SODIUM 50 MCG TABLET PO (05:59)
[2023-10-05 06:00] VITALS: BP 141/94; PULSE 73; RESP 20; TEMP 36.6; O2SAT 97
[2023-10-05 06:35] LABS: Basophils Absolute Auto 0.1 K/mm3 (0.0-0.1); Basophils Percent Auto 0.7 % (0.2-1.2); Eosinophils Absolute Auto 0.4 K/mm3 (0-0.3); Eosinophils Percent Auto 4.9 % (0-4.4); Hematocrit 28.5 % (42.0-52.0); Hemoglobin 8.9 g/dL (14.0-18.0); Immature Granulocyte Absolute 0.11 K/mm3 (0.00-0.031); Immature Granulocyte Percent A 1.3 % (0-0.5); Lymphocytes Absolute Auto 1.62 K/mm3 (0.9-3.2); Lymphocytes Percent Auto 19.2 % (18.3-44.2); Mean Corpuscular HGB Conc 31.2 g/dl (32-36); Mean Corpuscular Hemoglobin 27.7 pg (26-34); Mean Corpuscular Volume 88.8 fl (80-100); Mean Platelet Volume 9.8 fl (7.4-10.4); Monocytes Absolute Auto 0.6 K/mm3 (0.1-0.6); Monocytes Percent Auto 6.7 % (2.6-8.5); Neutrophils Absolute Auto 5.7 K/mm3 (1.3-6.7); Neutrophils Percent Auto 67.2 % (45.5-73.1); Platelet Count Result 326 k/mm3 (150-375); Red Blood Count 3.21 M/mm3 (4.6-6.20); White Blood Count 8.5 K/mm3 (4.5-10.0)
[2023-10-05 07:03] LABS: Alanine Aminotransferase 13 U/L (6-50); Albumin Level 3.5 g/dL (3.5-5.1); Alkaline Phosphatase 82 U/L (38-126); Anion Gap 10 mmol/L (8-16); Aspartate Amino Transferase 24 U/L (17-59); Bilirubin,Total 0.7 mg/dL (0.2-1.3); Blood Urea Nitrogen 19 mg/dL (9-20); Calcium 8.1 mg/dL (8.4-10.2); Carbon Dioxide 26 mmol/L (22-30); Chloride 100 mmol/L (98-107); Estimated CRCL calculation 15 ml/min; Estimated Glomerular Filt Rate 11; Glucose 187 mg/dL (65-110); Potassium 4.2 mmol/L (3.4-5.0); Sodium 136 mmol/L (137-145)
[2023-10-05 07:30] LABS: Glucose Point of Care 180 mg/dl (65-105)
[2023-10-05 08:00] VITALS: PULSE 65; O2SAT 100
[2023-10-05] MEDS: INSULIN HUMAN ISOPHAN/REGULAR 70/30 (*BKC) 100 UNITS/ML 20 UNITS SUB-Q ×2 (08:02→20:56)
[2023-10-05] MEDS: polyethylene glycoL 3350 17 GM POWD.PACK PO (08:04)
[2023-10-05] MEDS: PANTOPRAZOLE 40 MG TABLET PO (08:05)
[2023-10-05] MEDS: LOSARTAN POTASSIUM 50 MG TABLET PO (08:05)
[2023-10-05] MEDS: TAMSULOSIN HCL 0.4 MG CAPSULE PO (08:05)
[2023-10-05] MEDS: DOCUSATE SODIUM 100 MG CAPSULE PO ×2 (08:05→20:07)
[2023-10-05] MEDS: FUROSEMIDE 80 MG TABLET PO ×2 (08:05→17:03)
--- NOTE | 2023-10-05 10:23 | P.PNNP_ITS ---
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 * he has been symptomatic given his poor clearance of uremic toxins * suspect recent COVID infection has likely worsened these symptoms * s/p tunneled HD catheter placement as well as PD catheter removal (on 10/02/22) * HD yesterday -- plan next HD treatment on Saturday or Saturday (if still hospitalized) * outpatient dialysis arrangements being finalized (2) COVID: Code(s): U07.1 - COVID-19 Status: Acute Assessment and Plan: * as noted by positive testing * symptomatic for the last few days * negative CXR and not hypoxic on admission * supportive therapy (3) Generalized weakness: Code(s): R53.1 - Weakness Status: Acute Assessment and Plan: * due to a combination of poor dialysis and COVID * relatively anemia maybe a contributing factor as well * PT/OT as tolerated (4) Chronic anemia: Code(s): D64.9 - Anemia, unspecified Status: Acute Assessment and Plan: * due to ESRD and poor dialysis * Epogen with HD * adequate iron stores * follow H/H (5) Hypertension: Code(s): I10 - Essential (primary) hypertension Status: Chronic Assessment and Plan: * reasonable control * follow hemodynamics (6) Paroxysmal atrial fibrillation: Code(s): I48.0 - Paroxysmal atrial fibrillation Status: Acute Assessment and Plan: * rate control strategy * okay to resume anticoagulation (7) Diabetes: Qualifiers: Diabetes mellitus complication status: with other specified complication Diabetes mellitus terminal superintendent insulin use: with shelter use Diabetes mellitus type: type 2 Qualified Code(s): E11.69 - Type 2 diabetes mellitus with other specified complication; Z79.4 - correction (current) use of insulin Code(s): E11.9 - Type 2 diabetes mellitus without complications Status: Chronic Assessment and Plan: * follow accu-checks * glycemic control per hospitalists Not opposed to discharge from renal perspective if otherwise medically stable and outpatient dialysis schedule/facility is finalized; since he received 3 dialysis treatments this week, he should be okay to start outpatient hemodialysis treatments on Saturday or Saturday; if not discharged, plan next HD treatment next week (likely Saturday). Will continue to follow. Subjective Date/time seen: 10/05/23 10:23 Interval history: Follow-up for end stage renal disease (with conversion to hemodialysis from peritoneal dialysis). Tolerated dialysis treatment yesterday without any issues or problems; overall, feels better in general since admission; no apparent distress noted voiced; no issues/problems overnight or earlier this morning; ambulating independently as well. Exam Narrative: General: elderly male in NAD Heart: normal S1 and S2; no rub Lungs: clear to auscultation Abdomen: soft, nontender, nondistended, positive bowel sounds Extremities: no cyanosis or clubbing; no edema Skin: no nodules Objective Data Vital Signs Vital Signs:
--- NOTE | 2023-10-05 10:23 | PM.PNNEP ---
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 he has been symptomatic given his poor clearance of uremic toxins suspect recent COVID infection has likely worsened these symptoms s/p tunneled HD catheter placement as well as PD catheter removal (on 10/02/22) HD yesterday -- plan next HD treatment on Saturday or Saturday (if still hospitalized) outpatient dialysis arrangements being finalized (2) COVID: Code(s): U07.1 - COVID-19 Status: Acute Assessment and Plan: as noted by positive testing symptomatic for the last few days negative CXR and not hypoxic on admission supportive therapy (3) Generalized weakness: Code(s): R53.1 - Weakness Status: Acute Assessment and Plan: due to a combination of poor dialysis and COVID relatively anemia maybe a contributing factor as well PT/OT as tolerated (4) Chronic anemia: Code(s): D64.9 - Anemia, unspecified Status: Acute Assessment and Plan: due to ESRD and poor dialysis Epogen with HD adequate iron stores follow H/H (5) Hypertension: Code(s): I10 - Essential (primary) hypertension Status: Chronic Assessment and Plan: reasonable control follow hemodynamics (6) Paroxysmal atrial fibrillation: Code(s): I48.0 - Paroxysmal atrial fibrillation Status: Acute Assessment and Plan: rate control strategy okay to resume anticoagulation (7) Diabetes: Qualifiers: Diabetes mellitus complication status: with other specified complication Diabetes mellitus salvage determiner insulin use: with longterm use Diabetes mellitus type: type 2 Qualified Code(s): E11.69 - Type 2 diabetes mellitus with other specified complication; Z79.4 - assistant terminal manager (current) use of insulin Code(s): E11.9 - Type 2 diabetes mellitus without complications Status: Chronic Assessment and Plan: follow accu-checks glycemic control per hospitalists Not opposed to discharge from renal perspective if otherwise medically stable and outpatient dialysis schedule/facility is finalized; since he received 3 dialysis treatments this week, he should be okay to start outpatient hemodialysis treatments on Saturday or [place]; if not discharged, plan next HD treatment next week (likely Saturday). Will continue to follow. Subjective Date/time seen: 10/05/23 10:23 Interval history: Follow-up for end stage renal disease (with conversion to hemodialysis from peritoneal dialysis). Tolerated dialysis treatment yesterday without any issues or problems; overall, feels better in general since admission; no apparent distress noted voiced; no issues/problems overnight or earlier this morning; ambulating independently as well. Exam Narrative: General: elderly male in NAD Heart: normal S1 and S2; no rub Lungs: clear to auscultation Abdomen: soft, nontender, nondistended, positive bowel sounds Extremities: no cyanosis or clubbing; no edema Skin: no nodules Objective Data Vital Signs Vital Signs: Vital Signs Temp Pulse Resp BP Pulse Ox O2 Del Method 10/05/23 10:00 98.1 F 56 L 16 117/70 100 10/05/23 08:00 65 100 Room Air 10/05/23 06:00 98 F 73 20 141/94 H 97 10/04/23 20:00 Room Air 10/04/23 22:00 97.8 F 71 20 141/79 H 98 10/04/23 21:02 83 Intake/Output Intake/Output: Intake & Output 10/02/23 10/03/23 10/04/23 10/05/23 23:59 23:59 23:59 23:59 Intake Total 980 1410 1160 1200 Output Total 1065 1600 1500 Balance -85 -190 -340 1200
[2023-10-05 11:47] LABS: Glucose Point of Care 222 mg/dl (65-105)
[2023-10-05] MEDS: INSULIN ASPART (*BKC) 100 UNITS/ML SUB-Q (12:04)
[2023-10-05 14:00] VITALS: BP 117/70; PULSE 56; RESP 16; TEMP 36.7; O2SAT 100
--- NOTE | 2023-10-05 14:11 | PM.DS ---
DS: Admitting Diagnosis Discharge Date October 05, 2023 Admitting Diagnosis COVID-19 DS: Discharge Diagnosis Discharge Diagnosis (1) COVID: Code(s): U07.1 - COVID-19 Status: Acute Assessment and Plan: Continue supportive alf (2) End-stage renal disease on peritoneal dialysis: Code(s): N18.6 - End stage renal disease; Z99.2 - Dependence on renal dialysis Status: Acute Assessment and Plan: Received HD dialysis catheter October 02 (3) Generalized weakness: Code(s): R53.1 - Weakness Status: Acute Assessment and Plan: Receive PT and OT while (4) Chronic anemia: Code(s): D64.9 - Anemia, unspecified Status: Acute Assessment and Plan: Due to chronic renal disease with stable hemoglobin (5) Chronic anticoagulation: Code(s): 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 He became weaker and was unable to care for himself. He resides with his . He presented [facility] September 30 was admitted. During admission he had removal of his peritoneal dialysis catheter and placement of a hemodialysis catheter. Care coordination arrange hemodialysis see Saturday. He tolerated him as inpatient. He received physical therapy and occupational therapy. He was tolerating his diet well. Laboratory values were stable. He remained afebrile with stable vital signs. He did not require oxygen during hospitalization. His chest x-ray showed clear lungs. On the day of discharge she was ambulating independently with physical therapist observing. Time Spent with Patient Time attestation: Total time spent providing and/or coordinating discharge services: Exam Narrative: General: Chronically ill-appearing gentleman in the semi-Fraser position in bed. Weight: 118.8 kg. BMI: 39.8. HEENT: Normocephalic, atraumatic. Right pupil is reactive. He keeps his left eye closed. Tacky mucous membranes. Crowded oropharynx. Neck: Supple. Exam limited due to neck circumference. No obvious JVD. Respiratory: Respirations are nonlabored. Lungs are clear to auscultation. Occasional dry cough. Cardiovascular: Regular rate and rhythm with S1-S2. Gastrointestinal: Abdomen is soft, obese, and nontender with positive bowel sounds. PD catheter site is clean, dry, and intact. Skin: Warm and dry. Generalized pallor. Extremities: No cyanosis or clubbing. Trace pretibial edema bilaterally.. Radial and pedal pulses intact. Neurological: Alert. Cranial nerves 2-12 are grossly intact. Generalized weakness without gross focal deficits. Psychiatric: Pleasant and cooperative with normal mood and affect. Judgment and insight intact. DS: Data Data Completed and Pending Labs on day of discharge: Labs from last 24 hours 10/05/23 10/05/23 10/05/23 11:33 07:22 06:20 WBC 8.5 RBC 3.21 L Hgb 8.9 L Hct 28.5 L MCV 88.8 MCH 27.7 MCHC 31.2 L RDW 14.0 Plt Count 326 MPV 9.8 Immature Gran % (Auto) 1.3 H Neut % (Auto) 67.2 Lymph % (Auto) 19.2 [place] % (Auto) 6.7 Eos % (Auto) 4.9 H Baso % (Auto) 0.7 Lymph # (Auto) 1.62 [place] # (Auto) 0.6 Eos # (Auto) 0.4 H Baso # (Auto) 0.1 Abs Immat Gran (auto) 0.11 H Absolute Neuts (auto) 5.7 Absolute Nucleated RBC 0.0 Nucleated RBC % 0.0 Sodium 136 L Potassium 4.2 Chloride 100 Carbon Dioxide 26 Anion Ga
--- NOTE | 2023-10-05 15:03 | PM.IMPN ---
Progress Note: A&P Assessment and Plan (1) COVID: Code(s): U07.1 - COVID-19 Status: Acute Assessment and Plan: Continue supportive long term (2) End-stage renal disease on peritoneal dialysis: Code(s): N18.6 - End stage renal disease; Z99.2 - Dependence on renal dialysis Status: Acute Assessment and Plan: Received HD dialysis catheter October 02 (3) Generalized weakness: Code(s): R53.1 - Weakness Status: Acute Assessment and Plan: Receive PT and OT while (4) Chronic anemia: Code(s): D64.9 - Anemia, unspecified Status: Acute Assessment and Plan: Due to chronic renal disease with stable hemoglobin (5) Chronic anticoagulation: Code(s): 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 Mild constipation. No chest pain or shortness of breath. No abnormal bleeding. Tolerated dialysis. Schedule dialysis time is 5:40 a.m. 3 days per week. Transportation may be problematic. Care coordination is querying family. Review of Systems Review of Systems: All systems reviewed & are unremarkable except as noted in HPI and below Exam Narrative: General: Chronically ill-appearing gentleman in the semi-Fraser position in bed. Weight: 118.8 kg. BMI: 39.8. HEENT: Normocephalic, atraumatic. Right pupil is reactive. He keeps his left eye closed. Tacky mucous membranes. Crowded oropharynx. Neck: Supple. Exam limited due to neck circumference. No obvious JVD. Respiratory: Respirations are nonlabored. Lungs are clear to auscultation. Occasional dry cough. Cardiovascular: Regular rate and rhythm with S1-S2. Gastrointestinal: Abdomen is soft, obese, and nontender with positive bowel sounds. PD catheter site is clean, dry, and intact. Skin: Warm and dry. Generalized pallor. Extremities: No cyanosis or clubbing. Trace pretibial edema bilaterally.. Radial and pedal pulses intact. Neurological: Alert. Cranial nerves 2-12 are grossly intact. Generalized weakness without gross focal deficits. Psychiatric: Pleasant and cooperative with normal mood and affect. Judgment and insight intact. Objective Data Vital Signs Vital Signs: Vital Signs - 24 hr 10/04/23 21:02 10/04/23 22:00 10/04/23 20:00 Temperature 97.8 F Pulse Rate 83 71 Respiratory Rate 20 Blood Pressure 141/79 H Pulse Oximetry 98 Oxygen Delivery Room Air 10/05/23 06:00 10/05/23 08:00 Temperature 98 F Pulse Rate 73 65 Respiratory Rate 20 Blood Pressure 141/94 H Pulse Oximetry 97 100 Oxygen Delivery Room Air Intake/Output Intake/Output: Intake & Output 10/02/23 10/03/23 10/04/23 10/05/23 23:59 23:59 23:59 23:59 Intake Total 980 1410 1160 1200 Output Total 1065 1600 1500 Balance -85 -190 -340 1200 Meds/Results Medications: Active Medications Generic Name Dose Route Start Last Admin Trade Name Freq PRN Reason Stop Dose Admin Acetaminophen 650 mg 09/30/23 23:01 Acetaminophen 325 Mg Tablet PO Q6H PRN Mild Pain (1-3) or Fever Hydrocodone Bitart/Acetaminophen 1 tab 10/02/23 09:50 10/03/23 16:58 Hydrocodone/Acetaminophen (*Crx) 5-325 Mg Tablet PO 1 tab Q4H PRN Administration Pain Rated 4-6 Albuterol 2 puff 09/30/23 23:01 Albuterol Sulfate (*Sp) Aerosol 1 Puff INHALATION QIDRT PRN Shortness Of Breath Dextrose 12.5 gm 09/30/23 23:01 10/03/23 05:14 Dextrose 50% 25 Gm/50 Ml Syringe IV PUSH 12.5 gm PRN PRN Administration Hypoglycemia Protocol Diphenhydramine HCl 25 mg 10/02/23 09:50 Diphenhydramine Hcl Inj 50 Mg/Ml Vial IV PUSH Q6H PRN Itching Docusat
[2023-10-05 16:55] LABS: Glucose Point of Care 159 mg/dl (65-105)
[2023-10-05 20:00] VITALS: O2SAT 100
[2023-10-05] MEDS: MIRTAZAPINE 15 MG TABLET PO (20:07)
[2023-10-05] MEDS: GABAPENTIN 100 MG CAPSULE PO (20:07)
[2023-10-05] MEDS: PRAVASTATIN SODIUM 10 MG TABLET PO (20:07)
[2023-10-05 20:39] VITALS: BP 153/75; PULSE 69; RESP 16; TEMP 36.8; O2SAT 100
[2023-10-05 20:42] LABS: Glucose Point of Care 181 mg/dl (65-105)
[2023-10-05 20:56] VITALS: PULSE 69
[2023-10-05] MEDS: METOPROLOL SUCCINATE EXT REL 50 MG TABCR PO (20:56)
[2023-10-06 05:42] VITALS: BP 121/70; PULSE 84; RESP 18; TEMP 36.2; O2SAT 99
[2023-10-06 06:13] LABS: Basophils Absolute Auto 0.1 K/mm3 (0.0-0.1); Basophils Percent Auto 0.6 % (0.2-1.2); Eosinophils Absolute Auto 0.6 K/mm3 (0-0.3); Eosinophils Percent Auto 5.7 % (0-4.4); Hemoglobin 9.6 g/dL (14.0-18.0); Immature Granulocyte Absolute 0.11 K/mm3 (0.00-0.031); Immature Granulocyte Percent A 1.1 % (0-0.5); Lymphocytes Absolute Auto 2.41 K/mm3 (0.9-3.2); Lymphocytes Percent Auto 25.1 % (18.3-44.2); Mean Corpuscular Hemoglobin 27.8 pg (26-34); Mean Corpuscular Volume 89.9 fl (80-100); Mean Platelet Volume 9.5 fl (7.4-10.4); Monocytes Absolute Auto 0.7 K/mm3 (0.1-0.6); Neutrophils Absolute Auto 5.8 K/mm3 (1.3-6.7); Neutrophils Percent Auto 60.5 % (45.5-73.1); Platelet Count Result 371 k/mm3 (150-375); Red Blood Count 3.45 M/mm3 (4.6-6.20); Red Cell Distribution Width 14.3 % (11.5-14.5); White Blood Count 9.6 K/mm3 (4.5-10.0)
[2023-10-06 06:26] LABS: Alanine Aminotransferase 14 U/L (6-50); Albumin Level 3.4 g/dL (3.5-5.1); Alkaline Phosphatase 81 U/L (38-126); Anion Gap 9 mmol/L (8-16); Aspartate Amino Transferase 24 U/L (17-59); Bilirubin,Total 0.7 mg/dL (0.2-1.3); Blood Urea Nitrogen 26 mg/dL (9-20); Calcium 8.2 mg/dL (8.4-10.2); Carbon Dioxide 30 mmol/L (22-30); Chloride 99 mmol/L (98-107); Estimated CRCL calculation 12 ml/min; Estimated Glomerular Filt Rate 9; Glucose 119 mg/dL (65-110); Sodium 138 mmol/L (137-145)
[2023-10-06] MEDS: LEVOTHYROXINE SODIUM 50 MCG TABLET PO (07:22)
[2023-10-06 07:31] LABS: Glucose Point of Care 108 mg/dl (65-105)
[2023-10-06 08:00] VITALS: O2SAT 99
[2023-10-06] MEDS: INSULIN HUMAN ISOPHAN/REGULAR 70/30 (*BKC) 100 UNITS/ML 20 UNITS SUB-Q (08:15)
[2023-10-06] MEDS: FUROSEMIDE 80 MG TABLET PO ×2 (08:18→17:00)
[2023-10-06] MEDS: TAMSULOSIN HCL 0.4 MG CAPSULE PO (08:18)
[2023-10-06] MEDS: LOSARTAN POTASSIUM 50 MG TABLET PO (08:18)
[2023-10-06] MEDS: PANTOPRAZOLE 40 MG TABLET PO (08:18)
[2023-10-06] MEDS: DOCUSATE SODIUM 100 MG CAPSULE PO ×2 (08:18→21:05)
--- NOTE | 2023-10-06 08:46 | PM.IMPN ---
Progress Note: A&P Assessment and Plan (1) COVID: Code(s): U07.1 - COVID-19 Status: Acute Assessment and Plan: Continue supportive care (2) End-stage renal disease on peritoneal dialysis: Code(s): N18.6 - End stage renal disease; Z99.2 - Dependence on renal dialysis Status: Acute Assessment and Plan: Received HD dialysis catheter October 02 Continue HD as outpatient when appt that he can attend is available (3) Generalized weakness: Code(s): R53.1 - Weakness Status: Acute Assessment and Plan: Doing well with PT and OT (4) Chronic anemia: Code(s): D64.9 - Anemia, unspecified Status: Acute Assessment and Plan: Due to chronic renal disease with stable hemoglobin (5) Chronic anticoagulation: Code(s): 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 Tolerated diet. No chest pain or shortness of breath. No GI or complaints. Still awaiting appointment with outpatient dialysis as he could not keep the 5:40 a.m. appointments due to no transportation. Review of Systems Review of Systems: All systems reviewed & are unremarkable except as noted in HPI and below Exam Narrative: General: Chronically ill-appearing gentleman in the semi-Fraser position in bed. Weight: 118.8 kg. BMI: 39.8. HEENT: Normocephalic, atraumatic. Right pupil is reactive. He keeps his left eye closed. Tacky mucous membranes. Crowded oropharynx. Neck: Supple. Exam limited due to neck circumference. No obvious JVD. Respiratory: Respirations are nonlabored. Lungs are clear to auscultation. Occasional dry cough. Cardiovascular: Regular rate and rhythm with S1-S2. Gastrointestinal: Abdomen is soft, obese, and nontender with positive bowel sounds. PD catheter site is clean, dry, and intact. Skin: Warm and dry. Generalized pallor. Extremities: No cyanosis or clubbing. Trace pretibial edema bilaterally.. Radial and pedal pulses intact. Neurological: Alert. Cranial nerves 2-12 are grossly intact. Generalized weakness without gross focal deficits. Psychiatric: Pleasant and cooperative with normal mood and affect. Judgment and insight intact. Objective Data Vital Signs Vital Signs: Vital Signs - 24 hr 10/05/23 14:00 10/05/23 20:39 10/05/23 20:56 Temperature 98.1 F 98.2 F Pulse Rate 56 L 69 69 Respiratory Rate 16 16 Blood Pressure 117/70 153/75 H Pulse Oximetry 100 100 Oxygen Delivery 10/05/23 20:00 10/06/23 05:42 Temperature 97.1 F L Pulse Rate 84 Respiratory Rate 18 Blood Pressure 121/70 Pulse Oximetry 100 99 Oxygen Delivery Room Air Intake/Output Intake/Output: Intake & Output 10/03/23 10/04/23 10/05/23 10/06/23 23:59 23:59 23:59 23:59 Intake Total 1410 1160 1490 480 Output Total 1600 1500 375 Balance -190 -340 1490 105 Meds/Results Medications: Active Medications Generic Name Dose Route Start Last Admin Trade Name Freq PRN Reason Stop Dose Admin Acetaminophen 650 mg 09/30/23 23:01 Acetaminophen 325 Mg Tablet PO Q6H PRN Mild Pain (1-3) or Fever Hydrocodone Bitart/Acetaminophen 1 tab 10/02/23 09:50 10/03/23 16:58 Hydrocodone/Acetaminophen (*Crx) 5-325 Mg Tablet PO 1 tab Q4H PRN Administration Pain Rated 4-6 Albuterol 2 puff 09/30/23 23:01 Albuterol Sulfate (*Sp) Aerosol 1 Puff INHALATION QIDRT PRN Shortness Of Breath Dextrose 12.5 gm 09/30/23 23:01 10/03/23 05:14 Dextrose 50% 25 Gm/50 Ml Syringe IV PUSH 12.5 gm PRN PRN Administration Hypoglycemia Protocol Diphenhydramine HCl 25 mg 10/02/23 09:50 Diphenhydramine Hcl Inj 50 Mg/Ml Vial IV PUSH
[2023-10-06 09:43] VITALS: O2SAT 99
--- NOTE | 2023-10-06 10:16 | PM.PNNEP ---
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 he has been symptomatic given his poor clearance of uremic toxins suspect recent COVID infection has likely worsened these symptoms s/p tunneled HD catheter placement as well as PD catheter removal (on 10/02/22) plan next HD treatment tomorrow with following treatment to be done on outpatient dialysis arrangements being finalized (2) COVID: Code(s): U07.1 - COVID-19 Status: Acute Assessment and Plan: as noted by positive testing symptomatic for the last few days negative CXR and not hypoxic on admission supportive therapy (3) Generalized weakness: Code(s): R53.1 - Weakness Status: Acute Assessment and Plan: due to a combination of poor dialysis and COVID relatively anemia maybe a contributing factor as well PT/OT as tolerated (4) Chronic anemia: Code(s): D64.9 - Anemia, unspecified Status: Acute Assessment and Plan: due to ESRD and poor dialysis Epogen with HD adequate iron stores follow H/H (5) Hypertension: Code(s): I10 - Essential (primary) hypertension Status: Chronic Assessment and Plan: reasonable control follow hemodynamics (6) Paroxysmal atrial fibrillation: Code(s): I48.0 - Paroxysmal atrial fibrillation Status: Acute Assessment and Plan: rate control strategy back on anticoagulation (7) Diabetes: Qualifiers: Diabetes mellitus complication status: with other specified complication Diabetes mellitus long term care social worker insulin use: with long term care social worker use Diabetes mellitus type: type 2 Qualified Code(s): E11.69 - Type 2 diabetes mellitus with other specified complication; Z79.4 - custodial (current) use of insulin Code(s): E11.9 - Type 2 diabetes mellitus without complications Status: Chronic Assessment and Plan: follow accu-checks glycemic control per hospitalists Will continue to follow. Subjective Date/time seen: 10/06/23 10:16 Interval history: Follow-up for end stage renal disease (with conversion to hemodialysis from peritoneal dialysis). Discharge was planned yesterday but due to lack of transportation for/to his next outpatient dialysis treatment, this was cancelled; no apparent issues/events overnight or earlier today; feels reasonably well; no distress voiced. Exam Narrative: General: elderly male in NAD Heart: normal S1 and S2; no rub Lungs: clear to auscultation Abdomen: soft, nontender, nondistended, positive bowel sounds Extremities: no cyanosis or clubbing; no edema Skin: warm and dry Objective Data Vital Signs Vital Signs: Vital Signs Temp Pulse Resp BP Pulse Ox O2 Del Method 10/06/23 08:00 99 Room Air 10/06/23 09:43 99 Room Air 10/06/23 05:42 97.1 F L 84 18 121/70 99 10/05/23 20:00 100 Room Air 10/05/23 20:56 69 10/05/23 20:39 98.2 F 69 16 153/75 H 100 Intake/Output Intake/Output: Intake & Output 10/03/23 10/04/23 10/05/23 10/06/23 23:59 23:59 23:59 23:59 Intake Total 1410 1160 1490 960 Output Total 1600 1500 375 Balance -190 -340 1490 585 Meds/Results Medications: Active Medications Generic Name Dose Route Start Last Admin Trade Name Freq PRN Reason Stop Dose Admin Acetaminophen 650 mg 09/30/23 23:01 Acetaminophen 325 Mg Tablet PO Q6H PRN Mild Pain (1-3) or Fever Hydrocodone Bitart/Acetaminophen 1 tab 10/02/23 09:50 10/03/23 16:58 Hydrocodone/Acetaminophen (*Crx) 5-32
--- NOTE | 2023-10-06 10:16 | P.PNNP_ITS ---
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 * he has been symptomatic given his poor clearance of uremic toxins * suspect recent COVID infection has likely worsened these symptoms * s/p tunneled HD catheter placement as well as PD catheter removal (on 10/02/22) * plan next HD treatment tomorrow with following treatment to be done on * outpatient dialysis arrangements being finalized (2) COVID: Code(s): U07.1 - COVID-19 Status: Acute Assessment and Plan: * as noted by positive testing * symptomatic for the last few days * negative CXR and not hypoxic on admission * supportive therapy (3) Generalized weakness: Code(s): R53.1 - Weakness Status: Acute Assessment and Plan: * due to a combination of poor dialysis and COVID * relatively anemia maybe a contributing factor as well * PT/OT as tolerated (4) Chronic anemia: Code(s): D64.9 - Anemia, unspecified Status: Acute Assessment and Plan: * due to ESRD and poor dialysis * Epogen with HD * adequate iron stores * follow H/H (5) Hypertension: Code(s): I10 - Essential (primary) hypertension Status: Chronic Assessment and Plan: * reasonable control * follow hemodynamics (6) Paroxysmal atrial fibrillation: Code(s): I48.0 - Paroxysmal atrial fibrillation Status: Acute Assessment and Plan: * rate control strategy * back on anticoagulation (7) Diabetes: Qualifiers: Diabetes mellitus complication status: with other specified complication Diabetes mellitus custodial insulin use: with custodial use Diabetes mellitus type: type 2 Qualified Code(s): E11.69 - Type 2 diabetes mellitus with other specified complication; Z79.4 - assisted (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 Subjective Date/time seen: 10/06/23 10:16 Interval history: Follow-up for end stage renal disease (with conversion to hemodialysis from peritoneal dialysis). Discharge was planned yesterday but due to lack of transportation for/to his next outpatient dialysis treatment, this was cancelled; no apparent issues/events overnight or earlier today; feels reasonably well; no distress voiced. Exam Narrative: General: elderly male in NAD Heart: normal S1 and S2; no rub Lungs: clear to auscultation Abdomen: soft, nontender, nondistended, positive bowel sounds Extremities: no cyanosis or clubbing; no edema Skin: warm and dry Objective Data Vital Signs Vital Signs: Vital Signs Temp Pulse Resp BP Pulse Ox O2 Del Method 10/06/23 08:00 99 Room Air 10/06/23 09:43 99 Room Air 10/06/23 05:42 97.1 F L 84 18 121/70 99 10/05/23 20:00 100 Room Air 10/05/23 20:56 69
[2023-10-06 11:51] LABS: Glucose Point of Care 155 mg/dl (65-105)
[2023-10-06 14:37] VITALS: BP 125/82; PULSE 72; RESP 20; TEMP 36.6; O2SAT 98
[2023-10-06 16:48] LABS: Glucose Point of Care 166 mg/dl (65-105)
[2023-10-06 20:32] VITALS: BP 141/70; PULSE 83; RESP 16; TEMP 36.4; O2SAT 99
[2023-10-06 20:32] LABS: Glucose Point of Care 227 mg/dl (65-105)
[2023-10-06 21:04] VITALS: PULSE 83
[2023-10-06] MEDS: GABAPENTIN 100 MG CAPSULE PO (21:04)
[2023-10-06] MEDS: METOPROLOL SUCCINATE EXT REL 50 MG TABCR PO (21:04)
[2023-10-06] MEDS: MIRTAZAPINE 15 MG TABLET PO (21:04)
[2023-10-06] MEDS: PRAVASTATIN SODIUM 10 MG TABLET PO (21:04)
[2023-10-07] MEDS: INSULIN HUMAN ISOPHAN/REGULAR 70/30 (*BKC) 100 UNITS/ML 20 UNITS SUB-Q (00:23)
[2023-10-07] MEDS: INSULIN ASPART (*BKC) 100 UNITS/ML SUB-Q (00:25)
[2023-10-07 05:33] VITALS: BP 143/76; PULSE 73; RESP 18; TEMP 36.3; O2SAT 100
[2023-10-07 06:04] LABS: Basophils Absolute Auto 0.1 K/mm3 (0.0-0.1); Basophils Percent Auto 0.5 % (0.2-1.2); Eosinophils Absolute Auto 0.5 K/mm3 (0-0.3); Eosinophils Percent Auto 4.5 % (0-4.4); Hematocrit 27.5 % (42.0-52.0); Hemoglobin 8.5 g/dL (14.0-18.0); Immature Granulocyte Absolute 0.14 K/mm3 (0.00-0.031); Immature Granulocyte Percent A 1.4 % (0-0.5); Lymphocytes Absolute Auto 2.02 K/mm3 (0.9-3.2); Lymphocytes Percent Auto 20.2 % (18.3-44.2); Mean Corpuscular HGB Conc 30.9 g/dl (32-36); Mean Corpuscular Hemoglobin 27.7 pg (26-34); Mean Corpuscular Volume 89.6 fl (80-100); Mean Platelet Volume 9.5 fl (7.4-10.4); Monocytes Absolute Auto 0.7 K/mm3 (0.1-0.6); Monocytes Percent Auto 7.4 % (2.6-8.5); Neutrophils Absolute Auto 6.6 K/mm3 (1.3-6.7); Platelet Count Result 334 k/mm3 (150-375); Red Blood Count 3.07 M/mm3 (4.6-6.20); Red Cell Distribution Width 14.3 % (11.5-14.5)
[2023-10-07 06:17] LABS: Alanine Aminotransferase 13 U/L (6-50); Albumin Level 3.3 g/dL (3.5-5.1); Alkaline Phosphatase 74 U/L (38-126); Anion Gap 13 mmol/L (8-16); Aspartate Amino Transferase 23 U/L (17-59); Bilirubin,Total 0.5 mg/dL (0.2-1.3); Blood Urea Nitrogen 32 mg/dL (9-20); Carbon Dioxide 25 mmol/L (22-30); Chloride 101 mmol/L (98-107); Estimated CRCL calculation 10 ml/min; Estimated Glomerular Filt Rate 7; Glucose 101 mg/dL (65-110); Potassium 4.1 mmol/L (3.4-5.0); Sodium 139 mmol/L (137-145)
[2023-10-07] MEDS: LEVOTHYROXINE SODIUM 50 MCG TABLET PO (06:40)
[2023-10-07 07:59] LABS: Glucose Point of Care 94 mg/dl (65-105)
[2023-10-07] MEDS: DOCUSATE SODIUM 100 MG CAPSULE PO (09:23)
[2023-10-07] MEDS: PANTOPRAZOLE 40 MG TABLET PO (09:24)
[2023-10-07] MEDS: polyethylene glycoL 3350 17 GM POWD.PACK PO (09:24)
[2023-10-07] MEDS: TAMSULOSIN HCL 0.4 MG CAPSULE PO (09:24)
[2023-10-07 11:28] LABS: Glucose Point of Care 171 mg/dl (65-105)
--- NOTE | 2023-10-07 14:20 | PM.IMPN ---
Progress Note: A&P Assessment and Plan (1) COVID: Code(s): U07.1 - COVID-19 Status: Acute Assessment and Plan: Continue supportive care (2) End-stage renal disease on peritoneal dialysis: Code(s): N18.6 - End stage renal disease; Z99.2 - Dependence on renal dialysis Status: Acute Assessment and Plan: Received HD dialysis catheter October 02 Continue HD as outpatient when appt that he can attend is available (3) Generalized weakness: Code(s): R53.1 - Weakness Status: Acute Assessment and Plan: Doing well with PT and OT (4) Chronic anemia: Code(s): D64.9 - Anemia, unspecified Status: Acute Assessment and Plan: Due to chronic renal disease with stable hemoglobin (5) Chronic anticoagulation: Code(s): 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 Status: Acute Assessment and Plan: Continue (6) Paroxysmal atrial fibrillation: Code(s): I48.0 - Paroxysmal atrial fibrillation Status: Acute Assessment and Plan: Stable clinically Plan Assessment and Plan (1) COVID Infection ?Code(s): U07.1 - COVID-19 ?Status:?Acute ?Assessment and Plan: Stable Will manage supportively Incentive spirometry; Anti-tussives (2) End-stage renal disease on peritoneal dialysis: ?Code(s): N18.6 - End stage renal disease; Z99.2 - Dependence on renal dialysis ?Status:?Acute ?Assessment and Plan: Slated for dialysis catheter today; Currently has a HD catheter Slated for HD today, 10/02/23 (3) Generalized weakness: ?Code(s): R53.1 - Weakness ?Status:?Acute PT/OT eval and Rx (4) Chronic anemia: ?Code(s): D64.9 - Anemia, unspecified ?Status:?Acute Goal Hb >7; monitor Hb (5) Chronic anticoagulation: ?Code(s): 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 Dyslipidemia. Resume statin GERD. on PPI BPH.?on Tamsulosin Peripheral neuropathy?w/IDDM. on Gabapentin IDDM. Basal+correctional insulin Time Spent With Patient Time with patient: 25 - 35 minutes Subjective Date/time seen: 10/07/23 14:20 Interval history: Follow-up for end stage renal disease (with conversion to hemodialysis from peritoneal dialysis). Discharge was planned yesterday but due to lack of transportation for/to his next outpatient dialysis treatment, this was cancelled; no apparent issues/events overnight or earlier today; feels reasonably well; no distress voiced. 10/07/23: Slated to be discharged today; will DC today. See DC summary from yesterday. Review of Systems Review of Systems: Twelve systems were reviewed and are negative except for as per HPI. All systems reviewed & are unremarkable except as noted in HPI and below Constitutional: Constitutional: Reports fatigue ENT: Reports system reviewed and no additional complaints, except as documented Cardiovascular: Cardiovascular: Reports no additional cardiovascular complaints Respiratory: Respiratory: Reports no additional respiratory complaints Gastrointestinal: Gastrointestinal: Reports no additional gastrointestinal complaints Musculoskeletal: Musculoskeletal: Reports no additional musculoskeletal complaints Integumentary/Breasts: Skin/Breast: Reports system reviewed and no additional complaints, except as docu Neurologic: Reports system reviewed and no additional complaints, except as documented Psychiatric: Psychiatric: Reports no additional psychiatric complaints Endocrine: Endocrine: Reports fatigue Exam Narrative: General: Chronically ill-appearing gentleman in the semi-Fraser position in bed. Weight: 118.8 kg. BMI: 39.8. HEENT: Normocephalic, atraumatic. Right pupil is reactive. He keeps his left eye closed. Tacky mucous membrane
== END 2023-10-07 13:55 | disposition home or self-care (01) | DRG 177 ==
LOC: ANHED 15:40 → ANH3MEDSUR 18:12
PROVIDERS: Emergency Medicine; Internal Medicine; Internal Medicine Nephrology; Physician Assistant; Surgery; Admitting Provider Student in an Organized Health Care Education/Training Program; Emergency Provider Emergency Medicine; PCP Internal Medicine; Visit Provider Internal Medicine
PROC: 0JH63XZ Insertion of Tunneled Vascular Access Device into Chest Subcutaneous Tissue and Fascia, Percutaneous Approach (ICD-10-PCS; CPT 36908; principal; 2023-10-02 07:30)
DX: U07.1 COVID-19 (principal); N18.6 End stage renal disease; I12.0 Hypertensive chronic kidney disease with stage 5 chronic kidney disease or end stage renal disease; D63.1 Anemia in chronic kidney disease; E11.22 Type 2 diabetes mellitus with diabetic chronic kidney disease; E03.9 Hypothyroidism, unspecified; I48.0 Paroxysmal atrial fibrillation; E11.319 Type 2 diabetes mellitus with unspecified diabetic retinopathy without macular edema; E78.5 Hyperlipidemia, unspecified; E11.42 Type 2 diabetes mellitus with diabetic polyneuropathy; G47.37 Central sleep apnea in conditions classified elsewhere; N40.0 Benign prostatic hyperplasia without lower urinary tract symptoms; E66.01 Morbid (severe) obesity due to excess calories; Z68.37 Body mass index [BMI] 37.0-37.9, adult; Z99.2 Dependence on renal dialysis; Z79.01 Long term (current) use of anticoagulants; Z95.0 Presence of cardiac pacemaker; Z79.4 Long term (current) use of insulin
CPT/HCPCS: 36415; 71045; 77001; 80053; 82728; 82948; 83540; 83550; 83735; 84100; 85025; 85027; 86704; 86706; 87070; 87075; 87205; 87340; 87637; 93005; 97110; 97116; 97161; 97165; 97530; 97535; 99285; A9270; C1750; G0257; G0378; J0360; J0690; J0696; J1644; J1815; J2405; J2704; J3010; J7030; J7040; P9047; Q5105; Q5106

== ENCOUNTER 2024-01-03 11:42 | Outpatient (NON) | payer MEDICARE, SELFPAY ==
[2024-01-03 12:07] LABS: Basophils Absolute Auto 0.05 K/mm3 (0.00-0.10); Basophils Percent Auto 0.4 % (0.0-1.0); Eosinophils Absolute Auto 0.29 K/mm3 (0.02-0.50); Eosinophils Percent Auto 2.3 % (1.0-6.0); Hemoglobin 9.7 g/dL (12.4-15.3); Immature Granulocyte Absolute 0.22 K/mm3 (0.00-0.00); Immature Granulocyte Percent A 1.7 % (0.0-0.0); Lymphocytes Percent Auto 17.2 % (18.0-42.0); Mean Corpuscular HGB Conc 32.3 g/dL (32-36); Mean Corpuscular Hemoglobin 26.6 pg (27.0-31.0); Mean Corpuscular Volume 82.2 fL (78.0-102.0); Mean Platelet Volume 11.1 fl (8.7-11.0); Monocytes Absolute Auto 0.81 K/mm3 (0.10-0.90); Monocytes Percent Auto 6.3 % (2.0-11.0); Neutrophils Percent Auto 72.1 % (50.0-70.0); Platelet Count Result 238 K/mm3 (150-420); Red Blood Count 3.65 M/mm3 (4.70-6.10); White Blood Count 12.8 K/mm3 (4.8-10.8)
[2024-01-03 12:29] LABS: Alanine Aminotransferase 25 U/L (16-63); Albumin Level 3.3 g/dL (3.4-5.0); Alkaline Phosphatase 129 U/L (46-116); Anion Gap 14 mmol/L (4-12); Aspartate Amino Transferase 20 U/L (15-37); Bilirubin,Total 0.3 mg/dL (0.00-1.00); Blood Urea Nitrogen 49 mg/dL (7-18); CRP 0.8 mg/dL (0.0-0.9); Carbon Dioxide 25 mmol/L (21-32); Chloride 99 mmol/L (98-108); Estimated Glomerular Filt Rate 8; Glucose 136 mg/dL (70-99); Osmolality Calculated 301 mOsm/kg (285-295); Phosphorus 5.1 mg/dL (2.6-4.7); Potassium 3.5 mmol/L (3.5-5.1); Sodium 138 mmol/L (136-145); Total Protein 7.1 g/dL (6.4-8.2)
[2024-01-04 12:58] LABS: Parathyroid Intact 419 pg/mL (16-77)
[2024-01-06 10:24] LABS: Ionized Calcium 3.9 mg/dL (4.7-5.5)
== END 2024-01-03 11:43 | disposition home or self-care (01) ==
LOC: CHSLAB 11:45
PROVIDERS: PCP Internal Medicine; Visit Provider Internal Medicine
DX: N18.6 End stage renal disease (principal)
CPT/HCPCS: 80053; 82330; 83970; 84100; 85025; 86140

== ENCOUNTER 2024-05-20 08:54 | Emergency (ER) | payer MEDICARE, OTHER, SELFPAY ==
--- NOTE | 2024-05-20 09:07 | ED.CPR ---
HPI - CPR General Chief Complaint: Cardiac Arrest/CPR Stated Complaint: Ambulance Time Seen by Provider: 05/20/24 09:06 Source: EMS Mode of arrival: EMS Limitations: other History of Present Illness HPI narrative: Patient is a 73-year-old male with a significant past medical history that presents today for [place]. Patient is here and code blue status. He was down around 40 minutes in the field before he appeared to the emergency department. He was already given CPR the last med is around 11 rounds of epi and bicarb in field. Patient was showed up in [place] status is status did not change the entire time he was in the emergency department. We continued CPR upon arrival. He was recently found unresponsive at after apparently falling in the shower. With his cardiac history seems to be he probably had a cardiac arrest and that caused him to fall. He has history of AFib and arrhythmias and is on Eliquis. MD complaint: found unresponsive Onset (ago): minute(s) ( 50) Time: 09:10 Timing confirmed by: family member Place: home Bystander CPR performed: No AED applied by bystander/household refrigerator mechanic: Yes Shock advised: No Downtime before ACLS arrival (mins): 10 Initial findings in the field: unresponsive ROSC in the field: No Associated injuries: No Associated symptoms: other ( unknown) Known history of: CAD, IN and arrhythmia Treatments prior to arrival: intubation, chest compressions, epinephrine mgs # ( 11) and sodium bicarbonate ( 1) Related Data Home Medications Medication Instructions Recorded Confirmed pravastatin 10 mg tablet 10 mg PO HS 03/29/20 03/06/24 omeprazole 20 mg capsule,delayed 20 mg PO DAILY 10/01/20 03/06/24 release furosemide 80 mg tablet 80 mg PO BID 01/01/22 03/06/24 tamsulosin 0.4 mg capsule 0.4 mg PO DAILY 01/01/22 03/06/24 gabapentin 100 mg capsule 100 mg PO QHS 10/31/22 03/06/24 apixaban 2.5 mg tablet (Eliquis) 5 mg PO BID 02/22/23 03/06/24 losartan 100 mg tablet 50 mg PO DAILY 02/22/23 03/06/24 insulin human U-100 NPH-regulr 50 - 70 unit subcut BID 07/03/23 03/06/24 70-30 mix 100 unit/mL subcutaneous susp (Novolin 70/30 U-100 Insulin) hydrocodone 10 mg-acetaminophen 1 tablet PO Q6-8H PRN 03/06/24 03/06/24 325 mg tablet Allergies Allergy/AdvReac Type Severity Reaction Status Date / Time No Known Allergies Allergy Verified 03/06/24 13:07 Review of Systems Review of Systems: ROS unobtainable: Yes unobtainable due to endotracheal tube Constitutional: Constitutional: Reports as per HPI Eyes: Eyes: Reports as per HPI ENT: Reports as per HPI Cardiovascular: Cardiovascular: Reports as per HPI Respiratory: Respiratory: Reports as per HPI Gastrointestinal: Gastrointestinal: Reports as per HPI Genitourinary: Genitourinary: Reports as per HPI Musculoskeletal: Musculoskeletal: Reports as per HPI Integumentary/Breasts: Skin/Breast: Reports as per HPI Neurologic: Reports as per HPI Psychiatric: Psychiatric: Reports as per HPI Endocrine: Endocrine: Reports as per HPI Hematologic/Lymphatic: Hematologic/Lymphatic: Reports as per HPI Allergic/Immunologic: Allergic/Immunologic: Reports as per HPI [facility] Past Medical History Medical History Anemia Central sleep apnea with Jesus-Menon respiration (~06/2021) 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 He still receives eye injections in his right eye. 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
--- NOTE | 2024-05-20 09:56 | PC.NURSE ---
Called Sal Bet[facility] Coroner to notify him of pt's . After review of facts manager dialysis said that pt is to be released to Home. No autopsy necessary.
--- NOTE | 2024-05-20 10:05 | PC.NURSE ---
EMS had indicated that the and a son would be coming to ER. After they had not arrived an hour past time of I called , Misa. She indicated that she didn't have a ride and that her sons were at work. She indicated that she did not realize the seriousness of the patient's condition and wasn't planning on coming up to the ER. After consulting with the ERP, Dr. Victor, it was decided that I would notify that of her 's passing. After telling her she said that she would call her sons to come get her and that they would come to the ER. She did not know which home that they wanted to contact. She stated that she would call me back with that information.
--- NOTE | 2024-05-20 10:28 | PC.NURSE ---
10:28 Yoni from [facility] called and stated that pt is not eligible for donation. States that they notified [facility] about possible donation. [facility] will call us.
--- NOTE | 2024-05-20 10:38 | PC.NURSE ---
Called pt's PCp, Dr. Velasco. Spoke with Joycelyn. Notified her of pt's passing. 10:38
--- NOTE | 2024-05-20 11:10 | PC.NURSE ---
Recieved call from pt's son, Sheng. He said that he and his mother would be arriving to the ER within 10 mins.
--- NOTE | 2024-05-20 11:25 | PC.NURSE ---
, Misa and son, Sheng have arrived to see pt. signed Permit for Removal of Body. They are waiting for pt's sister to arrive to decide on home.
--- NOTE | 2024-05-20 11:35 | PC.NURSE ---
11:35 Nabila syed [facility] called and said that pt is not a candidate for donation.
--- NOTE | 2024-05-20 12:18 | PC.NURSE ---
Called [facility] in [place]. Left message with answering service, Leah.
--- NOTE | 2024-05-20 12:29 | PC.NURSE ---
Foster Holman from [facility] returned my call at [phone]. He stated that they do not have cold storage at their facility. After consultation with family, they are requesting that pt remains here, in ER, until other son arrives to see pt. 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
--- NOTE | 2024-05-20 12:45 | PC.NURSE ---
Family has decided that they will contact [facility] in [place]. They are leaving to go to home. They asked that pt remain here until pt's other son, Kelton, can get here to see pt.
--- NOTE | 2024-05-20 12:52 | PC.NURSE ---
Cecily from [facility] to ask condition of pt. States that they were notified that pt was brought here by family. Notified her of pt's passing.
--- NOTE | 2024-05-20 13:10 | PC.NURSE ---
Pt brought in wearing only underwear and shorts. Both had been cut off by EMS prior to arrival. Family did not wish to have them back. Clothing disposed of per family's wishes.
--- NOTE | 2024-05-20 13:10 | PC.NURSE ---
Pt had no other belongings with him on arrival. Just underwear and shorts, which were disposed of, per family's wishes. No jewelry, phone or other items were transported with pt.
--- NOTE | 2024-05-20 15:00 | PC.NURSE ---
Put gown on pt and placed him in body bag, per home's request. Toe tag placed on left great toe and in flap on outside of body bag.
--- NOTE | 2024-05-20 15:13 | PC.NURSE ---
Called [facility] to notify them of pt's passing. Spoke to Vida. Referal # [id number].
== END 2024-05-20 15:45 | disposition expired ==
PROVIDERS: Emergency Provider Family Medicine; PCP Internal Medicine
DX: I46.9 Cardiac arrest, cause unspecified (principal); E11.22 Type 2 diabetes mellitus with diabetic chronic kidney disease; I12.0 Hypertensive chronic kidney disease with stage 5 chronic kidney disease or end stage renal disease; N18.6 End stage renal disease; E03.9 Hypothyroidism, unspecified; E78.5 Hyperlipidemia, unspecified; I48.0 Paroxysmal atrial fibrillation
CPT/HCPCS: 92950; 99285; J0171; J7030